=== PATIENT | female | born 1935 | race Caucasian/White ===

== ENCOUNTER 2017-07-13 13:11 | Inpatient (IN) ==
[2017-07-13] MEDS ORDERED: *HR* OxyCODONE/APAP 5/325 TABLET PO ONE ×2 (13:37→15:32)
--- NOTE | 2017-07-13 13:49 | Emergency Department Note ---
Disposition Clinical Impression: Hip pain, right, Elevated troponin Fall Qualifiers: Encounter type: initial encounter Qualified Code(s): W19.XXXA - Unspecified fall, initial encounter Hypertension Qualifiers: Hypertension type: unspecified Qualified Code(s): I10 - Essential (primary) hypertension Disposition: Admitted As Inpatient Condition: Fair Referrals: Eden Wells MD [Primary Care Provider] - Forms: ED Satisfaction Letter Time of Disposition: 15:35 Fall HPI - General Chief Complaint: ED Fall Stated Complaint: Fall Time Seen by Provider: 07/13/17 13:18 Source: patient, EMS Mode of arrival: ambulatory Limitations: no limitations Nursing Notes Reviewed: Yes Vital Signs Reviewed: Yes - History of Present Illness HPI Narrative: 81-year-old female percent for evaluation after a fall. Patient states she fell couple days ago. States that the pain has persisted. No severe pain primarily on the right lower back and hip. Patient has been ambulatory following the fall. Patient states she is on a [place]. Patient denies any specific prodrome such as chest pain or shortness of breath. Patient states she does feel unsteady on her feet. Patient does not relate with the sense of a walker. Patient does live at home by herself. - Related Data Home Medications Medication Instructions Recorded Confirmed Albuterol Sulfate [Ventolin Hfa] 18 gm IH BID 06/12/15 06/12/15 Apixaban [Eliquis] 2.5 mg PO BID 06/12/15 06/12/15 Aspirin [Adult Low Dose Aspirin EC] 81 mg PO DAILY 06/12/15 06/12/15 Atorvastatin [Lipitor] 40 mg PO HS 06/12/15 06/12/15 Beclomethasone Diprop 80mcg [QVAR 1 puff BID 06/12/15 06/12/15 80 mcg] Fluticasone Propionate Nasal 16 gm NS DAILY 06/12/15 06/12/15 [Flonase] Fluticasone/Salmeterol [Advair 1 each IH BID 06/12/15 06/12/15 500-50 Diskus] Fluticasone/Salmeterol [Advair 1 each IH DAILY 06/12/15 06/12/15 500-50 Diskus] LORazepam [Ativan] 1 mg PO DAILY 06/12/15 06/12/15 Levalbuterol Neb [Xopenex Neb] 1.25 mg IH PRN PRN 06/12/15 06/12/15 Metoprolol [Lopressor] 50 mg PO BID 06/12/15 06/12/15 Nitroglycerin [Nitrostat] 0.4 mg SL PRN PRN 06/12/15 06/12/15 OxyCODONE/APAP 5/325 [Percocet 1 each PO ONCE 06/12/15 06/12/15 5/325 MG] Quinapril HCl [Accupril] 20 mg PO DAILY 06/12/15 06/12/15 Triamterene/HCTZ 75/50mg 1 tab PO DAILY 06/12/15 06/12/15 glipiZIDE [Glipizide] 10 mg PO DAILY 06/12/15 06/12/15 Previous Rx's Medication Instructions Recorded Cephalexin [Keflex] 500 mg PO QID #36 capsule 04/11/17 Furosemide [Lasix] 20 mg PO DAILY #4 tablet 04/11/17 Allergies Allergy/AdvReac Type Severity Reaction Status Date / Time codeine AdvReac Hallucinati Verified 06/12/15 15:48 ng morphine AdvReac Hallucinati Verified 06/12/15 15:48 ng All systems ED: reviewed and negative except as stated. Constitutional: Denies: fever Cardiovascular: Denies: chest pain Respiratory: Reports: cough Gastrointestinal: Denies: abdominal pain, nausea, vomiting Fall PMH - Past Medical History Medical history: Reports: arthritis, asthma, atrial fibrillation, diabetes, hyperlipidemia, hypertension, syncope, TIA Psychiatric history: Reports: anxiety - Social History Smoking Status: Never smoker Alcohol use: Reports: none Drug use: Reports: none Physical Exam - General Limitations: no limitations General appearance: alert, in no apparent distress - Head Head exam: atraumatic, normocephalic, normal inspection - Eye Eye exam: Present: normal appearance, PERRL, EOMI - ENT ENT exam: normal exam, normal oropharynx, mucous membranes moist - Neck Neck exam: Present: normal inspection, full ROM, trachea midline - Chest Chest inspection: Present: normal inspection, symmetric chest wall rise - Respiratory Respiratory exam: Present: normal lung sounds bilaterally. Absent: respiratory distress - Cardiovascular Cardiovascular exam: Present: regular rate. Absent: systolic murmur - Abdominal Exam Abdominal exam: Present: soft, Non-Tender - Extremities Exam Extremities exam: Present: normal inspection - Expanded Lower Extremity Exam Hip/Pelvis exam: Present: normal inspection, tenderness. Absent: swelling, ecchymosis Upper leg exam: Present: normal inspection Knee exam: Present: normal inspection. Absent: tenderness Lower leg exam: Present: normal inspection. Absent: tenderness Neurovascular/Tendon exam: Present: normal capillary refill - Back Exam Back exam: Present: normal inspection, tenderness (Tenderness on the right SI joint. No overlying erythema or ecchymosis.) - Neurological Exam Neurological exam: Present: alert, oriented X3 - Psychiatric Psychiatric exam: Present: normal affect, normal mood - Skin Skin exam: Present: warm, dry, intact, normal color Course Vital Signs Temperature 98 F 07/13/17 13:16 Pulse Rate 80 07/13/17 13:16 Respiratory Rate 20 07/13/17 13:16 Blood Pressure 201/89 07/13/17 13:16 O2 Sat by Pulse Oximetry 98 07/13/17 13:16 Temperature 98 F 07/13/17 13:16 Pulse Rate 65 07/13/17 15:14 Respiratory Rate 18 07/13/17 15:14 Blood Pressure 199/83 07/13/17 15:14 O2 Sat by Pulse Oximetry 97 07/13/17 15:14 Oxygen Delivery Oxygen Delivery Room Air Fall - [facility] Narrative Medical decision making narrative: 81-year-old female transfer evaluation of fall and right hip back pain. Patient had imaging which showed no acute abnormalities. Patient has been ambulatory on her hip for the past 2 days. Patient does ambulate with the sense of a walker. Patient had basic labs as well as chest x-ray EKG also obtained. Patient's urinalysis shows no signs of infection. Patient's labs are noted acute significant abnormalities. Patient pain was addressed with a lidocaine patch as well as oral medications. Patient will have social services aide evaluation the emergency department to see if there is any assistance that can be done at home. Disposition likely discharge to home with appropriate pain medication. Patient does have an elevated troponin with an isolated ST segment depression in V4. Patient is not anticoagulated with heparin is she is a blood thinner. Given the patient's recurrent falls on blood thinners was elevated troponin the patient will be admitted to the hospital service for further evaluation and management including PT OT evaluation and discharge planning. - Lab Data Lab results reviewed: Yes I reviewed the patient's lab results. Result diagrams: 07/13/17 14:05 07/13/17 14:05 Lab Results 07/13/17 07/13/17 07/13/17 Range/Units 14:03 14:05 14:05 WBC 8.4 (4.3-11.1) K/mcL RBC 4.53 (3.82-4.97) M/mcL Hgb 13.5 (11.5-15.4) g/dL Hct 42.3 (35.3-44.9) % MCV 93.4 (83.0-100.0) fL MCH 29.8 (28.0-33.3) pg MCHC 31.9 (31.6-35.5) g/dL RDW 13.5 (11.5-14.5) % Plt Count 184 (140-400) K/mcL MPV 10.3 (9.4-12.4) fL Immature Gran % 0.4 (0-4) % Seg Neutrophils % 72.4 % Lymphocytes % 18.6 % Monocytes % 7.7 % Eosinophils % 0.7 % Basophils % 0.2 % Neutrophils # 6.1 (1.6-8.9) K/mcL Lymphocytes # 1.6 (0.6-4.6) K/mcL Monocytes # 0.6 (0.0-1.3) K/mcL Eosinophils # 0.1 (0.0-0.6) K/mcL Basophils # 0.0 (0.0-0.2) K/mcL PT (9.4-12.1) Seconds INR Sodium 134 L (136-145) mEq/L Potassium 4.2 (3.5-5.1) mEq/L Chloride 101 (98-107) mEq/L Carbon Dioxide 23 (23-29) mEq/L BUN 23 (8-23) mg/dL Creatinine 1.10 (0.60-1.20) mg/dL Est GFR ( Amer) 57 L (> 60) Est GFR (Non-Af Amer) 47 L (> 60) BUN/Creatinine Ratio 21 (6-26) Glucose 209 H (70-105) mg/dL Calculated Osmolality 288 (280-300) Calcium 9.6 (8.6-10.3) mg/dL Troponin I (< 0.04) ng/mL Urine Color Yellow (Yellow) Urine Clarity Cloudy A (Clear) Urine pH 6.5 (5.0-8.0) pH Units Ur Specific [place] 1.010 (1.010-1.025) Urine Protein Trace (Neg-Trace) mg/dL Urine Glucose (UA) 250 H (Normal) mg/dL Urine Ketones Negative (Negative) mg/dL Urine Blood Moderate H (Negative) Urine Nitrite Negative (Negative) Urine Bilirubin Negative (Negative) Urine Urobilinogen Normal (Normal) mg/dL Ur Leukocyte Esterase Trace H (Negative) Urine Microscopic RBC 15-30 H (0-3) per hpf Urine Microscopic WBC 3-5 H (0-3) per hpf Ur Squamous Epith Cells Many H (None-Few) per lpf Urine Bacteria Few (None-Few) per hpf Hyaline Casts None Seen (None-Few) per lpf 07/13/17 07/13/17 Range/Units 14:08 14:08 WBC (4.3-11.1) K/mcL RBC (3.82-4.97) M/mcL Hgb (11.5-15.4) g/dL Hct (35.3-44.9) % MCV (83.0-100.0) fL MCH (28.0-33.3) pg MCHC (31.6-35.5) g/dL RDW (11.5-14.5) % Plt Count (140-400) K/mcL MPV (9.4-12.4) fL Immature Gran % (0-4) % Seg Neutrophils % % Lymphocytes % % Monocytes % % Eosinophils % % Basophils % % Neutrophils # (1.6-8.9) K/mcL Lymphocytes # (0.6-4.6) K/mcL Monocytes # (0.0-1.3) K/mcL Eosinophils # (0.0-0.6) K/mcL Basophils # (0.0-0.2) K/mcL PT 12.4 H (9.4-12.1) Seconds INR 1.1 Sodium (136-145) mEq/L Potassium (3.5-5.1) mEq/L Chloride (98-107) mEq/L Carbon Dioxide (23-29) mEq/L BUN (8-23) mg/dL Creatinine (0.60-1.20) mg/dL Est GFR ( Amer) (> 60) Est GFR (Non-Af Amer) (> 60) BUN/Creatinine Ratio (6-26) Glucose (70-105) mg/dL Calculated Osmolality (280-300) Calcium (8.6-10.3) mg/dL Troponin I 0.04 H* (< 0.04) ng/mL Urine Color (Yellow) Urine Clarity (Clear) Urine pH (5.0-8.0) pH Units Ur Specific [place] (1.010-1.025) Urine Protein (Neg-Trace) mg/dL Urine Glucose (UA) (Normal) mg/dL Urine Ketones (Negative) mg/dL Urine Blood (Negative) Urine Nitrite (Negative) Urine Bilirubin (Negative) Urine Urobilinogen (Normal) mg/dL Ur Leukocyte Esterase (Negative) Urine Microscopic RBC (0-3) per hpf Urine Microscopic WBC (0-3) per hpf Ur Squamous Epith Cells (None-Few) per lpf Urine Bacteria (None-Few) per hpf Hyaline Casts (None-Few) per lpf - Radiology Data Radiology results reviewed: Yes I reviewed the patient's radiology results. Cervical Spine CT 07/13/17 13:37 IMPRESSION: No acute cervical spine fracture. Grade 1 anterolisthesis of C3 on C4 and C4 on C5 is presumably degenerative given advanced facet arthrosis and degenerative disc height loss at these levels and no prevertebral soft tissue swelling. Status post C5-C6 ACDF. Surgical hardware appears intact. D/ / Hardik Pearson / Hardik Pearson Interpreting Provider: Hardik Pearson Head CT 07/13/17 13:37 IMPRESSION: No acute intracranial abnormality. D/ / Elena Leslie MD / Elena Leslie MD Interpreting Provider: Elena Leslie MD Hip X-Ray 07/13/17 13:38 IMPRESSION: No acute displaced fracture. RECOMMENDATIONS: Given the degree of osteopenia, nondisplaced fractures may be radiographically occult. If pain or concern for fracture persists, consider MR imaging. D/ / Arnaldo Daly MD / Arnaldo Daly MD Interpreting Provider: Arnaldo Daly MD Lumbar Spine X-Ray 07/13/17 13:38 IMPRESSION: 1. Postsurgical changes of lumbar fusion with no evidence for hardware complication or failure. 2. The bones are osteopenic. Within limits of this exam no acute fracture identified. 3. Multilevel spondylosis of the visualized spine. 4. Atherosclerotic disease. D/ / Lukas Angel MD / Lukas Angel MD Interpreting Provider: Lukas Angel MD Chest X-Ray 07/13/17 13:48 IMPRESSION: Stable exam without evidence for acute cardiopulmonary process. Stable cardiomegaly. D/ / 07/13/2017 14:56:35 Benja Cyr MD / fartun Interpreting Provider: Benja Cyr MD - EKG Data EKG attestation: Yes I reviewed and interpreted this EKG. EKG results narrative: Electronic atrial pacemaker Rate: normal ST segment depression in: v4 T wave inversions noted in: v4, v5, v6 Ectopy: PVC When compared to previous EKG there are: changes noted Interpretation: nonspecific ST-T wave changes S.B.A.RHuber - Yomaira.B.AVinh Situation: Demographics Background: Presenting Complaint Assessment: Vital Signs, Patient/Family Expectation Recommendation: Barrier(s) to disposition, Recommendation based on pending studies, treatments, or consults S.B.A.RHuber Report Given to: Dr. Ines Campbell Repor Time: 16:11 Attestation Statement - Attestation Attestation: I examined this patient and my medical decision-making was reviewed with the Resident Physician. I agree with the documented findings, disposition and treatment plan as described except to the extent set forth below. Patient presents to the ED after a fall. Patient mechanical fall 3 days ago. States she has pain in her back and her hip. She did walking with her walker. No loss of consciousness. She is awake alert and appropriate on examination. She is able to stand and ambulate from wheelchair to the bed. Tenderness over the lower lumbar spine around the SI joint. Full range of motion of the hip. Plan. The patient feels better after lidocaine patch was placed. Imaging is unremarkable for any acute fractures. She is able ambulating on the hip so do not believe she needs any further imaging at this time. She will be admitted for her positive troponin. Also safety concerns as the patient lives home alone.
[2017-07-13 14:18] LABS: Bilirubin,Urine Negative (Negative); Blood,Urine Moderate (Negative); Clarity,Urine Cloudy (Clear); Color,Urine Yellow (Yellow); Glucose,Urine (UA) 250 mg/dL (Normal); Ketones,Urine Negative (Negative); Leukocyte Esterase,Urine Trace (Negative); Nitrite,Urine Negative (Negative); PH,Urine 6.5 pH Units (5.0-8.0); Protein,Urine Trace mg/dL (Neg-Trace); Urobilinogen,Urine Normal (Normal)
[2017-07-13 14:25] LABS: Bacteria,Urine Few per hpf (None-Few); Hyaline Casts,Urine None Seen per lpf (None-Few); RBC,Urine 15-30 per hpf (0-3); Squamous Epithelial Cell,Urine Many per lpf (None-Few)
[2017-07-13 14:52] LABS: Basophils % 0.2 %; Eosinophils # 0.1 K/mcL (0.0-0.6); Eosinophils % 0.7 %; Hematocrit 42.3 % (35.3-44.9); Hemoglobin 13.5 g/dL (11.5-15.4); Immature Granulocytes % 0.4 % (0-4); Lymphocytes # 1.6 K/mcL (0.6-4.6); Lymphocytes % 18.6 %; Mean Corpuscular HGB Conc 31.9 g/dL (31.6-35.5); Mean Corpuscular Hemoglobin 29.8 pg (28.0-33.3); Mean Corpuscular Volume 93.4 fL (83.0-100.0); Mean Platelet Volume 10.3 fL (9.4-12.4); Monocytes # 0.6 K/mcL (0.0-1.3); Monocytes % 7.7 %; Neutrophils # 6.1 K/mcL (1.6-8.9); Platelet Count 184 K/mcL (140-400); Red Blood Count 4.53 M/mcL (3.82-4.97); Red Cell Distribution Width 13.5 % (11.5-14.5); Segmented Neutrophils % 72.4 %
[2017-07-13 15:04] LABS: INR 1.1; Prothrombin Time 12.4 Seconds (9.4-12.1)
[2017-07-13 15:18] LABS: Calcium 9.6 mg/dL (8.6-10.3); Potassium 4.2 mEq/L (3.5-5.1)
[2017-07-13] MEDS ORDERED: Aspirin 81 MG TAB.CHEW PO ONE (15:42)
[2017-07-13] MEDS ORDERED: Nitroglycerin 1 INCH/GM PACKET TP ONE (15:44)
[2017-07-13] MEDS ORDERED: *HR* Metoprolol 5 MG/5 ML VIAL IVP ONE (16:30)
--- NOTE | 2017-07-13 17:25 | Internal Med History&Physical ---
Date of Encounter: 07/13/17 Time of Encounter: 17:22 Assessment and Plan (1) Diabetes 1.5, managed as type 2 Current visit: Yes Status: Chronic Chronic resume home medication and place on sliding scale (2) Obesity Current visit: Yes Status: Chronic Qualifiers: Obesity type: due to excess calories Obesity classification: unspecified obesity classification Serious obesity comorbidity presence: unspecified whether serious comorbidity present Qualified Code(s): E66.09 - Other obesity due to excess calories (3) Hyperlipidemia Current visit: Yes Status: Chronic Chronic Qualifiers: Hyperlipidemia type: pure hypercholesterolemia Qualified Code(s): E78.00 - Pure hypercholesterolemia, unspecified; E78.0 - Pure hypercholesterolemia (4) Atrial fibrillation Current visit: Yes Status: Acute Paced rhythm Qualifiers: Atrial fibrillation type: chronic Qualified Code(s): I48.2 - Chronic atrial fibrillation (5) Elevated troponin Current visit: Yes Status: Acute (6) Fall Current visit: Yes Status: Acute *[place] accidental fall no syncope no loss of consciousness artery x-ray shows no fracture Qualifiers: Encounter type: initial encounter Qualified Code(s): W19.XXXA - Unspecified fall, initial encounter (7) Hip pain, right Current visit: Yes Status: Acute He pain likely due to sprain or strain no fracture noted we will control pain (8) Hypertension Current visit: Yes Status: Chronic Chronic and well controlled Qualifiers: Hypertension type: essential hypertension Qualified Code(s): I10 - Essential (primary) hypertension Internal Medicine - H&P: HPI Chief complaint: s/p fall Admitted From: Emergency Dept Plans for Post Hospital Care: Home History of present illness: Ms. Gupta is a 81 year old female Patient with history of arthritis, asthma, atrial fibrillation, diabetes, high cholesterol, hypertension, rhinitis syncope and TIA. Patient apparently fell at home 2 days ago and sustained low back pain patient came into the emergency room due to persistent low back pain for about 2 days also some unsteady gait on ambulation no chest pain no shortness of breath emergency room images showed no fracture on evaluation troponin was 0.04 patient would then admitted. Physical therapy and troponin trend she denies any chest pain no shortness of breath no palpitation some. Past Med Surg Social Fam HX - Past Medical History Medical history: arthritis, asthma, atrial fibrillation, diabetes, hyperlipidemia, hypertension, syncope, TIA Psychiatric history: anxiety - Social History Smoking Status: Never smoker Smokeless Tobacco Status: No Alcohol use: none Drug use: none Internal Medicine - H&P: Meds Albuterol Sulfate [Ventolin Hfa] 18 gm IH BID 06/12/15 [History] Apixaban [Eliquis] 2.5 mg PO BID 06/12/15 [History] Aspirin [Adult Low Dose Aspirin EC] 81 mg PO DAILY 06/12/15 [History] Atorvastatin [Lipitor] 40 mg PO HS 06/12/15 [History] Beclomethasone Diprop 80mcg [QVAR 80 mcg] 1 puff BID 06/12/15 [History] Fluticasone/Salmeterol [Advair 500-50 Diskus] 1 each IH DAILY 06/12/15 [History] LORazepam [Ativan] 1 mg PO DAILY 06/12/15 [History] Levalbuterol Neb [Xopenex Neb] 1.25 mg IH PRN PRN 06/12/15 [History] Metoprolol [Lopressor] 50 mg PO BID 06/12/15 [History] Nitroglycerin [Nitrostat] 0.4 mg SL PRN PRN 06/12/15 [History] OxyCODONE/APAP 5/325 [Percocet 5/325 MG] 1 each PO ONCE 06/12/15 [History] Quinapril HCl [Accupril] 20 mg PO DAILY 06/12/15 [History] Triamterene/Hydrochlorothiazid [Triamterene-Hctz 75-50 mg Tab] 1 tab PO DAILY [History] glipiZIDE [Glipizide] 10 mg PO DAILY 06/12/15 [History] 3 Allergy/AdvReac Type Severity Reaction Status Date / Time codeine AdvReac Hallucinati Verified 06/12/15 15:48 ng morphine AdvReac Hallucinati Verified 06/12/15 15:48 ng All Systems PM: A 10-system review of systems was performed and is negative for pertinent findings except as documented above in the HPI. - Constitutional Constitutional: falls - EENT Eyes: no change in vision, no discharge, no pain, no photophobia Ears: no ear discharge, no ear pain, no tinnitus Nose, mouth and throat: no dysphagia, no nasal discharge, no neck pain, no sore throat - Cardiovascular Cardiovascular ROS IM: no chest pain, no diaphoresis, no dyspnea, no lightheadedness, no palpitations, no syncope - Respiratory Respiratory: no cough, no dyspnea, no wheezing, no excessive phlegm production - Gastrointestinal Gastrointestinal: no abdominal pain, no diarrhea, no hematemesis, no hematochezia, no melena, no nausea, no vomiting - Genitourinary Genitourinary: no change in urinary stream, no dysuria, no flank pain, no hematuria - Musculoskeletal Musculoskeletal ROS IM: no numbness, no tingling - Integumentary Integumentary IM: no rash, no unusual bruising - Constitutional Vitals: Temp Pulse Resp BP Pulse Ox 98 F 61 16 142/67 96 07/13/17 13:16 07/13/17 16:53 07/13/17 16:53 07/13/17 16:53 07/13/17 16:53 - Eye Eye exam: Present: PERRL, conjuntiva pink, sclera anicteric Pupils: Present: PERRL - Neck Neck exam general surgery: Present: supple, trachea midline. Absent: lymphadenopathy - Respiratory Respiratory exam: Present: CTAB. Absent: accessory muscle use, rales, rhonchi, wheezes - Cardiovascular Cardiovascular exam: Present: RRR, +S1, +S2. Absent: diastolic murmur, gallop, rubs, systolic murmur Internal Med - H&P Results - Labs CBC & Chem 7: 07/13/17 14:05 07/13/17 14:05
[2017-07-13] MEDS ORDERED: Naloxone 0.4 MG/ML INJ IVP PRN (17:31)
[2017-07-13] MEDS: Nitroglycerin 0.4 MG TAB.SUBL SL SCH (20:25)
[2017-07-13] MEDS: 0.9 % Sodium Chloride 1,000 ML IVC SCH (20:26)
[2017-07-13] MEDS: Apixaban 2.5 MG TABLET PO SCH (20:28)
[2017-07-13] MEDS: Ketorolac 30 MG/ML VIAL IVP PRN (22:16)
[2017-07-14] MEDS: Ketorolac 30 MG/ML VIAL IVP PRN (05:21)
[2017-07-14 06:45] LABS: Calcium 8.7 mg/dL (8.6-10.3); Magnesium 1.4 mg/dL (1.6-2.6); Potassium 4.3 mEq/L (3.5-5.1)
--- NOTE | 2017-07-14 06:50 | Event Note ---
Date of Encounter: 07/14/17 Time of Encounter: 06:45 I was called by patient's RN and informed that patient had a fall. This lady was hospitalized during the day shift. The reason for hospitalization was workup in terms of recurrent fall. Patient's vital parameters were stable Patient was alert and oriented 3 Patient was able to tell me the entire incidence. There was no loss of consciousness. Noted that patient has a lacerated wound over her scalp above her right ear. Compression bandage applied. There is no active blood flow noted. Patient was sent for imaging and I personally reviewed all the imaging results. There is no obvious fractures/intracranial bleed. Plan: After the initial stabilization from this episode. patient needs suturing of lacerated wound. will inform day team.
[2017-07-14] MEDS: Apixaban 2.5 MG TABLET PO SCH ×2 (08:02→22:12)
[2017-07-14] MEDS: Lisinopril 20 MG TABLET PO SCH (08:02)
[2017-07-14] MEDS: *HR* LORazepam 1 MG TABLET PO SCH (08:02)
[2017-07-14] MEDS: *HR* GlipiZIDE 5 MG TABLET PO SCH (08:02)
[2017-07-14] MEDS: Aspirin Enteric Coated 81 MG Tablet PO SCH (08:02)
[2017-07-14] MEDS: traMADol 50 MG TABLET PO PRN ×2 (08:11→22:15)
[2017-07-14] MEDS ORDERED: Budesonide/Formoterol 160/4.5 MDI IH SCH (10:00)
--- NOTE | 2017-07-14 10:37 | Internal Med Progress Note ---
Date of Encounter: 07/14/17 Time of Encounter: 10:35 - Assessment and plan (1) Diabetes 1.5, managed as type 2 Current Visit: Yes Status: Chronic Assessment and plan: Chronic continue current sliding scale (2) Obesity Current Visit: Yes Status: Chronic Assessment and plan: Chronic Qualifiers: Obesity type: due to excess calories Obesity classification: unspecified obesity classification Serious obesity comorbidity presence: unspecified whether serious comorbidity present Qualified Code(s): E66.09 - Other obesity due to excess calories (3) Hyperlipidemia Current Visit: Yes Status: Chronic Qualifiers: Hyperlipidemia type: pure hypercholesterolemia Qualified Code(s): E78.00 - Pure hypercholesterolemia, unspecified; E78.0 - Pure hypercholesterolemia (4) Atrial fibrillation Current Visit: Yes Status: Acute Assessment and plan: Chronic rate well controlled Qualifiers: Atrial fibrillation type: chronic Qualified Code(s): I48.2 - Chronic atrial fibrillation (5) Elevated troponin Current Visit: Yes Status: Acute Assessment and plan: Mild elevated troponin not consistent with hSTEMI troponin has trended down (6) Fall Current Visit: Yes Status: Acute Assessment and plan: Recurrent fall patient apparently fell again this morning in her room and sustained a laceration or consult surgery for suture Qualifiers: Encounter type: initial encounter Qualified Code(s): W19.XXXA - Unspecified fall, initial encounter (7) Hip pain, right Current Visit: Yes Status: Acute Assessment and plan: Patient had back x-ray shows no fracture (8) Hypertension Current Visit: Yes Status: Chronic Assessment and plan: Chronic and uncontrolled probably due to pain will adjust medications Qualifiers: Hypertension type: essential hypertension Qualified Code(s): I10 - Essential (primary) hypertension - Subjective Interval history: Patient admitted due to recurrent falls apparently patient fell in her room this morning and sustained laceration on scalp seen by hospitalist imaging was unremarkable no [employer] bleeding no new complaint except for pain in her back that she is concerned about - Constitutional Vitals: Temp Pulse Resp BP Pulse Ox 97.4 F L 72 16 160/76 96 07/14/17 07:34 07/14/17 07:34 07/14/17 07:34 07/14/17 07:34 07/14/17 07:34 General appearance: Present: A&O X 3 - Head Additional comments: laceration of scalp - Eye Eye exam: Present: PERRL, conjuntiva pink, sclera anicteric Pupils: Present: PERRL - Neck Neck exam general surgery: Present: supple, trachea midline. Absent: lymphadenopathy - Respiratory Respiratory exam: Present: CTAB. Absent: accessory muscle use, rales, rhonchi, wheezes - Cardiovascular Cardiovascular exam: Present: RRR, +S1, +S2. Absent: diastolic murmur, gallop, rubs, systolic murmur - GI/Abdominal GI/Abdominal exam: Present: normal bowel sounds, soft, no peritoneal signs. Absent: distended, tenderness Internal Medicine: Result - Labs CBC & Chem 7: 07/13/17 14:05 07/14/17 05:43 Labs: BMP 07/14/17 05:43 Sodium 134 L Potassium 4.3 Chloride 103 Carbon Dioxide 22 L BUN 31 H Creatinine 1.22 H Glucose 185 H Calcium 8.7 Cardiac Enzymes 07/14/17 Range/Units 05:43 Troponin I < 0.03 (< 0.04) ng/mL - ABG Interpretation ABG results: PT/INR, D-dimer PT 12.4 Seconds (9.4-12.1) H 07/13/17 14:08 - Impressions Impressions Head CT 07/14/17 04:22 IMPRESSION: No acute intracranial hemorrhage or mass effect. D/ / Jules Syed MD / Jules Syed MD Interpreting Provider: Jules Syed MD Shoulder X-Ray 07/14/17 04:23 IMPRESSION: No acute osseous fracture, dislocation or hardware complication. D/ / Jacob Robles MD / Jacob Robles MD Interpreting Provider: Jacob Robles MD Shoulder X-Ray 07/14/17 04:23 IMPRESSION: Degenerative changes of the glenohumeral and acromioclavicular joint, with a high riding humeral head suggestive of chronic rotator cuff tear. D/ / Jacob Robles MD / Jacob Robles MD Interpreting Provider: Jacob Robles MD Hip/Pelvis X-Ray 07/14/17 04:25 IMPRESSION: Osteopenia, without acute osseous fracture. The degree of osteopenia limits detection for subtle fractures, which would be best assessed with MR imaging if clinically concerned. D/ / Jacob Robles MD / Jacob Robles MD Interpreting Provider: Jacob Robles MD Consult Discharge Plan - Plan Referrals: Eden Wells MD [Primary Care Provider] -
--- NOTE | 2017-07-14 12:41 | Event Note ---
<Lissy Wilburn - Last Filed: 07/14/17 13:36> Date of Encounter: 07/14/17 Time of Encounter: 11:00 Patient was evaluated at bedside. Examination of the right side of her scalp revealed dried blood. There was no evidence of laceration or current bleeding. A small area of minimally abraded skin was noted. No indication for any surgical intervention including suturing or adhesives. <Forrest Mart - Last Filed: 07/14/17 13:57> Date of Encounter: 07/14/17 I agree with the above assessment and plan.
--- NOTE | 2017-07-14 20:26 | Electrocardiograph Report ---
[place] [id number] Test Date: 2017-07-13 Pat Name: Glory Gupta Department: 104 Room: [facility] Gender: F Grain Origination Specialist: RIGOBERTO : 1935 Requested By: Tushar Camargo Order Number: [id number] Reading MD: Tawanda Burdick DO Measurements Intervals [place] Rate: 66 P: 8 MS: 338 QRS: 51 QRSD: 102 T: -54 QT: 363 QTc: 376 Interpretive Statements DEMAND ATRIAL AND VENTRICULAR PACEMAKER ST DEVIATION AND MODERATE T-WAVE ABNORMALITY, CONSIDER LATERAL ISCHEMIA ST DEVIATION AND MODERATE T-WAVE ABNORMALITY, CONSIDER INFERIOR ISCHEMIA Electronically Signed On 07-14-2017 20:25:22 EST by Tawanda Burdick DO
[2017-07-14] MEDS: Nitroglycerin 0.4 MG TAB.SUBL SL SCH (22:10)
[2017-07-15] MEDS: Ketorolac 30 MG/ML VIAL IVP PRN (02:29)
[2017-07-15 03:16] LABS: Hematocrit 35.9 % (35.3-44.9); Mean Corpuscular HGB Conc 31.5 g/dL (31.6-35.5); Mean Corpuscular Hemoglobin 29.9 pg (28.0-33.3); Mean Platelet Volume 10.7 fL (9.4-12.4); Platelet Count 151 K/mcL (140-400); Red Blood Count 3.78 M/mcL (3.82-4.97); Red Cell Distribution Width 13.7 % (11.5-14.5)
[2017-07-15 03:24] LABS: Hemoglobin 11.3 g/dL (11.5-15.4)
[2017-07-15 03:35] LABS: Calcium 8.8 mg/dL (8.6-10.3); Potassium 4.2 mEq/L (3.5-5.1)
--- NOTE | 2017-07-15 08:54 | Internal Med Progress Note ---
Date of Encounter: 07/15/17 Time of Encounter: 08:50 - Assessment and plan (1) Fall Current Visit: Yes Status: Acute Assessment and plan: Recurrent fall at home, and fell on 07/14 in her room and sustained a laceration , surgey consulted, no need for sutures. patient denies dizziness, LOC, no chest pain and SOB Plan ECF placement pending PT and OT she lives at home alone Qualifiers: Encounter type: initial encounter Qualified Code(s): W19.XXXA - Unspecified fall, initial encounter (2) Elevated troponin Current Visit: Yes Status: Acute Assessment and plan: Mild elevated troponin not consistent with STEMI troponin has trended down she denies chest pain and SOB, TTE on 07/13 showed normal LV size and function, mild eccentric left ventricular hypertrophy and diastolic dysfunction. Mild aortic regurgitation and mild aortic stenosis and mild mitral regurgitation no pulmonary hypertension (3) DM type 2 (diabetes mellitus, type 2) Current Visit: Yes Status: Acute Assessment and plan: continue glipizide, add SSI Qualifiers: Diabetes mellitus complication status: with neurologic complications Diabetes mellitus complication detail: with polyneuropathy Diabetes mellitus intermediate designer insulin use: without intermediate designer use Qualified Code(s): E11.42 - Type 2 diabetes mellitus with diabetic polyneuropathy (4) Hip pain, right Current Visit: Yes Status: Acute Assessment and plan: Patient had back x-ray shows no fracture (5) Hypertension Current Visit: Yes Status: Chronic Assessment and plan: continue home lisinopril and diretics Qualifiers: Hypertension type: essential hypertension Qualified Code(s): I10 - Essential (primary) hypertension (6) Obesity Current Visit: Yes Status: Chronic Assessment and plan: Chronic, life stye modification discussed Qualifiers: Obesity type: due to excess calories Obesity classification: unspecified obesity classification Serious obesity comorbidity presence: unspecified whether serious comorbidity present Qualified Code(s): E66.09 - Other obesity due to excess calories (7) Hyperlipidemia Current Visit: Yes Status: Chronic Assessment and plan: contineu home meds Qualifiers: Hyperlipidemia type: pure hypercholesterolemia Qualified Code(s): E78.00 - Pure hypercholesterolemia, unspecified; E78.0 - Pure hypercholesterolemia (8) Atrial fibrillation Current Visit: Yes Status: Acute Assessment and plan: Chronic rate well controlled, on Eliquis Qualifiers: Atrial fibrillation type: chronic Qualified Code(s): I48.2 - Chronic atrial fibrillation - Time Spent With Patient 25 - 35 minutes - Subjective Interval history: Ms. Gupta is a 81 year old female Patient with history of arthritis, asthma, atrial fibrillation, diabetes, high cholesterol, hypertension, rhinitis syncope and TIA. Patient apparently fell at home 2 days ago and sustained low back pain patient came into the emergency room due to persistent low back pain for about 2 days also some unsteady gait on ambulation. she denies chest pain and LOC during fall, She has some shortness of breath with mild exertion, In emergency room images showed no fracture on evaluation troponin was 0.04, follow up trop was < 0.03. Patient fell again after admission, she said she lost of balance when walking, denies chest pain and dizziness - Constitutional Vitals: Temp Pulse Resp BP Pulse Ox 97.4 F L 69 15 114/74 97 07/15/17 07:24 07/15/17 07:24 07/15/17 07:24 07/15/17 07:24 07/15/17 07:24 General appearance: Present: A&O X 3, morbidly obese Exam: CONSTITUTIONAL: patient appears as an age appropriate female in no acute distress. EYES Clear sclerae, bilateral pupils are equal, reactive to light. EMOI. RESPIRATORY: No accessory muscle use, bilateral clear to auscultation, no wheezing, no crackles/rales. CARDIOVASCULAR: Regular heart rate, normal S1 and S2, no murmurs GASTROINTESTINAL: bowel sounds present, soft, no tenderness. MUSCULOSKELETAL: Joints in normal range of motion, no clubbing, no edema, no cyanosis. Bilateral peripheral pulses 2+. NEUROLOGIC: CN II to XII are grossly intact, no focal neurological deficit. Internal Medicine: Result - Labs CBC & Chem 7: 07/15/17 02:21 07/15/17 02:21 Labs: Short CBC 07/15/17 Range/Units 02:21 WBC 8.2 (4.3-11.1) K/mcL Hgb 11.3 L D (11.5-15.4) g/dL Hct 35.9 (35.3-44.9) % Plt Count 151 (140-400) K/mcL BMP 07/15/17 02:21 Sodium 133 L Potassium 4.2 Chloride 103 Carbon Dioxide 21 L BUN 33 H Creatinine 1.30 H Glucose 143 H Calcium 8.8 - ABG Interpretation ABG results: PT/INR, D-dimer PT 12.4 Seconds (9.4-12.1) H 07/13/17 14:08 - Impressions Impressions Echocardiogram 07/13/17 17:36 Impressions: Technically sub-optimal due to clinical status. Patient unable to complete the examination due to back pain. LVEF 60%. Normal LV chamber size and function. Mild concentric left ventricular hypertrophy. Indeterminate diastolic function. Atypical septal motion consistent with bundle branch block. Normal right ventricular structure and function. Moderately calcified aortic valve leaflets. Mild aortic regurgitation. Mild aortic stenosis. mean gradient 12 mmHg. Mild mitral regurgitation. No pulmonary hypertension. Left Ventricular Wall Motion: Rest Echo Findings All wall segments showed normal motion. Findings: Study Quality * Technically sub-optimal due to clinical status. Patient unable to complete the examination due to back pain. ECG Findings * Difficult to determine rhythm. Bundle branch block noted, possibly paced. Left Ventricle * LVEF 60%. * Normal LV chamber size and function. * Mild concentric left ventricular hypertrophy. * Indeterminate diastolic function. * Atypical septal motion consistent with bundle branch block. Right Ventricle * Normal right ventricular structure and function. Left Atrium * Moderate to severely dilated left atrium. Right Atrium * Mildly dilated right atrium. Interatrial Septum * Interatrial septum not well evaluated. Aortic Valve * Trileaflet aortic valve. * Moderately calcified aortic valve leaflets. * Mild aortic regurgitation. * Mild aortic stenosis. mean gradient 12 mmHg. Mitral Valve * No mitral stenosis. * Normal mitral valve structure. * Mild mitral regurgitation. Tricuspid Valve * Normal tricuspid valve structure. * Mild tricuspid regurgitation. * No pulmonary hypertension. Pulmonic Valve * Normal pulmonic valve structure and function. * No pulmonic regurgitation. Aorta * Normally sized aortic root. Pericardium * The pericardium appears normal. IVC * The IVC is not well evaluated. Pulmonary Artery * Normal visualized portions of the main pulmonary artery. Device lead * Possible device lead noted. Consult Discharge Plan - Plan Referrals: Eden Wells MD [Primary Care Provider] -
[2017-07-15] MEDS: 0.9 % Sodium Chloride 1,000 ML IVC SCH (09:09)
[2017-07-15] MEDS: *HR* OxyCODONE/APAP 5/325 TABLET PO SCH (09:09)
[2017-07-15] MEDS: Lisinopril 20 MG TABLET PO SCH (09:18)
[2017-07-15] MEDS: *HR* LORazepam 1 MG TABLET PO SCH (09:18)
[2017-07-15] MEDS: *HR* GlipiZIDE 5 MG TABLET PO SCH (09:18)
[2017-07-15] MEDS: Apixaban 2.5 MG TABLET PO SCH ×2 (09:18→21:30)
[2017-07-15] MEDS: Aspirin Enteric Coated 81 MG Tablet PO SCH (09:18)
[2017-07-15] MEDS: Insulin LISPRO 300 UNITS/3 ML VIAL SQ SCH ×2 (12:13→17:28)
[2017-07-15] MEDS: Acetaminophen 325 MG TABLET PO PRN ×2 (12:19→21:30)
[2017-07-15] MEDS: Nitroglycerin 0.4 MG TAB.SUBL SL SCH (17:29)
[2017-07-15] MEDS: traMADol 50 MG TABLET PO PRN (21:30)
[2017-07-16] MEDS: Acetaminophen 325 MG TABLET PO PRN (04:39)
[2017-07-16] MEDS: traMADol 50 MG TABLET PO PRN ×2 (04:39→14:47)
[2017-07-16 06:59] LABS: Calcium 8.6 mg/dL (8.6-10.3); Potassium 4.5 mEq/L (3.5-5.1)
[2017-07-16] MEDS: *HR* GlipiZIDE 5 MG TABLET PO SCH (09:01)
[2017-07-16] MEDS: *HR* LORazepam 1 MG TABLET PO SCH (09:01)
[2017-07-16] MEDS: Aspirin Enteric Coated 81 MG Tablet PO SCH (09:01)
[2017-07-16] MEDS: Apixaban 2.5 MG TABLET PO SCH ×2 (09:01→20:31)
[2017-07-16] MEDS: Insulin LISPRO 300 UNITS/3 ML VIAL SQ SCH ×3 (09:02→16:54)
--- NOTE | 2017-07-16 10:53 | Internal Med Progress Note ---
Date of Encounter: 07/16/17 Time of Encounter: 10:51 - Assessment and plan (1) Fall Current Visit: Yes Status: Acute Assessment and plan: Recurrent fall at home, and fell on 07/14 in her room and sustained a laceration , surgey consulted, no need for sutures. patient denies dizziness, LOC, no chest pain and SOB Plan ECF placement pending PT and OT she lives at home alone Qualifiers: Encounter type: initial encounter Qualified Code(s): W19.XXXA - Unspecified fall, initial encounter (2) Elevated troponin Current Visit: Yes Status: Acute Assessment and plan: Mild elevated troponin not consistent with STEMI troponin has trended down she denies chest pain and SOB, TTE on 07/13 showed normal LV size and function, mild eccentric left ventricular hypertrophy and diastolic dysfunction. Mild aortic regurgitation and mild aortic stenosis and mild mitral regurgitation no pulmonary hypertension (3) DM type 2 (diabetes mellitus, type 2) Current Visit: Yes Status: Acute Assessment and plan: continue glipizide, add SSI Qualifiers: Diabetes mellitus complication status: with neurologic complications Diabetes mellitus complication detail: with polyneuropathy Diabetes mellitus middle or intermediate school principal insulin use: without middle or intermediate school principal use Qualified Code(s): E11.42 - Type 2 diabetes mellitus with diabetic polyneuropathy (4) Hip pain, right Current Visit: Yes Status: Acute Assessment and plan: Patient had back x-ray shows no fracture (5) Hypertension Current Visit: Yes Status: Chronic Assessment and plan: hold lisinopril and maxzide due to ARF and low BP Qualifiers: Hypertension type: essential hypertension Qualified Code(s): I10 - Essential (primary) hypertension (6) Obesity Current Visit: Yes Status: Chronic Assessment and plan: Chronic, life stye modification discussed Qualifiers: Obesity type: due to excess calories Obesity classification: unspecified obesity classification Serious obesity comorbidity presence: unspecified whether serious comorbidity present Qualified Code(s): E66.09 - Other obesity due to excess calories (7) Hyperlipidemia Current Visit: Yes Status: Chronic Assessment and plan: contineu home meds Qualifiers: Hyperlipidemia type: pure hypercholesterolemia Qualified Code(s): E78.00 - Pure hypercholesterolemia, unspecified; E78.0 - Pure hypercholesterolemia (8) Atrial fibrillation Current Visit: Yes Status: Acute Assessment and plan: Chronic rate well controlled, on Eliquis Qualifiers: Atrial fibrillation type: chronic Qualified Code(s): I48.2 - Chronic atrial fibrillation - Time Spent With Patient 25 - 35 minutes - Subjective Interval history: Ms. Gupta is a 81 year old female Patient with history of arthritis, asthma, atrial fibrillation, diabetes, high cholesterol, hypertension, rhinitis syncope and TIA. Patient apparently fell at home 2 days ago and sustained low back pain patient came into the emergency room due to persistent low back pain for about 2 days also some unsteady gait on ambulation. she denies chest pain and LOC during fall, She has some shortness of breath with mild exertion, In emergency room images showed no fracture on evaluation troponin was 0.04, follow up trop was < 0.03. Patient fell again after admission, she said she lost of balance when walking, denies chest pain and dizziness Patient is doing well, on room air denies shortness of breath, Acute renal failure, we will hold her lisinopril and Daxzide Give IV fluids 500 mL today Discharged to ECF tomorrow - Constitutional Vitals: Temp Pulse Resp BP Pulse Ox 98.0 F 58 16 110/63 94 07/16/17 06:00 07/16/17 06:00 07/16/17 06:00 07/16/17 06:00 07/16/17 09:00 General appearance: Present: A&O X 3, morbidly obese Exam: CONSTITUTIONAL: patient appears as an age appropriate female in no acute distress. EYES Clear sclerae, bilateral pupils are equal, reactive to light. EMOI. RESPIRATORY: No accessory muscle use, bilateral clear to auscultation, no wheezing, no crackles/rales. CARDIOVASCULAR: Regular heart rate, normal S1 and S2, no murmurs GASTROINTESTINAL: bowel sounds present, soft, no tenderness. MUSCULOSKELETAL: Joints in normal range of motion, no clubbing, no edema, no cyanosis. Bilateral peripheral pulses 2+. NEUROLOGIC: CN II to XII are grossly intact, no focal neurological deficit. Internal Medicine: Result - Labs CBC & Chem 7: 07/15/17 02:21 07/16/17 06:19 Labs: BMP 07/16/17 06:19 Sodium 132 L Potassium 4.5 Chloride 104 Carbon Dioxide 22 L BUN 38 H Creatinine 1.42 H Glucose 164 H Calcium 8.6 - ABG Interpretation ABG results: PT/INR, D-dimer PT 12.4 Seconds (9.4-12.1) H 07/13/17 14:08 Consult Discharge Plan - Plan Referrals: Eden Wells MD [Primary Care Provider] -
[2017-07-16] MEDS: 0.9 % Sodium Chloride 500 ML IVC SCH (12:32)
[2017-07-16] MEDS: Nitroglycerin 0.4 MG TAB.SUBL SL SCH (18:01)
[2017-07-16] MEDS: *HR* OxyCODONE/APAP 5/325 TABLET PO SCH (18:01)
[2017-07-17 05:43] LABS: Calcium 8.9 mg/dL (8.6-10.3); Potassium 4.4 mEq/L (3.5-5.1)
[2017-07-17] MEDS: 0.9 % Sodium Chloride 500 ML IVC SCH ×3 (09:15→09:18)
[2017-07-17] MEDS: *HR* LORazepam 1 MG TABLET PO SCH (09:18)
[2017-07-17] MEDS: Aspirin Enteric Coated 81 MG Tablet PO SCH (09:18)
[2017-07-17] MEDS: Apixaban 2.5 MG TABLET PO SCH ×2 (09:18→20:37)
[2017-07-17] MEDS: *HR* GlipiZIDE 5 MG TABLET PO SCH (09:18)
[2017-07-17] MEDS: Insulin LISPRO 300 UNITS/3 ML VIAL SQ SCH ×3 (09:19→19:19)
[2017-07-17] MEDS: traMADol 50 MG TABLET PO PRN ×2 (12:31→20:37)
--- NOTE | 2017-07-17 15:30 | Internal Med Progress Note ---
Date of Encounter: 07/17/17 Time of Encounter: 15:28 - Assessment and plan (1) Fall Current Visit: Yes Status: Acute Assessment and plan: Recurrent fall at home, and fell on 07/14 in her room and sustained a laceration , surgey consulted, no need for sutures. patient denies dizziness, LOC, no chest pain and SOB Plan ECF placement pending PT and OT she lives at home alone Qualifiers: Encounter type: initial encounter Qualified Code(s): W19.XXXA - Unspecified fall, initial encounter (2) Elevated troponin Current Visit: Yes Status: Acute Assessment and plan: Mild elevated troponin not consistent with STEMI troponin has trended down she denies chest pain and SOB, TTE on 07/13 showed normal LV size and function, mild eccentric left ventricular hypertrophy and diastolic dysfunction. Mild aortic regurgitation and mild aortic stenosis and mild mitral regurgitation no pulmonary hypertension (3) DM type 2 (diabetes mellitus, type 2) Current Visit: Yes Status: Acute Assessment and plan: continue glipizide, add SSI Qualifiers: Diabetes mellitus complication status: with neurologic complications Diabetes mellitus complication detail: with polyneuropathy Diabetes mellitus termite control servicer insulin use: without termite control servicer use Qualified Code(s): E11.42 - Type 2 diabetes mellitus with diabetic polyneuropathy (4) Hip pain, right Current Visit: Yes Status: Acute Assessment and plan: Patient had back x-ray shows no fracture (5) Hypertension Current Visit: Yes Status: Chronic Assessment and plan: hold lisinopril and maxzide due to ARF and low BP Qualifiers: Hypertension type: essential hypertension Qualified Code(s): I10 - Essential (primary) hypertension (6) Obesity Current Visit: Yes Status: Chronic Assessment and plan: Chronic, life stye modification discussed Qualifiers: Obesity type: due to excess calories Obesity classification: unspecified obesity classification Serious obesity comorbidity presence: unspecified whether serious comorbidity present Qualified Code(s): E66.09 - Other obesity due to excess calories (7) Hyperlipidemia Current Visit: Yes Status: Chronic Assessment and plan: contineu home meds Qualifiers: Hyperlipidemia type: pure hypercholesterolemia Qualified Code(s): E78.00 - Pure hypercholesterolemia, unspecified; E78.0 - Pure hypercholesterolemia (8) Atrial fibrillation Current Visit: Yes Status: Acute Assessment and plan: Chronic rate well controlled, on Eliquis Qualifiers: Atrial fibrillation type: chronic Qualified Code(s): I48.2 - Chronic atrial fibrillation - Subjective Interval history: Ms. Gupta is a 81 year old female Patient with history of arthritis, asthma, atrial fibrillation, diabetes, high cholesterol, hypertension, rhinitis syncope and TIA. Patient apparently fell at home 2 days ago and sustained low back pain patient came into the emergency room due to persistent low back pain for about 2 days also some unsteady gait on ambulation. she denies chest pain and LOC during fall, She has some shortness of breath with mild exertion, In emergency room images showed no fracture on evaluation troponin was 0.04, follow up trop was < 0.03. Patient fell again after admission, she said she lost of balance when walking, denies chest pain and dizziness Patient is doing well, on room air denies shortness of breath, Acute renal failure, Cr improved, hold her lisinopril and Daxzide Discharged to F , pending placement - Constitutional Vitals: Temp Pulse Resp BP Pulse Ox 98.8 F 79 16 133/68 96 07/17/17 10:15 07/17/17 10:15 07/17/17 10:15 07/17/17 10:15 07/17/17 10:15 General appearance: Present: A&O X 3, morbidly obese Exam: CONSTITUTIONAL: patient appears as an age appropriate female in no acute distress. EYES Clear sclerae, bilateral pupils are equal, reactive to light. EMOI. RESPIRATORY: No accessory muscle use, bilateral clear to auscultation, no wheezing, no crackles/rales. CARDIOVASCULAR: Regular heart rate, normal S1 and S2, no murmurs GASTROINTESTINAL: bowel sounds present, soft, no tenderness. MUSCULOSKELETAL: Joints in normal range of motion, no clubbing, no edema, no cyanosis. Bilateral peripheral pulses 2+. NEUROLOGIC: CN II to XII are grossly intact, no focal neurological deficit. Internal Medicine: Result - Labs CBC & Chem 7: 07/15/17 02:21 07/17/17 04:40 Labs: BMP 07/17/17 04:40 Sodium 136 Potassium 4.4 Chloride 103 Carbon Dioxide 25 BUN 34 H Creatinine 1.23 H Glucose 146 H Calcium 8.9 - ABG Interpretation ABG results: PT/INR, D-dimer PT 12.4 Seconds (9.4-12.1) H 07/13/17 14:08 Consult Discharge Plan - Plan Referrals: Eden Wells MD [Primary Care Provider] -
[2017-07-17] MEDS: Nitroglycerin 0.4 MG TAB.SUBL SL SCH (19:19)
[2017-07-17] MEDS: *HR* OxyCODONE/APAP 5/325 TABLET PO SCH (20:38)
[2017-07-18] MEDS: *HR* OxyCODONE/APAP 5/325 TABLET PO SCH (00:43)
[2017-07-18] MEDS: Acetaminophen 325 MG TABLET PO PRN (06:44)
[2017-07-18] MEDS ORDERED: *HR* Dextrose 50 % in Water (Syg) 50 ML SYRINGE IVP PRN (08:40)
[2017-07-18] MEDS ORDERED: Dextrose Gel 15 GM/37.5 ML TUBE PO PRN ×2 (08:40)
[2017-07-18] MEDS ORDERED: D5% in Water 1,000 ML IVC PRN (08:40)
[2017-07-18] MEDS: Insulin LISPRO 300 UNITS/3 ML VIAL SQ SCH ×4 (09:01→16:36)
[2017-07-18] MEDS: Apixaban 2.5 MG TABLET PO SCH ×2 (09:06→21:03)
[2017-07-18] MEDS: Aspirin Enteric Coated 81 MG Tablet PO SCH (09:07)
[2017-07-18] MEDS: *HR* LORazepam 1 MG TABLET PO SCH (09:07)
[2017-07-18] MEDS ORDERED: Nitroglycerin 0.4 MG TAB.SUBL SL PRN (15:29)
--- NOTE | 2017-07-18 16:10 | Internal Med Progress Note ---
Date of Encounter: 07/18/17 Time of Encounter: 09:20 - Assessment and plan (1) REGINA (acute kidney injury) Current Visit: Yes Status: Resolved Assessment and plan: Patient likely has chronic kidney disease. Serum creatinine was noted to be slightly worse during this admission, 1.42, now improving. Continue to monitor. (2) Atrial fibrillation Current Visit: Yes Status: Chronic Assessment and plan: Rate controlled. Continue aspirin, anticoagulation with Eliquis and rate control with beta chaim; Qualifiers: Atrial fibrillation type: chronic Qualified Code(s): I48.2 - Chronic atrial fibrillation (3) DM type 2 (diabetes mellitus, type 2) Current Visit: Yes Status: Chronic Assessment and plan: Blood sugars noted to be well controlled. We will hold oral hypoglycemics and start sliding scale insulin as needed. Continue Accu-Chek blood glucose monitoring. Diabetic diet. Qualifiers: Diabetes mellitus complication status: with neurologic complications Diabetes mellitus complication detail: with polyneuropathy Diabetes mellitus patient care director insulin use: without shelter use Qualified Code(s): E11.42 - Type 2 diabetes mellitus with diabetic polyneuropathy (4) Elevated troponin Current Visit: Yes Status: Resolved Assessment and plan: Mild troponin leak at admission likely due to demand ischemia and falls. Second set of troponin normal. (5) Fall Current Visit: Yes Status: Acute Assessment and plan: Physical and occupational therapy evaluation noted-recommended ECF placement. billing services manager on board, working on the same. Qualifiers: Encounter type: initial encounter Qualified Code(s): W19.XXXA - Unspecified fall, initial encounter (6) Hip pain, right Current Visit: Yes Status: Acute Assessment and plan: Secondary to mechanical fall due to generalized weakness. Continue supportive care for ecchymosis and subcutaneous hematoma. (7) Hyperlipidemia Current Visit: Yes Status: Chronic Qualifiers: Hyperlipidemia type: unspecified Qualified Code(s): E78.5 - Hyperlipidemia , unspecified (8) Hypertension Current Visit: Yes Status: Chronic Assessment and plan: Blood pressure noted to be fairly controlled. MINERVA inhibitor and diuretic are on hold due to acute kidney injury. Qualifiers: Hypertension type: essential hypertension Qualified Code(s): I10 - Essential (primary) hypertension (9) Obesity Current Visit: Yes Status: Chronic Qualifiers: Obesity type: due to excess calories Obesity classification: unspecified obesity classification Serious obesity comorbidity presence: unspecified whether serious comorbidity present Qualified Code(s): E66.09 - Other obesity due to excess calories (10) CKD (chronic kidney disease) Current Visit: Yes Status: Chronic Qualifiers: Chronic kidney disease stage: stage 3 (moderate) Qualified Code(s): N18.3 - Chronic kidney disease, stage 3 (moderate) - Subjective Interval history: Reports right buttock pain from fall and bruising; no chest pain, dyspnea, nausea, vomiting; awaiting rehab placement; - Constitutional Vitals: Temp Pulse Resp BP Pulse Ox 97.9 F 66 20 121/70 99 07/18/17 15:13 07/18/17 15:13 07/18/17 15:13 07/18/17 15:13 07/18/17 15:13 General appearance: Present: A&O X 3, obese, answers questions appropriately - Respiratory Respiratory exam: Present: CTAB. Absent: accessory muscle use, rales, rhonchi, wheezes - Cardiovascular Cardiovascular exam: Present: RRR, +S1, +S2. Absent: diastolic murmur, gallop, rubs, systolic murmur - GI/Abdominal GI/Abdominal exam: Present: normal bowel sounds, soft (obese), no peritoneal signs. Absent: distended, tenderness - Extremities Exam Extremities exam: Present: full ROM, warm, radial pulses palpable and symmetrical. Absent: calf tenderness, cyanotic, pedal edema Additional comments: tenderness and ecchymosis over right gluteal area - Neurological Exam Neurological exam: Present: CN II-XII intact, oriented X3, no focal deficits. Absent: pronater drift, facial droop, speech deficit Internal Medicine: Result - Labs CBC & Chem 7: 07/15/17 02:21 07/17/17 04:40 - ABG Interpretation ABG results: PT/INR, D-dimer PT 12.4 Seconds (9.4-12.1) H 07/13/17 14:08 Consult Discharge Plan - Plan Referrals: Eden Wells MD [Primary Care Provider] -
[2017-07-18] MEDS ORDERED: Insulin LISPRO 300 UNITS/3 ML VIAL SQ SCH (21:00)
[2017-07-18] MEDS: *HR* OxyCODONE/APAP 5/325 TABLET PO PRN (21:03)
[2017-07-19] MEDS: *HR* OxyCODONE/APAP 5/325 TABLET PO PRN ×2 (06:04→15:00)
[2017-07-19] MEDS: Apixaban 2.5 MG TABLET PO SCH (08:05)
[2017-07-19] MEDS: Insulin LISPRO 300 UNITS/3 ML VIAL SQ SCH ×2 (08:06→11:39)
[2017-07-19] MEDS: Aspirin Enteric Coated 81 MG Tablet PO SCH (08:06)
[2017-07-19] MEDS: *HR* LORazepam 1 MG TABLET PO SCH (08:06)
--- NOTE | 2017-07-19 12:56 | Discharge Summary ---
Date of Encounter: 07/19/17 Time of Encounter: 12:47 - Discharge Diagnosis (1) REGINA (acute kidney injury) Priority: Primary Status: Resolved (2) Atrial fibrillation Priority: Secondary Status: Chronic Qualifiers: Atrial fibrillation type: chronic Qualified Code(s): I48.2 - Chronic atrial fibrillation (3) DM type 2 (diabetes mellitus, type 2) Priority: Secondary Status: Chronic Qualifiers: Diabetes mellitus complication status: with neurologic complications Diabetes mellitus complication detail: with polyneuropathy Diabetes mellitus longterm insulin use: without termite control technician use Qualified Code(s): E11.42 - Type 2 diabetes mellitus with diabetic polyneuropathy (4) Elevated troponin Priority: Primary Status: Resolved (5) Fall Priority: Primary Status: Acute Qualifiers: Encounter type: initial encounter Qualified Code(s): W19.XXXA - Unspecified fall, initial encounter (6) Hip pain, right Priority: Primary Status: Acute (7) Hyperlipidemia Priority: Secondary Status: Chronic Qualifiers: Hyperlipidemia type: unspecified Qualified Code(s): E78.5 - Hyperlipidemia , unspecified (8) Hypertension Priority: Secondary Status: Chronic Qualifiers: Hypertension type: essential hypertension Qualified Code(s): I10 - Essential (primary) hypertension (9) Obesity Priority: Secondary Status: Chronic Qualifiers: Obesity type: due to excess calories Obesity classification: unspecified obesity classification Serious obesity comorbidity presence: unspecified whether serious comorbidity present Qualified Code(s): E66.09 - Other obesity due to excess calories (10) CKD (chronic kidney disease) Priority: Secondary Status: Chronic Qualifiers: Chronic kidney disease stage: stage 3 (moderate) Qualified Code(s): N18.3 - Chronic kidney disease, stage 3 (moderate) Hospital course: Ms. Gupta is a 81 year old female with the above medical problems, who was admitted after sustaining multiple falls at home. Initial labs, EKG and trauma evaluation showed no evidence of fractures. Patient also sustained another fall during her hospitalization and sustained a laceration on right scalp, surgery was consulted and required no suturing or adhesives. Patient was noted to have mild troponin leak at admission, which is likely demand ischemia. She troponins trended down to normal, she remained asymptomatic. TTE on 07/13 showed normal LV size and function, mild eccentric left ventricular hypertrophy and diastolic dysfunction. Mild aortic regurgitation and mild aortic stenosis and mild mitral regurgitation no pulmonary hypertension. She complained of right hip pain, no fracture or dislocation, noted to have some ecchymosis and subcutaneous hematoma, received supportive care. Physical and occupational therapy evaluation was completed, recommended ECF placement, she is currently medically stable for discharge for this transfer. Discharge discussed with: patient - Time Spent with Patient Total time spent providing and/or coordinating discharge services: Greater than 30 minutes (45 min) - Discharge Medications Home Medications: Albuterol Sulfate [Ventolin Hfa] 18 gm IH BID 06/12/15 [History] Apixaban [Eliquis] 2.5 mg PO BID 06/12/15 [History] Aspirin [Adult Low Dose Aspirin EC] 81 mg PO DAILY 06/12/15 [History] Atorvastatin [Lipitor] 40 mg PO HS 06/12/15 [History] Beclomethasone Diprop 80mcg [QVAR 80 mcg] 1 puff BID 06/12/15 [History] Fluticasone/Salmeterol [Advair 500-50 Diskus] 1 each IH DAILY 06/12/15 [History] LORazepam [Ativan] 1 mg PO DAILY 06/12/15 [History] Levalbuterol Neb [Xopenex Neb] 1.25 mg IH PRN PRN 06/12/15 [History] Metoprolol [Lopressor] 50 mg PO BID 06/12/15 [History] Nitroglycerin [Nitrostat] 0.4 mg SL PRN PRN 06/12/15 [History] OxyCODONE/APAP 5/325 [Percocet 5/325 MG] 1 each PO ONCE 06/12/15 [History] Quinapril HCl [Accupril] 20 mg PO DAILY 06/12/15 [History] Triamterene/Hydrochlorothiazid [Triamterene-Hctz 75-50 mg Tab] 1 tab PO DAILY [History] glipiZIDE [Glipizide] 10 mg PO DAILY 06/12/15 [History] Allergies/Adverse Reactions: 3 Allergy/AdvReac Type Severity Reaction Status Date / Time codeine AdvReac Hallucinati Verified 06/12/15 15:48 ng morphine AdvReac Hallucinati Verified 06/12/15 15:48 ng Date of admission: 07/16/17 16:13 Primary care physician: Eden Wells Consults: 07/18/17 10:25 Consult to High Lift Mule Operator [CONS] Routine Reason for SW Consult: needs placement and financial concerns Discharging clinician: Whitney Shin Anticipated date of discharge: 07/19/17 - Constitutional Vitals: Temp Pulse Resp BP Pulse Ox 98.9 F 79 18 133/67 96 07/19/17 10:30 07/19/17 10:30 07/19/17 10:30 07/19/17 10:30 07/19/17 10:30 General appearance: Present: A&O X 3, obese, answers questions appropriately - Cardiovascular Cardiovascular exam: Present: irregular rhythm, RRR, +S1, +S2. Absent: diastolic murmur, gallop, rubs, systolic murmur - Patient Status Disposition: Transfer SNF Condition: Fair Functional capacity at discharge: uses cane/walker Overall status at discharge: patient is progressing back to baseline - Discharge Instructions Instructions: Fall Prevention (DC) Follow Up With: Eden Wells MD [Primary Care Provider] - Additional Instructions: F/up with PCP in 1-2 weeks - Diet and Activity Activity: as per physical therapy Diet: diabetic diet, low fat, low cholesterol, low salt diet
--- NOTE | 2017-07-19 13:11 | Physician Discharge Referral ---
ExtendedCare Referral Info Transfer To: [facility] Provider in Charge: Whitney Shin Provider in Charge after Transfer: PCP Institutional Level of Care: Skilled - Diagnosis (1) REGINA (acute kidney injury) Priority: Primary Status: Resolved (2) Atrial fibrillation Priority: Secondary Status: Chronic (3) DM type 2 (diabetes mellitus, type 2) Priority: Secondary Status: Chronic (4) Elevated troponin Priority: Primary Status: Resolved (5) Fall Priority: Primary Status: Acute (6) Hip pain, right Priority: Primary Status: Acute (7) Hyperlipidemia Priority: Secondary Status: Chronic (8) Hypertension Priority: Secondary Status: Chronic (9) Obesity Priority: Secondary Status: Chronic (10) CKD (chronic kidney disease) Priority: Secondary Status: Chronic Expected Duration of Placement: 3 weeks Prognosis: Fair Aware of Diagnosis: Patient Aware of Prognosis: Patient - Transfer Medications Prescriptions: OxyCODONE/APAP 5/325 [Percocet 5/325 MG] 1 each PO Q8HR PRN 5 Days #10 tablet PRN Reason: Severe Pain LORazepam [Ativan] 1 mg PO DAILY 5 Days #5 tablet Home Medications: Albuterol Sulfate [Ventolin Hfa] 18 gm IH BID 06/12/15 [History] Apixaban [Eliquis] 2.5 mg PO BID 06/12/15 [History] Aspirin [Adult Low Dose Aspirin EC] 81 mg PO DAILY 06/12/15 [History] Atorvastatin [Lipitor] 40 mg PO HS 06/12/15 [History] Beclomethasone Diprop 80mcg [QVAR 80 mcg] 1 puff BID 06/12/15 [History] Fluticasone/Salmeterol [Advair 500-50 Diskus] 1 each IH DAILY 06/12/15 [History] Levalbuterol Neb [Xopenex Neb] 1.25 mg IH PRN PRN 06/12/15 [History] Metoprolol [Lopressor] 50 mg PO BID 06/12/15 [History] Nitroglycerin [Nitrostat] 0.4 mg SL PRN PRN 06/12/15 [History] Quinapril HCl [Accupril] 20 mg PO DAILY 06/12/15 [History] glipiZIDE [Glipizide] 10 mg PO DAILY 06/12/15 [History] LORazepam [Ativan] 1 mg PO DAILY 5 Days #5 tablet 03/07/18 [Rx] OxyCODONE/APAP 5/325 [Percocet 5/325 MG] 1 each PO Q8HR PRN 5 Days #10 tablet [Rx] Allergies/Adverse Reactions: 3 Allergy/AdvReac Type Severity Reaction Status Date / Time codeine AdvReac Hallucinati Verified 06/12/15 15:48 ng morphine AdvReac Hallucinati Verified 06/12/15 15:48 ng - Respiratory Orders Smoking Cessation: Smoking cessation has been advised. For more information, call the [place] Tobacco Quit Line at 1-013-LMZS-NOW. - Advance Directives Code Status: Full Code - Mobility Orders Ambulate - Rehabiliation Orders Rehab Potential: Good Rehab Orders: ROM Exercises, Evaluation for Physical Therapy, Evaluation for Occupational Therapy - Diet Orders No Concentrated Sweets (diabetic), Cardiac CERTIFICATION: I certify that the transfer of the above named patient to an Extended Care Facility is necessary for the continuing treatment of the diagnosis listed. The above information is true and accurate reflection of patient's current condition. Confidential - Redisclosure prohibited without a patient's written consent.
[2017-07-19 14:56] VITALS: BP 162/76
== END 2017-07-19 16:00 | DRG 683 ==
LOC: EMEROO 13:11 → 3NENU 13:11 → SUATTDRO 16:42 → 3NENU 17:07 → SUATTDRO 07-16 16:13 → 2ANU 07-17 15:26
PROVIDERS: ADMIT Internal Medicine; ATTEND Internal Medicine

== ENCOUNTER 2017-08-02 15:25 | Observation (INO) ==
--- NOTE | 2017-08-02 15:28 | Emergency Department Note ---
Disposition Clinical Impression: Inability to ambulate due to multiple joints, Generalized weakness, Unsteady gait, Frequent falls, Exertional dyspnea, Multiple contusions, Laceration of right elbow without complication Disposition: Admitted As Inpatient Condition: Good General Adult HPI - General Chief complaint: ED Fall Stated complaint: Fall Time Seen by Provider: 08/02/17 15:27 - Related Data Home Medications Medication Instructions Recorded Confirmed Albuterol Sulfate [Ventolin Hfa] 2 puff IH Q4H PRN 06/12/15 08/02/17 Apixaban [Eliquis] 2.5 mg PO BID 06/12/15 08/02/17 Aspirin [Adult Low Dose Aspirin EC] 81 mg PO DAILY 06/12/15 08/02/17 Atorvastatin [Lipitor] 40 mg PO HS 06/12/15 08/02/17 Levalbuterol Neb [Xopenex Neb] 1.25 mg IH TID PRN 06/12/15 08/02/17 Metoprolol [Lopressor] 75 mg PO BID 06/12/15 08/02/17 Nitroglycerin [Nitrostat] 0.4 mg SL Q5M PRN 06/12/15 08/02/17 Quinapril HCl [Accupril] 20 mg PO BID 06/12/15 08/02/17 Citalopram Hydrobromide 10 mg PO DAILY 08/02/17 08/02/17 [Citalopram HBr] Fluticasone Propionate Nasal 50 mcg NS DAILY 08/02/17 08/02/17 [Flonase] LORazepam [Ativan] 1 mg PO BID PRN 08/02/17 08/02/17 Oxygen 1 each NS AD 08/02/17 08/02/17 Triamterene/HCTZ 75/50mg [Maxzide] 1 each PO DAILY 08/02/17 08/02/17 glipiZIDE [Glipizide ER] 10 mg PO DAILY 08/02/17 08/02/17 Previous Rx's Medication Instructions Recorded OxyCODONE/APAP 5/325 [Percocet 1 each PO Q8HR PRN 5 Days #10 07/19/17 5/325 MG] tablet Allergies Allergy/AdvReac Type Severity Reaction Status Date / Time codeine AdvReac Hallucinati Verified 06/12/15 15:48 ng morphine AdvReac Hallucinati Verified 06/12/15 15:48 ng Past Medical History - Past Medical History Medical history: Reports: arthritis, asthma, atrial fibrillation, diabetes, hyperlipidemia, hypertension, syncope, TIA Psychiatric history: Reports: anxiety - Social History Smoking Status: Never smoker Smokeless Tobacco Status: No Alcohol use: Reports: none Drug use: Reports: none Course Vital Signs Temperature 98.6 F 08/02/17 15:27 Pulse Rate 81 08/02/17 15:27 Respiratory Rate 14 08/02/17 15:27 Blood Pressure 115/79 08/02/17 15:27 O2 Sat by Pulse Oximetry 97 08/02/17 15:27 Temperature 98.0 F 08/02/17 21:14 Pulse Rate 71 08/02/17 21:14 Respiratory Rate 16 08/02/17 21:14 Blood Pressure 176/67 08/02/17 21:14 O2 Sat by Pulse Oximetry 99 08/02/17 21:14 Oxygen Delivery Oxygen Delivery Room Air Medical Decision Making - Lab Data Result diagrams: 08/02/17 18:13 08/02/17 18:13 Lab Results 08/02/17 08/02/17 08/02/17 Range/Units 18:13 18:13 18:13 WBC 10.6 (4.3-11.1) K/mcL RBC 4.45 (3.82-4.97) M/mcL Hgb 13.4 (11.5-15.4) g/dL Hct 42.4 (35.3-44.9) % MCV 95.3 (83.0-100.0) fL MCH 30.1 (28.0-33.3) pg MCHC 31.6 (31.6-35.5) g/dL RDW 14.5 (11.5-14.5) % Plt Count 235 (140-400) K/mcL MPV 10.1 (9.4-12.4) fL Immature Gran % 0.6 (0-4) % Seg Neutrophils % 74.8 % Lymphocytes % 15.7 % Monocytes % 7.8 % Eosinophils % 0.9 % Basophils % 0.2 % Neutrophils # 7.9 (1.6-8.9) K/mcL Lymphocytes # 1.7 (0.6-4.6) K/mcL Monocytes # 0.8 (0.0-1.3) K/mcL Eosinophils # 0.1 (0.0-0.6) K/mcL Basophils # 0.0 (0.0-0.2) K/mcL Sodium 135 L (136-145) mEq/L Potassium 4.2 (3.5-5.1) mEq/L Chloride 100 (98-107) mEq/L Carbon Dioxide 25 (23-29) mEq/L BUN 20 (8-23) mg/dL Creatinine 1.24 H (0.60-1.20) mg/dL Est GFR ( Amer) 50 L (> 60) Est GFR (Non-Af Amer) 41 L (> 60) BUN/Creatinine Ratio 16 (6-26) Glucose 150 H (70-105) mg/dL Calculated Osmolality 285 (280-300) Calcium 10.0 (8.6-10.3) mg/dL Troponin I < 0.03 (< 0.04) ng/mL Urine Color (Yellow) Urine Clarity (Clear) Urine pH (5.0-8.0) pH Units Ur Specific [place] (1.010-1.025) Urine Protein (Neg-Trace) mg/dL Urine Glucose (UA) (Normal) mg/dL Urine Ketones (Negative) mg/dL Urine Blood (Negative) Urine Nitrite (Negative) Urine Bilirubin (Negative) Urine Urobilinogen (Normal) mg/dL Ur Leukocyte Esterase (Negative) Urine Microscopic RBC (0-3) per hpf Urine Microscopic WBC (0-3) per hpf Ur Squamous Epith Cells (None-Few) per lpf Urine Bacteria (None-Few) per hpf Hyaline Casts (None-Few) per lpf Ur Culture Indicated? (NO) 08/02/17 Range/Units 18:30 WBC (4.3-11.1) K/mcL RBC (3.82-4.97) M/mcL Hgb (11.5-15.4) g/dL Hct (35.3-44.9) % MCV (83.0-100.0) fL MCH (28.0-33.3) pg MCHC (31.6-35.5) g/dL RDW (11.5-14.5) % Plt Count (140-400) K/mcL MPV (9.4-12.4) fL Immature Gran % (0-4) % Seg Neutrophils % % Lymphocytes % % Monocytes % % Eosinophils % % Basophils % % Neutrophils # (1.6-8.9) K/mcL Lymphocytes # (0.6-4.6) K/mcL Monocytes # (0.0-1.3) K/mcL Eosinophils # (0.0-0.6) K/mcL Basophils # (0.0-0.2) K/mcL Sodium (136-145) mEq/L Potassium (3.5-5.1) mEq/L Chloride (98-107) mEq/L Carbon Dioxide (23-29) mEq/L BUN (8-23) mg/dL Creatinine (0.60-1.20) mg/dL Est GFR ( Amer) (> 60) Est GFR (Non-Af Amer) (> 60) BUN/Creatinine Ratio (6-26) Glucose (70-105) mg/dL Calculated Osmolality (280-300) Calcium (8.6-10.3) mg/dL Troponin I (< 0.04) ng/mL Urine Color Yellow (Yellow) Urine Clarity Cloudy A (Clear) Urine pH 6.0 (5.0-8.0) pH Units Ur Specific [place] 1.022 (1.010-1.025) Urine Protein Trace (Neg-Trace) mg/dL Urine Glucose (UA) Normal (Normal) mg/dL Urine Ketones Negative (Negative) mg/dL Urine Blood Trace H (Negative) Urine Nitrite Negative (Negative) Urine Bilirubin Negative (Negative) Urine Urobilinogen Normal (Normal) mg/dL Ur Leukocyte Esterase Negative (Negative) Urine Microscopic RBC 0-3 (0-3) per hpf Urine Microscopic WBC 5-15 H (0-3) per hpf Ur Squamous Epith Cells Many H (None-Few) per lpf Urine Bacteria Moderate H (None-Few) per hpf Hyaline Casts None Seen (None-Few) per lpf Ur Culture Indicated? NO (NO) Attestation Statement - Attestation Attestation: I examined this patient and my medical decision-making was reviewed with the Resident Physician. I agree with the documented findings, disposition and treatment plan as described except to the extent set forth below. Tell-oi-oaas time provided Patient sustained a mechanical fall. She arrives to the emergency department by EMS from home. She complains of left hip pain. She has fallen several times in the past 12 months. She appears in no acute distress upon arrival
[2017-08-02] MEDS ORDERED: *HR* OxyCODONE/APAP 5/325 TABLET PO ONE ×2 (15:43→16:51)
--- NOTE | 2017-08-02 15:49 | Emergency Department Note ---
Disposition Clinical Impression: Inability to ambulate due to multiple joints, Generalized weakness, Unsteady gait, Frequent falls, Exertional dyspnea, Multiple contusions Laceration of right elbow without complication Qualifiers: Encounter type: initial encounter Qualified Code(s): S51.011A - Laceration without foreign body of right elbow, initial encounter Disposition: Admitted As Inpatient Condition: Good Time of Disposition: 00:00 Fall HPI - General Chief Complaint: ED Fall Stated Complaint: Fall Time Seen by Provider: 08/02/17 15:27 Source: patient, family, EMS Nursing Notes Reviewed: Yes Vital Signs Reviewed: Yes - History of Present Illness HPI Narrative: 81-year-old female complains of mechanical fall while in the bathroom times an hour ago. Patient states she fell slid forward and hit her forehead, both elbows and hip. Unsure which hip but patient has a prior injury to the right hip from a previous fall 3 weeks ago for which she was admitted for. Patient just finished rehabilitation 6 days ago. Patient is on eloquis for cardiac stent and history of A. fib Patient states she is always unsteady on her feet, which is what precipitated the fall. Patient was brought in by EMS. They reported patient was conscious alert and oriented 3, but as they were getting her off the ground she was a little bit lightheaded and dizzy. - Related Data Home Medications Medication Instructions Recorded Confirmed Albuterol Sulfate [Ventolin Hfa] 2 puff IH Q4H PRN 06/12/15 08/02/17 Apixaban [Eliquis] 2.5 mg PO BID 06/12/15 08/02/17 Aspirin [Adult Low Dose Aspirin EC] 81 mg PO DAILY 06/12/15 08/02/17 Atorvastatin [Lipitor] 40 mg PO HS 06/12/15 08/02/17 Levalbuterol Neb [Xopenex Neb] 1.25 mg IH TID PRN 06/12/15 08/02/17 Metoprolol [Lopressor] 75 mg PO BID 06/12/15 08/02/17 Nitroglycerin [Nitrostat] 0.4 mg SL Q5M PRN 06/12/15 08/02/17 Quinapril HCl [Accupril] 20 mg PO BID 06/12/15 08/02/17 Citalopram Hydrobromide 10 mg PO DAILY 08/02/17 08/02/17 [Citalopram HBr] Fluticasone Propionate Nasal 50 mcg NS DAILY 08/02/17 08/02/17 [Flonase] LORazepam [Ativan] 1 mg PO BID PRN 08/02/17 08/02/17 Oxygen 1 each NS AD 08/02/17 08/02/17 Triamterene/HCTZ 75/50mg [Maxzide] 1 each PO DAILY 08/02/17 08/02/17 glipiZIDE [Glipizide ER] 10 mg PO DAILY 08/02/17 08/02/17 Previous Rx's Medication Instructions Recorded OxyCODONE/APAP 5/325 [Percocet 1 each PO Q8HR PRN 5 Days #10 07/19/17 5/325 MG] tablet Allergies Allergy/AdvReac Type Severity Reaction Status Date / Time codeine AdvReac Hallucinati Verified 06/12/15 15:48 ng morphine AdvReac Hallucinati Verified 06/12/15 15:48 ng All systems ED: reviewed and negative except as stated. Review of Systems: As Per HPI Respiratory: Reports: dyspnea Musculoskeletal: Reports: back pain, joint swelling Fall PMH - Past Medical History Medical history: Reports: arthritis, asthma, atrial fibrillation, diabetes, hyperlipidemia, hypertension, syncope, TIA Psychiatric history: Reports: anxiety - Social History Smoking Status: Never smoker Alcohol use: Reports: none Drug use: Reports: none Physical Exam Vital Signs Temperature 98.6 F 08/02/17 15:27 Pulse Rate 81 08/02/17 15:27 Respiratory Rate 14 08/02/17 15:27 Blood Pressure 115/79 08/02/17 15:27 O2 Sat by Pulse Oximetry 97 08/02/17 15:27 Temperature 98.6 F 08/02/17 15:27 Pulse Rate 81 08/02/17 15:27 Respiratory Rate 14 08/02/17 15:27 Blood Pressure 115/79 08/02/17 15:27 O2 Sat by Pulse Oximetry 97 08/02/17 15:27 Oxygen Delivery Oxygen Delivery Room Air CONSTITUTIONAL: Well-appearing; well-nourished; A&O X 3, in no apparent distress HEAD: Normocephalic; erythematous area on forehead EYES: PERRL, no scleral icterus NOSE: The nose is normal in appearance without rhinorrhea NECK: No JVD or distended neck veins no cervical tenderness to palpation patient's full range of motion of neck RESP: Normal chest excursion with respiration; breath sounds clear and equal bilaterally; no wheezes, rhonchi, or rales CARD: Irregular rhythm, without murmurs, rub or gallop ABD: Non-distended; non-tender, soft, without rigidity, rebound or guarding,no pulsatile mass CHEST: Tender to palpation along lower rib ribs anterior and posteriorly SKIN: Normal for age and race; warm and dry without diaphoresis EXTREMITIES: Pulses are 2 plus and equal times 4 extremities, no peripheral edema or calf muscle pain right upper extremity lateral on the proximal forearm has a 4 cm superficial laceration. Right and left elbow tender to palpation but has moved glide with range of motion. Right hip and right flank has ecchymosis and is tender to palpation from previous injury, but more tender today without increase in ecchymosis. No rotation or shortening of either lower extremity. - General Limitations: no limitations General appearance: alert Course - Reevaluation(s) Reevaluation #1: Pain 10 currently. Second dose of fentanyl ordered Time: 19:20 Vital Signs Temperature 98.6 F 08/02/17 15:27 Pulse Rate 81 08/02/17 15:27 Respiratory Rate 14 08/02/17 15:27 Blood Pressure 115/79 08/02/17 15:27 O2 Sat by Pulse Oximetry 97 08/02/17 15:27 Temperature 98.0 F 08/02/17 21:14 Pulse Rate 71 08/02/17 21:14 Respiratory Rate 16 08/02/17 21:14 Blood Pressure 176/67 08/02/17 21:14 O2 Sat by Pulse Oximetry 99 08/02/17 21:14 Oxygen Delivery Oxygen Delivery Room Air Fall - [facility] Narrative Medical decision making narrative: Patient presents after mechanical fall without loss of consciousness but patient is on a liquids. Patient has been having frequent falls. The last fall required 2 week admission with 1 week in rehabilitation. Patient is status post 6 days from discharge from rehabilitation at [place]. Patient is a history of A. fib but is asymptomatic for chest pain or shortness of breath at rest. After identifying the patient has no fractures in the areas that are painful from her fall patient is ambulated, but patient got heavily short of breath with increasing breathing rate and panting from walking a few feet with her walker. Patient explained to me that she does not normally get short of breath with ambulating. She lives at home alone and giving the frequent falls she has been having and how she is feeling right now patient states she is fearful of going home by herself. Given patient's patient's evaluation of this new weakness, shortness of breath and her history of recent falls I agree that the patient most likely needs to stay. Patient's pain has been difficult to treat with oral pain medication. Patient received 2 doses of 5/325 mg of Percocet that only reduced patient's pain from 02/21-11/21. IV fentanyl at 0.5 mcg/kg ordered as starting dose to see how patient does for trying another 0.5 mcg/kg dose to make a 1 mcg/kg dose given patient's age. Patient did receive second dose of fentanyl IV and was made comfortable. Lab workup was clinically unremarkable for any new abnormalities. Urinalysis negative for UTI. Dr. Amezcua the hospitalist has accepted patient for admission - Lab Data Lab results reviewed: Yes I reviewed the patient's lab results. Lab results narrative: Short CBC 08/02/17 Range/Units 18:13 WBC 10.6 (4.3-11.1) K/mcL Hgb 13.4 (11.5-15.4) g/dL Hct 42.4 (35.3-44.9) % Plt Count 235 (140-400) K/mcL Neutrophils # 7.9 (1.6-8.9) K/mcL BMP 08/02/17 Range/Units 18:13 Sodium 135 L (136-145) mEq/L Potassium 4.2 (3.5-5.1) mEq/L Chloride 100 (98-107) mEq/L Carbon Dioxide 25 (23-29) mEq/L BUN 20 (8-23) mg/dL Creatinine 1.24 H (0.60-1.20) mg/dL Glucose 150 H (70-105) mg/dL Calcium 10.0 (8.6-10.3) mg/dL Cardiac Enzymes 08/02/17 Range/Units 18:13 Troponin I < 0.03 (< 0.04) ng/mL Urine 08/02/17 Range/Units 18:30 Urine Color Yellow (Yellow) Urine Clarity Cloudy A (Clear) Urine pH 6.0 (5.0-8.0) pH Units Ur Specific [place] 1.022 (1.010-1.025) Urine Protein Trace (Neg-Trace) mg/dL Urine Glucose (UA) Normal (Normal) mg/dL Result diagrams: 08/02/17 18:13 08/02/17 18:13 Lab Results 08/02/17 08/02/17 08/02/17 Range/Units 18:13 18:13 18:13 WBC 10.6 (4.3-11.1) K/mcL RBC 4.45 (3.82-4.97) M/mcL Hgb 13.4 (11.5-15.4) g/dL Hct 42.4 (35.3-44.9) % MCV 95.3 (83.0-100.0) fL MCH 30.1 (28.0-33.3) pg MCHC 31.6 (31.6-35.5) g/dL RDW 14.5 (11.5-14.5) % Plt Count 235 (140-400) K/mcL MPV 10.1 (9.4-12.4) fL Immature Gran % 0.6 (0-4) % Seg Neutrophils % 74.8 % Lymphocytes % 15.7 % Monocytes % 7.8 % Eosinophils % 0.9 % Basophils % 0.2 % Neutrophils # 7.9 (1.6-8.9) K/mcL Lymphocytes # 1.7 (0.6-4.6) K/mcL Monocytes # 0.8 (0.0-1.3) K/mcL Eosinophils # 0.1 (0.0-0.6) K/mcL Basophils # 0.0 (0.0-0.2) K/mcL Sodium 135 L (136-145) mEq/L Potassium 4.2 (3.5-5.1) mEq/L Chloride 100 (98-107) mEq/L Carbon Dioxide 25 (23-29) mEq/L BUN 20 (8-23) mg/dL Creatinine 1.24 H (0.60-1.20) mg/dL Est GFR ( Amer) 50 L (> 60) Est GFR (Non-Af Amer) 41 L (> 60) BUN/Creatinine Ratio 16 (6-26) Glucose 150 H (70-105) mg/dL Calculated Osmolality 285 (280-300) Calcium 10.0 (8.6-10.3) mg/dL Troponin I < 0.03 (< 0.04) ng/mL Urine Color (Yellow) Urine Clarity (Clear) Urine pH (5.0-8.0) pH Units Ur Specific [place] (1.010-1.025) Urine Protein (Neg-Trace) mg/dL Urine Glucose (UA) (Normal) mg/dL Urine Ketones (Negative) mg/dL Urine Blood (Negative) Urine Nitrite (Negative) Urine Bilirubin (Negative) Urine Urobilinogen (Normal) mg/dL Ur Leukocyte Esterase (Negative) Urine Microscopic RBC (0-3) per hpf Urine Microscopic WBC (0-3) per hpf Ur Squamous Epith Cells (None-Few) per lpf Urine Bacteria (None-Few) per hpf Hyaline Casts (None-Few) per lpf Ur Culture Indicated? (NO) 08/02/17 Range/Units 18:30 WBC (4.3-11.1) K/mcL RBC (3.82-4.97) M/mcL Hgb (11.5-15.4) g/dL Hct (35.3-44.9) % MCV (83.0-100.0) fL MCH (28.0-33.3) pg MCHC (31.6-35.5) g/dL RDW (11.5-14.5) % Plt Count (140-400) K/mcL MPV (9.4-12.4) fL Immature Gran % (0-4) % Seg Neutrophils % % Lymphocytes % % Monocytes % % Eosinophils % % Basophils % % Neutrophils # (1.6-8.9) K/mcL Lymphocytes # (0.6-4.6) K/mcL Monocytes # (0.0-1.3) K/mcL Eosinophils # (0.0-0.6) K/mcL Basophils # (0.0-0.2) K/mcL Sodium (136-145) mEq/L Potassium (3.5-5.1) mEq/L Chloride (98-107) mEq/L Carbon Dioxide (23-29) mEq/L BUN (8-23) mg/dL Creatinine (0.60-1.20) mg/dL Est GFR ( Amer) (> 60) Est GFR (Non-Af Amer) (> 60) BUN/Creatinine Ratio (6-26) Glucose (70-105) mg/dL Calculated Osmolality (280-300) Calcium (8.6-10.3) mg/dL Troponin I (< 0.04) ng/mL Urine Color Yellow (Yellow) Urine Clarity Cloudy A (Clear) Urine pH 6.0 (5.0-8.0) pH Units Ur Specific [place] 1.022 (1.010-1.025) Urine Protein Trace (Neg-Trace) mg/dL Urine Glucose (UA) Normal (Normal) mg/dL Urine Ketones Negative (Negative) mg/dL Urine Blood Trace H (Negative) Urine Nitrite Negative (Negative) Urine Bilirubin Negative (Negative) Urine Urobilinogen Normal (Normal) mg/dL Ur Leukocyte Esterase Negative (Negative) Urine Microscopic RBC 0-3 (0-3) per hpf Urine Microscopic WBC 5-15 H (0-3) per hpf Ur Squamous Epith Cells Many H (None-Few) per lpf Urine Bacteria Moderate H (None-Few) per hpf Hyaline Casts None Seen (None-Few) per lpf Ur Culture Indicated? NO (NO) - Radiology Data Radiology results reviewed: Yes I reviewed the patient's radiology results. Chest X-Ray 08/02/17 00:00 IMPRESSION: No acute posttraumatic abnormality detected. D/ / Glenn Barger MD / Glenn Barger MD Interpreting Provider: Glenn Barger MD Cervical Spine CT 08/02/17 15:39 IMPRESSION: 1. Cervical spine: No acute abnormality detected. No traumatic malalignment. Severe multilevel degenerate disc and facet disease. 2. Thoracic spine: No acute abnormality detected. No traumatic malalignment. D/ / Hector Jonas MD / Hector Jonas MD Interpreting Provider: Hector Jonas MD Head CT 08/02/17 15:39 IMPRESSION: No acute intracranial abnormality. Atrophy and small-vessel ischemic change Paranasal sinus disease D/ / Lukas Loera MD / Lukas Loera MD Interpreting Provider: Lukas Loera MD Hip/Pelvis X-Ray 08/02/17 15:39 IMPRESSION: No acute posttraumatic abnormality detected. D/ / Glenn Barger MD / Glenn Brager MD Interpreting Provider: Glenn Barger MD Thoracic Spine CT 08/02/17 15:39 IMPRESSION: 1. Cervical spine: No acute abnormality detected. No traumatic malalignment. Severe multilevel degenerate disc and facet disease. 2. Thoracic spine: No acute abnormality detected. No traumatic malalignment. D/ / Hector Jonas MD / Hector Jonas MD Interpreting Provider: Hector Jonas MD Elbow X-Ray 08/02/17 15:43 IMPRESSION: No acute posttraumatic abnormality detected. D/ / Glenn Barger MD / Glenn Barger MD Interpreting Provider: Glenn Barger MD - EKG Data EKG attestation: Yes I reviewed and interpreted this EKG. EKG results narrative: EKG taken at 08/02/2017 at 1537 hrs. shows A. fib at a rate of [address] elevations or depressions anyways, no QRS widening or QT prolongation. No change from previous EKG taken in 07/13/2017.
[2017-08-02] MEDS ORDERED: *HR* FentaNYL (PF) 100 MCG/2 ML VIAL IVP ONE ×2 (18:07→19:20)
[2017-08-02] MEDS ORDERED: 0.9 % Sodium Chloride 1,000 ML IVC ONE (18:07)
[2017-08-02 18:30] LABS: Basophils % 0.2 %; Eosinophils # 0.1 K/mcL (0.0-0.6); Eosinophils % 0.9 %; Hematocrit 42.4 % (35.3-44.9); Hemoglobin 13.4 g/dL (11.5-15.4); Immature Granulocytes % 0.6 % (0-4); Lymphocytes # 1.7 K/mcL (0.6-4.6); Lymphocytes % 15.7 %; Mean Corpuscular HGB Conc 31.6 g/dL (31.6-35.5); Mean Corpuscular Hemoglobin 30.1 pg (28.0-33.3); Mean Corpuscular Volume 95.3 fL (83.0-100.0); Mean Platelet Volume 10.1 fL (9.4-12.4); Monocytes # 0.8 K/mcL (0.0-1.3); Monocytes % 7.8 %; Neutrophils # 7.9 K/mcL (1.6-8.9); Platelet Count 235 K/mcL (140-400); Red Blood Count 4.45 M/mcL (3.82-4.97); Red Cell Distribution Width 14.5 % (11.5-14.5); Segmented Neutrophils % 74.8 %
[2017-08-02 18:39] LABS: Bilirubin,Urine Negative (Negative); Blood,Urine Trace (Negative); Clarity,Urine Cloudy (Clear); Color,Urine Yellow (Yellow); Glucose,Urine (UA) Normal (Normal); Ketones,Urine Negative (Negative); Leukocyte Esterase,Urine Negative (Negative); Nitrite,Urine Negative (Negative); Protein,Urine Trace mg/dL (Neg-Trace); Specific Gravity,Urine 1.022 (1.010-1.025); Urobilinogen,Urine Normal (Normal)
[2017-08-02 18:42] LABS: Bacteria,Urine Moderate per hpf (None-Few); Hyaline Casts,Urine None Seen per lpf (None-Few); RBC,Urine 0-3 per hpf (0-3); Squamous Epithelial Cell,Urine Many per lpf (None-Few)
[2017-08-02 18:45] LABS: Potassium 4.2 mEq/L (3.5-5.1)
[2017-08-02] MEDS ORDERED: Naloxone 0.4 MG/ML INJ IVP PRN (20:38)
[2017-08-02] MEDS ORDERED: Acetaminophen 325 MG TABLET PO PRN (20:38)
[2017-08-02] MEDS ORDERED: D5% in Water 1,000 ML IVC PRN (20:41)
[2017-08-02] MEDS ORDERED: Dextrose Gel 15 GM/37.5 ML TUBE PO PRN ×2 (20:41)
[2017-08-02] MEDS ORDERED: *HR* Dextrose 50 % in Water (Syg) 50 ML SYRINGE IVP PRN (20:41)
[2017-08-02] MEDS ORDERED: Nitroglycerin 0.4 MG TAB.SUBL SL PRN (20:44)
[2017-08-02] MEDS ORDERED: Levalbuterol Neb 1.25 MG/3 ML IH PRN (20:44)
[2017-08-02] MEDS ORDERED: *HR* LORazepam 1 MG TABLET PO PRN (20:44)
--- NOTE | 2017-08-02 20:50 | Internal Med History&Physical ---
Date of Encounter: 08/02/17 Time of Encounter: 19:30 Assessment and Plan (1) COPD (chronic obstructive pulmonary disease) Current visit: Yes Status: Acute Stable, no wheezing, continue home medications Qualifiers: COPD type: emphysema Emphysema type: unspecified Qualified Code(s): J43.9 - Emphysema, unspecified (2) Hypertension Current visit: No Status: Chronic Continue home medications. Check orthostatic vitals to rule out orthostatic hypotension. Closely monitor BP and adjust medication if necessary Qualifiers: Hypertension type: essential hypertension Qualified Code(s): I10 - Essential (primary) hypertension (3) Atrial fibrillation Current visit: No Status: Chronic Heart rate is well controlled. Continue Eliquis for anticoagulation. May consider DC anticoagulation if patient continues to have frequent falls. Qualifiers: Atrial fibrillation type: chronic Qualified Code(s): I48.2 - Chronic atrial fibrillation (4) DM type 2 (diabetes mellitus, type 2) Current visit: No Status: Chronic Patient takes glipizide at home. Place patient on sliding scale insulin. Patient's frequent fall is also possibly due to hypoglycemia. We will check hemoglobin A1c. Closely monitor glucose level Qualifiers: Diabetes mellitus usp insulin use: without ocean transportation intermediary use Diabetes mellitus complication status: with neurologic complications Diabetes mellitus complication detail: with polyneuropathy Qualified Code(s): E11.42 - Type 2 diabetes mellitus with diabetic polyneuropathy (5) CKD (chronic kidney disease) Current visit: No Status: Chronic Creatinine is stable at baseline Qualifiers: Chronic kidney disease stage: stage 3 (moderate) Qualified Code(s): N18.3 - Chronic kidney disease, stage 3 (moderate) (6) Physical deconditioning Current visit: No Status: Acute PTOT evaluation (7) Frequent falls Current visit: Yes Status: Acute PTOT evaluation. mining support worker consult for placement (8) DVT prophylaxis Current visit: Yes Status: Acute Patient is on Eliquis Internal Medicine - H&P: HPI Chief complaint: Fall Admitted From: Home Plans for Post Hospital Care: Transfer Alf Facility History of present illness: Ms. Gupta is a 81 year old female with history of diabetes, arthritis, chronic back pain S/P back surgery, S/P PPM, A. fib, COPD, presented to ER for frequent falls. Patient had 3 mechanical fall in last week. Patient denies loss of consciousness. Patient denies head and neck injury. Patient said she just lost balance. Patient denies feeling of a hungry or palpitation. Patient denies chest pain. Patient has occasional shortness of breath which may be caused by COPD. Patient lives alone and cannot take of herself. Patient came to the hospital for further management. I have discussed the CODE STATUS with patient. Patient is AAO 3 and clearly told me she does not want CPR or intubation. DNR DNI placed. Past Med Surg Social Fam HX - Past Medical History Medical history: arthritis, asthma, atrial fibrillation, diabetes, hyperlipidemia, hypertension, syncope, TIA Psychiatric history: anxiety - Social History Smoking Status: Never smoker Smokeless Tobacco Status: No Alcohol use: none Drug use: none - Family History Mother History Unknown: Yes Internal Medicine - H&P: Meds Albuterol Sulfate [Ventolin Hfa] 2 puff IH Q4H PRN 06/12/15 [History] Apixaban [Eliquis] 2.5 mg PO BID 06/12/15 [History] Aspirin [Adult Low Dose Aspirin EC] 81 mg PO DAILY 06/12/15 [History] Atorvastatin [Lipitor] 40 mg PO HS 06/12/15 [History] Levalbuterol Neb [Xopenex Neb] 1.25 mg IH TID PRN 06/12/15 [History] Metoprolol [Lopressor] 75 mg PO BID 06/12/15 [History] Nitroglycerin [Nitrostat] 0.4 mg SL Q5M PRN 06/12/15 [History] Quinapril HCl [Accupril] 20 mg PO BID 06/12/15 [History] OxyCODONE/APAP 5/325 [Percocet 5/325 MG] 1 each PO Q8HR PRN 5 Days #10 tablet [Rx] Citalopram Hydrobromide [Citalopram HBr] 10 mg PO DAILY 08/02/17 [History] Fluticasone Propionate Nasal [Flonase] 50 mcg NS DAILY 08/02/17 [History] LORazepam [Ativan] 1 mg PO BID PRN 08/02/17 [History] Oxygen 1 each NS AD 08/02/17 [History] Triamterene/HCTZ 75/50mg [Maxzide] 1 each PO DAILY 08/02/17 [History] glipiZIDE [Glipizide ER] 10 mg PO DAILY 08/02/17 [History] 3 Allergy/AdvReac Type Severity Reaction Status Date / Time codeine AdvReac Hallucinati Verified 06/12/15 15:48 ng morphine AdvReac Hallucinati Verified 06/12/15 15:48 ng All Systems PM: A 10-system review of systems was performed and is negative for pertinent findings except as documented above in the HPI. - Constitutional Vitals: Temp Pulse Resp BP Pulse Ox 98.6 F 81 14 115/79 97 08/02/17 15:27 08/02/17 15:27 08/02/17 15:27 08/02/17 15:27 08/02/17 15:27 General appearance: Present: A&O X 3, no acute distress, answers questions appropriately - Head Head exam: Present: atraumatic, normocephalic - Eye Eye exam: Present: PERRL, conjuntiva pink, sclera anicteric Pupils: Present: PERRL - Neck Neck exam general surgery: Present: supple, trachea midline. Absent: lymphadenopathy - Respiratory Respiratory exam: Present: CTAB. Absent: accessory muscle use, rales, rhonchi, wheezes - Cardiovascular Cardiovascular exam: Present: irregular rhythm, +S1, +S2. Absent: diastolic murmur, gallop, rubs, systolic murmur - GI/Abdominal GI/Abdominal exam: Present: normal bowel sounds, soft, no peritoneal signs. Absent: distended, tenderness - Extremities Exam Extremities exam: Present: warm, radial pulses palpable and symmetrical. Absent : calf tenderness, cyanotic, pedal edema - Neurological Exam Neurological exam: Present: CN II-XII intact, oriented X3, no focal deficits. Absent: pronater drift, facial droop, speech deficit - Skin Skin exam: Present: dry, intact Internal Med - H&P Results - Labs CBC & Chem 7: 08/02/17 18:13 08/02/17 18:13 - EKG Data -: EKG Interpreted by Myself (Pacing rhythm) Rate: normal
[2017-08-02] MEDS: Insulin LISPRO 300 UNITS/3 ML VIAL SQ SCH (22:30)
[2017-08-02] MEDS: Apixaban 2.5 MG TABLET PO SCH (22:34)
[2017-08-02] MEDS: *HR* OxyCODONE/APAP 5/325 TABLET PO PRN (23:02)
[2017-08-03 06:50] LABS: Basophils % 0.4 %; Eosinophils # 0.2 K/mcL (0.0-0.6); Eosinophils % 2.7 %; Hematocrit 37.4 % (35.3-44.9); Hemoglobin 11.7 g/dL (11.5-15.4); Immature Granulocytes % 0.2 % (0-4); Lymphocytes # 1.4 K/mcL (0.6-4.6); Mean Corpuscular HGB Conc 31.3 g/dL (31.6-35.5); Mean Corpuscular Hemoglobin 30.5 pg (28.0-33.3); Mean Corpuscular Volume 97.4 fL (83.0-100.0); Monocytes # 0.6 K/mcL (0.0-1.3); Monocytes % 10.5 %; Neutrophils # 3.5 K/mcL (1.6-8.9); Platelet Count 193 K/mcL (140-400); Red Blood Count 3.84 M/mcL (3.82-4.97); Red Cell Distribution Width 14.6 % (11.5-14.5); Segmented Neutrophils % 61.2 %
[2017-08-03 07:21] LABS: Calcium 8.8 mg/dL (8.6-10.3); Magnesium 1.6 mg/dL (1.6-2.6); Potassium 4.2 mEq/L (3.5-5.1)
[2017-08-03] MEDS: *HR* OxyCODONE/APAP 5/325 TABLET PO PRN ×2 (08:41→21:27)
[2017-08-03] MEDS: Aspirin Enteric Coated 81 MG Tablet PO SCH (08:42)
[2017-08-03] MEDS: Insulin LISPRO 300 UNITS/3 ML VIAL SQ SCH ×4 (08:42→21:17)
[2017-08-03] MEDS: Apixaban 2.5 MG TABLET PO SCH (08:43)
[2017-08-03] MEDS: Fluticasone Propionate Nasal 50 MCG/SPRAY BOTTLE NS SCH (08:44)
[2017-08-03] MEDS ORDERED: Lisinopril 20 MG TABLET PO SCH (09:00)
[2017-08-03 09:51] LABS: Estimated Average Glucose 174 mg/dl; Hemoglobin A1C 7.7 %
--- NOTE | 2017-08-03 11:33 | Internal Med Progress Note ---
Date of Encounter: 08/03/17 Time of Encounter: 11:31 - Assessment and plan (1) Atrial fibrillation Current Visit: No Status: Chronic Assessment and plan: Heart rate is well controlled. She is on Eliquis for anticoagulation. May need to consider discontinuation of Eliquis if patient continues to have frequent falls. Echocardiogram completed on 07/16/17 secondary to elevated troponin. LVEF 60%. Normal LV chamber size and function, mild concentric left ventricular hypertrophy, indeterminate diastolic function. Atypical septal motion consistent with bundle branch block. Normal right ventricular structure and function. Moderately calcified aortic valve leaflets. Mild aortic regurgitation and mild aortic stenosis with a mean gradient of 12 mmHg. Mild mitral regurgitation. No pulmonary hypertension. All wall segments showed normal motion on rest echo Qualifiers: Atrial fibrillation type: chronic Qualified Code(s): I48.2 - Chronic atrial fibrillation (2) CKD (chronic kidney disease) Current Visit: No Status: Chronic Assessment and plan: Patient's creatinine is at or below her baseline Avoid nephrotoxic agents Qualifiers: Chronic kidney disease stage: stage 3 (moderate) Qualified Code(s): N18.3 - Chronic kidney disease, stage 3 (moderate) (3) COPD (chronic obstructive pulmonary disease) Current Visit: Yes Status: Chronic Assessment and plan: COPD is non-exacerbated patient has no wheezes. She is on room air. Continue home medication regime Qualifiers: COPD type: emphysema Emphysema type: unspecified Qualified Code(s): J43.9 - Emphysema, unspecified (4) DM type 2 (diabetes mellitus, type 2) Current Visit: No Status: Chronic Assessment and plan: Patient will continue Accu-Cheks before meals and at bedtime with sliding scale insulin. We will hold home glipizide. 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 insulin use: without assisted use Diabetes mellitus complication status: with neurologic complications Diabetes mellitus complication detail: with polyneuropathy Qualified Code(s): E11.42 - Type 2 diabetes mellitus with diabetic polyneuropathy (5) Frequent falls Current Visit: Yes Status: Acute Assessment and plan: PT/OT/social service consult to determine placement needs Fall precautions (6) Generalized weakness Current Visit: Yes Status: Acute Assessment and plan: Secondary to aging process and comorbidities as well as deconditioning (7) Hip pain, right Current Visit: No Status: Acute Assessment and plan: Bruising noted over the right hip and thigh from her fall. X-rays of hip and pelvis with no acute fracture or dislocation noted Patient is status post lower lumbar surgery (8) Hypertension Current Visit: No Status: Chronic Assessment and plan: We will obtain orthostatic blood pressures. Patient had a blood pressure at 11: 00 of 93/54. At 3 AM she was 106/55 She was 176/67 in the ER. She is currently on Maxide and Lopressor as well as Zestril Echo 07/13/17 Will consult cardiology Qualifiers: Hypertension type: essential hypertension Qualified Code(s): I10 - Essential (primary) hypertension (9) Physical deconditioning Current Visit: No Status: Acute Assessment and plan: PT and OT evaluation (10) DVT prophylaxis Current Visit: Yes Status: Acute Assessment and plan: Patient is on Eliquis - Subjective Interval history: Patient sitting on side of bed and complaining of low back pain and generalized soreness from falling. She denies any shortness of breath, fever, chills, dizziness, chest pain, abdominal pain, or difficulty voiding. She does report a small bulging area occasionally near umbilicus. Her skin is also dry and itchy. - Constitutional Vitals: Temp Pulse Resp BP Pulse Ox 98.1 F 78 18 93/54 99 08/03/17 11:10 08/03/17 11:10 08/03/17 11:10 08/03/17 11:10 08/03/17 11:10 General appearance: Present: cooperative, A&O X 3, no acute distress, answers questions appropriately - Head Head exam: Present: atraumatic, normocephalic - Eye Eye exam: Present: PERRL, conjuntiva pink, sclera anicteric Pupils: Present: PERRL - Neck Neck exam general surgery: Present: supple, trachea midline. Absent: lymphadenopathy - Respiratory Respiratory exam: Present: CTAB. Absent: accessory muscle use, rales, rhonchi, wheezes - Cardiovascular Cardiovascular exam: Present: irregular rhythm, +S1, +S2. Absent: diastolic murmur, gallop, rubs, systolic murmur Additional comments: Patient has a pacemaker - GI/Abdominal GI/Abdominal exam: Present: hernia, normal bowel sounds, soft, no peritoneal signs. Absent: distended, guarding, tenderness Additional comments: Small umbilical hernia that is reducible, soft and nontender - Extremities Exam Extremities exam: Present: tenderness, warm, radial pulses palpable and symmetrical. Absent: calf tenderness, cyanotic, pedal edema Additional comments: Multiple bruised areas from falls. Right hip and thigh are very ecchymotic - Neurological Exam Neurological exam: Present: alert, CN II-XII intact, oriented X3, no focal deficits, strengths equal and symetr throughout. Absent: pronater drift, facial droop, speech deficit - Skin Skin exam: Present: dry, normal color, rash, urticaria, warm Additional comments: Area of flat dried red rash on right mid back Internal Medicine: Result - Labs CBC & Chem 7: 08/03/17 06:33 08/03/17 06:33 Labs: Short CBC 08/03/17 Range/Units 06:33 WBC 5.6 (4.3-11.1) K/mcL Hgb 11.7 D (11.5-15.4) g/dL Hct 37.4 (35.3-44.9) % Plt Count 193 (140-400) K/mcL Neutrophils # 3.5 (1.6-8.9) K/mcL BMP 08/03/17 06:33 Sodium 135 L Potassium 4.2 Chloride 102 Carbon Dioxide 25 BUN 20 Creatinine 1.15 Glucose 150 H Calcium 8.8 Consult Discharge Plan - Plan Referrals: Eden Wells MD [Primary Care Provider] -
[2017-08-03] MEDS ORDERED: 0.9 % Sodium Chloride 250 ML ONE (13:58)
--- NOTE | 2017-08-03 15:21 | Cardiology Consult Note ---
Date of Encounter: 08/03/17 Time of Encounter: 14:00 Assessment and Plan (1) Frequent falls Current Visit: Yes Status: Acute Per cardiology: -Patient admitted after fall at home. -Patient reports has been falling frequently. -Of note, on eliquis for anticoagulation. -Management per primary service. (2) Atrial fibrillation Current Visit: No Status: Chronic Per cardiology: -Known history of a.fib. -[id number] score 6 (age 1, gender, HTN, DM, CAD). Currently on eliquis for anticoagulation. Now with frequent falls. -TTE 07/13/17 LVEF 60%, mild concentric LVH, mild AR, mild , mild MR, no segmental wall motion abnormalities. -On metoprolol for rate control. -Of note, has pacemaker for tachybrady syndrome. Has not followed with cardiology since 2016. -Discussed at length with patient regarding cardiology recommendations to continue anticoagulation for prevention of CVA/embolic event. At this time, patient wishes to stop elqiuis due to frequent falls, understands and accepts risk of CVA/embolic event. Patient states she would be agreeable to possibly resume medication once fall issue has resolved. -Educated patient on importance of follow up with cardiology. -Will set up outpatient follow up and outpatient device check. Qualifiers: Atrial fibrillation type: chronic Qualified Code(s): I48.2 - Chronic atrial fibrillation (3) Hypotension Current Visit: Yes Status: Acute Per cardiology: -BP now hypotensive. -90s systolic. -On metoprolol 75mg BID for rate control. -ON lisinopril 20mg for HTN. -Being given fluid bolus per primary service. -Consider lowering/discontinuation of lisinopril pending BP after fluid bolus. Qualifiers: Hypotension type: unspecified hypotension type Qualified Code(s): I95.9 - Hypotension, unspecified Discussion w patient/family: The assessment and plan as outlined above was discussed with the patient who expressed understanding and agreement. All questions were answered. Thank you for involving us in the care of your patient. Please call with any questions. Discussed and reviewed with . History of Present Illness Consult date: 08/03/17 Requesting physician: Merlene Tidwell Consult reason: falls, on anticoagulation Chief complaint: fall History of present illness: Ms. Gupta is a 81 year old female with a relevant past medical history of a.fib , pacemaker, DM, HTN, CAD, anxiety. Patient presented to [facility] after a fall at home. Patient denies dizziness or lightheadedness. States she "just loses my balance." Patient reports has been falling more frequently. Patient denies chest pain. Denies shortness of breath or increased fatigue. Patient deneis bleeding or blood loss, however reports large amount of bruising due to falls. Past Med Surg Social Fam HX - Past Medical History Attestation: Yes The following information was validated with the patient. Source: patient, old records reviewed Medical history: arthritis, asthma, atrial fibrillation, diabetes, hyperlipidemia, hypertension, syncope, TIA Psychiatric history: anxiety - Social History Smoking Status: Never smoker Smokeless Tobacco Status: No Alcohol use: none Drug use: none - Family History Mother History Unknown: Yes Hx Family Musculoskeletal Disorders: Yes (arthritis) Father Hx Family Cardiac Disorders: Yes Medications and Allergies Albuterol Sulfate [Ventolin Hfa] 2 puff IH Q4H PRN 06/12/15 [History] Apixaban [Eliquis] 2.5 mg PO BID 06/12/15 [History] Aspirin [Adult Low Dose Aspirin EC] 81 mg PO DAILY 06/12/15 [History] Atorvastatin [Lipitor] 40 mg PO HS 06/12/15 [History] Levalbuterol Neb [Xopenex Neb] 1.25 mg IH TID PRN 06/12/15 [History] Metoprolol [Lopressor] 75 mg PO BID 06/12/15 [History] Nitroglycerin [Nitrostat] 0.4 mg SL Q5M PRN 06/12/15 [History] Quinapril HCl [Accupril] 20 mg PO BID 06/12/15 [History] OxyCODONE/APAP 5/325 [Percocet 5/325 MG] 1 each PO Q8HR PRN 5 Days #10 tablet [Rx] Citalopram Hydrobromide [Citalopram HBr] 10 mg PO DAILY 08/02/17 [History] Fluticasone Propionate Nasal [Flonase] 50 mcg NS DAILY 08/02/17 [History] LORazepam [Ativan] 1 mg PO BID PRN 08/02/17 [History] Oxygen 1 each NS AD 08/02/17 [History] Triamterene/HCTZ 75/50mg [Maxzide] 1 each PO DAILY 08/02/17 [History] glipiZIDE [Glipizide ER] 10 mg PO DAILY 08/02/17 [History] 3 Allergy/AdvReac Type Severity Reaction Status Date / Time codeine AdvReac Hallucinati Verified 06/12/15 15:48 ng morphine AdvReac Hallucinati Verified 06/12/15 15:48 ng All Systems Review: The remainder of the systems were reviewed and are negative - Constitutional Constitutional: frequent falls - Cardiovascular Cardiovascular: as per HPI Physical Examination Vital Signs, Last 4 Hours BP 08/03/17 12:47 95/50 Vital Signs Temperature 98.6 F 08/02/17 15:27 Pulse Rate 81 08/02/17 15:27 Respiratory Rate 14 08/02/17 15:27 Blood Pressure 115/79 08/02/17 15:27 O2 Sat by Pulse Oximetry 97 08/02/17 15:27 Temperature 98.1 F 08/03/17 11:10 Pulse Rate 78 08/03/17 11:10 Respiratory Rate 18 08/03/17 11:10 Blood Pressure 95/50 08/03/17 12:47 O2 Sat by Pulse Oximetry 99 08/03/17 11:10 Oxygen Delivery Oxygen Delivery Room Air General: Conversant, No Apparent Distress HEENT: Atraumatic, Normocephaly, Mucus Membranes Moist Neck: No JVD, Normal carotid pulses Cardiac: Normal S1 and S2, No Murmur, Other (Irregularly irregular. ) Lungs: Normal Breath Sounds, No Wheeze, Rales, Rhonchi Neuro: Alert and responsive, No focal deficits noted Abdomen: Soft, Non-Tender Skin: No rashes noted on visualized skin, Other (Right sided bruising noted. ) Musculoskeletal: No Chest Wall Tenderness Extremities: No Clubbing, No Cyanosis, No Edema, Normal Pulses Results 08/03/17 06:33 08/03/17 06:33 Lab Results Impressions Chest X-Ray 08/02/17 00:00 IMPRESSION: No acute posttraumatic abnormality detected. D/ / Glenn Barger MD / Glenn Barger MD Interpreting Provider: Glenn Barger MD Cervical Spine CT 08/02/17 15:39 IMPRESSION: 1. Cervical spine: No acute abnormality detected. No traumatic malalignment. Severe multilevel degenerate disc and facet disease. 2. Thoracic spine: No acute abnormality detected. No traumatic malalignment. D/ / Hector Jonas MD / Hector Jonas MD Interpreting Provider: Hector Jonas MD Head CT 08/02/17 15:39 IMPRESSION: No acute intracranial abnormality. Atrophy and small-vessel ischemic change Paranasal sinus disease D/ / Lukas Loera MD / Lukas Loera MD Interpreting Provider: Lukas Loera MD Hip/Pelvis X-Ray 08/02/17 15:39 IMPRESSION: No acute posttraumatic abnormality detected. D/ / Glenn Barger MD / Glenn Barger MD Interpreting Provider: Glenn Barger MD Thoracic Spine CT 08/02/17 15:39 IMPRESSION: 1. Cervical spine: No acute abnormality detected. No traumatic malalignment. Severe multilevel degenerate disc and facet disease. 2. Thoracic spine: No acute abnormality detected. No traumatic malalignment. D/ / Hector Jonas MD / Hector Jonas MD Interpreting Provider: Hector Jonas MD Elbow X-Ray 08/02/17 15:43 IMPRESSION: No acute posttraumatic abnormality detected. D/ / Gelnn Barger MD / Glenn Barger MD Interpreting Provider: Glenn Barger MD Elbow X-Ray 08/02/17 15:43 IMPRESSION: No acute posttraumatic abnormality detected. D/ / Glenn Barger MD / Glenn Barger MD Interpreting Provider: Glenn Barger MD Active Medications Acetaminophen (Tylenol) 650 mg PO Q6HR PRN PRN Reason: Mild Pain/Fever Stop: 02/01/18 20:39 Albuterol Sulfate (Albuterol Inhaler) 2 puff IH Q4H PRN PRN Reason: Shortness Of Breath Stop: 02/01/18 20:45 Apixaban (Eliquis) 2.5 mg PO BID [facility] Stop: 02/01/18 21:01 Last Admin: 08/03/17 08:43 Dose: 2.5 mg Aspirin (Aspirin Ec) 81 mg PO DAILY JANI Stop: 02/02/18 09:01 Last Admin: 08/03/17 08:42 Dose: 81 mg Atorvastatin Calcium (Lipitor) 40 mg PO HS JANI Stop: 02/01/18 21:01 Last Admin: 08/02/17 22:33 Dose: 40 mg Citalopram Hydrobromide (Celexa) 10 mg PO DAILY [facility] Stop: 02/02/18 09:01 Last Admin: 08/03/17 08:41 Dose: 10 mg Dextrose/Water (Dextrose 50% (Syg)) 25 ml IVP AD PRN PRN Reason: Hypoglycemia Stop: 02/01/18 20:42 Fluticasone Propionate (Flonase) 50 mcg NS DAILY JANI PRN Reason: Protocol Stop: 02/02/18 09:01 Last Admin: 08/03/17 08:44 Dose: 50 mcg Glucagon (Glucagen) 1 mg IM ONCE PRN PRN Reason: Hypoglycemia Stop: 02/01/18 20:42 Glucose (Gluctose) 15 gm PO ONCE PRN PRN Reason: Hypoglycemia Stop: 02/01/18 20:42 Glucose (Gluctose) 30 gm PO ONCE PRN PRN Reason: Hypoglycemia Stop: 02/01/18 20:42 Dextrose (Dextrose 5%) 1,000 mls @ 100 mls/hr IVC .Q10H PRN PRN Reason: HYPOGLYCEMIA Stop: 02/01/18 20:42 Insulin Human Lispro (Humalog) 0 units SQ HS JANI PRN Reason: Protocol Stop: 02/01/18 21:01 Last Admin: 08/02/17 22:30 Dose: Not Given Insulin Human Lispro (Humalog) 0 units SQ TIDAC JANI PRN Reason: Protocol Stop: 02/02/18 07:31 Last Admin: 08/03/17 12:23 Dose: 2 units Levalbuterol HCl (Xopenex) 1.25 mg IH TID PRN PRN Reason: Shortness Of Breath/Wheezing Stop: 02/01/18 20:45 Lidocaine HCl (Lidoderm 5% Patch) 1 each TP DAILY JANI Stop: 02/02/18 09:01 Last Admin: 08/03/17 12:23 Dose: 1 each Lisinopril (Zestril) 20 mg PO DAILY JANI Stop: 02/02/18 09:01 Last Admin: 08/03/17 08:40 Dose: 20 mg Lorazepam (Ativan) 1 mg PO BID PRN PRN Reason: Anxiety Stop: 02/01/18 20:45 Last Admin: 08/02/17 22:34 Dose: 1 mg Metoprolol Tartrate (Lopressor) 75 mg PO BID JANI Stop: 02/01/18 21:01 Last Admin: 08/03/17 08:41 Dose: 75 mg Naloxone HCl (Narcan) 0.4 mg IVP Q2MIN PRN PRN Reason: SEE COMMENTS Stop: 02/01/18 20:39 Nitroglycerin (Nitroglycerin) 0.4 mg SL Q5M PRN PRN Reason: Chest Pain Oxycodone/Acetaminophen (Percocet 5/325) 1 each PO Q6HR PRN PRN Reason: Pain Stop: 02/01/18 20:41 Last Admin: 08/03/17 08:41 Dose: 1 each Triamterene/HCTZ (Maxzide) 1 each PO DAILY JANI Stop: 02/02/18 09:01 Last Admin: 08/03/17 08:40 Dose: 1 each Laboratory Tests 08/02/17 08/02/17 08/02/17 18:13 18:13 18:13 Hgb 13.4 Creatinine 1.24 H Troponin I < 0.03 08/03/17 08/03/17 06:33 06:33 Hgb 11.7 D Creatinine 1.15 Troponin I - Imaging and Cardiology Chest Xray: report reviewed Echo: report reviewed - EKG Interpretation EKG results cardiology: personally reviewed (ECG with a.fib, HR 76.), other ( Telemetry reviewed with average HR previous 12 hours noted to be 62, a.fib. Intermittent paced rhythm noted.) Consult Discharge Plan - Plan Instructions: Cyclobenzaprine (By mouth) Referrals: Eden Wells MD [Primary Care Provider] -
[2017-08-03] MEDS ORDERED: 0.9 % Sodium Chloride 250 ML IVC ONE ×2 (16:09→19:18)
--- NOTE | 2017-08-03 22:36 | Electrocardiograph Report ---
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
[2017-08-04 06:41] LABS: Hematocrit 38.4 % (35.3-44.9); Hemoglobin 12.1 g/dL (11.5-15.4); Mean Corpuscular HGB Conc 31.5 g/dL (31.6-35.5); Mean Corpuscular Hemoglobin 30.6 pg (28.0-33.3); Mean Corpuscular Volume 97.2 fL (83.0-100.0); Mean Platelet Volume 10.1 fL (9.4-12.4); Platelet Count 183 K/mcL (140-400); Red Blood Count 3.95 M/mcL (3.82-4.97); Red Cell Distribution Width 14.6 % (11.5-14.5)
[2017-08-04 06:59] LABS: Potassium 4.6 mEq/L (3.5-5.1)
[2017-08-04] MEDS: Insulin LISPRO 300 UNITS/3 ML VIAL SQ SCH ×2 (07:10→12:57)
[2017-08-04] MEDS: Aspirin Enteric Coated 81 MG Tablet PO SCH (08:33)
[2017-08-04] MEDS: Fluticasone Propionate Nasal 50 MCG/SPRAY BOTTLE NS SCH (08:35)
--- NOTE | 2017-08-04 08:55 | Event Note ---
Date of Encounter: 08/04/17 Time of Encounter: 08:53 - Cardiology Event Note Cardiology asked to re-evaluate patient's medications due to hypotension. BP 90- 100s systolic. Lisinopril has been stopped. ON maxzide and metoprolol. Reasonable to discontinue maxzide. Also reasonable to decrease metoprolol while hypotensive. Can re-evalaue in outpatient setting if medications need to be resumed and at which doses. Cardiology follow up has been set.
--- NOTE | 2017-08-04 11:31 | Discharge Summary ---
- NOTES TO OUTPATIENT PROVIDER Notes to Outpatient Provider: will f/u with cardiology as directed, PCP in one week. BP meds adjusted by cardiology Date of Encounter: 08/04/17 Time of Encounter: 11:29 - Discharge Diagnosis (1) Atrial fibrillation Priority: Primary Status: Chronic Qualifiers: Atrial fibrillation type: chronic Qualified Code(s): I48.2 - Chronic atrial fibrillation (2) CKD (chronic kidney disease) Priority: Primary Status: Chronic Qualifiers: Chronic kidney disease stage: stage 3 (moderate) Qualified Code(s): N18.3 - Chronic kidney disease, stage 3 (moderate) (3) COPD (chronic obstructive pulmonary disease) Priority: Primary Status: Chronic Qualifiers: COPD type: emphysema Emphysema type: unspecified Qualified Code(s): J43.9 - Emphysema, unspecified (4) DM type 2 (diabetes mellitus, type 2) Priority: Primary Status: Chronic Qualifiers: Diabetes mellitus terminal operations supervisor insulin use: without correction use Diabetes mellitus complication status: with neurologic complications Diabetes mellitus complication detail: with polyneuropathy Qualified Code(s): E11.42 - Type 2 diabetes mellitus with diabetic polyneuropathy (5) Frequent falls Priority: Primary Status: Acute (6) Generalized weakness Priority: Primary Status: Acute (7) Hip pain, right Priority: Primary Status: Acute (8) Hypertension Priority: Primary Status: Chronic Qualifiers: Hypertension type: essential hypertension Qualified Code(s): I10 - Essential (primary) hypertension (9) Physical deconditioning Priority: Primary Status: Acute (10) Hypotension due to medication Priority: Primary Status: Acute Hospital course: Ms. Gupta is a 81 year old female who resides at home who presented to the emergency room with frequent falls. She has a history of diabetes, arthritis, chronic back pain status post back surgery, pacemaker, A. fib, COPD and hypertension. Patient lives alone and felt she could not take care of herself anymore so she came to the hospital for further management. The patient discussed her CODE STATUS with the physician who stated she was alert and oriented 3 and clearly told me she did not want CPR or intubation so a DNR/DNI order was placed. PT OT evaluated the patient and felt that she would benefit from rehabilitation. I personally spoke with the son today and discussed her CODE STATUS, need for a living will and power of county attorney, and [facility]. Also discussed that her falls are probably related to her drops in blood pressure. I told him that we noted several low blood pressures. Cardiology was consult and adjusted her medications. They will follow up with her in a few weeks. Patient is sore and has not multiple ecchymotic areas but no fractures on the x-rays of the hips and pelvis and elbows. The patient had required to full fluid boluses yesterday for low blood pressure but since then Maxide, Ferguson and Eliquis were discontinued. Eliquis was stopped after discussion with cardiology and the patient. COPD is not exacerbated. Atrial fibrillation heart rate is well controlled. Patient does have a pacemaker. She will resume her glipizide on discharge. Hemoglobin A1c was 7.7. Chronic kidney disease with stable creatinine. She will continue physical therapy at [facility] for strengthening. Patient and son are in agreement with the plan of care and she will be transferred later this afternoon. Discharge discussed with: patient, nurse, case management - Time Spent with Patient Total time spent providing and/or coordinating discharge services: Less than 30 minutes - Discharge Medications Prescriptions: OxyCODONE/APAP 5/325 [Percocet 5/325 MG] 1 each PO Q8HR PRN 5 Days #10 tablet PRN Reason: Severe Pain Home Medications: Albuterol Sulfate [Ventolin Hfa] 2 puff IH Q4H PRN 06/12/15 [History] Aspirin [Adult Low Dose Aspirin EC] 81 mg PO DAILY 06/12/15 [History] Atorvastatin [Lipitor] 40 mg PO HS 06/12/15 [History] Levalbuterol Neb [Xopenex Neb] 1.25 mg IH TID PRN 06/12/15 [History] Metoprolol [Lopressor] 75 mg PO BID 06/12/15 [History] Nitroglycerin [Nitrostat] 0.4 mg SL Q5M PRN 06/12/15 [History] Citalopram Hydrobromide [Citalopram HBr] 10 mg PO DAILY 08/02/17 [History] Fluticasone Propionate Nasal [Flonase] 50 mcg NS DAILY 08/02/17 [History] Oxygen 1 each NS AD 08/02/17 [History] glipiZIDE [Glipizide ER] 10 mg PO DAILY 08/02/17 [History] OxyCODONE/APAP 5/325 [Percocet 5/325 MG] 1 each PO Q8HR PRN 5 Days #10 tablet [Rx] Allergies/Adverse Reactions: 3 Allergy/AdvReac Type Severity Reaction Status Date / Time codeine AdvReac Hallucinati Verified 06/12/15 15:48 ng morphine AdvReac Hallucinati Verified 06/12/15 15:48 ng Date of admission: 08/02/17 19:44 Primary care physician: Eden Wells Consults: 08/02/17 20:42 Consult to Occupational Therapy [CONS] Routine Comment: Evaluate, develop and implement POC Reason for Consult: Fall Does patient have active BEDREST order?: No Is patient medically & hemodynamically stable?: Yes Patient assessed for mobility or mobilized this visit?: Yes Consult to Physical Therapy [CONS] Routine Comment: Evaluate, develop and implement POC Reason for Consult: Fall Does patient have active BEDREST order?: No Is patient medically & hemodynamically stable?: Yes Consult to Welding Technician [CONS] Routine Reason for SW Consult: Frequent fall, need placement 08/03/17 11:58 Consult to Cardiology [CONS] Routine Comment: Consulting Provider: Cardiology Milagros Reason for Consult: hypotension and falls on Time Notified: 12:00 Call Completed: Yes Discharging clinician: Merlene Tidwell Anticipated date of discharge: 08/04/17 - Constitutional Vitals: Temp Pulse Resp BP Pulse Ox 97.6 F 62 15 104/56 98 08/04/17 06:57 08/04/17 06:57 08/04/17 06:57 08/04/17 06:57 08/04/17 06:57 General appearance: Present: cooperative, A&O X 3, pleasant, no acute distress, answers questions appropriately - Head Head exam: Present: atraumatic, normocephalic - Eye Eye exam: Present: PERRL, conjuntiva pink, sclera anicteric Pupils: Present: PERRL - Neck Neck exam general surgery: Present: supple, trachea midline. Absent: lymphadenopathy - Respiratory Respiratory exam: Present: CTAB. Absent: accessory muscle use, rales, rhonchi, wheezes - Cardiovascular Cardiovascular exam: Present: irregular rhythm, +S1, +S2. Absent: diastolic murmur, gallop, rubs, systolic murmur - GI/Abdominal GI/Abdominal exam: Present: normal bowel sounds, soft, no peritoneal signs. Absent: distended, tenderness - Extremities Exam Extremities exam: Present: full ROM, warm, radial pulses palpable and symmetrical. Absent: calf tenderness, cyanotic, joint swelling, pedal edema Additional comments: Right hip and thigh very ecchymotic from recent falls, scattered ecchymosis over her arms. - Neurological Exam Neurological exam: Present: alert, CN II-XII intact, oriented X3, no focal deficits, strengths equal and symetr throughout. Absent: pronater drift, facial droop, speech deficit - Skin Skin exam: Present: dry, normal color, warm - Patient Status Disposition: Transfer SNF Condition: Good Functional capacity at discharge: uses cane/walker Overall status at discharge: patient is progressing back to baseline - Discharge Instructions Instructions: Cyclobenzaprine (By mouth) Follow Up With: Eden Wells MD [Primary Care Provider] - 08/16/17 10:45 am - Diet and Activity Activity: ambulate only with your walker, as per physical therapy, increase activity as tolerated Diet: advance to your usual diet, diabetic diet, low fat, low cholesterol, low salt diet
--- NOTE | 2017-08-04 11:57 | Physician Discharge Referral ---
ExtendedCare Referral Info Transfer To: [facility] Provider in Charge: jose juan humphries Institutional Level of Care: Skilled - Diagnosis (1) Atrial fibrillation Priority: Primary Status: Chronic (2) CKD (chronic kidney disease) Priority: Primary Status: Chronic (3) COPD (chronic obstructive pulmonary disease) Priority: Primary Status: Chronic (4) DM type 2 (diabetes mellitus, type 2) Priority: Primary Status: Chronic (5) Frequent falls Priority: Primary Status: Acute (6) Generalized weakness Priority: Primary Status: Acute (7) Hip pain, right Priority: Primary Status: Acute (8) Hypertension Priority: Primary Status: Chronic (9) Physical deconditioning Priority: Primary Status: Acute (10) Hypotension due to medication Priority: Primary Status: Acute Prognosis: Good Aware of Diagnosis: Patient, Family Aware of Prognosis: Patient, Family - Transfer Medications Prescriptions: OxyCODONE/APAP 5/325 [Percocet 5/325 MG] 1 each PO Q8HR PRN 5 Days #10 tablet PRN Reason: Severe Pain Home Medications: Albuterol Sulfate [Ventolin Hfa] 2 puff IH Q4H PRN 06/12/15 [History] Aspirin [Adult Low Dose Aspirin EC] 81 mg PO DAILY 06/12/15 [History] Atorvastatin [Lipitor] 40 mg PO HS 06/12/15 [History] Levalbuterol Neb [Xopenex Neb] 1.25 mg IH TID PRN 06/12/15 [History] Metoprolol [Lopressor] 75 mg PO BID 06/12/15 [History] Nitroglycerin [Nitrostat] 0.4 mg SL Q5M PRN 06/12/15 [History] Citalopram Hydrobromide [Citalopram HBr] 10 mg PO DAILY 08/02/17 [History] Fluticasone Propionate Nasal [Flonase] 50 mcg NS DAILY 08/02/17 [History] Oxygen 1 each NS AD 08/02/17 [History] glipiZIDE [Glipizide ER] 10 mg PO DAILY 08/02/17 [History] OxyCODONE/APAP 5/325 [Percocet 5/325 MG] 1 each PO Q8HR PRN 5 Days #10 tablet [Rx] Allergies/Adverse Reactions: 3 Allergy/AdvReac Type Severity Reaction Status Date / Time codeine AdvReac Hallucinati Verified 06/12/15 15:48 ng morphine AdvReac Hallucinati Verified 06/12/15 15:48 ng - Respiratory Orders None Smoking Cessation: Smoking cessation has been advised. For more information, call the [place] Tobacco Quit Line at 9-588-WDDJ-NOW. - Advance Directives Living Will: No Power of Manager Data: No Code Status: DNR-Arrest/Don't Intubate - Mobility Orders Ambulate - Rehabiliation Orders Rehab Potential: Good - Diet Orders No Added Salt (LATHA), No Concentrated Sweets, Cardiac CERTIFICATION: I certify that the transfer of the above named patient to an Extended Care Facility is necessary for the continuing treatment of the diagnosis listed. The above information is true and accurate reflection of patient's current condition. Confidential - Redisclosure prohibited without a patient's written consent.
[2017-08-04 11:59] VITALS: BP 128/57
== END 2017-08-04 15:28 ==
LOC: 3BNU 15:25 → EMEROO 15:25 → 3BNU 21:10
PROVIDERS: ADMIT Internal Medicine; ATTEND Registered Nurse

== ENCOUNTER 2017-08-21 08:53 | Inpatient (IN) ==
[2017-08-21] MEDS ORDERED: Ipratropium/Albuterol Neb 3 ML IH ONE (09:09)
[2017-08-21 09:38] LABS: Basophils % 0.2 %; Eosinophils % 0.1 %; Hemoglobin 12.6 g/dL (11.5-15.4); Immature Granulocytes % 0.4 % (0-4); Mean Corpuscular HGB Conc 31.5 g/dL (31.6-35.5); Mean Corpuscular Hemoglobin 30.2 pg (28.0-33.3); Mean Corpuscular Volume 95.9 fL (83.0-100.0); Mean Platelet Volume 10.4 fL (9.4-12.4); Monocytes % 8.2 %; Platelet Count 130 K/mcL (140-400); Red Blood Count 4.17 M/mcL (3.82-4.97); Segmented Neutrophils % 82.1 %
[2017-08-21 09:39] LABS: Lymphocytes # 0.8 K/mcL (0.6-4.6); Monocytes # 0.8 K/mcL (0.0-1.3); Neutrophils # 7.7 K/mcL (1.6-8.9)
[2017-08-21 09:56] LABS: Troponin I < 0.03 ng/mL (< 0.04)
[2017-08-21 10:06] LABS: Alanine Aminotransferase 25 Units/L (7-52); Albumin 3.9 g/dL (3.5-5.7); Albumin/Globulin Ratio 1.4 (1.1-2.2); Alkaline Phosphatase 80 Units/L (34-104); Aspartate Amino Transferase 26 Units/L (13-39); BUN/Creatinine Ratio 20 (6-26); Bilirubin,Total 2.2 mg/dL (0.3-1.0); Blood Urea Nitrogen 19 mg/dL (8-23); Calcium 8.9 mg/dL (8.6-10.3); Carbon Dioxide 27 mEq/L (23-29); Chloride 97 mEq/L (98-107); Globulin 2.7 g/dL (2.4-3.5); Glucose 167 mg/dL (70-105); Osmolality,Calculated 282 (280-300); Sodium 133 mEq/L (136-145); Total Protein 6.6 g/dL (6.4-8.9); eGFR For African Americans > 60 (> 60); eGFR For Non-African Americans 56 (> 60)
--- NOTE | 2017-08-21 10:12 | Emergency Department Note ---
Disposition Clinical Impression: Acute exacerbation of chronic obstructive airways disease, Hypoxia Disposition: Admitted As Inpatient Condition: Fair SOB HPI - General Chief Complaint: ED Shortness of Breath/Dyspnea Stated Complaint: SOB/SARINA Time Seen by Provider: 08/21/17 08:55 Source: EMS Limitations: no limitations Nursing Notes Reviewed: Yes Vital Signs Reviewed: Yes - History of Present Illness 81 year old female with history of diabetes, pacemaker, a-fib, COPD presents with cough, shortness of breath. Pt was sent from snf. Pt reported dry cough for 7 days. In the past three days, she has coughed up yellowish mucus with shortness of breath. No chest pain. Ambulance reported o2 sat was 86% in room air when they arriving. Pt was given breath treatment and oxygen. Pt Subjective Complaint: shortness of breath, cough Onset (ago): day(s) (3) Severity: moderate Known history of: COPD, diabetes Associated symptoms: Denies: chest pain Treatment prior to arrival: oxygen, bronchodilator Cough present: Yes Cough Description: Productive Cough Frequency: Intermittent Sputum Amount: Small Sputum Color: Yellow - Related Data Home Medications Medication Instructions Recorded Confirmed Albuterol Sulfate [Ventolin Hfa] 2 puff IH Q4H PRN 06/12/15 08/21/17 Aspirin [Adult Low Dose Aspirin EC] 81 mg PO DAILY 06/12/15 08/21/17 Atorvastatin [Lipitor] 40 mg PO HS 06/12/15 08/21/17 Levalbuterol Neb [Xopenex Neb] 1.25 mg IH TID PRN 06/12/15 08/21/17 Metoprolol [Lopressor] 75 mg PO BID 06/12/15 08/21/17 Nitroglycerin [Nitrostat] 0.4 mg SL Q5M PRN 06/12/15 08/21/17 Citalopram Hydrobromide 10 mg PO DAILY 08/02/17 08/21/17 [Citalopram HBr] Fluticasone Propionate Nasal 50 mcg NS DAILY 08/02/17 08/21/17 [Flonase] Oxygen 1 each NS AD 08/02/17 08/21/17 Acetaminophen [Non-Aspirin] 650 mg PO Q6H PRN 08/21/17 08/21/17 Doxycycline Hyclate [Vibramycin] 100 mg PO BID 08/21/17 08/21/17 glipiZIDE [Glipizide] 10 mg PO DAILY 08/21/17 08/21/17 Previous Rx's Medication Instructions Recorded OxyCODONE/APAP 5/325 [Percocet 1 each PO Q8HR PRN 5 Days #10 08/04/17 5/325 MG] tablet Allergies Allergy/AdvReac Type Severity Reaction Status Date / Time codeine AdvReac Hallucinati Verified 06/12/15 15:48 ng morphine AdvReac Hallucinati Verified 06/12/15 15:48 ng Constitutional: Reports: fever. Denies: chills, weakness Eyes: Denies: eye pain, eye discharge, vision change ENT ED: Denies: ear pain, throat pain, dental pain Cardiovascular: Reports: dyspnea on exertion. Denies: chest pain, palpitations Respiratory: Reports: cough, dyspnea, wheezes Gastrointestinal: Denies: abdominal pain, nausea, vomiting Genitourinary: Denies: urgency, dysuria, frequency Musculoskeletal: Denies: back pain, neck pain, joint swelling Integumentary: Denies: rash, abrasion, lesions Neurological: Denies: headache, weakness Psychiatric: Denies: anxiety, depression Endocrine: Denies: fatigue, heat or cold intolerance Hematological/Lymphatic: Denies: easy bleeding, easy bruising Allergic/Immunologic: Denies: facial swelling, urticaria Past Medical History - Past Medical History Medical history: Reports: arthritis, asthma, atrial fibrillation, COPD, diabetes , hyperlipidemia, hypertension, syncope, TIA Psychiatric history: Reports: anxiety, depression - Social History Smoking Status: Never smoker Smokeless Tobacco Status: No Alcohol use: Reports: none Drug use: Reports: none Physical Exam - General Limitations: no limitations General appearance: alert, in no apparent distress - Head Head exam: atraumatic, normal inspection - Eye Eye exam: Present: normal appearance. Absent: scleral icterus, conjunctival injection - ENT ENT exam: normal external ear exam - Neck Neck exam: Present: normal inspection, trachea midline - Chest Chest inspection: Present: normal inspection, symmetric chest wall rise. Absent : tenderness - Respiratory Respiratory exam: Present: wheezes - Cardiovascular Cardiovascular exam: Present: regular rate, normal rhythm - Abdominal Exam Abdominal exam: Present: soft, Non-Tender - Extremities Exam Extremities exam: Present: normal inspection. Absent: tenderness - Back Exam Back exam: Present: normal inspection, full ROM. Absent: tenderness - Neurological Exam Neurological exam: Present: alert, oriented X3, CN II-XII intact - Psychiatric Psychiatric exam: Present: normal affect, normal mood. Absent: depressed - Skin Skin exam: Present: warm, intact Course Vital Signs Temperature 101.4 F H 08/21/17 08:54 Pulse Rate 73 08/21/17 08:54 Respiratory Rate 22 08/21/17 08:54 Blood Pressure 151/85 08/21/17 08:54 O2 Sat by Pulse Oximetry 96 08/21/17 08:54 Temperature 101.4 F H 08/21/17 08:54 Pulse Rate 63 08/21/17 11:46 Respiratory Rate 22 08/21/17 12:57 Blood Pressure 100/49 08/21/17 12:57 O2 Sat by Pulse Oximetry 98 08/21/17 11:46 Oxygen Delivery Oxygen Delivery Room Air Shortness of Breath/Dyspnea - MDM Narrative Medical decision making narrative: 81 year old female with history of COPD, a-fib, pacemaker, diabetes, presents with cough and shortness of breath. Pt reported dry cough for 7 days, productive cough with shortness of breath for 3 days, O2 sat 86% when ambulance came. Physical exam: Temperature 101.4. bilateral wheezing. Labs: white cell 9.7, normal Lactic acid, negative troponin, slightly elevated BNP, chest x-ray: unremarkable. Dr. Lencho Huitron saw the patient, considering admit pt for COPD exacerbation and hypoxia, concerning of early stage of pneumonia, will start antibiotics in ER. 11:[address] Roblero, accept the pt - Lab Data Lab results reviewed: Yes I reviewed the patient's lab results. Result diagrams: 08/21/17 09:07 08/21/17 09:07 Lab Results 08/21/17 08/21/17 08/21/17 Range/Units 09:07 09:07 09:07 WBC 9.4 (4.3-11.1) K/mcL RBC 4.17 (3.82-4.97) M/mcL Hgb 12.6 (11.5-15.4) g/dL Hct 40.0 (35.3-44.9) % MCV 95.9 (83.0-100.0) fL MCH 30.2 (28.0-33.3) pg MCHC 31.5 L (31.6-35.5) g/dL RDW 14.0 (11.5-14.5) % Plt Count 130 L (140-400) K/mcL MPV 10.4 (9.4-12.4) fL Immature Gran % 0.4 (0-4) % Seg Neutrophils % 82.1 % Lymphocytes % 9.0 % Monocytes % 8.2 % Eosinophils % 0.1 % Basophils % 0.2 % Neutrophils # 7.7 (1.6-8.9) K/mcL Lymphocytes # 0.8 (0.6-4.6) K/mcL Monocytes # 0.8 (0.0-1.3) K/mcL Eosinophils # 0.0 (0.0-0.6) K/mcL Basophils # 0.0 (0.0-0.2) K/mcL Sodium 133 L (136-145) mEq/L Potassium 4.0 (3.5-5.1) mEq/L Chloride 97 L (98-107) mEq/L Carbon Dioxide 27 (23-29) mEq/L BUN 19 (8-23) mg/dL Creatinine 0.96 (0.60-1.20) mg/dL Est GFR ( Amer) > 60 (> 60) Est GFR (Non-Af Amer) 56 L (> 60) BUN/Creatinine Ratio 20 (6-26) Glucose 167 H (70-105) mg/dL Calculated Osmolality 282 (280-300) Lactic Acid 1.8 (0.5-2.2) mmol/L Calcium 8.9 (8.6-10.3) mg/dL Total Bilirubin 2.2 H (0.3-1.0) mg/dL AST 26 (13-39) Units/L ALT 25 (7-52) Units/L Alkaline Phosphatase 80 (34-104) Units/L Troponin I < 0.03 (< 0.04) ng/mL B-Natriuretic Peptide (Less than 100) pg/mL Serum Total Protein 6.6 (6.4-8.9) g/dL Albumin 3.9 (3.5-5.7) g/dL Globulin 2.7 (2.4-3.5) g/dL Albumin/Globulin Ratio 1.4 (1.1-2.2) 08/21/17 Range/Units 09:07 WBC (4.3-11.1) K/mcL RBC (3.82-4.97) M/mcL Hgb (11.5-15.4) g/dL Hct (35.3-44.9) % MCV (83.0-100.0) fL MCH (28.0-33.3) pg MCHC (31.6-35.5) g/dL RDW (11.5-14.5) % Plt Count (140-400) K/mcL MPV (9.4-12.4) fL Immature Gran % (0-4) % Seg Neutrophils % % Lymphocytes % % Monocytes % % Eosinophils % % Basophils % % Neutrophils # (1.6-8.9) K/mcL Lymphocytes # (0.6-4.6) K/mcL Monocytes # (0.0-1.3) K/mcL Eosinophils # (0.0-0.6) K/mcL Basophils # (0.0-0.2) K/mcL Sodium (136-145) mEq/L Potassium (3.5-5.1) mEq/L Chloride (98-107) mEq/L Carbon Dioxide (23-29) mEq/L BUN (8-23) mg/dL Creatinine (0.60-1.20) mg/dL Est GFR ( Amer) (> 60) Est GFR (Non-Af Amer) (> 60) BUN/Creatinine Ratio (6-26) Glucose (70-105) mg/dL Calculated Osmolality (280-300) Lactic Acid (0.5-2.2) mmol/L Calcium (8.6-10.3) mg/dL Total Bilirubin (0.3-1.0) mg/dL AST (13-39) Units/L ALT (7-52) Units/L Alkaline Phosphatase (34-104) Units/L Troponin I (< 0.04) ng/mL B-Natriuretic Peptide 582 H (Less than 100) pg/mL Serum Total Protein (6.4-8.9) g/dL Albumin (3.5-5.7) g/dL Globulin (2.4-3.5) g/dL Albumin/Globulin Ratio (1.1-2.2) - Radiology Data Radiology results reviewed: Yes I reviewed the patient's radiology results.
[2017-08-21] MEDS ORDERED: Albuterol Neb 0.63 MG/3 ML VIAL IH ONE (11:12)
[2017-08-21] MEDS ORDERED: methylPREDNISolone 125 MG/2 ML VIAL IVP ONE (11:12)
[2017-08-21] MEDS ORDERED: Azithromycin 500 MG in D5% in Water 250 ML IVPB ONE (11:14)
[2017-08-21] MEDS ORDERED: Albuterol 2.5 MG/3 ML NEBULIZER IH PRN (13:03)
[2017-08-21] MEDS ORDERED: *HR* OxyCODONE/APAP 5/325 TABLET PO PRN (13:04)
[2017-08-21] MEDS ORDERED: Nitroglycerin 0.4 MG TAB.SUBL SL PRN (13:04)
[2017-08-21] MEDS ORDERED: D5% in Water 1,000 ML IVC PRN (13:05)
[2017-08-21] MEDS ORDERED: Naloxone 0.4 MG/ML INJ IVP PRN (13:05)
[2017-08-21] MEDS ORDERED: *HR* Dextrose 50 % in Water (Syg) 50 ML SYRINGE IVP PRN (13:05)
[2017-08-21] MEDS ORDERED: Dextrose Gel 15 GM/37.5 ML TUBE PO PRN ×2 (13:05)
[2017-08-21] MEDS: Piperacillin/Tazobactam 3.375 GM in 0.9 % Sodium Chloride Mini Bag 100 ML IVPB ONE ×2 (13:30→15:13)
--- NOTE | 2017-08-21 14:33 | Internal Med History&Physical ---
<Juanito Estrada - Last Filed: 08/21/17 14:30> Date of Encounter: 08/21/17 Time of Encounter: 14:30 Internal Medicine - H&P: HPI Chief complaint: Shortness of breath, COPD exacerbation Admitted From: Home Plans for Post Hospital Care: Home History of present illness: Ms. Gupta is a 81 year old female with a PMH of A. fib, COPD, arthritis, asthma , diabetes, HLD, HTN and TIA. She reports to [facility] today with shortness of breath and a cough productive of mullins/brown sputum for the last 7 days. She reports that these symptoms have been progressing. She reports that her shortness of breath and cough. Worse with activity. She has not taken any over -the-counter medications. She denies any fever, chills, chest pain, abdominal pain, nausea, vomiting, diarrhea. She was noted to be hypoxic via EMS. Today' s chest x-ray shows a stable left basilar opacity likely representing atelectasis. Cardiomegaly with however pulmonary edema. No acute pulmonary process. No leukocytosis noted on today's labs. Past Med Surg Social Fam HX - Past Medical History Medical history: arthritis, asthma, atrial fibrillation, COPD, diabetes, hyperlipidemia, hypertension, syncope, TIA Psychiatric history: anxiety, depression - Social History Smoking Status: Never smoker Smokeless Tobacco Status: No Alcohol use: none Drug use: none - Family History Father Hx Family Cardiac Disorders: Yes Internal Medicine - H&P: Meds Albuterol Sulfate [Ventolin Hfa] 2 puff IH Q4H PRN 06/12/15 [History] Aspirin [Adult Low Dose Aspirin EC] 81 mg PO DAILY 06/12/15 [History] Atorvastatin [Lipitor] 40 mg PO HS 06/12/15 [History] Levalbuterol Neb [Xopenex Neb] 1.25 mg IH TID PRN 06/12/15 [History] Metoprolol [Lopressor] 75 mg PO BID 06/12/15 [History] Nitroglycerin [Nitrostat] 0.4 mg SL Q5M PRN 06/12/15 [History] Citalopram Hydrobromide [Citalopram HBr] 10 mg PO DAILY 08/02/17 [History] Fluticasone Propionate Nasal [Flonase] 50 mcg NS DAILY 08/02/17 [History] Oxygen 1 each NS AD 08/02/17 [History] OxyCODONE/APAP 5/325 [Percocet 5/325 MG] 1 each PO Q8HR PRN 5 Days #10 tablet [Rx] Acetaminophen [Non-Aspirin] 650 mg PO Q6H PRN 08/21/17 [History] Doxycycline Hyclate [Vibramycin] 100 mg PO BID 08/21/17 [History] glipiZIDE [Glipizide] 10 mg PO DAILY 08/21/17 [History] 3 Allergy/AdvReac Type Severity Reaction Status Date / Time codeine AdvReac Hallucinati Verified 06/12/15 15:48 ng morphine AdvReac Hallucinati Verified 06/12/15 15:48 ng All Systems PM: A 10-system review of systems was performed and is negative for pertinent findings except as documented above in the HPI. Review of systems: REVIEW OF SYSTEMS GENERAL: Negative for any nausea, vomiting, fevers, chills, or weight loss. NEUROLOGIC: Negative for any blurry vision, blind spots, double vision, facial asymmetry, dysphagia, dysarthria, hemiparesis, hemisensory deficits, vertigo, ataxia. HEENT: Negative for any head trauma, neck trauma, neck stiffness, photophobia, phonophobia, sinusitis, rhinitis. CARDIAC: Negative for any chest pain, paroxysmal nocturnal dyspnea, peripheral edema. PULMONARY: Positive for shortness of breath, cough, wheezing Gastrointestinal -denies any abdominal pain, nausea, vomiting, bright red blood per rectum, melena. GENITOURINARY: Negative for any dysuria, hematuria, incontinence. INTEGUMENTARY: Negative for any rashes, cuts, insect bites. RHEUMATOLOGIC: Negative for any joint pains, photosensitive rashes, history of vasculitis or kidney problems. HEMATOLOGIC: Negative for any abnormal bruising, frequent infections or bleeding. - Constitutional Vitals: Temp Pulse Resp BP Pulse Ox 101.4 F H 63 22 100/49 98 08/21/17 08:54 08/21/17 11:46 08/21/17 12:57 08/21/17 12:57 08/21/17 11:46 General appearance: Present: mild distress, A&O X 3 Exam: PHYSICAL EXAMINATION: GENERAL: The patient is a 81-year-old female in mild respiratory distress on 2 L nasal cannula.He is alert and oriented x3. HEENT: Head is normocephalic and atraumatic. Extraocular muscles are intact. Pupils are equal, round, and reactive to light and accommodation. Nares appeared normal. Mouth is well hydrated and without lesions. Mucous membranes are moist. Posterior pharynx clear of any exudate or lesions. NECK: Supple. No carotid bruits. No lymphadenopathy or thyromegaly. LUNGS: Inspiratory and expiratory wheezes throughout anterior and posterior lateral, no rhonchi or rales noted. Accessory muscle usage with activity. Pursed lip breathing at rest. Mild conversational dyspnea HEART: Patient has regular rate, has a pacemaker. Systolic murmur noted. ABDOMEN: Soft, nontender, and nondistended. Positive bowel sounds. No hepatosplenomegaly was noted. EXTREMITIES: No extremity edema, 2+ radial pulses bilaterally, 2+ DP-PT pulses bilaterally NEUROLOGIC: No facial droop or slurred speech SKIN: No ulceration , rashes or lesions Internal Med - H&P Results - Labs CBC & Chem 7: 08/21/17 09:07 08/21/17 09:07 - Impressions Impressions Chest X-Ray 08/21/17 08:55 IMPRESSION: Stable left basilar opacity likely representing atelectasis. Cardiomegaly without overt pulmonary edema. D/ / Alberto Cronin MD / Alberto Cronin MD Interpreting Provider: Alberto Cronin MD - Assessment and plan (1) Acute exacerbation of chronic obstructive airways disease Current Visit: Yes Status: Acute Assessment and plan: ASSESSMENT: - SOB and hypoxia due to due to an acute exacerbation of COPD Presents today with a chronic history of cough and shortness of breath Inspiratory and expiratory wheezes throughout AP and L CXR negative for acute pulmonary process, no leukocytosis noted - Blood Cx - Antibiotics- azithromycin - CBCD, CMP in AM - Tylenol 650 mg PO q 6 hr PRN pain or fever - Resume home medications - Heparin 5000 U SQ BID -Respiratory support per nasal cannula; titrate to maintain SPO2 greater than 92 % -Obtain his telemetry and SPO2 monitoring -Silvestres with albuterol for breakthrough shortness of breath and wheezing, IV steroids (2) Acute respiratory failure with hypoxia Current Visit: Yes Status: Acute Assessment and plan: Secondary to acute exacerbation of COPD, hypoxia noted while in route per EMS with SPO2 of 84% See plan above (3) Atrial fibrillation Current Visit: Yes Status: Chronic Assessment and plan: History of A. fib, on ASA but no anticoagulants. Paced rhythm Resume ASA Qualifiers: Atrial fibrillation type: chronic Qualified Code(s): I48.2 - Chronic atrial fibrillation (4) CKD (chronic kidney disease) Current Visit: Yes Status: Chronic Assessment and plan: History of CKD stage III. Renal function at baseline BMP in the morning Qualifiers: Chronic kidney disease stage: stage 3 (moderate) Qualified Code(s): N18.3 - Chronic kidney disease, stage 3 (moderate) (5) DM type 2 (diabetes mellitus, type 2) Current Visit: Yes Status: Chronic Assessment and plan: Low sliding scale insulin coverage Diabetic/cardiac diet Qualifiers: Diabetes mellitus usp insulin use: without usp use Diabetes mellitus complication status: with neurologic complications Diabetes mellitus complication detail: with polyneuropathy Qualified Code(s): E11.42 - Type 2 diabetes mellitus with diabetic polyneuropathy (6) Hyperlipidemia Current Visit: Yes Status: Chronic Assessment and plan: Resume Lipitor Qualifiers: Hyperlipidemia type: unspecified Qualified Code(s): E78.5 - Hyperlipidemia , unspecified (7) Hypertension Current Visit: Yes Status: Chronic Assessment and plan: History of HTN, blood pressure stable, resume home anti-HTN medication Qualifiers: Hypertension type: essential hypertension Qualified Code(s): I10 - Essential (primary) hypertension (8) DVT prophylaxis Current Visit: Yes Status: Acute Assessment and plan: Heparin 5000 units SC BID - Time Spent With Patient Total time spent is greater than 50% in coordination of care (as documented) at patient's floor/unit and/or counseling patient: 25 - 35 minutes <Shyla Roblero - Last Filed: 08/21/17 18:33> Date of Encounter: 08/21/17 Internal Medicine - H&P: HPI History of present illness: Ms. Gupta is a 81 year old female All Systems PM: A 10-system review of systems was performed and is negative for pertinent findings except as documented above in the HPI. - Constitutional Vitals: Temp Pulse Resp BP Pulse Ox 98.8 F 67 18 124/76 97 08/21/17 15:33 08/21/17 15:33 08/21/17 16:02 08/21/17 15:33 08/21/17 16:02 Internal Med - H&P Results - Labs CBC & Chem 7: 08/21/17 09:07 08/21/17 09:07 - Attending Attestation I examined this patient and my medical decision-making was reviewed with the Resident Physician. I agree with the documented findings, disposition and treatment plan as described except to the extent set forth below. - Time Spent With Patient Total time spent is greater than 50% in coordination of care (as documented) at patient's floor/unit and/or counseling patient:
[2017-08-21] MEDS: Ipratropium/Albuterol Neb 3 ML IH SCH ×3 (16:01→22:48)
[2017-08-21] MEDS: MethylPREDNISolone 40 MG/ML VIAL IVP SCH (17:01)
[2017-08-21] MEDS: *HR* Heparin 5,000 UNIT/ML VIAL SQ SCH (17:01)
[2017-08-21] MEDS: Insulin LISPRO 300 UNITS/3 ML VIAL SQ SCH ×2 (17:01→22:13)
[2017-08-22] MEDS: MethylPREDNISolone 40 MG/ML VIAL IVP SCH ×2 (00:43→08:15)
[2017-08-22 01:41] LABS: Hematocrit 36.7 % (35.3-44.9); Hemoglobin 11.7 g/dL (11.5-15.4); Mean Corpuscular HGB Conc 31.9 g/dL (31.6-35.5); Mean Corpuscular Hemoglobin 30.5 pg (28.0-33.3); Mean Corpuscular Volume 95.6 fL (83.0-100.0); Mean Platelet Volume 10.5 fL (9.4-12.4); Platelet Count 134 K/mcL (140-400); Red Blood Count 3.84 M/mcL (3.82-4.97); Red Cell Distribution Width 13.9 % (11.5-14.5)
[2017-08-22 02:04] LABS: BUN/Creatinine Ratio 24 (6-26); Blood Urea Nitrogen 24 mg/dL (8-23); Calcium 8.8 mg/dL (8.6-10.3); Carbon Dioxide 27 mEq/L (23-29); Chloride 101 mEq/L (98-107); Glucose 211 mg/dL (70-105); Osmolality,Calculated 288 (280-300); Potassium 3.8 mEq/L (3.5-5.1); Sodium 134 mEq/L (136-145); eGFR For African Americans > 60 (> 60); eGFR For Non-African Americans 54 (> 60)
[2017-08-22] MEDS: Ipratropium/Albuterol Neb 3 ML IH SCH ×6 (04:28→23:32)
[2017-08-22] MEDS: *HR* Heparin 5,000 UNIT/ML VIAL SQ SCH ×2 (05:13→16:37)
[2017-08-22] MEDS: Aspirin Enteric Coated 81 MG Tablet PO SCH (08:15)
[2017-08-22] MEDS: Azithromycin 250 MG TABLET PO SCH (08:15)
[2017-08-22] MEDS: Fluticasone Propionate Nasal 50 MCG/SPRAY BOTTLE NS SCH (08:16)
[2017-08-22] MEDS: Insulin LISPRO 300 UNITS/3 ML VIAL SQ SCH ×4 (08:16→20:46)
[2017-08-22] MEDS ORDERED: Furosemide 20 MG/2 ML VIAL IVP ONE (09:53)
[2017-08-22] MEDS: methylPREDNISolone 125 MG/2 ML VIAL IVP SCH ×2 (11:48→16:36)
[2017-08-22] MEDS: Budesonide/Formoterol 80/4.5 MDI IH SCH ×2 (11:58→20:22)
--- NOTE | 2017-08-22 14:10 | Internal Med Progress Note ---
Date of Encounter: 08/22/17 Time of Encounter: 14:08 - Assessment and plan (1) Acute respiratory failure with hypoxia Current Visit: Yes Status: Acute (2) Acute exacerbation of chronic obstructive airways disease Current Visit: Yes Status: Acute Assessment and plan: - sightly improved SOB, will optimize the treatment: increase IV steroid dose, add maintenance treatment. - give one dose of lasix given sightly volume overload. (3) Hypertension Current Visit: No Status: Chronic Assessment and plan: History of HTN, blood pressure stable, resume home anti-HTN medication Qualifiers: Hypertension type: essential hypertension Qualified Code(s): I10 - Essential (primary) hypertension (4) Hyperlipidemia Current Visit: Yes Status: Chronic Assessment and plan: Resume Lipitor Qualifiers: Hyperlipidemia type: unspecified Qualified Code(s): E78.5 - Hyperlipidemia , unspecified (5) Atrial fibrillation Current Visit: Yes Status: Chronic Assessment and plan: History of A. fib, on ASA but no anticoagulants. Paced rhythm Resume ASA Qualifiers: Atrial fibrillation type: chronic Qualified Code(s): I48.2 - Chronic atrial fibrillation (6) DM type 2 (diabetes mellitus, type 2) Current Visit: Yes Status: Chronic Assessment and plan: Low sliding scale insulin coverage Diabetic/cardiac diet Qualifiers: Diabetes mellitus ferry terminal agent insulin use: without ferry terminal agent use Diabetes mellitus complication status: with neurologic complications Diabetes mellitus complication detail: with polyneuropathy Qualified Code(s): E11.42 - Type 2 diabetes mellitus with diabetic polyneuropathy (7) CKD (chronic kidney disease) Current Visit: Yes Status: Chronic Assessment and plan: History of CKD stage III. Renal function at baseline Qualifiers: Chronic kidney disease stage: stage 3 (moderate) Qualified Code(s): N18.3 - Chronic kidney disease, stage 3 (moderate) - Time Spent With Patient Total time spent is greater than 50% in coordination of care (as documented) at patient's floor/unit and/or counseling patient: Greater than 35 minutes - Subjective Interval history: still having SOB but slightly improved. - Constitutional Vitals: Temp Pulse Resp BP Pulse Ox 97.7 F 60 24 125/62 99 08/22/17 10:46 08/22/17 10:46 08/22/17 12:02 08/22/17 10:46 08/22/17 12:02 General appearance: Present: mild distress, A&O X 3 Exam: PHYSICAL EXAMINATION: GENERAL APPEARANCE: The patient is alert, oriented and in no acute distress. HEENT: Head is normocephalic. The sinuses are nontender. Pupils are equal and reactive. The nares are patent. Oropharynx clear without lesions. NECK: Supple without lymphadenopathy. HEART: Regular rate and rhythm. LUNGS: diffuse wheezing are heard bilaterally. ABDOMEN: Soft, nontender, nondistended with good bowel sounds heard. Inguinal area is normal. EXTREMITIES: Without cyanosis, clubbing or edema. NEUROLOGICAL: Gross nonfocal. SKIN: Warm and dry without any rash. Internal Medicine: Result - Labs CBC & Chem 7: 08/22/17 01:26 08/22/17 01:26 Labs: Short CBC 08/22/17 Range/Units 01:26 WBC 4.8 (4.3-11.1) K/mcL Hgb 11.7 (11.5-15.4) g/dL Hct 36.7 (35.3-44.9) % Plt Count 134 L (140-400) K/mcL [facility] 08/22/17 01:26 Sodium 134 L Potassium 3.8 Chloride 101 Carbon Dioxide 27 BUN 24 H Creatinine 0.99 Glucose 211 H Calcium 8.8 Consult Discharge Plan - Plan Referrals: Eden Wells MD [Primary Care Provider] -
[2017-08-22] MEDS: Acetaminophen 325 MG TABLET PO PRN (20:45)
[2017-08-22] MEDS ORDERED: Furosemide 40 MG/4 ML VIAL IVP ONE (21:15)
--- NOTE | 2017-08-22 22:54 | Electrocardiograph Report ---
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
[2017-08-23] MEDS: methylPREDNISolone 125 MG/2 ML VIAL IVP SCH ×4 (00:05→17:56)
[2017-08-23] MEDS: Ipratropium/Albuterol Neb 3 ML IH SCH ×6 (03:37→23:30)
[2017-08-23] MEDS: *HR* Heparin 5,000 UNIT/ML VIAL SQ SCH ×2 (04:35→17:56)
[2017-08-23 05:26] LABS: Calcium 9.2 mg/dL (8.6-10.3); Potassium 3.3 mEq/L (3.5-5.1)
[2017-08-23 05:28] LABS: Hematocrit 38.4 % (35.3-44.9); Hemoglobin 12.3 g/dL (11.5-15.4); Mean Corpuscular Hemoglobin 30.4 pg (28.0-33.3); Mean Platelet Volume 10.3 fL (9.4-12.4); Platelet Count 166 K/mcL (140-400); Red Blood Count 4.04 M/mcL (3.82-4.97); Red Cell Distribution Width 13.8 % (11.5-14.5)
[2017-08-23] MEDS: Budesonide/Formoterol 80/4.5 MDI IH SCH ×2 (07:36→19:48)
[2017-08-23] MEDS: Insulin LISPRO 300 UNITS/3 ML VIAL SQ SCH ×6 (09:04→22:00)
[2017-08-23] MEDS: Fluticasone Propionate Nasal 50 MCG/SPRAY BOTTLE NS SCH (09:20)
[2017-08-23] MEDS: Aspirin Enteric Coated 81 MG Tablet PO SCH (09:20)
[2017-08-23] MEDS: Azithromycin 250 MG TABLET PO SCH (09:21)
--- NOTE | 2017-08-23 11:43 | Internal Med Progress Note ---
Date of Encounter: 08/23/17 Time of Encounter: 11:37 - Assessment and plan (1) Acute respiratory failure with hypoxia Current Visit: Yes Status: Acute Assessment and plan: - Caused by acute exacerbating COPD. Likely triggered by recent viral infection. - Chest x-ray no pulmonary edema or infiltrates. - Treatment was optimized by increasing dose of IV steroid, addind long-acting bronchodilators and inhaled steroids. - BiPAP ordered because patient shows signs of respiratory fatigue. - Continue closely monitoring. (2) Acute exacerbation of chronic obstructive airways disease Current Visit: Yes Status: Acute Assessment and plan: - As above. (3) Hypertension Current Visit: No Status: Chronic Assessment and plan: History of HTN, blood pressure stable, resume home anti-HTN medication Qualifiers: Hypertension type: essential hypertension Qualified Code(s): I10 - Essential (primary) hypertension (4) Hyperlipidemia Current Visit: Yes Status: Chronic Assessment and plan: Resume Lipitor Qualifiers: Hyperlipidemia type: unspecified Qualified Code(s): E78.5 - Hyperlipidemia , unspecified (5) Atrial fibrillation Current Visit: Yes Status: Chronic Assessment and plan: History of A. fib, on ASA but no anticoagulants. Paced rhythm Qualifiers: Atrial fibrillation type: chronic Qualified Code(s): I48.2 - Chronic atrial fibrillation (6) DM type 2 (diabetes mellitus, type 2) Current Visit: Yes Status: Chronic Assessment and plan: - Low sliding scale insulin coverage, BG elevated due to IV steroid, add bolus insulin TIDAC. - Diabetic/cardiac diet Qualifiers: Diabetes mellitus custodial insulin use: without salvage determiner use Diabetes mellitus complication status: with neurologic complications Diabetes mellitus complication detail: with polyneuropathy Qualified Code(s): E11.42 - Type 2 diabetes mellitus with diabetic polyneuropathy (7) CKD (chronic kidney disease) Current Visit: Yes Status: Chronic Assessment and plan: History of CKD stage III. Renal function at baseline Qualifiers: Chronic kidney disease stage: stage 3 (moderate) Qualified Code(s): N18.3 - Chronic kidney disease, stage 3 (moderate) (8) Hypokalemia Current Visit: Yes Status: Acute Assessment and plan: - replaced, repeat BMP in am. - Time Spent With Patient Total time spent is greater than 50% in coordination of care (as documented) at patient's floor/unit and/or counseling patient: - Subjective Interval history: still having SOB but slightly improved. also reported dry cough. - Constitutional Vitals: Temp Pulse Resp BP Pulse Ox 97.8 F 79 18 150/69 95 08/23/17 07:00 08/23/17 07:00 08/23/17 07:38 08/23/17 07:00 08/23/17 07:38 General appearance: Present: mild distress, A&O X 3 Exam: PHYSICAL EXAMINATION: GENERAL APPEARANCE: The patient is alert, oriented and in no acute distress. HEENT: Head is normocephalic. The sinuses are nontender. Pupils are equal and reactive. The nares are patent. Oropharynx clear without lesions. NECK: Supple without lymphadenopathy. HEART: Regular rate and rhythm. LUNGS: diffuse wheezes bilaterally. ABDOMEN: Soft, nontender, nondistended with good bowel sounds heard. Inguinal area is normal. EXTREMITIES: Without cyanosis, clubbing or edema. NEUROLOGICAL: Gross nonfocal. SKIN: Warm and dry without any rash. Internal Medicine: Result - Labs CBC & Chem 7: 08/23/17 04:31 08/23/17 04:31 Labs: Short CBC 08/23/17 Range/Units 04:31 WBC 8.4 D (4.3-11.1) K/mcL Hgb 12.3 (11.5-15.4) g/dL Hct 38.4 (35.3-44.9) % Plt Count 166 (140-400) K/mcL [facility] 08/23/17 04:31 Sodium 136 Potassium 3.3 L Chloride 97 L Carbon Dioxide 26 BUN 39 H Creatinine 1.15 Glucose 245 H Calcium 9.2 - Impressions Impressions Chest X-Ray 08/23/17 09:21 IMPRESSION: 1. No acute cardiopulmonary disease. D/ / 08/23/2017 10:10:21 Judy Cannon MD / анна Interpreting Provider: Judy Cannon MD Consult Discharge Plan - Plan Referrals: Eden Wells MD [Primary Care Provider] -
[2017-08-23] MEDS: Melatonin 3 MG TABLET PO PRN (21:56)
[2017-08-23] MEDS: Acetaminophen 325 MG TABLET PO PRN (22:14)
[2017-08-24] MEDS: methylPREDNISolone 125 MG/2 ML VIAL IVP SCH ×4 (01:11→16:41)
[2017-08-24] MEDS: Ipratropium/Albuterol Neb 3 ML IH SCH ×6 (03:36→23:51)
[2017-08-24] MEDS: Acetaminophen 325 MG TABLET PO PRN ×3 (05:25→21:31)
[2017-08-24] MEDS: *HR* Heparin 5,000 UNIT/ML VIAL SQ SCH ×2 (05:26→16:41)
[2017-08-24 06:04] LABS: Hematocrit 38.5 % (35.3-44.9); Hemoglobin 12.4 g/dL (11.5-15.4); Mean Corpuscular HGB Conc 32.2 g/dL (31.6-35.5); Mean Corpuscular Hemoglobin 30.7 pg (28.0-33.3); Mean Corpuscular Volume 95.3 fL (83.0-100.0); Mean Platelet Volume 10.4 fL (9.4-12.4); Platelet Count 169 K/mcL (140-400); Red Blood Count 4.04 M/mcL (3.82-4.97); Red Cell Distribution Width 13.9 % (11.5-14.5)
[2017-08-24 06:40] LABS: Calcium 9.2 mg/dL (8.6-10.3); Potassium 4.4 mEq/L (3.5-5.1)
[2017-08-24] MEDS: Budesonide/Formoterol 80/4.5 MDI IH SCH ×2 (07:23→20:01)
[2017-08-24] MEDS: Azithromycin 250 MG TABLET PO SCH (08:42)
[2017-08-24] MEDS: Aspirin Enteric Coated 81 MG Tablet PO SCH (08:44)
[2017-08-24] MEDS: Fluticasone Propionate Nasal 50 MCG/SPRAY BOTTLE NS SCH (08:44)
[2017-08-24] MEDS: Insulin LISPRO 300 UNITS/3 ML VIAL SQ SCH ×7 (08:45→23:20)
--- NOTE | 2017-08-24 16:00 | Internal Med Progress Note ---
Date of Encounter: 08/24/17 Time of Encounter: 15:56 - Assessment and plan (1) Acute respiratory failure with hypoxia Current Visit: Yes Status: Acute Assessment and plan: - Caused by acute exacerbating COPD. Chest x-ray no pulmonary edema or infiltrates. Likely triggered by recent viral infection. - Treatment was optimized by increasing dose of IV steroid, addind long-acting bronchodilators and inhaled steroids. - BiPAP ordered yesterday because patient shows signs of respiratory fatigue. Her respiratory status improved today. (2) Acute exacerbation of chronic obstructive airways disease Current Visit: Yes Status: Acute Assessment and plan: - As above. will start to tapering IV steroids tomorrow. (3) Hypertension Current Visit: No Status: Chronic Assessment and plan: History of HTN, blood pressure stable, resume home anti-HTN medication Qualifiers: Hypertension type: essential hypertension Qualified Code(s): I10 - Essential (primary) hypertension (4) Hyperlipidemia Current Visit: Yes Status: Chronic Assessment and plan: Resume Lipitor Qualifiers: Hyperlipidemia type: unspecified Qualified Code(s): E78.5 - Hyperlipidemia , unspecified (5) Atrial fibrillation Current Visit: Yes Status: Chronic Assessment and plan: History of A. fib, on ASA but no anticoagulants due to risk of bleeding and fall. Paced rhythm Qualifiers: Atrial fibrillation type: chronic Qualified Code(s): I48.2 - Chronic atrial fibrillation (6) DM type 2 (diabetes mellitus, type 2) Current Visit: Yes Status: Chronic Assessment and plan: - Low sliding scale insulin coverage, BG elevated due to IV steroid, bolus insulin TIDAC added. We will start tapering IV steroid dose tomorrow. - Diabetic/cardiac diet Qualifiers: Diabetes mellitus urology surgeon insulin use: without fdc use Diabetes mellitus complication status: with neurologic complications Diabetes mellitus complication detail: with polyneuropathy Qualified Code(s): E11.42 - Type 2 diabetes mellitus with diabetic polyneuropathy (7) CKD (chronic kidney disease) Current Visit: Yes Status: Chronic Assessment and plan: History of CKD stage III. Renal function at baseline Qualifiers: Chronic kidney disease stage: stage 3 (moderate) Qualified Code(s): N18.3 - Chronic kidney disease, stage 3 (moderate) (8) Hypokalemia Current Visit: Yes Status: Resolved - Time Spent With Patient Total time spent is greater than 50% in coordination of care (as documented) at patient's floor/unit and/or counseling patient: Greater than 35 minutes - Subjective Interval history: Patient sitting in the bed. She seems in good mood this morning. She reported she has been tolerating BiPAP overnight. Dry cough and SOB much improved. - Constitutional Vitals: Temp Pulse Resp BP Pulse Ox 97.4 F L 60 16 112/57 93 08/24/17 15:10 08/24/17 15:10 08/24/17 15:51 08/24/17 15:10 08/24/17 15:51 General appearance: Present: mild distress, A&O X 3 Exam: PHYSICAL EXAMINATION: GENERAL APPEARANCE: The patient is alert, oriented and in no acute distress. HEENT: Head is normocephalic. The sinuses are nontender. Pupils are equal and reactive. The nares are patent. Oropharynx clear without lesions. NECK: Supple without lymphadenopathy. HEART: Regular rate and rhythm. LUNGS: Expiratory wheezing bilaterally. ABDOMEN: Soft, nontender, nondistended with good bowel sounds heard. Inguinal area is normal. EXTREMITIES: Without cyanosis, clubbing or edema. NEUROLOGICAL: Gross nonfocal. SKIN: Warm and dry without any rash. Internal Medicine: Result - Labs CBC & Chem 7: 08/24/17 05:24 08/24/17 05:24 Labs: Short CBC 08/24/17 Range/Units 05:24 WBC 9.2 (4.3-11.1) K/mcL Hgb 12.4 (11.5-15.4) g/dL Hct 38.5 (35.3-44.9) % Plt Count 169 (140-400) K/mcL [facility] 08/24/17 05:24 Sodium 134 L Potassium 4.4 Chloride 98 Carbon Dioxide 28 BUN 43 H Creatinine 1.07 Glucose 251 H Calcium 9.2 Consult Discharge Plan - Plan Referrals: Eden Wells MD [Primary Care Provider] -
--- NOTE | 2017-08-24 22:58 | Event Note ---
Date of Encounter: 08/24/17 Time of Encounter: 21:49 Alerted by pts. nurse of discrepancy in code status for pt. Pt. wearing DNR wristband and code status in admission records was Full Code. Instructed nurse to call family. Son responded that no discussion had taken place and there was no POA. Went to see pt. to explain variations in code status and explained the differences. Pt. stated she wished to have CPR and efforts to re-start her heart if necessary but did not wish to be intubated. Explained variations again to clarify pts. wishes which she confirmed and agreed were her wishes. Pts. code status amended to state that pt. is Full Code but does not wish to be intubated.
[2017-08-24] MEDS: Melatonin 3 MG TABLET PO PRN (23:23)
[2017-08-25] MEDS: methylPREDNISolone 125 MG/2 ML VIAL IVP SCH ×3 (01:06→17:34)
[2017-08-25] MEDS: Ipratropium/Albuterol Neb 3 ML IH SCH ×6 (03:29→23:44)
[2017-08-25 05:18] LABS: Calcium 9.3 mg/dL (8.6-10.3); Potassium 4.9 mEq/L (3.5-5.1)
[2017-08-25] MEDS: *HR* Heparin 5,000 UNIT/ML VIAL SQ SCH ×2 (06:29→17:34)
[2017-08-25] MEDS: Budesonide/Formoterol 80/4.5 MDI IH SCH ×2 (07:48→19:45)
[2017-08-25] MEDS: Aspirin Enteric Coated 81 MG Tablet PO SCH (08:41)
[2017-08-25] MEDS: Azithromycin 250 MG TABLET PO SCH (08:41)
[2017-08-25] MEDS: Insulin LISPRO 300 UNITS/3 ML VIAL SQ SCH ×8 (08:41→23:52)
[2017-08-25] MEDS: Fluticasone Propionate Nasal 50 MCG/SPRAY BOTTLE NS SCH (08:41)
[2017-08-25] MEDS ORDERED: Ipratropium/Albuterol Neb 3 ML IH PRN (11:16)
[2017-08-25] MEDS ORDERED: Acetylcysteine 10% 2 ML INHSOL IH ONE (12:00)
--- NOTE | 2017-08-25 12:29 | Internal Med Progress Note ---
Date of Encounter: 08/25/17 Time of Encounter: 12:25 - Assessment and plan (1) Acute respiratory failure with hypoxia Current Visit: Yes Status: Acute Assessment and plan: - Caused by acute exacerbating COPD. Chest x-ray no pulmonary edema or infiltrates. Likely triggered by recent viral infection. - Treatment was optimized by increasing dose of IV steroid, addind long-acting bronchodilators and inhaled steroids. BiPAP as needed. - Much improved, lingering cough, will add Rasselon perels and give one dose of Mucomist INH today. - IV steroid dose tapered. (2) Acute exacerbation of chronic obstructive airways disease Current Visit: Yes Status: Acute Assessment and plan: - As above. IV steroids dose reduced. - Lingering cough, add tasselon, give one dose of Mucomist INH today. (3) Hypertension Current Visit: No Status: Chronic Assessment and plan: History of HTN, blood pressure stable, continue home anti-HTN medication Qualifiers: Hypertension type: essential hypertension Qualified Code(s): I10 - Essential (primary) hypertension (4) Hyperlipidemia Current Visit: Yes Status: Chronic Assessment and plan: Resume Lipitor Qualifiers: Hyperlipidemia type: unspecified Qualified Code(s): E78.5 - Hyperlipidemia , unspecified (5) Atrial fibrillation Current Visit: Yes Status: Chronic Assessment and plan: History of A. fib, on ASA but no anticoagulants due to risk of bleeding and fall. currently paced rhythm. Qualifiers: Atrial fibrillation type: chronic Qualified Code(s): I48.2 - Chronic atrial fibrillation (6) DM type 2 (diabetes mellitus, type 2) Current Visit: Yes Status: Chronic Assessment and plan: - Low sliding scale insulin coverage, BG elevated due to IV steroid, bolus insulin TIDAC added. started tapering steroid. - Diabetic/cardiac diet Qualifiers: Diabetes mellitus mcc insulin use: without observation nurse use Diabetes mellitus complication status: with neurologic complications Diabetes mellitus complication detail: with polyneuropathy Qualified Code(s): E11.42 - Type 2 diabetes mellitus with diabetic polyneuropathy (7) CKD (chronic kidney disease) Current Visit: Yes Status: Chronic Assessment and plan: History of CKD stage III. Renal function at baseline Qualifiers: Chronic kidney disease stage: stage 3 (moderate) Qualified Code(s): N18.3 - Chronic kidney disease, stage 3 (moderate) (8) Hypokalemia Current Visit: Yes Status: Resolved - Time Spent With Patient Total time spent is greater than 50% in coordination of care (as documented) at patient's floor/unit and/or counseling patient: Greater than 35 minutes - Subjective Interval history: Patient sitting in chair, she reported her breathing is getting much better, however, the cough really bothers her and the medicine seems does not help. She denies fever, chills, or night sweats. She has no chest pain. - Constitutional Vitals: Temp Pulse Resp BP Pulse Ox 97.7 F 67 18 129/65 97 08/25/17 10:56 08/25/17 10:56 08/25/17 11:25 08/25/17 10:56 08/25/17 11:25 General appearance: Present: mild distress, A&O X 3 Exam: PHYSICAL EXAMINATION: GENERAL APPEARANCE: The patient is alert, oriented and in no acute distress. HEENT: Head is normocephalic. The sinuses are nontender. Pupils are equal and reactive. The nares are patent. Oropharynx clear without lesions. NECK: Supple without lymphadenopathy. HEART: Regular rate and rhythm. LUNGS: scattered wheezing bilaterally. ABDOMEN: Soft, nontender, nondistended with good bowel sounds heard. Inguinal area is normal. EXTREMITIES: Without cyanosis, clubbing or edema. NEUROLOGICAL: Gross nonfocal. SKIN: Warm and dry without any rash. Internal Medicine: Result - Labs CBC & Chem 7: 08/24/17 05:24 08/25/17 04:31 Labs: BMP 08/25/17 04:31 Sodium 133 L Potassium 4.9 Chloride 98 Carbon Dioxide 27 BUN 45 H Creatinine 1.12 Glucose 292 H Calcium 9.3 Consult Discharge Plan - Plan Referrals: Eden Wells MD [Primary Care Provider] -
[2017-08-25] MEDS: Acetaminophen 325 MG TABLET PO PRN (20:47)
[2017-08-26] MEDS: Ipratropium/Albuterol Neb 3 ML IH SCH ×6 (04:04→23:59)
[2017-08-26 05:00] LABS: Basophils % 0.1 %; Hematocrit 38.8 % (35.3-44.9); Hemoglobin 12.5 g/dL (11.5-15.4); Lymphocytes # 0.7 K/mcL (0.6-4.6); Lymphocytes % 9.4 %; Mean Corpuscular HGB Conc 32.2 g/dL (31.6-35.5); Mean Corpuscular Hemoglobin 30.6 pg (28.0-33.3); Mean Corpuscular Volume 94.9 fL (83.0-100.0); Mean Platelet Volume 10.4 fL (9.4-12.4); Monocytes # 0.4 K/mcL (0.0-1.3); Monocytes % 5.6 %; Neutrophils # 5.9 K/mcL (1.6-8.9); Platelet Count 157 K/mcL (140-400); Red Blood Count 4.09 M/mcL (3.82-4.97); Red Cell Distribution Width 13.6 % (11.5-14.5); Segmented Neutrophils % 83.9 %
[2017-08-26 05:17] LABS: BUN/Creatinine Ratio 42 (6-26); Blood Urea Nitrogen 40 mg/dL (8-23); Calcium 9.1 mg/dL (8.6-10.3); Carbon Dioxide 29 mEq/L (23-29); Chloride 99 mEq/L (98-107); Glucose 161 mg/dL (70-105); Osmolality,Calculated 291 (280-300); Potassium 4.9 mEq/L (3.5-5.1); Sodium 134 mEq/L (136-145); eGFR For African Americans > 60 (> 60); eGFR For Non-African Americans 56 (> 60)
[2017-08-26] MEDS: methylPREDNISolone 125 MG/2 ML VIAL IVP SCH ×2 (06:02→17:07)
[2017-08-26] MEDS: *HR* Heparin 5,000 UNIT/ML VIAL SQ SCH ×2 (06:02→17:06)
[2017-08-26] MEDS: Budesonide/Formoterol 80/4.5 MDI IH SCH ×2 (07:30→19:45)
[2017-08-26] MEDS: Aspirin Enteric Coated 81 MG Tablet PO SCH (08:32)
[2017-08-26] MEDS: Azithromycin 250 MG TABLET PO SCH (08:33)
[2017-08-26] MEDS: Fluticasone Propionate Nasal 50 MCG/SPRAY BOTTLE NS SCH (08:33)
[2017-08-26] MEDS: Insulin LISPRO 300 UNITS/3 ML VIAL SQ SCH ×8 (08:33→20:21)
--- NOTE | 2017-08-26 13:23 | Internal Med Progress Note ---
Date of Encounter: 08/26/17 Time of Encounter: 13:23 - Assessment and plan (1) Acute respiratory failure with hypoxia Current Visit: Yes Status: Acute Assessment and plan: - Seems to be slowly improving. Continue aerosols and oxygen. Will continue to taper steroids. Supportive care. (2) Acute exacerbation of chronic obstructive airways disease Current Visit: Yes Status: Acute Assessment and plan: - Continue current management. Taper steroids as able. Slowly improving. (3) Hypertension Current Visit: No Status: Chronic Assessment and plan: History of HTN, blood pressure stable, continue home anti-HTN medication Qualifiers: Hypertension type: essential hypertension Qualified Code(s): I10 - Essential (primary) hypertension (4) Hyperlipidemia Current Visit: Yes Status: Chronic Assessment and plan: Lipitor Qualifiers: Hyperlipidemia type: mixed hyperlipidemia Qualified Code(s): E78.2 - Mixed hyperlipidemia (5) Atrial fibrillation Current Visit: Yes Status: Chronic Assessment and plan: History of A. fib, on ASA but no anticoagulants due to risk of bleeding and fall. currently paced rhythm. No new issues at this time. Qualifiers: Atrial fibrillation type: chronic Qualified Code(s): I48.2 - Chronic atrial fibrillation (6) DM type 2 (diabetes mellitus, type 2) Current Visit: Yes Status: Chronic Assessment and plan: - Low sliding scale insulin coverage, BG elevated due to IV steroid, bolus insulin TIDAC added. - Diabetic/cardiac diet Qualifiers: Diabetes mellitus lobsterman insulin use: without lobsterman use Diabetes mellitus complication status: with neurologic complications Diabetes mellitus complication detail: with polyneuropathy Qualified Code(s): E11.42 - Type 2 diabetes mellitus with diabetic polyneuropathy (7) CKD (chronic kidney disease) Current Visit: Yes Status: Chronic Assessment and plan: History of CKD stage III. Renal function at baseline Qualifiers: Chronic kidney disease stage: stage 3 (moderate) Qualified Code(s): N18.3 - Chronic kidney disease, stage 3 (moderate) - Time Spent With Patient Total time spent is greater than 50% in coordination of care (as documented) at patient's floor/unit and/or counseling patient: - Subjective Interval history: Ms Gupta is currently admitted for acute resp failure and COPD. She remains moderate to high risk due to potential for worsening clinical status. Ms Gupta is resting comfortably. No fever. No GI issues. Still with some dyspnea at this time. - Constitutional Vitals: Temp Pulse Resp BP Pulse Ox 98.1 F 59 16 169/82 97 08/26/17 07:48 08/26/17 07:48 08/26/17 11:00 08/26/17 07:48 08/26/17 11:00 General appearance: Present: cooperative, A&O X 3 - Head Head exam: Present: normocephalic - Eye Eye exam: Present: conjuntiva pink - ENT ENT exam: Present: mucous membranes moist - Respiratory Respiratory exam: Present: rhonchi, wheezes - Cardiovascular Cardiovascular exam: Present: irregular rhythm. Absent: tachycardia - GI/Abdominal GI/Abdominal exam: Present: soft. Absent: tenderness - Extremities Exam Extremities exam: Present: warm. Absent: tenderness - Neurological Exam Neurological exam: Present: alert, oriented X3 - Skin Skin exam: Present: dry, warm Internal Medicine: Result - Labs CBC & Chem 7: 08/26/17 04:09 08/26/17 04:09 Labs: Short CBC 08/26/17 Range/Units 04:09 WBC 7.1 (4.3-11.1) K/mcL Hgb 12.5 (11.5-15.4) g/dL Hct 38.8 (35.3-44.9) % Plt Count 157 (140-400) K/mcL Neutrophils # 5.9 (1.6-8.9) K/mcL BMP 08/26/17 04:09 Sodium 134 L Potassium 4.9 Chloride 99 Carbon Dioxide 29 BUN 40 H Creatinine 0.95 Glucose 161 H Calcium 9.1 Consult Discharge Plan - Plan Referrals: Eden Wells MD [Primary Care Provider] -
[2017-08-26] MEDS: MethylPREDNISolone 40 MG/ML VIAL IVP SCH (19:40)
[2017-08-26] MEDS: Acetaminophen 325 MG TABLET PO PRN (20:34)
[2017-08-26] MEDS: Benzonatate 100 MG CAPSULE PO PRN (21:57)
[2017-08-27] MEDS: Ipratropium/Albuterol Neb 3 ML IH SCH ×6 (04:14→23:34)
[2017-08-27 04:46] LABS: BUN/Creatinine Ratio 42 (6-26); Blood Urea Nitrogen 41 mg/dL (8-23); Calcium 8.8 mg/dL (8.6-10.3); Carbon Dioxide 29 mEq/L (23-29); Chloride 98 mEq/L (98-107); Glucose 210 mg/dL (70-105); Magnesium 1.8 mg/dL (1.6-2.6); Osmolality,Calculated 298 (280-300); Potassium 4.4 mEq/L (3.5-5.1); Sodium 136 mEq/L (136-145); eGFR For African Americans > 60 (> 60); eGFR For Non-African Americans 55 (> 60)
[2017-08-27] MEDS: *HR* Heparin 5,000 UNIT/ML VIAL SQ SCH ×2 (05:39→16:46)
[2017-08-27] MEDS: MethylPREDNISolone 40 MG/ML VIAL IVP SCH ×2 (05:40→16:46)
[2017-08-27] MEDS: Budesonide/Formoterol 80/4.5 MDI IH SCH ×2 (07:52→19:37)
[2017-08-27] MEDS: Aspirin Enteric Coated 81 MG Tablet PO SCH (08:12)
[2017-08-27] MEDS: Insulin LISPRO 300 UNITS/3 ML VIAL SQ SCH ×8 (08:13→23:25)
[2017-08-27] MEDS: Fluticasone Propionate Nasal 50 MCG/SPRAY BOTTLE NS SCH (08:14)
--- NOTE | 2017-08-27 10:36 | Internal Med Progress Note ---
Date of Encounter: 08/27/17 Time of Encounter: 10:34 - Assessment and plan (1) Acute respiratory failure with hypoxia Current Visit: Yes Status: Acute Assessment and plan: - Appears to be more congested today but on baseline levels of oxygen. Continue supportive care. (2) Acute exacerbation of chronic obstructive airways disease Current Visit: Yes Status: Acute Assessment and plan: - Continues to have significant congestion and wheezing. Change to PO steroids tomorrow. Add Mucinex scheduled, mucomyst and percussion Recheck CXR today. (3) Hypertension Current Visit: No Status: Chronic Assessment and plan: History of HTN, blood pressure stable, continue home anti-HTN medication Qualifiers: Hypertension type: essential hypertension Qualified Code(s): I10 - Essential (primary) hypertension (4) Hyperlipidemia Current Visit: Yes Status: Chronic Assessment and plan: Lipitor Qualifiers: Hyperlipidemia type: mixed hyperlipidemia Qualified Code(s): E78.2 - Mixed hyperlipidemia (5) Atrial fibrillation Current Visit: Yes Status: Chronic Assessment and plan: History of A. fib, on ASA but no anticoagulants due to risk of bleeding and fall. currently paced rhythm. No new issues at this time. Qualifiers: Atrial fibrillation type: chronic Qualified Code(s): I48.2 - Chronic atrial fibrillation (6) DM type 2 (diabetes mellitus, type 2) Current Visit: Yes Status: Chronic Assessment and plan: - Low sliding scale insulin coverage, BG elevated due to IV steroid, bolus insulin TIDAC added. - Diabetic/cardiac diet Qualifiers: Diabetes mellitus fpc insulin use: without fpc use Diabetes mellitus complication status: with neurologic complications Diabetes mellitus complication detail: with polyneuropathy Qualified Code(s): E11.42 - Type 2 diabetes mellitus with diabetic polyneuropathy (7) CKD (chronic kidney disease) Current Visit: Yes Status: Chronic Assessment and plan: History of CKD stage III. Renal function at baseline Qualifiers: Chronic kidney disease stage: stage 3 (moderate) Qualified Code(s): N18.3 - Chronic kidney disease, stage 3 (moderate) - Time Spent With Patient Total time spent is greater than 50% in coordination of care (as documented) at patient's floor/unit and/or counseling patient: - Subjective Interval history: Ms Gupta is currently admitted for acute resp failure and COPD. She remains moderate to high risk due to potential for worsening clinical status. Ms Gupta is still having a lot of chest congestion. No fever. Unable to mobilize sputum. No CP. No GI issues. - Constitutional Vitals: Temp Pulse Resp BP Pulse Ox 97.4 F L 60 16 157/76 100 08/27/17 07:00 08/27/17 07:00 08/27/17 07:52 08/27/17 07:24 08/27/17 07:52 General appearance: Present: cooperative, A&O X 3, pleasant - Head Head exam: Present: normocephalic - Eye Eye exam: Present: conjuntiva pink - ENT ENT exam: Present: mucous membranes moist - Respiratory Respiratory exam: Present: rhonchi, wheezes Additional comments: Diffuse wheeze and rhonchi - Cardiovascular Cardiovascular exam: Present: RRR. Absent: tachycardia - GI/Abdominal GI/Abdominal exam: Present: soft. Absent: tenderness - Extremities Exam Extremities exam: Present: warm. Absent: tenderness - Neurological Exam Neurological exam: Present: alert, oriented X3 - Skin Skin exam: Present: dry, warm Internal Medicine: Result - Labs CBC & Chem 7: 08/26/17 04:09 08/27/17 04:09 Labs: BMP 08/27/17 04:09 Sodium 136 Potassium 4.4 Chloride 98 Carbon Dioxide 29 BUN 41 H Creatinine 0.97 Glucose 210 H Calcium 8.8 Consult Discharge Plan - Plan Referrals: Eden Wells MD [Primary Care Provider] -
[2017-08-27] MEDS ORDERED: Acetylcysteine 10% 2 ML INHSOL IH SCH (10:45)
[2017-08-27] MEDS: Acetylcysteine 10% 2 ML INHSOL IH SCH ×4 (15:56→23:34)
[2017-08-27] MEDS: Acetaminophen 325 MG TABLET PO PRN (17:57)
[2017-08-27] MEDS: Benzonatate 100 MG CAPSULE PO PRN (21:46)
[2017-08-28] MEDS: Ipratropium/Albuterol Neb 3 ML IH SCH ×6 (03:37→23:46)
[2017-08-28] MEDS: Acetylcysteine 10% 2 ML INHSOL IH SCH ×6 (03:39→23:46)
[2017-08-28] MEDS: *HR* Heparin 5,000 UNIT/ML VIAL SQ SCH ×2 (06:06→16:45)
[2017-08-28] MEDS: MethylPREDNISolone 40 MG/ML VIAL IVP SCH (06:07)
[2017-08-28] MEDS: Insulin LISPRO 300 UNITS/3 ML VIAL SQ SCH ×8 (09:16→22:10)
[2017-08-28] MEDS: Aspirin Enteric Coated 81 MG Tablet PO SCH (09:16)
[2017-08-28] MEDS: Fluticasone Propionate Nasal 50 MCG/SPRAY BOTTLE NS SCH (09:16)
--- NOTE | 2017-08-28 10:38 | Internal Med Progress Note ---
<Jules Lopez - Last Filed: 08/28/17 13:50> Date of Encounter: 08/28/17 Time of Encounter: 10:36 - Assessment and plan (1) Acute exacerbation of chronic obstructive airways disease Current Visit: Yes Status: Acute Assessment and plan: Patient has known hx of COPD w/ no O2 support at home. Today she continues to have significant congestion, wheezing, and remains on O2 2.5L NC. Patient has been treated with 5 days of Azithromycin since hospitalization, and provided steroid support for COPD exacerbation. Concerns for lack of improvement in clinical symptoms, initiated a CXR order yesterday which identified no acute pulmonary processes. - encourage patient to use pickle, and percussion treatment - continue mucinex, and mucomyst - goal O2 is 88-92%; weaned patient off of O2 successfully, but continue to closely monitor. was improved this afternoon, but worse this AM - will deescalate steroids to PO today. If not able to handle, will switch back to IV - patient remains at high risk. - consulted PT/OT (2) Hypertension Current Visit: Yes Status: Chronic Assessment and plan: History of HTN, blood pressure stable, continue home anti-HTN medication Qualifiers: Hypertension type: essential hypertension Qualified Code(s): I10 - Essential (primary) hypertension (3) Hyperlipidemia Current Visit: Yes Status: Chronic Assessment and plan: Lipitor Qualifiers: Hyperlipidemia type: mixed hyperlipidemia Qualified Code(s): E78.2 - Mixed hyperlipidemia (4) Atrial fibrillation Current Visit: Yes Status: Chronic Assessment and plan: History of A. fib, on ASA but no anticoagulants due to risk of bleeding and fall. currently paced rhythm. No new issues at this time. Qualifiers: Atrial fibrillation type: chronic Qualified Code(s): I48.2 - Chronic atrial fibrillation (5) DM type 2 (diabetes mellitus, type 2) Current Visit: Yes Status: Chronic Assessment and plan: - Low sliding scale insulin coverage, BG elevated due to IV steroid, bolus insulin TIDAC added. - Diabetic/cardiac diet Qualifiers: Diabetes mellitus termite treater helper insulin use: without termite treater helper use Diabetes mellitus complication status: with neurologic complications Diabetes mellitus complication detail: with polyneuropathy Qualified Code(s): E11.42 - Type 2 diabetes mellitus with diabetic polyneuropathy (6) CKD (chronic kidney disease) Current Visit: Yes Status: Chronic Assessment and plan: History of CKD stage III. Renal function at baseline Qualifiers: Chronic kidney disease stage: stage 3 (moderate) Qualified Code(s): N18.3 - Chronic kidney disease, stage 3 (moderate) (7) Acute respiratory failure with hypoxia Current Visit: Yes Status: Acute Assessment and plan: see above - Time Spent With Patient Total time spent is greater than 50% in coordination of care (as documented) at patient's floor/unit and/or counseling patient: - Subjective Interval history: Ms Gupta is 81 yo F is seen and examined. Patient continues to feel "crummy" she still reports SOB, and that she needs O2 support. She does not use O2 at home. She denies increased swelling, CP, nausea, or vomiting. - Constitutional Vitals: Temp Pulse Resp BP Pulse Ox 98.6 F 65 16 141/71 92 08/28/17 07:24 08/28/17 07:24 08/28/17 07:50 08/28/17 09:29 08/28/17 07:50 General appearance: Present: cooperative, A&O X 3, pleasant, obese - Head Head exam: Present: atraumatic, normocephalic - Respiratory Respiratory exam: Present: prolonged expiratory phase, wheezes (diffuse expiratory wheezes) - Cardiovascular Cardiovascular exam: Present: RRR - GI/Abdominal GI/Abdominal exam: Present: normal bowel sounds. Absent: distended, guarding, rebound, rigid - Extremities Exam Extremities exam: Absent: pedal edema Internal Medicine: Result - Labs CBC & Chem 7: 08/26/17 04:09 08/27/17 04:09 - Impressions Impressions Chest X-Ray 08/27/17 10:33 IMPRESSION: No acute process. D/ / 08/27/2017 11:19:36 Andrea Constantino MD / doris Interpreting Provider: Andrea Constantino MD - VTE Documentation of Mechanical Device: Graduated compression elastic hosiery Consult Discharge Plan - Plan Referrals: Eden Wells MD [Primary Care Provider] - <Jas Aleman - Last Filed: 08/28/17 18:54> Date of Encounter: 08/28/17 - Assessment and plan (1) Acute respiratory failure with hypoxia Current Visit: Yes Status: Acute (2) Acute exacerbation of chronic obstructive airways disease Current Visit: Yes Status: Acute (3) Hypertension Current Visit: Yes Status: Chronic Qualifiers: Hypertension type: essential hypertension Qualified Code(s): I10 - Essential (primary) hypertension (4) Hyperlipidemia Current Visit: Yes Status: Chronic Qualifiers: Hyperlipidemia type: mixed hyperlipidemia Qualified Code(s): E78.2 - Mixed hyperlipidemia (5) Atrial fibrillation Current Visit: Yes Status: Chronic Qualifiers: Atrial fibrillation type: chronic Qualified Code(s): I48.2 - Chronic atrial fibrillation (6) DM type 2 (diabetes mellitus, type 2) Current Visit: Yes Status: Chronic Qualifiers: Diabetes mellitus termite treater helper insulin use: without senior living use Diabetes mellitus complication status: with neurologic complications Diabetes mellitus complication detail: with polyneuropathy Qualified Code(s): E11.42 - Type 2 diabetes mellitus with diabetic polyneuropathy (7) CKD (chronic kidney disease) Current Visit: Yes Status: Chronic Qualifiers: Chronic kidney disease stage: stage 3 (moderate) Qualified Code(s): N18.3 - Chronic kidney disease, stage 3 (moderate) - Time Spent With Patient Total time spent is greater than 50% in coordination of care (as documented) at patient's floor/unit and/or counseling patient: - Constitutional Vitals: Temp Pulse Resp BP Pulse Ox 98.1 F 61 17 134/75 94 08/28/17 16:02 08/28/17 16:02 08/28/17 16:02 08/28/17 16:02 08/28/17 16:02 Internal Medicine: Result - Labs CBC & Chem 7: 08/26/17 04:09 08/27/17 04:09 - Attending Attestation I examined this patient and my medical decision-making was reviewed with the Resident Physician on 08/28/17. I agree with the documented findings, disposition and treatment plan as described except to the extent set forth below. Ms Gupta is currently admitted for acute exac COPD. She continues to have significant issues with secretions. She remains moderate to high risk due to potential for worsening clinical and respiratory status. Ms Gupta is still having chest congestion. She may be a little better today. No fever. Still with moist cough. Up in room some. Exam alert Comfortable Mucus membranes dry Heart distant Lungs somewhat clearer today. Abd soft I/P 1. COPD exac 2 Cough Further diagnoses and plan as above.
[2017-08-28] MEDS: Budesonide/Formoterol 80/4.5 MDI IH SCH ×2 (11:06→19:42)
[2017-08-28] MEDS: Benzonatate 100 MG CAPSULE PO PRN ×2 (11:28→22:15)
[2017-08-28] MEDS: Acetaminophen 325 MG TABLET PO PRN (11:28)
[2017-08-28] MEDS: predniSONE 20 MG TABLET PO SCH (16:45)
[2017-08-28] MEDS: Sennosides/Docusate Sodium TABLET PO SCH ×2 (17:43→22:15)
[2017-08-29] MEDS: Ipratropium/Albuterol Neb 3 ML IH SCH ×3 (03:45→11:14)
[2017-08-29] MEDS: Acetylcysteine 10% 2 ML INHSOL IH SCH ×3 (03:45→11:14)
[2017-08-29] MEDS: *HR* Heparin 5,000 UNIT/ML VIAL SQ SCH (06:13)
[2017-08-29 06:57] VITALS: BP 153/54
[2017-08-29] MEDS: Aspirin Enteric Coated 81 MG Tablet PO SCH (07:30)
[2017-08-29] MEDS: predniSONE 20 MG TABLET PO SCH (07:30)
[2017-08-29] MEDS: Fluticasone Propionate Nasal 50 MCG/SPRAY BOTTLE NS SCH (07:30)
[2017-08-29] MEDS: Benzonatate 100 MG CAPSULE PO PRN (07:33)
[2017-08-29] MEDS: Budesonide/Formoterol 80/4.5 MDI IH SCH (07:34)
[2017-08-29] MEDS: Sennosides/Docusate Sodium TABLET PO SCH (07:35)
[2017-08-29] MEDS: Insulin LISPRO 300 UNITS/3 ML VIAL SQ SCH ×4 (07:35→11:40)
[2017-08-29] MEDS ORDERED: predniSONE 20 MG TABLET PO SCH (09:00)
--- NOTE | 2017-08-29 11:19 | Discharge Summary ---
<Jules Lopez - Last Filed: 08/29/17 12:49> Date of Encounter: 08/29/17 Time of Encounter: 09:00 - Discharge Diagnosis (1) Hypertension Priority: Secondary Status: Chronic Qualifiers: Hypertension type: essential hypertension Qualified Code(s): I10 - Essential (primary) hypertension (2) Hyperlipidemia Priority: Secondary Status: Chronic Qualifiers: Hyperlipidemia type: mixed hyperlipidemia Qualified Code(s): E78.2 - Mixed hyperlipidemia (3) Atrial fibrillation Priority: Secondary Status: Chronic Qualifiers: Atrial fibrillation type: chronic Qualified Code(s): I48.2 - Chronic atrial fibrillation (4) DM type 2 (diabetes mellitus, type 2) Priority: Secondary Status: Chronic Qualifiers: Diabetes mellitus alf insulin use: without terminal make up operator use Diabetes mellitus complication status: with neurologic complications Diabetes mellitus complication detail: with polyneuropathy Qualified Code(s): E11.42 - Type 2 diabetes mellitus with diabetic polyneuropathy (5) CKD (chronic kidney disease) Priority: Secondary Status: Chronic Qualifiers: Chronic kidney disease stage: stage 3 (moderate) Qualified Code(s): N18.3 - Chronic kidney disease, stage 3 (moderate) (6) Acute exacerbation of chronic obstructive airways disease Priority: Primary Status: Acute (7) Acute respiratory failure with hypoxia Priority: Secondary Status: Acute Hospital course: Ms. Gupta is a 81 year old female w/ pmh of DM, pacemaker, afib, COPD presented with Cough, and SOB [facility]. Patient reports dry cough for 7 days. Flu was negative and blood cultures were negative. She was treated at [place] for COPD exacerbation. She was started on IV steroids and titrated down, with prescription for titration on discharge. Patient had an CXR with no pulmonary edema or infiltrates. Patient was placed on BiPAP during hospitalization. Patient was treated for 5 days of azithromycin. By her last day of hospitalization she was completely weened of O2. Patient will be [facility]. Discharge discussed with: patient Time spent discussing smoking cessation with patient: more than 10 minutes - Time Spent with Patient Total time spent providing and/or coordinating discharge services: Greater than 30 minutes - Discharge Medications Prescriptions: OxyCODONE/APAP 5/325 [Percocet 5/325 MG] 1 each PO Q8HR PRN 2 Days #6 tablet PRN Reason: Moderate Pain predniSONE [PredniSONE] 10 mg PO DAILY 12 Days #30 tablet Home Medications: Albuterol Sulfate [Ventolin Hfa] 2 puff IH Q4H PRN 06/12/15 [History] Aspirin [Adult Low Dose Aspirin EC] 81 mg PO DAILY 06/12/15 [History] Atorvastatin [Lipitor] 40 mg PO HS 06/12/15 [History] Levalbuterol Neb [Xopenex Neb] 1.25 mg IH TID PRN 06/12/15 [History] Metoprolol [Lopressor] 75 mg PO BID 06/12/15 [History] Nitroglycerin [Nitrostat] 0.4 mg SL Q5M PRN 06/12/15 [History] Citalopram Hydrobromide [Citalopram HBr] 10 mg PO DAILY 08/02/17 [History] Fluticasone Propionate Nasal [Flonase] 50 mcg NS DAILY 08/02/17 [History] Oxygen 1 each NS AD 08/02/17 [History] OxyCODONE/APAP 5/325 [Percocet 5/325 MG] 1 each PO Q8HR PRN 5 Days #10 tablet [Rx] Acetaminophen [Non-Aspirin] 650 mg PO Q6H PRN 08/21/17 [History] glipiZIDE [Glipizide] 10 mg PO DAILY 08/21/17 [History] OxyCODONE/APAP 5/325 [Percocet 5/325 MG] 1 each PO Q8HR PRN 2 Days #6 tablet [Rx] predniSONE [PredniSONE] 10 mg PO DAILY 12 Days #30 tablet 08/29/17 [Rx] Allergies/Adverse Reactions: 3 Allergy/AdvReac Type Severity Reaction Status Date / Time codeine AdvReac Hallucinati Verified 06/12/15 15:48 ng morphine AdvReac Hallucinati Verified 06/12/15 15:48 ng Date of admission: 08/21/17 23:18 Primary care physician: Eden Wells Consults: 08/22/17 15:35 Consult to Physical Integration Practitioner [CONS] Routine Reason for SW Consult: Patient from [facility] ([facility]) 08/24/17 21:37 Consult to Respiratory Therapy [CONS] Routine Reason for Consult: Chest congestion that is worsening. Pls add flutter valve to tx. Call Completed: Yes 08/28/17 13:47 Consult to Occupational Therapy [CONS] Routine Comment: Evaluate, develop and implement POC Reason for Consult: increase mobility Does patient have active BEDREST order?: No Is patient medically & hemodynamically stable?: Yes Patient assessed for mobility or mobilized this visit?: Yes Consult to Physical Therapy [CONS] Routine Comment: Evaluate, develop and implement POC Reason for Consult: increase mobility Does patient have active BEDREST order?: No Is patient medically & hemodynamically stable?: Yes Discharging clinician: Jules Lopez Anticipated date of discharge: 08/29/17 - Constitutional Vitals: Temp Pulse Resp BP Pulse Ox 97.6 F 60 20 153/54 99 08/29/17 06:51 08/29/17 06:51 08/29/17 07:30 08/29/17 06:51 08/29/17 07:30 General appearance: Present: cooperative, A&O X 3, pleasant, obese - Respiratory Respiratory exam: Present: prolonged expiratory phase, wheezes - Cardiovascular Cardiovascular exam: Present: RRR - GI/Abdominal GI/Abdominal exam: Present: normal bowel sounds - Extremities Exam Extremities exam: Absent: pedal edema - Patient Status Disposition: Transfer SNF Condition: Fair Functional capacity at discharge: independent ambulation Overall status at discharge: patient is progressing back to baseline - Discharge Instructions Follow Up With: Eden Wells MD [Primary Care Provider] - - Diet and Activity Activity: increase activity as tolerated Diet: regular diet - VTE Documentation of Mechanical Device: Graduated compression elastic hosiery <Randall Carr - Last Filed: 08/29/17 17:45> Date of Encounter: 08/29/17 Hospital course: Ms. Gupta is a 81 year old female - Time Spent with Patient Total time spent providing and/or coordinating discharge services: Date of admission: 08/21/17 23:18 Primary care physician: Eden Wells Consults: 08/22/17 15:35 Consult to Physical Integration Practitioner [CONS] Routine Reason for SW Consult: [facility] from [facility]) 08/24/17 21:37 Consult to Respiratory Therapy [CONS] Routine Reason for Consult: Chest congestion that is worsening. Pls add flutter valve to tx. Call Completed: Yes 08/28/17 13:47 Consult to Occupational Therapy [CONS] Routine Comment: Evaluate, develop and implement POC Reason for Consult: increase mobility Does patient have active BEDREST order?: No Is patient medically & hemodynamically stable?: Yes Patient assessed for mobility or mobilized this visit?: Yes Consult to Physical Therapy [CONS] Routine Comment: Evaluate, develop and implement POC Reason for Consult: increase mobility Does patient have active BEDREST order?: No Is patient medically & hemodynamically stable?: Yes - Constitutional Vitals: Temp Pulse Resp BP Pulse Ox 97.6 F 60 18 153/54 94 08/29/17 06:51 08/29/17 06:51 08/29/17 11:17 08/29/17 06:51 08/29/17 11:17 - Attending Attestation I saw and examined this patient independently, and my medical decision making was reviewed with the resident physician on 08/29/2017. I agree with the documented findings, assessment and treatment plan as described in the discharge summary
--- NOTE | 2017-08-29 11:41 | Physician Discharge Referral ---
ExtendedCare Referral Info Transfer To: [facility] Provider in Charge after Transfer: PCP Institutional Level of Care: Skilled - Diagnosis (1) Hypertension Priority: Secondary Status: Chronic (2) Hyperlipidemia Priority: Secondary Status: Chronic (3) Atrial fibrillation Priority: Secondary Status: Chronic (4) DM type 2 (diabetes mellitus, type 2) Priority: Secondary Status: Chronic (5) CKD (chronic kidney disease) Priority: Secondary Status: Chronic (6) Acute exacerbation of chronic obstructive airways disease Priority: Primary Status: Acute (7) Acute respiratory failure with hypoxia Priority: Secondary Status: Acute - Transfer Medications Prescriptions: predniSONE [PredniSONE] 10 mg PO DAILY 12 Days #30 tablet Home Medications: Albuterol Sulfate [Ventolin Hfa] 2 puff IH Q4H PRN 06/12/15 [History] Aspirin [Adult Low Dose Aspirin EC] 81 mg PO DAILY 06/12/15 [History] Atorvastatin [Lipitor] 40 mg PO HS 06/12/15 [History] Levalbuterol Neb [Xopenex Neb] 1.25 mg IH TID PRN 06/12/15 [History] Metoprolol [Lopressor] 75 mg PO BID 06/12/15 [History] Nitroglycerin [Nitrostat] 0.4 mg SL Q5M PRN 06/12/15 [History] Citalopram Hydrobromide [Citalopram HBr] 10 mg PO DAILY 08/02/17 [History] Fluticasone Propionate Nasal [Flonase] 50 mcg NS DAILY 08/02/17 [History] Oxygen 1 each NS AD 08/02/17 [History] OxyCODONE/APAP 5/325 [Percocet 5/325 MG] 1 each PO Q8HR PRN 5 Days #10 tablet [Rx] Acetaminophen [Non-Aspirin] 650 mg PO Q6H PRN 08/21/17 [History] glipiZIDE [Glipizide] 10 mg PO DAILY 08/21/17 [History] predniSONE [PredniSONE] 10 mg PO DAILY 12 Days #30 tablet 08/29/17 [Rx] Allergies/Adverse Reactions: 3 Allergy/AdvReac Type Severity Reaction Status Date / Time codeine AdvReac Hallucinati Verified 06/12/15 15:48 ng morphine AdvReac Hallucinati Verified 06/12/15 15:48 ng - Respiratory Orders Smoking Cessation: Smoking cessation has been advised. For more information, call the [place] Tobacco Quit Line at 3-254-VURN-NOW. - Rehabiliation Orders Rehab Potential: Fair Rehab Orders: Evaluation for Physical Therapy, Evaluation for Occupational Therapy - Diet Orders Regular CERTIFICATION: I certify that the transfer of the above named patient to an Extended Care Facility is necessary for the continuing treatment of the diagnosis listed. The above information is true and accurate reflection of patient's current condition. Confidential - Redisclosure prohibited without a patient's written consent.
== END 2017-08-29 14:31 | DRG 190 ==
LOC: 2NENU 08:53 → EMEROO 08:53 → 2NENU 13:00 → SUATTDRO 23:18
PROVIDERS: ADMIT Internal Medicine Cardiovascular Disease; ATTEND Hospitalist

== ENCOUNTER 2017-09-25 14:28 | Inpatient (IN) ==
[2017-09-25 15:50] LABS: Basophils % 0.2 %; Eosinophils % 0.6 %; Hematocrit 37.1 % (35.3-44.9); Hemoglobin 11.8 g/dL (11.5-15.4); Immature Granulocytes % 0.5 % (0-4); Lymphocytes # 2.1 K/mcL (0.6-4.6); Lymphocytes % 32.3 %; Mean Corpuscular HGB Conc 31.8 g/dL (31.6-35.5); Mean Corpuscular Volume 94.4 fL (83.0-100.0); Mean Platelet Volume 10.2 fL (9.4-12.4); Monocytes # 0.6 K/mcL (0.0-1.3); Monocytes % 8.9 %; Neutrophils # 3.8 K/mcL (1.6-8.9); Platelet Count 139 K/mcL (140-400); Red Blood Count 3.93 M/mcL (3.82-4.97); Red Cell Distribution Width 13.6 % (11.5-14.5); Segmented Neutrophils % 57.5 %
--- NOTE | 2017-09-25 16:00 | Emergency Department Note ---
Disposition Clinical Impression: Dyspnea on exertion COPD (chronic obstructive pulmonary disease) Qualifiers: COPD type: unspecified COPD Qualified Code(s): J44.9 - Chronic obstructive pulmonary disease, unspecified Disposition: Admitted As Inpatient Condition: Fair SOB HPI - General Chief Complaint: ED Shortness of Breath/Dyspnea Stated Complaint: SOB Time Seen by Provider: 09/25/17 14:38 Source: EMS Limitations: no limitations - History of Present Illness Ms. Gupta is an 81-year-old female with h/o COPD on 2L nasal cannula PRN, CVA, pacemaker, Afib, LHC 1 stent who presents from [facility] ([facility]) to the ED for difficulty breathing which began 2 days ago. She was admitted less than one month ago with acute exacerbation of COPD treated with antibiotics and steroids. She reports some shortness of breath at baseline, however her ability to exert herself has decreased significantly in the last 2 days. Normally the patient is able to ambulate the couple of feet from her bed to her bathroom, but over the last 2 days she has been unable to do so without becoming severely short of breath. She was scheduled to participate in physical therapy this morning but did not complete the session due to the severity of her shortness of breath. She denies chest pain or palpitations with her shortness of breath, dates that her chest feels "tight." She denies wheezing or coughing with shortness of breath. She has bilateral pedal edema despite daily dose of 40 mg Lasix. She denies fever, chills, nausea, vomiting, abdominal pain. - Related Data Home Medications Medication Instructions Recorded Confirmed Albuterol Sulfate [Ventolin Hfa] 2 puff IH Q4H PRN 06/12/15 09/25/17 Aspirin [Adult Low Dose Aspirin EC] 81 mg PO DAILY 06/12/15 09/25/17 Atorvastatin [Lipitor] 40 mg PO HS 06/12/15 09/25/17 Metoprolol [Lopressor] 75 mg PO BID 06/12/15 09/25/17 Nitroglycerin [Nitrostat] 0.4 mg SL Q5M PRN 06/12/15 09/25/17 Citalopram Hydrobromide 10 mg PO DAILY 08/02/17 09/25/17 [Citalopram HBr] Fluticasone Propionate Nasal 50 mcg NS DAILY 08/02/17 09/25/17 [Flonase] Oxygen 1 each NS AD 08/02/17 09/25/17 Acetaminophen [Non-Aspirin] 650 mg PO Q6H PRN 08/21/17 09/25/17 glipiZIDE [Glipizide] 10 mg PO DAILY 08/21/17 09/25/17 Albuterol Neb [Proventil Neb] 2.5 mg IH TID 09/25/17 09/25/17 Benzonatate [Tessalon] 100 mg PO TID PRN 09/25/17 09/25/17 Furosemide [Lasix] 40 mg PO DAILY 09/25/17 09/25/17 Loperamide [Imodium] 2 mg PO QID PRN 09/25/17 09/25/17 Meloxicam [Mobic] 7.5 mg PO DAILY 09/25/17 09/25/17 Previous Rx's Medication Instructions Recorded OxyCODONE/APAP 5/325 [Percocet 1 each PO Q8HR PRN 2 Days #6 tablet 08/29/17 5/325 MG] predniSONE [PredniSONE] 10 mg PO DAILY 12 Days #30 tablet 08/29/17 Allergies Allergy/AdvReac Type Severity Reaction Status Date / Time codeine AdvReac Hallucinati Verified 09/25/17 14:38 ng morphine AdvReac Hallucinati Verified 09/25/17 14:38 ng All systems ED: reviewed and negative except as stated. Review of Systems: As Per HPI Constitutional: Reports: as per HPI Cardiovascular: Reports: as per HPI, dyspnea on exertion. Denies: palpitations Respiratory: Reports: as per HPI. Denies: cough, wheezes, sputum production Gastrointestinal: Reports: as per HPI Neurological: Denies: confusion Past Medical History - Past Medical History Medical history: Reports: arthritis, asthma, atrial fibrillation, COPD, diabetes , hyperlipidemia, hypertension, syncope, TIA Psychiatric history: Reports: anxiety, depression - Social History Smoking Status: Never smoker Smokeless Tobacco Status: No Alcohol use: Reports: none Drug use: Reports: none Physical Exam - General Limitations: no limitations General appearance: alert, in no apparent distress - Head Head exam: normocephalic, normal inspection - Eye Eye exam: Present: normal appearance, PERRL - Neck Neck exam: Present: normal inspection (supple) - Chest Chest inspection: Present: normal inspection (old scar from pacemaker placement) , symmetric chest wall rise. Absent: rash - Respiratory Respiratory exam: Present: normal lung sounds bilaterally (no rales, decreased airflow bilaterally). Absent: respiratory distress, wheezes, accessory muscle use - Cardiovascular Cardiovascular exam: Present: regular rate, normal rhythm, other (distant) - Abdominal Exam Abdominal exam: Present: soft. Absent: Non-Tender, distention, guarding, rebound, rigidity - Extremities Exam Extremities exam: Present: pedal edema (bilaterally). Absent: tenderness, calf tenderness - Expanded Lower Extremity Exam Lower leg exam: Present: swelling. Absent: tenderness, palpable cord (to level of mid-arm[place] bilaterally) Ankle exam: Present: swelling (bilateral). Absent: tenderness - Back Exam Back exam: Present: normal inspection. Absent: rashes - Neurological Exam Neurological exam: Present: alert, oriented X3, normal gait. Absent: motor sensory deficit - Psychiatric Psychiatric exam: Present: normal affect, normal mood - Skin Skin exam: Present: warm, dry, intact Course Vital Signs Temperature 97.7 F 09/25/17 14:31 Pulse Rate 91 09/25/17 14:31 Respiratory Rate 16 09/25/17 14:31 Blood Pressure 135/88 09/25/17 14:31 O2 Sat by Pulse Oximetry 99 09/25/17 14:31 Temperature 97.7 F 09/25/17 19:03 Pulse Rate 60 09/25/17 19:03 Respiratory Rate 20 09/25/17 19:03 Blood Pressure 128/64 09/25/17 19:03 O2 Sat by Pulse Oximetry 98 09/25/17 19:03 Oxygen Delivery Oxygen Delivery Nasal Cannula Shortness of Breath/Dyspnea - [facility] Narrative Medical decision making narrative: Ms. Glory Gupta is an 81-year-old female presenting to the emergency department from [facility] for acute worsening shortness of breath that began 2 days ago. On arrival to the emergency department she was afebrile, hemodynamically stable, and saturating 99% on room air. EKG was obtained and showed a paced, regular rate and rhythm with no acute ST elevations or depressions. Chest x-ray was obtained and showed stable cardiomegaly and lungs were without acute focal process and there was no evidence of effusion. Lactic acid was 1.9, troponin was < 0.03, her BNP was elevated at 478. Her mild hypokalemia and mild hypocalcemia were replaced with oral supplements in the emergency department. Her exercise tolerance was tested by having her ambulate with assistance in the department. Her O2 saturation didn't drop below 97% while ambulating, but it was quite taxing on the pt and increased respiratory effort was visible after walking approximately 20-30ft. Her acute decrease in ability to ambulate a short distance which had given her no trouble 3 days earlier in combination with increased respiratory effort on ambulation in the ED, the hospitalist service was contacted for admission. Hospitalist service accepted pt for admission. Pt and her son were in agreement with admission. - Medical Records Medical records reviewed: Yes I reviewed the patient's medical records. - Lab Data Lab results reviewed: Yes I reviewed the patient's lab results. Result diagrams: 09/25/17 15:30 09/25/17 15:30 Lab Results 09/25/17 09/25/17 09/25/17 Range/Units 15:30 15:30 15:30 WBC 6.5 (4.3-11.1) K/mcL RBC 3.93 (3.82-4.97) M/mcL Hgb 11.8 (11.5-15.4) g/dL Hct 37.1 (35.3-44.9) % MCV 94.4 (83.0-100.0) fL MCH 30.0 (28.0-33.3) pg MCHC 31.8 (31.6-35.5) g/dL RDW 13.6 (11.5-14.5) % Plt Count 139 L (140-400) K/mcL MPV 10.2 (9.4-12.4) fL Immature Gran % 0.5 (0-4) % Seg Neutrophils % 57.5 % Lymphocytes % 32.3 % Monocytes % 8.9 % Eosinophils % 0.6 % Basophils % 0.2 % Neutrophils # 3.8 (1.6-8.9) K/mcL Lymphocytes # 2.1 (0.6-4.6) K/mcL Monocytes # 0.6 (0.0-1.3) K/mcL Eosinophils # 0.0 (0.0-0.6) K/mcL Basophils # 0.0 (0.0-0.2) K/mcL Sodium 142 (136-145) mEq/L Potassium 2.9 L (3.5-5.1) mEq/L Chloride 101 (98-107) mEq/L Carbon Dioxide 32 H (23-29) mEq/L BUN 19 (8-23) mg/dL Creatinine 1.20 (0.60-1.20) mg/dL Est GFR ( Amer) 52 L (> 60) Est GFR (Non-Af Amer) 43 L (> 60) BUN/Creatinine Ratio 16 (6-26) Glucose 133 H (70-105) mg/dL Calculated Osmolality 298 (280-300) Lactic Acid 1.9 (0.5-2.2) mmol/L Calcium 8.4 L (8.6-10.3) mg/dL Troponin I < 0.03 (< 0.04) ng/mL B-Natriuretic Peptide (Less than 100) pg/mL 09/25/17 Range/Units 15:30 WBC (4.3-11.1) K/mcL RBC (3.82-4.97) M/mcL Hgb (11.5-15.4) g/dL Hct (35.3-44.9) % MCV (83.0-100.0) fL MCH (28.0-33.3) pg MCHC (31.6-35.5) g/dL RDW (11.5-14.5) % Plt Count (140-400) K/mcL MPV (9.4-12.4) fL Immature Gran % (0-4) % Seg Neutrophils % % Lymphocytes % % Monocytes % % Eosinophils % % Basophils % % Neutrophils # (1.6-8.9) K/mcL Lymphocytes # (0.6-4.6) K/mcL Monocytes # (0.0-1.3) K/mcL Eosinophils # (0.0-0.6) K/mcL Basophils # (0.0-0.2) K/mcL Sodium (136-145) mEq/L Potassium (3.5-5.1) mEq/L Chloride (98-107) mEq/L Carbon Dioxide (23-29) mEq/L BUN (8-23) mg/dL Creatinine (0.60-1.20) mg/dL Est GFR ( Amer) (> 60) Est GFR (Non-Af Amer) (> 60) BUN/Creatinine Ratio (6-26) Glucose (70-105) mg/dL Calculated Osmolality (280-300) Lactic Acid (0.5-2.2) mmol/L Calcium (8.6-10.3) mg/dL Troponin I (< 0.04) ng/mL B-Natriuretic Peptide 478 H (Less than 100) pg/mL - Radiology Data Radiology results reviewed: Yes I reviewed the patient's radiology results. - EKG Data EKG attestation: Yes I reviewed and interpreted this EKG. Rate: Reports: normal Rhythm: Reports: other (ventricular paced) Parker/QRS: Reports: normal Interpretation: Reports: other (no acute ischemic changes, paced rhythm)
[2017-09-25 16:11] LABS: BUN/Creatinine Ratio 16 (6-26); Blood Urea Nitrogen 19 mg/dL (8-23); Calcium 8.4 mg/dL (8.6-10.3); Carbon Dioxide 32 mEq/L (23-29); Chloride 101 mEq/L (98-107); Glucose 133 mg/dL (70-105); Osmolality,Calculated 298 (280-300); Potassium 2.9 mEq/L (3.5-5.1); Sodium 142 mEq/L (136-145); Troponin I < 0.03 ng/mL (< 0.04); eGFR For African Americans 52 (> 60); eGFR For Non-African Americans 43 (> 60)
[2017-09-25] MEDS ORDERED: Potassium Chloride Elixir 20 MEQ/15 ML UDC PO ONE (16:32)
[2017-09-25] MEDS ORDERED: methylPREDNISolone 125 MG/2 ML VIAL IVP ONE (16:58)
[2017-09-25] MEDS ORDERED: Furosemide 40 MG/4 ML VIAL IVP ONE (16:58)
--- NOTE | 2017-09-25 19:11 | Emergency Department Note ---
Disposition Clinical Impression: Dyspnea on exertion COPD (chronic obstructive pulmonary disease) Qualifiers: COPD type: unspecified COPD Qualified Code(s): J44.9 - Chronic obstructive pulmonary disease, unspecified Disposition: Admitted As Inpatient Condition: Fair Referrals: Eden Wells MD [Partnered Physician] - SOB HPI - General Chief Complaint: ED Shortness of Breath/Dyspnea Stated Complaint: SOB Time Seen by Provider: 09/25/17 14:38 Source: EMS Limitations: no limitations Nursing Notes Reviewed: Yes Vital Signs Reviewed: Yes - Related Data Home Medications Medication Instructions Recorded Confirmed Albuterol Sulfate [Ventolin Hfa] 2 puff IH Q4H PRN 06/12/15 09/25/17 Aspirin [Adult Low Dose Aspirin EC] 81 mg PO DAILY 06/12/15 09/25/17 Atorvastatin [Lipitor] 40 mg PO HS 06/12/15 09/25/17 Metoprolol [Lopressor] 75 mg PO BID 06/12/15 09/25/17 Nitroglycerin [Nitrostat] 0.4 mg SL Q5M PRN 06/12/15 09/25/17 Citalopram Hydrobromide 10 mg PO DAILY 08/02/17 09/25/17 [Citalopram HBr] Fluticasone Propionate Nasal 50 mcg NS DAILY 08/02/17 09/25/17 [Flonase] Oxygen 1 each NS AD 08/02/17 09/25/17 Acetaminophen [Non-Aspirin] 650 mg PO Q6H PRN 08/21/17 09/25/17 glipiZIDE [Glipizide] 10 mg PO DAILY 08/21/17 09/25/17 Albuterol Neb [Proventil Neb] 2.5 mg IH TID 09/25/17 09/25/17 Benzonatate [Tessalon] 100 mg PO TID PRN 09/25/17 09/25/17 Furosemide [Lasix] 40 mg PO DAILY 09/25/17 09/25/17 Loperamide [Imodium] 2 mg PO QID PRN 09/25/17 09/25/17 Meloxicam [Mobic] 7.5 mg PO DAILY 09/25/17 09/25/17 Previous Rx's Medication Instructions Recorded OxyCODONE/APAP 5/325 [Percocet 1 each PO Q8HR PRN 2 Days #6 tablet 08/29/17 5/325 MG] predniSONE [PredniSONE] 10 mg PO DAILY 12 Days #30 tablet 08/29/17 Allergies Allergy/AdvReac Type Severity Reaction Status Date / Time codeine AdvReac Hallucinati Verified 09/25/17 14:38 ng morphine AdvReac Hallucinati Verified 09/25/17 14:38 ng Constitutional: Reports: as per HPI Cardiovascular: Reports: as per HPI, dyspnea on exertion. Denies: palpitations Respiratory: Reports: as per HPI. Denies: cough, wheezes, sputum production Gastrointestinal: Reports: as per HPI Neurological: Denies: confusion Past Medical History - Past Medical History Medical history: Reports: arthritis, asthma, atrial fibrillation, COPD, diabetes , hyperlipidemia, hypertension, syncope, TIA Psychiatric history: Reports: anxiety, depression - Social History Smoking Status: Never smoker Smokeless Tobacco Status: No Alcohol use: Reports: none Drug use: Reports: none Physical Exam - General Limitations: no limitations General appearance: alert, in no apparent distress Course Vital Signs Temperature 97.7 F 09/25/17 14:31 Pulse Rate 91 09/25/17 14:31 Respiratory Rate 16 09/25/17 14:31 Blood Pressure 135/88 09/25/17 14:31 O2 Sat by Pulse Oximetry 99 09/25/17 14:31 Temperature 97.7 F 09/25/17 14:31 Pulse Rate 59 09/25/17 18:11 Respiratory Rate 20 09/25/17 18:11 Blood Pressure 116/54 09/25/17 18:11 O2 Sat by Pulse Oximetry 97 09/25/17 18:11 Oxygen Delivery Oxygen Delivery Nasal Cannula Shortness of Breath/Dyspnea - Lab Data Result diagrams: 09/25/17 15:30 09/25/17 15:30 Lab Results 09/25/17 09/25/17 09/25/17 Range/Units 15:30 15:30 15:30 WBC 6.5 (4.3-11.1) K/mcL RBC 3.93 (3.82-4.97) M/mcL Hgb 11.8 (11.5-15.4) g/dL Hct 37.1 (35.3-44.9) % MCV 94.4 (83.0-100.0) fL MCH 30.0 (28.0-33.3) pg MCHC 31.8 (31.6-35.5) g/dL RDW 13.6 (11.5-14.5) % Plt Count 139 L (140-400) K/mcL MPV 10.2 (9.4-12.4) fL Immature Gran % 0.5 (0-4) % Seg Neutrophils % 57.5 % Lymphocytes % 32.3 % Monocytes % 8.9 % Eosinophils % 0.6 % Basophils % 0.2 % Neutrophils # 3.8 (1.6-8.9) K/mcL Lymphocytes # 2.1 (0.6-4.6) K/mcL Monocytes # 0.6 (0.0-1.3) K/mcL Eosinophils # 0.0 (0.0-0.6) K/mcL Basophils # 0.0 (0.0-0.2) K/mcL Sodium 142 (136-145) mEq/L Potassium 2.9 L (3.5-5.1) mEq/L Chloride 101 (98-107) mEq/L Carbon Dioxide 32 H (23-29) mEq/L BUN 19 (8-23) mg/dL Creatinine 1.20 (0.60-1.20) mg/dL Est GFR ( Amer) 52 L (> 60) Est GFR (Non-Af Amer) 43 L (> 60) BUN/Creatinine Ratio 16 (6-26) Glucose 133 H (70-105) mg/dL Calculated Osmolality 298 (280-300) Lactic Acid 1.9 (0.5-2.2) mmol/L Calcium 8.4 L (8.6-10.3) mg/dL Troponin I < 0.03 (< 0.04) ng/mL B-Natriuretic Peptide (Less than 100) pg/mL 09/25/17 Range/Units 15:30 WBC (4.3-11.1) K/mcL RBC (3.82-4.97) M/mcL Hgb (11.5-15.4) g/dL Hct (35.3-44.9) % MCV (83.0-100.0) fL MCH (28.0-33.3) pg MCHC (31.6-35.5) g/dL RDW (11.5-14.5) % Plt Count (140-400) K/mcL MPV (9.4-12.4) fL Immature Gran % (0-4) % Seg Neutrophils % % Lymphocytes % % Monocytes % % Eosinophils % % Basophils % % Neutrophils # (1.6-8.9) K/mcL Lymphocytes # (0.6-4.6) K/mcL Monocytes # (0.0-1.3) K/mcL Eosinophils # (0.0-0.6) K/mcL Basophils # (0.0-0.2) K/mcL Sodium (136-145) mEq/L Potassium (3.5-5.1) mEq/L Chloride (98-107) mEq/L Carbon Dioxide (23-29) mEq/L BUN (8-23) mg/dL Creatinine (0.60-1.20) mg/dL Est GFR ( Amer) (> 60) Est GFR (Non-Af Amer) (> 60) BUN/Creatinine Ratio (6-26) Glucose (70-105) mg/dL Calculated Osmolality (280-300) Lactic Acid (0.5-2.2) mmol/L Calcium (8.6-10.3) mg/dL Troponin I (< 0.04) ng/mL B-Natriuretic Peptide 478 H (Less than 100) pg/mL Attestation Statement - Attestation Attestation: I, Dakota Musa, examined this patient and my medical decision-making was reviewed with the PSYCHOMETRIC EXAMINER/PA/Advanced Practice Nurse/Resident Physician. I agree with the documented findings, disposition and treatment plan as described except to the extent set forth below. 81-year-old female presents emergency with concerns of shortness of breath with exertion. Patient states this has been worsening over the past 2-3 days. Patient has a history of COPD and CHF. She describes having increased weight gain over the past 2-3 days, she does not lay flat a baseline when sleeping. Patient does describe increased edema to the bilateral lower extremities. She denies chest pain. No wheezing present on bilateral posterior lung vaca. Patient ambulated emergency Department she did not desaturate however she had had visible work increased work of breathing during the ambulation trial. Patient will be admitted to the hospitalist for further care and evaluation. She will be given Lasix in the emergency department. No critical care on this patient.
--- NOTE | 2017-09-25 20:38 | Internal Med History&Physical ---
<Jules Lopez - Last Filed: 09/25/17 21:35> Date of Encounter: 09/25/17 Time of Encounter: 20:31 Internal Medicine - H&P: HPI Chief complaint: SOB Admitted From: Long-term Nursing Facility Plans for Post Hospital Care: [facility] History of present illness: Ms. Gupta is a 81 year old female w/ pmh of recent hospitalization for COPD exacerbation w/ home 2L NC, CHF w/ pacemaker placed >5 years ago, CAD w/ stent in LAD, afib, CVA presents with SOB at rest. Patient was d/c'ed from [facility] last month for COPD exacerbation and was transferred to [facility], [place]. In the last week, patient has had worsened SOB. Baseline patient is able to do some activity without SOB, but is now SOB at rest and constant. She also states that in the last week she's been unable to lay flat, waking up in the middle of the night catching her breath, and bilateral lower leg edema. Patient states that she doesn't have CHF but has had a pacemaker for the last 5-10 years. She admits that she's been bad at following up with [employer]. She denies CP, nausea, vomiting, fever, chills, constipated. but she does admit to feeling "full" or "swollen" underneath her left rib cage. Past Med Surg Social Fam HX - Past Medical History Medical history: arthritis, asthma, atrial fibrillation, COPD, diabetes, hyperlipidemia, hypertension, syncope, TIA Psychiatric history: anxiety, depression - Social History Smoking Status: Never smoker Smokeless Tobacco Status: No Alcohol use: none Drug use: none - Family History Father Hx Family Cardiac Disorders: Yes Internal Medicine - H&P: Meds Albuterol Sulfate [Ventolin Hfa] 2 puff IH Q4H PRN 06/12/15 [History] Aspirin [Adult Low Dose Aspirin EC] 81 mg PO DAILY 06/12/15 [History] Atorvastatin [Lipitor] 40 mg PO HS 06/12/15 [History] Metoprolol [Lopressor] 75 mg PO BID 06/12/15 [History] Nitroglycerin [Nitrostat] 0.4 mg SL Q5M PRN 06/12/15 [History] Citalopram Hydrobromide [Citalopram HBr] 10 mg PO DAILY 08/02/17 [History] Fluticasone Propionate Nasal [Flonase] 50 mcg NS DAILY 08/02/17 [History] Oxygen 1 each NS AD 08/02/17 [History] Acetaminophen [Non-Aspirin] 650 mg PO Q6H PRN 08/21/17 [History] glipiZIDE [Glipizide] 10 mg PO DAILY 08/21/17 [History] OxyCODONE/APAP 5/325 [Percocet 5/325 MG] 1 each PO Q8HR PRN 2 Days #6 tablet [Rx] predniSONE [PredniSONE] 10 mg PO DAILY 12 Days #30 tablet 08/29/17 [Rx] Albuterol Neb [Proventil Neb] 2.5 mg IH TID 09/25/17 [History] Benzonatate [Tessalon] 100 mg PO TID PRN 09/25/17 [History] Furosemide [Lasix] 40 mg PO DAILY 09/25/17 [History] Loperamide [Imodium] 2 mg PO QID PRN 09/25/17 [History] Meloxicam [Mobic] 7.5 mg PO DAILY 09/25/17 [History] 3 Allergy/AdvReac Type Severity Reaction Status Date / Time codeine AdvReac Hallucinati Verified 09/25/17 14:38 ng morphine AdvReac Hallucinati Verified 09/25/17 14:38 ng All Systems PM: A 10-system review of systems was performed and is negative for pertinent findings except as documented above in the HPI. - Constitutional Constitutional: no chills, no excessive sweating, no fatigue, no fever(s), no night sweats - EENT Eyes: no change in vision, no discharge, no pain, no photophobia Ears: no ear discharge, no ear pain, no tinnitus Nose, mouth and throat: no dysphagia, no nasal discharge, no neck pain, no sore throat - Cardiovascular Cardiovascular ROS IM: dyspnea, dyspnea on exertion, edema, orthopnea, paroxysmal nocturnal dyspnea, no chest pain, no diaphoresis, no lightheadedness , no palpitations, no syncope - Respiratory Respiratory: dyspnea on exertion, no cough, no dyspnea, no hemoptysis, no wheezing, no excessive phlegm production - Gastrointestinal Gastrointestinal: no abdominal pain, no belching, no bloating, no change in bowel habits, no change in stool character, no coffee ground emesis, no constipation, no diarrhea, no hematemesis, no hematochezia, no melena, no nausea , no vomiting - Genitourinary Genitourinary: no change in urinary stream, no dysuria, no flank pain, no hematuria - Musculoskeletal Musculoskeletal ROS IM: no numbness, no tingling - Integumentary Integumentary IM: no rash, no unusual bruising - Neurological Neurological ROS: no confusion, no convulsions, no focal weakness, no numbness, no tingling, no tremor(s) - Hematologic/Lymphatic Hematologic/Lymphatic: no easy bruising - Constitutional Vitals: Temp Pulse Resp BP Pulse Ox 97.7 F 60 20 128/64 98 09/25/17 19:03 09/25/17 19:03 09/25/17 19:03 09/25/17 19:03 09/25/17 19:03 General appearance: Present: cooperative, A&O X 3, pleasant, obese, answers questions appropriately - Head Head exam: Present: atraumatic, normocephalic - Eye Eye exam: Present: PERRL, conjuntiva pink, sclera anicteric Pupils: Present: PERRL - Neck Neck exam general surgery: Present: supple, trachea midline. Absent: lymphadenopathy - Respiratory Respiratory exam: Present: rales (bilateral base of lungs). Absent: accessory muscle use, rhonchi, wheezes - Cardiovascular Cardiovascular exam: Present: RRR. Absent: diastolic murmur, gallop, rubs, systolic murmur - GI/Abdominal GI/Abdominal exam: Present: normal bowel sounds, soft, no peritoneal signs. Absent: distended, firm, guarding, hernia, hepatomegaly, hyperactive bowel sounds, hypoactive bowel sounds, rebound, rigid, splenomegaly, tenderness - Extremities Exam Extremities exam: Present: pedal edema (1+ BLE), warm, radial pulses palpable and symmetrical. Absent: calf tenderness, cyanotic - Neurological Exam Neurological exam: Present: CN II-XII intact, oriented X3, no focal deficits. Absent: pronater drift, facial droop, speech deficit - Skin Skin exam: Present: dry, intact Internal Med - H&P Results - Labs CBC & Chem 7: 09/25/17 15:30 09/25/17 15:30 - Assessment and plan (1) COPD (chronic obstructive pulmonary disease) Current Visit: Yes Status: Chronic Assessment and plan: dyspnea is less likely due to COPD exacerbation, but can be a contributor. Will treat for COPD exacerbation due to frequent hospitalizations for COPD exacerbation. - continue methylprenisolone - O2 support, goal SpO2 88-92% - mc Qualifiers: COPD type: unspecified COPD Qualified Code(s): J44.9 - Chronic obstructive pulmonary disease, unspecified (2) DM type 2 (diabetes mellitus, type 2) Current Visit: Yes Status: Chronic Assessment and plan: low dose SSI Qualifiers: Diabetes mellitus nursing home insulin use: without intermediate card tender use Diabetes mellitus complication status: with neurologic complications Diabetes mellitus complication detail: with polyneuropathy Qualified Code(s): E11.42 - Type 2 diabetes mellitus with diabetic polyneuropathy (3) Obesity Current Visit: Yes Status: Chronic Assessment and plan: discussed benefit of weight loss with patient. to be followed up outpatient Qualifiers: Obesity type: due to excess calories Obesity classification: unspecified obesity classification Serious obesity comorbidity presence: unspecified whether serious comorbidity present Qualified Code(s): E66.09 - Other obesity due to excess calories (4) Hyperlipidemia Current Visit: Yes Status: Chronic Assessment and plan: chronic Qualifiers: Hyperlipidemia type: mixed hyperlipidemia Qualified Code(s): E78.2 - Mixed hyperlipidemia (5) Hypertension Current Visit: Yes Status: Chronic Assessment and plan: continue home Rx Qualifiers: Hypertension type: essential hypertension Qualified Code(s): I10 - Essential (primary) hypertension (6) Hypokalemia Current Visit: Yes Status: Resolved Assessment and plan: on admission 2.9. Replaced with PO K+. recheck in the AM (7) DVT prophylaxis Current Visit: Yes Status: Acute Assessment and plan: heparin SQ (8) Acute exacerbation of CHF (congestive heart failure) Current Visit: Yes Status: Acute Assessment and plan: Dyspnea is most likely due to CHF exacerbation. Patient has 1 week hx of progressively worsening SOB at rest, PND, orthopnea, bilateral lower leg edema, and crackles at the base of the lungs. Last echo 07/13/17 LVEF 60% suboptimal study. BNP 478. CXR in ED showed stable cardiomegaly. Patient was given 40 mg IV lasix in ED, home lasix dose is 40 PO. trop negative x1. ekg shows eletronic ventricular pacer. Will need cardiology appointment on discharge. will treat for both COPD and CHF exacerbation. - continue IV lasix - morning EKG - strict I/O, daily weight - cardiac diet Qualifiers: Qualified Code(s): I50.9 - Heart failure, unspecified - Time Spent With Patient Total time spent is greater than 50% in coordination of care (as documented) at patient's floor/unit and/or counseling patient: <Ashwin Dutta P - Last Filed: 09/25/17 21:54> Date of Encounter: 09/25/17 Internal Medicine - H&P: HPI History of present illness: Ms. Gupta is a 81 year old female All Systems PM: A 10-system review of systems was performed and is negative for pertinent findings except as documented above in the HPI. - Constitutional Vitals: Temp Pulse Resp BP Pulse Ox 97.7 F 60 20 128/64 98 09/25/17 19:03 09/25/17 19:03 09/25/17 19:03 09/25/17 19:03 09/25/17 19:03 Internal Med - H&P Results - Labs CBC & Chem 7: 09/25/17 15:30 09/25/17 15:30 - Attending Attestation I examined this patient and my medical decision-making was reviewed with the Resident Physician. I agree with the documented findings, disposition and treatment plan as described except to the extent set forth below. Seen and examined. Chart reviewed. Patient is comfortably sitting in a bed. Bilateral basal crepitations. Normal white blood cell count. Unlikely COPD exacerbation but possibility cannot be ruled out. We will treat now as the CHF exacerbation. Close monitoring of electrolytes: Potassium. - Assessment and plan (1) Hypertension Current Visit: Yes Status: Chronic Qualifiers: Hypertension type: essential hypertension Qualified Code(s): I10 - Essential (primary) hypertension (2) Obesity Current Visit: Yes Status: Chronic Qualifiers: Obesity type: due to excess calories Obesity classification: unspecified obesity classification Serious obesity comorbidity presence: unspecified whether serious comorbidity present Qualified Code(s): E66.09 - Other obesity due to excess calories (3) Hyperlipidemia Current Visit: Yes Status: Chronic Qualifiers: Hyperlipidemia type: mixed hyperlipidemia Qualified Code(s): E78.2 - Mixed hyperlipidemia (4) DM type 2 (diabetes mellitus, type 2) Current Visit: Yes Status: Chronic Qualifiers: Diabetes mellitus intermediate card tender insulin use: without nursing home use Diabetes mellitus complication status: with neurologic complications Diabetes mellitus complication detail: with polyneuropathy Qualified Code(s): E11.42 - Type 2 diabetes mellitus with diabetic polyneuropathy (5) COPD (chronic obstructive pulmonary disease) Current Visit: Yes Status: Chronic Qualifiers: COPD type: unspecified COPD Qualified Code(s): J44.9 - Chronic obstructive pulmonary disease, unspecified (6) DVT prophylaxis Current Visit: Yes Status: Acute (7) Hypokalemia Current Visit: Yes Status: Resolved (8) Acute exacerbation of CHF (congestive heart failure) Current Visit: Yes Status: Acute Qualifiers: Qualified Code(s): I50.9 - Heart failure, unspecified - Time Spent With Patient Total time spent is greater than 50% in coordination of care (as documented) at patient's floor/unit and/or counseling patient:
[2017-09-25] MEDS ORDERED: Naloxone 0.4 MG/ML INJ IVP PRN (20:53)
[2017-09-25] MEDS ORDERED: *HR* Dextrose 50 % in Water (Syg) 50 ML SYRINGE IVP PRN (20:56)
[2017-09-25] MEDS ORDERED: D5% in Water 1,000 ML IVC PRN (20:56)
[2017-09-25] MEDS ORDERED: Dextrose Gel 15 GM/37.5 ML TUBE PO PRN ×2 (20:56)
[2017-09-25] MEDS ORDERED: Insulin LISPRO 300 UNITS/3 ML VIAL SQ SCH (21:00)
[2017-09-25] MEDS ORDERED: *HR* OxyCODONE/APAP 5/325 TABLET PO PRN (21:01)
[2017-09-25] MEDS ORDERED: Benzonatate 100 MG CAPSULE PO PRN (21:01)
[2017-09-25] MEDS ORDERED: Acetaminophen 325 MG TABLET PO PRN (21:01)
[2017-09-25] MEDS ORDERED: Nitroglycerin 0.4 MG TAB.SUBL SL PRN (21:01)
[2017-09-26 05:01] LABS: Hematocrit 37.7 % (35.3-44.9); Hemoglobin 12.2 g/dL (11.5-15.4); Mean Corpuscular HGB Conc 32.4 g/dL (31.6-35.5); Mean Corpuscular Hemoglobin 30.5 pg (28.0-33.3); Mean Corpuscular Volume 94.3 fL (83.0-100.0); Mean Platelet Volume 10.7 fL (9.4-12.4); Platelet Count 142 K/mcL (140-400); Red Cell Distribution Width 13.8 % (11.5-14.5)
[2017-09-26 05:22] LABS: Troponin I < 0.03 ng/mL (< 0.04)
[2017-09-26 05:28] LABS: Chol/HDL Ratio 2.7 (0-4.9); Cholesterol 115 mg/dL (< 200); HDL Cholesterol 42 mg/dL (40-59); LDL Cholesterol,Calculated 61 mg/dL (0-99); Magnesium 1.2 mg/dL (1.6-2.6); Phosphorous 2.7 mg/dL (2.7-4.5); Triglycerides 61 mg/dL (< 150)
[2017-09-26 05:37] LABS: Calcium 8.3 mg/dL (8.6-10.3); Potassium 3.7 mEq/L (3.5-5.1)
[2017-09-26] MEDS: *HR* Heparin 5,000 UNIT/ML VIAL SQ SCH ×2 (06:39→19:10)
--- NOTE | 2017-09-26 07:58 | Internal Med Progress Note ---
<Yasmani Roy - Last Filed: 09/26/17 17:04> Date of Encounter: 09/26/17 Time of Encounter: 08:30 - Assessment and plan (1) COPD (chronic obstructive pulmonary disease) Current Visit: Yes Status: Chronic Assessment and plan: dyspnea is less likely due to COPD exacerbation, but can be a contributor. Will treat for COPD exacerbation due to frequent hospitalizations for COPD exacerbation. - continue methylprenisolone - O2 support, goal SpO2 88-92% - mc There is no indication for antibiotics at this time Qualifiers: COPD type: unspecified COPD Qualified Code(s): J44.9 - Chronic obstructive pulmonary disease, unspecified (2) DM type 2 (diabetes mellitus, type 2) Current Visit: Yes Status: Chronic Assessment and plan: Blood glucoses remained elevated throughout admission We will transition the patient to medium or high-dose sliding scale Will likely require addition of long-acting basal insulin We will check an A1c Qualifiers: Diabetes mellitus commonwealth attorney insulin use: without commonwealth attorney use Diabetes mellitus complication status: with neurologic complications Diabetes mellitus complication detail: with polyneuropathy Qualified Code(s): E11.42 - Type 2 diabetes mellitus with diabetic polyneuropathy (3) Hypertension Current Visit: Yes Status: Chronic Assessment and plan: continue home Rx Qualifiers: Hypertension type: essential hypertension Qualified Code(s): I10 - Essential (primary) hypertension (4) Obesity Current Visit: Yes Status: Chronic Assessment and plan: discussed benefit of weight loss with patient. to be followed up outpatient Qualifiers: Obesity type: due to excess calories Obesity classification: unspecified obesity classification Serious obesity comorbidity presence: unspecified whether serious comorbidity present Qualified Code(s): E66.09 - Other obesity due to excess calories; Z68.37 - Body mass index (BMI) 37.0-37.9, adult (5) Hyperlipidemia Current Visit: Yes Status: Chronic Assessment and plan: chronic, continue home meds Qualifiers: Hyperlipidemia type: mixed hyperlipidemia Qualified Code(s): E78.2 - Mixed hyperlipidemia (6) Hypokalemia Current Visit: Yes Status: Resolved Assessment and plan: Resolved Repeat BMP in morning (7) DVT prophylaxis Current Visit: Yes Status: Acute Assessment and plan: heparin SQ (8) Acute exacerbation of CHF (congestive heart failure) Current Visit: Yes Status: Acute Assessment and plan: Dyspnea is most likely due to CHF exacerbation. Patient has 1 week hx of progressively worsening SOB at rest, PND, orthopnea, bilateral lower leg edema, and crackles at the base of the lungs. Last echo 07/13/17 LVEF 60% suboptimal study. BNP 478. CXR in ED showed stable cardiomegaly. Patient was given 40 mg IV lasix in ED, home lasix dose is 40 PO. trop negative x1. ekg shows eletronic ventricular pacer. Will need cardiology appointment on discharge. will treat for both COPD and CHF exacerbation. - continue IV lasix - morning EKG - strict I/O, daily weight - cardiac diet Update 09/26 Some improvement with diuresis We will correct other underlying causes including lung function and electrolytes Continue to monitor Qualifiers: Heart failure type: diastolic Qualified Code(s): I50.33 - Acute on chronic diastolic (congestive) heart failure - Time Spent With Patient Total time spent is greater than 50% in coordination of care (as documented) at patient's floor/unit and/or counseling patient: - Subjective Interval history: The patient is seen and examined at bedside. She is conversationally dyspneic, and says that she is only feeling marginally improved from prior. She had no acute events overnight. - Constitutional Vitals: Temp Pulse Resp BP Pulse Ox 97.9 F 61 16 153/76 96 09/26/17 07:07 09/26/17 07:07 09/26/17 07:07 09/26/17 07:07 09/26/17 07:07 General appearance: Present: cooperative, mild distress, A&O X 3, pleasant, obese, answers questions appropriately Exam: Gen: Vitals noted. Conversationally dyspneic with moderate distress HEENT: Normocephalic, atraumatic Neck: Supple. No adenopathy. Cardiac: RRR, 2/6 systolic murmur, +S1/S2 Pulmonary: CTA bilaterally, no wheezes, rales or rhonchi, equal chest expansion Abdomen: soft, nontender, BS noted, no guarding MSK: ROM intact, no joint swelling noted Extremities: 1+ bilateral lower extremity edema, nontender calf, no cyanosis or clubbing Neuro: A&Ox3, moves all extremities, no focal deficits Psych: Appropriate mood and behavior Internal Medicine: Result - Labs CBC & Chem 7: 09/26/17 04:24 09/26/17 04:24 Labs: Short CBC 09/26/17 Range/Units 04:24 WBC 8.8 (4.3-11.1) K/mcL Hgb 12.2 (11.5-15.4) g/dL Hct 37.7 (35.3-44.9) % Plt Count 142 (140-400) K/mcL BMP 09/26/17 04:24 Sodium 137 Potassium 3.7 D Chloride 99 Carbon Dioxide 25 BUN 23 Creatinine 1.18 Glucose 409 H Calcium 8.3 L Cardiac Enzymes 09/25/17 09/26/17 Range/Units 22:26 04:24 Troponin I < 0.03 < 0.03 (< 0.04) ng/mL Consult Discharge Plan - Plan Referrals: Eden Wells MD [Primary Care Provider] - <Jas Aleman - Last Filed: 09/26/17 18:12> Date of Encounter: 09/26/17 - Assessment and plan (1) Acute exacerbation of CHF (congestive heart failure) Current Visit: Yes Status: Acute Qualifiers: Heart failure type: diastolic Qualified Code(s): I50.33 - Acute on chronic diastolic (congestive) heart failure (2) COPD (chronic obstructive pulmonary disease) Current Visit: Yes Status: Chronic Qualifiers: COPD type: unspecified COPD Qualified Code(s): J44.9 - Chronic obstructive pulmonary disease, unspecified (3) Hypertension Current Visit: Yes Status: Chronic Qualifiers: Hypertension type: essential hypertension Qualified Code(s): I10 - Essential (primary) hypertension (4) Obesity Current Visit: Yes Status: Chronic Qualifiers: Obesity type: due to excess calories Obesity classification: adult class 2 (BMI 35 - 39.9) Serious obesity comorbidity presence: without serious comorbidity Body mass index: BMI 37.0-37.9 Qualified Code(s): E66.09 - Other obesity due to excess calories; Z68.37 - Body mass index (BMI) 37.0-37.9, adult (5) Hyperlipidemia Current Visit: Yes Status: Chronic Qualifiers: Hyperlipidemia type: mixed hyperlipidemia Qualified Code(s): E78.2 - Mixed hyperlipidemia (6) DM type 2 (diabetes mellitus, type 2) Current Visit: Yes Status: Chronic Qualifiers: Diabetes mellitus commonwealth attorney insulin use: without alf use Diabetes mellitus complication status: with neurologic complications Diabetes mellitus complication detail: with polyneuropathy Qualified Code(s): E11.42 - Type 2 diabetes mellitus with diabetic polyneuropathy (7) DVT prophylaxis Current Visit: Yes Status: Acute (8) Hypokalemia Current Visit: Yes Status: Resolved - Time Spent With Patient Total time spent is greater than 50% in coordination of care (as documented) at patient's floor/unit and/or counseling patient: - Constitutional Vitals: Temp Pulse Resp BP Pulse Ox 98.2 F 60 15 153/70 95 09/26/17 16:24 09/26/17 16:24 09/26/17 16:24 09/26/17 16:24 09/26/17 16:24 Internal Medicine: Result - Labs CBC & Chem 7: 09/26/17 04:24 09/26/17 04:24 Labs: Short CBC 09/26/17 Range/Units 04:24 WBC 8.8 (4.3-11.1) K/mcL Hgb 12.2 (11.5-15.4) g/dL Hct 37.7 (35.3-44.9) % Plt Count 142 (140-400) K/mcL BMP 09/26/17 04:24 Sodium 137 Potassium 3.7 D Chloride 99 Carbon Dioxide 25 BUN 23 Creatinine 1.18 Glucose 409 H Calcium 8.3 L Cardiac Enzymes 09/25/17 09/26/17 09/26/17 Range/Units 22:26 04:24 10:03 Troponin I < 0.03 < 0.03 < 0.03 (< 0.04) ng/mL - Attending Attestation I examined this patient and my medical decision-making was reviewed with the Resident Physician on 09/26/17. I agree with the documented findings, disposition and treatment plan as described except to the extent set forth below. Ms Gupta is currently admitted for acute exac diastolic CHF. She remains moderate to high risk due to potential for worsening clinical status. Ms Gupta is resting comfortably. Oxygen levels better. Still with dyspnea and edema. No GI issues. No CP. Exam Alert Comfortable at this time Mucus membranes dry Heart regular Diffused wheeze and rales heard. Edema present. I/P 1. CHF 2. COPD Further diagnoses and plan as above.
[2017-09-26] MEDS: Furosemide 40 MG/4 ML VIAL IVP SCH (08:40)
[2017-09-26] MEDS: Aspirin Enteric Coated 81 MG Tablet PO SCH (08:40)
[2017-09-26] MEDS: Fluticasone Propionate Nasal 50 MCG/SPRAY BOTTLE NS SCH (08:40)
[2017-09-26] MEDS: Insulin LISPRO 300 UNITS/3 ML VIAL SQ SCH ×4 (08:40→21:38)
[2017-09-26] MEDS ORDERED: MethylPREDNISolone 40 MG/ML VIAL IVP SCH (09:00)
--- NOTE | 2017-09-26 16:34 | Electrocardiograph Report ---
[address] [address] Test Date: 2017-09-25 Pat Name: Glory Gupta Department: 102 Room: 2NE21 Gender: F [employer] Supervisor: Msc : [id number] Requested By: Dakota Musa Order Number: [id number] Reading MD: Claudia Singh Measurements Intervals Raymond Rate: 62 P: VT: 0 QRS: -56 QRSD: 153 T: 99 QT: 424 QTc: 429 Interpretive Statements ELECTRONIC VENTRICULAR PACEMAKER ABNORMAL RHYTHM ECG Electronically Signed On 09-26-2017 16:33:03 EDT by Claudia Singh
[2017-09-27 05:11] LABS: Basophils % 0.2 %; Eosinophils % 0.1 %; Hematocrit 36.8 % (35.3-44.9); Hemoglobin 11.7 g/dL (11.5-15.4); Immature Granulocytes % 0.5 % (0-4); Lymphocytes # 2.1 K/mcL (0.6-4.6); Lymphocytes % 24.8 %; Mean Corpuscular HGB Conc 31.8 g/dL (31.6-35.5); Mean Corpuscular Hemoglobin 29.9 pg (28.0-33.3); Mean Corpuscular Volume 94.1 fL (83.0-100.0); Mean Platelet Volume 10.5 fL (9.4-12.4); Monocytes # 0.7 K/mcL (0.0-1.3); Monocytes % 8.5 %; Neutrophils # 5.6 K/mcL (1.6-8.9); Platelet Count 144 K/mcL (140-400); Red Blood Count 3.91 M/mcL (3.82-4.97); Red Cell Distribution Width 14.1 % (11.5-14.5); Segmented Neutrophils % 65.9 %
[2017-09-27 05:28] LABS: Calcium 8.9 mg/dL (8.6-10.3); Potassium 3.5 mEq/L (3.5-5.1)
[2017-09-27] MEDS: *HR* Heparin 5,000 UNIT/ML VIAL SQ SCH ×2 (05:53→16:43)
--- NOTE | 2017-09-27 08:37 | Internal Med Progress Note ---
<Yasmani Roy - Last Filed: 09/27/17 16:56> Date of Encounter: 09/27/17 Time of Encounter: 08:30 - Assessment and plan (1) DM type 2 (diabetes mellitus, type 2) Current Visit: Yes Status: Chronic Assessment and plan: Blood glucoses remained elevated throughout admission, A1C 8.7 We will transition the patient to medium or high-dose sliding scale Will likely require addition of long-acting basal insulin Qualifiers: Diabetes mellitus intermediate card tender insulin use: without intermediate card tender use Diabetes mellitus complication status: with neurologic complications Diabetes mellitus complication detail: with polyneuropathy Qualified Code(s): E11.42 - Type 2 diabetes mellitus with diabetic polyneuropathy (2) Obesity Current Visit: Yes Status: Chronic Assessment and plan: discussed benefit of weight loss with patient. to be followed up outpatient Qualifiers: Obesity type: due to excess calories Obesity classification: adult class 2 (BMI 35 - 39.9) Serious obesity comorbidity presence: without serious comorbidity Body mass index: BMI 37.0-37.9 Qualified Code(s): E66.09 - Other obesity due to excess calories; Z68.37 - Body mass index (BMI) 37.0-37.9, adult (3) Hypertension Current Visit: Yes Status: Chronic Assessment and plan: continue home Rx Qualifiers: Hypertension type: essential hypertension Qualified Code(s): I10 - Essential (primary) hypertension (4) COPD (chronic obstructive pulmonary disease) Current Visit: Yes Status: Chronic Assessment and plan: dyspnea is less likely due to COPD exacerbation, but can be a contributor. Will treat for COPD exacerbation due to frequent hospitalizations for COPD exacerbation. - We stopped steroids - O2 support, goal SpO2 88-92% - duonebs There is no indication for antibiotics at this time Qualifiers: COPD type: unspecified COPD Qualified Code(s): J44.9 - Chronic obstructive pulmonary disease, unspecified (5) Hyperlipidemia Current Visit: Yes Status: Chronic Assessment and plan: chronic, continue home meds Qualifiers: Hyperlipidemia type: mixed hyperlipidemia Qualified Code(s): E78.2 - Mixed hyperlipidemia (6) Hypokalemia Current Visit: Yes Status: Resolved Assessment and plan: Resolved Repeat BMP in morning (7) DVT prophylaxis Current Visit: Yes Status: Acute Assessment and plan: heparin SQ (8) Acute exacerbation of CHF (congestive heart failure) Current Visit: Yes Status: Acute Assessment and plan: Dyspnea is most likely due to CHF exacerbation. Patient has 1 week hx of progressively worsening SOB at rest, PND, orthopnea, bilateral lower leg edema, and crackles at the base of the lungs. Last echo 07/13/17 LVEF 60% suboptimal study. BNP 478. CXR in ED showed stable cardiomegaly. Patient was given 40 mg IV lasix in ED, home lasix dose is 40 PO. trop negative x1. ekg shows eletronic ventricular pacer. Will need cardiology appointment on discharge. will treat for both COPD and CHF exacerbation. - continue IV lasix - morning EKG - strict I/O, daily weight - cardiac diet Update 09/27 Some improvement with diuresis, continue for another day We will correct other underlying causes including lung function and electrolytes Continue to monitor Patient is likely to discharge back to SNF tomrorow Qualifiers: Heart failure type: diastolic Qualified Code(s): I50.33 - Acute on chronic diastolic (congestive) heart failure - Time Spent With Patient Total time spent is greater than 50% in coordination of care (as documented) at patient's floor/unit and/or counseling patient: - Subjective Interval history: The patient is seen and examined at bedside. She is feeling substantially better than she was previously. She says that she feels as though her breathing has significantly improved. She feels as though she may be approaching readiness for discharge, but is still feeling very weak and does not feel ready. - Constitutional Vitals: Temp Pulse Resp BP Pulse Ox 97.1 F L 60 18 133/71 96 09/27/17 07:40 09/27/17 07:40 09/27/17 07:40 09/27/17 07:40 09/27/17 07:40 General appearance: Present: cooperative, mild distress, A&O X 3, pleasant, obese, answers questions appropriately Exam: Gen: Vitals noted. Appears to be in no acute distress HEENT: Normocephalic, atraumatic Neck: Supple. No adenopathy. Cardiac: RRR, 2/6 systolic murmur, +S1/S2 Pulmonary: CTA bilaterally, no wheezes, rales or rhonchi, equal chest expansion Abdomen: soft, nontender, BS noted, no guarding MSK: ROM intact, no joint swelling noted Extremities: trace bilateral lower extremity edema, nontender calf, no cyanosis or clubbing Neuro: A&Ox3, moves all extremities, no focal deficits Psych: Appropriate mood and behavior Internal Medicine: Result - Labs CBC & Chem 7: 09/27/17 04:04 09/27/17 04:04 Labs: Short CBC 09/27/17 Range/Units 04:04 WBC 8.5 (4.3-11.1) K/mcL Hgb 11.7 (11.5-15.4) g/dL Hct 36.8 (35.3-44.9) % Plt Count 144 (140-400) K/mcL Neutrophils # 5.6 (1.6-8.9) K/mcL BMP 09/27/17 04:04 Sodium 146 H D Potassium 3.5 Chloride 103 Carbon Dioxide 32 H BUN 35 H Creatinine 1.11 Glucose 158 H Calcium 8.9 Cardiac Enzymes 09/26/17 Range/Units 10:03 Troponin I < 0.03 (< 0.04) ng/mL Consult Discharge Plan - Plan Referrals: Eden Wells MD [Primary Care Provider] - <Jas Aleman - Last Filed: 09/27/17 17:37> Date of Encounter: 09/27/17 - Assessment and plan (1) Acute exacerbation of CHF (congestive heart failure) Current Visit: Yes Status: Acute Qualifiers: Heart failure type: diastolic Qualified Code(s): I50.33 - Acute on chronic diastolic (congestive) heart failure (2) Hypertension Current Visit: Yes Status: Chronic Qualifiers: Hypertension type: essential hypertension Qualified Code(s): I10 - Essential (primary) hypertension (3) Obesity Current Visit: Yes Status: Chronic Qualifiers: Obesity type: due to excess calories Obesity classification: adult class 2 (BMI 35 - 39.9) Serious obesity comorbidity presence: without serious comorbidity Body mass index: BMI 37.0-37.9 Qualified Code(s): E66.09 - Other obesity due to excess calories; Z68.37 - Body mass index (BMI) 37.0-37.9, adult (4) Hyperlipidemia Current Visit: Yes Status: Chronic Qualifiers: Hyperlipidemia type: mixed hyperlipidemia Qualified Code(s): E78.2 - Mixed hyperlipidemia (5) DM type 2 (diabetes mellitus, type 2) Current Visit: Yes Status: Chronic Qualifiers: Diabetes mellitus jail insulin use: without jail use Diabetes mellitus complication status: with neurologic complications Diabetes mellitus complication detail: with polyneuropathy Qualified Code(s): E11.42 - Type 2 diabetes mellitus with diabetic polyneuropathy (6) COPD (chronic obstructive pulmonary disease) Current Visit: Yes Status: Chronic Qualifiers: COPD type: unspecified COPD Qualified Code(s): J44.9 - Chronic obstructive pulmonary disease, unspecified (7) DVT prophylaxis Current Visit: Yes Status: Acute (8) Hypokalemia Current Visit: Yes Status: Resolved - Time Spent With Patient Total time spent is greater than 50% in coordination of care (as documented) at patient's floor/unit and/or counseling patient: - Constitutional Vitals: Temp Pulse Resp BP Pulse Ox 97.5 F L 60 16 117/68 95 09/27/17 15:33 09/27/17 15:33 09/27/17 15:33 09/27/17 15:33 09/27/17 15:33 Internal Medicine: Result - Labs CBC & Chem 7: 09/27/17 04:04 09/27/17 04:04 Labs: Short CBC 09/27/17 Range/Units 04:04 WBC 8.5 (4.3-11.1) K/mcL Hgb 11.7 (11.5-15.4) g/dL Hct 36.8 (35.3-44.9) % Plt Count 144 (140-400) K/mcL Neutrophils # 5.6 (1.6-8.9) K/mcL BMP 09/27/17 04:04 Sodium 146 H D Potassium 3.5 Chloride 103 Carbon Dioxide 32 H BUN 35 H Creatinine 1.11 Glucose 158 H Calcium 8.9 - Attending Attestation I examined this patient and my medical decision-making was reviewed with the Resident Physician on 09/27/17. I agree with the documented findings, disposition and treatment plan as described except to the extent set forth below. Ms Gupta is currently admitted for acute exac CHF. She remains moderate to high risk due to potential for worsening cardiac and respiratory status. Ms Gupta is still dyspneic with movement. No fever or chills. No CP. Has been diuresing a lot. No GI issues. Exam alert Comfortable Mucus membranes dry Heart distant Scant end exp wheeze noted. Abd soft I/P 1. Exac CHF 2. COPD Further diagnoses and plan as above.
[2017-09-27 09:13] LABS: Estimated Average Glucose 203 mg/dl; Hemoglobin A1C 8.7 %
[2017-09-27] MEDS: Furosemide 40 MG/4 ML VIAL IVP SCH (10:32)
[2017-09-27] MEDS: Aspirin Enteric Coated 81 MG Tablet PO SCH (10:32)
[2017-09-27] MEDS: Insulin LISPRO 300 UNITS/3 ML VIAL SQ SCH ×4 (10:33→21:11)
[2017-09-27] MEDS: Fluticasone Propionate Nasal 50 MCG/SPRAY BOTTLE NS SCH (10:36)
[2017-09-27] MEDS ORDERED: Ipratropium/Albuterol Neb 3 ML IH PRN (13:57)
[2017-09-27 19:37] LABS: Calcium 9.1 mg/dL (8.6-10.3); Potassium 3.7 mEq/L (3.5-5.1)
[2017-09-28 04:50] LABS: Basophils % 0.2 %; Eosinophils % 0.5 %; Hematocrit 37.8 % (35.3-44.9); Hemoglobin 11.8 g/dL (11.5-15.4); Immature Granulocytes % 0.5 % (0-4); Lymphocytes # 2.1 K/mcL (0.6-4.6); Lymphocytes % 23.9 %; Mean Corpuscular HGB Conc 31.2 g/dL (31.6-35.5); Mean Corpuscular Hemoglobin 29.9 pg (28.0-33.3); Mean Corpuscular Volume 95.9 fL (83.0-100.0); Mean Platelet Volume 10.2 fL (9.4-12.4); Monocytes # 0.8 K/mcL (0.0-1.3); Monocytes % 8.7 %; Neutrophils # 5.8 K/mcL (1.6-8.9); Platelet Count 144 K/mcL (140-400); Red Blood Count 3.94 M/mcL (3.82-4.97); Segmented Neutrophils % 66.2 %
[2017-09-28 05:17] LABS: Alanine Aminotransferase 13 Units/L (7-52); Albumin 3.4 g/dL (3.5-5.7); Albumin/Globulin Ratio 1.7 (1.1-2.2); Alkaline Phosphatase 79 Units/L (34-104); Aspartate Amino Transferase 13 Units/L (13-39); BUN/Creatinine Ratio 34 (6-26); Bilirubin,Total 1.2 mg/dL (0.3-1.0); Blood Urea Nitrogen 33 mg/dL (8-23); Calcium 8.8 mg/dL (8.6-10.3); Carbon Dioxide 35 mEq/L (23-29); Chloride 102 mEq/L (98-107); Glucose 172 mg/dL (70-105); Osmolality,Calculated 305 (280-300); Potassium 3.8 mEq/L (3.5-5.1); Sodium 142 mEq/L (136-145); Total Protein 5.4 g/dL (6.4-8.9); eGFR For African Americans > 60 (> 60); eGFR For Non-African Americans 54 (> 60)
[2017-09-28] MEDS: *HR* Heparin 5,000 UNIT/ML VIAL SQ SCH (06:40)
[2017-09-28] MEDS: Insulin LISPRO 300 UNITS/3 ML VIAL SQ SCH ×2 (08:03→12:47)
[2017-09-28] MEDS: Aspirin Enteric Coated 81 MG Tablet PO SCH (08:05)
[2017-09-28] MEDS: Fluticasone Propionate Nasal 50 MCG/SPRAY BOTTLE NS SCH (08:07)
--- NOTE | 2017-09-28 09:48 | Discharge Summary ---
<Yasmani Roy - Last Filed: 09/28/17 15:00> - NOTES TO OUTPATIENT PROVIDER Notes to Outpatient Provider: The patient was seen and [facility] was treated primarily for a CHF exacerbation. The patient has diastolic dysfunction which led to fluid overload and dyspnea. She was previously being treated for COPD exacerbation which appears to have resolved. She stated [facility] for some diuresis and he regained her strength. Upon discharge she may need daily diuresis depending on fluid status. She will require close follow-up. Date of Encounter: 09/28/17 Time of Encounter: 09:15 - Discharge Diagnosis (1) Hypertension Priority: Secondary Status: Chronic Assessment and Plan: continue home Rx Qualifiers: Hypertension type: essential hypertension Qualified Code(s): I10 - Essential (primary) hypertension (2) Obesity Priority: Secondary Status: Chronic Assessment and Plan: discussed benefit of weight loss with patient. to be followed up outpatient Qualifiers: Obesity type: due to excess calories Obesity classification: adult class 2 (BMI 35 - 39.9) Serious obesity comorbidity presence: without serious comorbidity Body mass index: BMI 37.0-37.9 Qualified Code(s): E66.09 - Other obesity due to excess calories; Z68.37 - Body mass index (BMI) 37.0-37.9, adult (3) Hyperlipidemia Priority: Secondary Status: Chronic Assessment and Plan: chronic, continue home meds Qualifiers: Hyperlipidemia type: mixed hyperlipidemia Qualified Code(s): E78.2 - Mixed hyperlipidemia (4) DM type 2 (diabetes mellitus, type 2) Priority: Secondary Status: Chronic Assessment and Plan: Blood glucoses remained elevated throughout admission, A1C 8.7 We will transition the patient to medium or high-dose sliding scale Will likely require addition of long-acting basal insulin landscaper helper, however for now we will continue home meds on discharge Qualifiers: Diabetes mellitus landscaper helper insulin use: without senior living use Diabetes mellitus complication status: with neurologic complications Diabetes mellitus complication detail: with polyneuropathy Qualified Code(s): E11.42 - Type 2 diabetes mellitus with diabetic polyneuropathy (5) COPD (chronic obstructive pulmonary disease) Priority: Secondary Status: Chronic Assessment and Plan: dyspnea is less likely due to COPD exacerbation, but can be a contributor. We did initially give steroids, however we stopped this as she began to improve. Qualifiers: COPD type: unspecified COPD Qualified Code(s): J44.9 - Chronic obstructive pulmonary disease, unspecified (6) Hypokalemia Priority: Secondary Status: Resolved (7) Acute exacerbation of CHF (congestive heart failure) Priority: Primary Status: Acute Assessment and Plan: Dyspnea is most likely due to CHF exacerbation. Patient has 1 week hx of progressively worsening SOB at rest, PND, orthopnea, bilateral lower leg edema, and crackles at the base of the lungs. Last echo 07/13/17 LVEF 60% suboptimal study. BNP 478. CXR in ED showed stable cardiomegaly. Patient was given 40 mg IV lasix in ED, home lasix dose is 40 PO. trop negative x1. ekg shows eletronic ventricular pacer. Will need cardiology appointment on discharge. will treat for both COPD and CHF exacerbation. Some improvement with diuresis, continue as needed as outpatient Patient is likely to discharge back to SNF Will continue to require daily weights, fluid restrict to 1500mL and low salt diet Follow-up with cardiology outpatient Qualifiers: Heart failure type: diastolic Qualified Code(s): I50.33 - Acute on chronic diastolic (congestive) heart failure Hospital course: Ms. Gupta is a 81 year old female with history of COPD, Pacer/AICD >5yrs ago, CAD with stents and CVA who presented to [facility] for worsening shortness of breath. She has been in the hospital recently and then SNF after being treated for COPD exacerbation. On this admission, she still had SOB, however it appeared to be moreso due to increased fluid accumulation in the setting of CHF exacerbation. She was treated with diuresis and symptoms resolved significantly. For more specific information regarding hospital course and including treatment plan at discharge please see individual assessments. Discharge discussed with: patient, nurse, case management, building energy consultant - Time Spent with Patient Total time spent providing and/or coordinating discharge services: Greater than 30 minutes - Discharge Medications Home Medications: Albuterol Sulfate [Ventolin Hfa] 2 puff IH Q4H PRN 06/12/15 [History] Aspirin [Adult Low Dose Aspirin EC] 81 mg PO DAILY 06/12/15 [History] Atorvastatin [Lipitor] 40 mg PO HS 06/12/15 [History] Metoprolol [Lopressor] 75 mg PO BID 06/12/15 [History] Nitroglycerin [Nitrostat] 0.4 mg SL Q5M PRN 06/12/15 [History] Citalopram Hydrobromide [Citalopram HBr] 10 mg PO DAILY 08/02/17 [History] Fluticasone Propionate Nasal [Flonase] 50 mcg NS DAILY 08/02/17 [History] Oxygen 1 each NS AD 08/02/17 [History] Acetaminophen [Non-Aspirin] 650 mg PO Q6H PRN 08/21/17 [History] glipiZIDE [Glipizide] 10 mg PO DAILY 08/21/17 [History] OxyCODONE/APAP 5/325 [Percocet 5/325 MG] 1 each PO Q8HR PRN 2 Days #6 tablet [Rx] Albuterol Neb [Proventil Neb] 2.5 mg IH TID 09/25/17 [History] Benzonatate [Tessalon] 100 mg PO TID PRN 09/25/17 [History] Furosemide [Lasix] 40 mg PO DAILY 09/25/17 [History] Loperamide [Imodium] 2 mg PO QID PRN 09/25/17 [History] Meloxicam [Mobic] 7.5 mg PO DAILY 09/25/17 [History] Ipratropium/Albuterol Neb [Duoneb] 3 ml IH [id number] PRN inhsol 09/28/17 [Rx] Allergies/Adverse Reactions: 3 Allergy/AdvReac Type Severity Reaction Status Date / Time codeine AdvReac Hallucinati Verified 09/25/17 14:38 ng morphine AdvReac Hallucinati Verified 09/25/17 14:38 ng Date of admission: 09/25/17 20:53 Primary care physician: Eden Wells Consults: 09/26/17 06:59 Consult to Cement And Concrete Plant Worker [CONS] Routine Reason for SW Consult: Return to [facility] for rehab on d/c. 09/26/17 09:41 Consult to Nurse Navigator [CONS] Routine Comment: ChF exac 09/27/17 10:42 Consult to Physical Therapy [CONS] Routine Comment: Evaluate, develop and implement POC Reason for Consult: weakness/deconditioning Does patient have active BEDREST order?: No Is patient medically & hemodynamically stable?: Yes OT [Consult to Occupational Therapy] [CONS] Routine Comment: Evaluate, develop and implement POC Reason for Consult: weakness/deconditioning Does patient have active BEDREST order?: No Is patient medically & hemodynamically stable?: Yes Discharging clinician: Yasmani Roy Anticipated date of discharge: 09/28/17 - Constitutional Vitals: Temp Pulse Resp BP Pulse Ox 97.7 F 60 18 125/67 98 09/28/17 07:19 09/28/17 07:19 09/28/17 07:19 09/28/17 07:19 09/28/17 07:19 General appearance: Present: cooperative, mild distress, A&O X 3, pleasant, obese, answers questions appropriately Exam: Gen: Vitals noted. Appears to be in no acute distress HEENT: Normocephalic, atraumatic Neck: Supple. No adenopathy. Cardiac: RRR, 2/6 systolic murmur, +S1/S2 Pulmonary: CTA bilaterally, no wheezes, rales or rhonchi, equal chest expansion Abdomen: soft, nontender, BS noted, no guarding MSK: ROM intact, no joint swelling noted Extremities: trace bilateral lower extremity edema, nontender calf, no cyanosis or clubbing Neuro: A&Ox3, moves all extremities, no focal deficits Psych: Appropriate mood and behavior - Patient Status Disposition: Transfer SNF Condition: Fair Functional capacity at discharge: uses cane/walker Overall status at discharge: patient is not back to baseline - Discharge Instructions Follow Up With: Eden Wells MD [Primary Care Provider] - Additional Instructions: Follow-up with primary care as soon as possible Continue with physical therapy as directed by PT, consider conditioning therapy as well for cardiac status Continue diuresis for increased leg swelling or shortness of breath Take all other medications as directed Return to the ED for worsening symptoms including shortness of breath, chest pain, significant cough with production of sputum, difficulty lying flat, or changes in level of consciousness. - Diet and Activity Activity: ambulate only with your walker, as per physical therapy, increase activity as tolerated, wear oxygen at all times Diet: diabetic diet, low salt diet <Jas Aleman - Last Filed: 09/28/17 16:55> Date of Encounter: 09/28/17 - Discharge Diagnosis (1) Acute exacerbation of CHF (congestive heart failure) Status: Acute Qualifiers: Heart failure type: diastolic Qualified Code(s): I50.33 - Acute on chronic diastolic (congestive) heart failure (2) Hypertension Status: Chronic Qualifiers: Hypertension type: essential hypertension Qualified Code(s): I10 - Essential (primary) hypertension (3) Obesity Status: Chronic Qualifiers: Obesity type: due to excess calories Obesity classification: adult class 2 (BMI 35 - 39.9) Serious obesity comorbidity presence: without serious comorbidity Body mass index: BMI 37.0-37.9 Qualified Code(s): E66.09 - Other obesity due to excess calories; Z68.37 - Body mass index (BMI) 37.0-37.9, adult (4) Hyperlipidemia Status: Chronic Qualifiers: Hyperlipidemia type: mixed hyperlipidemia Qualified Code(s): E78.2 - Mixed hyperlipidemia (5) DM type 2 (diabetes mellitus, type 2) Status: Chronic Qualifiers: Diabetes mellitus senior living insulin use: without senior living use Diabetes mellitus complication status: with neurologic complications Diabetes mellitus complication detail: with polyneuropathy Qualified Code(s): E11.42 - Type 2 diabetes mellitus with diabetic polyneuropathy (6) COPD (chronic obstructive pulmonary disease) Status: Chronic Qualifiers: COPD type: unspecified COPD Qualified Code(s): J44.9 - Chronic obstructive pulmonary disease, unspecified (7) Hypokalemia Status: Resolved Hospital course: Ms. Gupta is a 81 year old female - Time Spent with Patient Total time spent providing and/or coordinating discharge services: 38min Date of admission: 09/25/17 20:53 Primary care physician: Eden Wells Consults: 09/26/17 06:59 Consult to Cement And Concrete Plant Worker [CONS] Routine Reason for SW Consult: Return to [facility] for rehab on d/c. 09/26/17 09:41 Consult to Nurse Navigator [CONS] Routine Comment: ChF exac 09/27/17 10:42 Consult to Physical Therapy [CONS] Routine Comment: Evaluate, develop and implement POC Reason for Consult: weakness/deconditioning Does patient have active BEDREST order?: No Is patient medically & hemodynamically stable?: Yes OT [Consult to Occupational Therapy] [CONS] Routine Comment: Evaluate, develop and implement POC Reason for Consult: weakness/deconditioning Does patient have active BEDREST order?: No Is patient medically & hemodynamically stable?: Yes - Constitutional Vitals: Temp Pulse Resp BP Pulse Ox 97.9 F 66 18 124/95 96 09/28/17 10:54 09/28/17 10:54 09/28/17 10:54 09/28/17 10:54 09/28/17 10:54 - Attending Attestation I examined this patient and my medical decision-making was reviewed with the Resident Physician on 09/28/17. I agree with the documented findings, disposition and treatment plan as described except to the extent set forth below. Ms Gupta has been admitted for acute exac CHF. She is breathing much better and feels nearly baseline. She is now afebrile and ready for discharge back to SNF. Exam alert. Comfortable Mucus membranes moist Heart not tachy No wheeze today Plan D/C to SNF
--- NOTE | 2017-09-28 09:55 | Physician Discharge Referral ---
ExtendedCare Referral Info Transfer To: [facility] Provider in Charge: Jas Aleman DO Provider in Charge after Transfer: PCP Institutional Level of Care: Skilled - Diagnosis (1) Acute exacerbation of CHF (congestive heart failure) Priority: Primary Status: Acute (2) COPD (chronic obstructive pulmonary disease) Priority: Secondary Status: Chronic (3) DM type 2 (diabetes mellitus, type 2) Priority: Secondary Status: Chronic (4) Hypertension Priority: Secondary Status: Chronic (5) Hypokalemia Priority: Secondary Status: Resolved (6) Obesity Priority: Secondary Status: Chronic (7) Hyperlipidemia Priority: Secondary Status: Chronic Prognosis: Poor Aware of Diagnosis: Patient Aware of Prognosis: Patient - Transfer Medications Home Medications: Albuterol Sulfate [Ventolin Hfa] 2 puff IH Q4H PRN 06/12/15 [History] Aspirin [Adult Low Dose Aspirin EC] 81 mg PO DAILY 06/12/15 [History] Atorvastatin [Lipitor] 40 mg PO HS 06/12/15 [History] Metoprolol [Lopressor] 75 mg PO BID 06/12/15 [History] Nitroglycerin [Nitrostat] 0.4 mg SL Q5M PRN 06/12/15 [History] Citalopram Hydrobromide [Citalopram HBr] 10 mg PO DAILY 08/02/17 [History] Fluticasone Propionate Nasal [Flonase] 50 mcg NS DAILY 08/02/17 [History] Oxygen 1 each NS AD 08/02/17 [History] Acetaminophen [Non-Aspirin] 650 mg PO Q6H PRN 08/21/17 [History] glipiZIDE [Glipizide] 10 mg PO DAILY 08/21/17 [History] OxyCODONE/APAP 5/325 [Percocet 5/325 MG] 1 each PO Q8HR PRN 2 Days #6 tablet [Rx] Albuterol Neb [Proventil Neb] 2.5 mg IH TID 09/25/17 [History] Benzonatate [Tessalon] 100 mg PO TID PRN 09/25/17 [History] Furosemide [Lasix] 40 mg PO DAILY 09/25/17 [History] Loperamide [Imodium] 2 mg PO QID PRN 09/25/17 [History] Meloxicam [Mobic] 7.5 mg PO DAILY 09/25/17 [History] Ipratropium/Albuterol Neb [Duoneb] 3 ml IH [id number] PRN inhsol 09/28/17 [Rx] Allergies/Adverse Reactions: 3 Allergy/AdvReac Type Severity Reaction Status Date / Time codeine AdvReac Hallucinati Verified 09/25/17 14:38 ng morphine AdvReac Hallucinati Verified 09/25/17 14:38 ng - Respiratory Orders Oxygen / L per min (2) Smoking Cessation: Smoking cessation has been advised. For more information, call the [place] Tobacco Quit Line at 8-456-KNTQ-NOW. - Ancillary Orders May use pressure relief devices daily prn - Advance Directives Living Will: No Power of Musical Instrument Maker: No Code Status: Full Code - Mobility Orders Chair - Rehabiliation Orders Rehab Potential: Good Rehab Orders: ROM Exercises, Evaluation for Physical Therapy (Generalized weakness and deconditioning, cardiac/endurance), Evaluation for Occupational Therapy - Diet Orders Regular, No Added Salt (LATHA) (ADA/Cardiac) CERTIFICATION: I certify that the transfer of the above named patient to an Extended Care Facility is necessary for the continuing treatment of the diagnosis listed. The above information is true and accurate reflection of patient's current condition. Confidential - Redisclosure prohibited without a patient's written consent.
[2017-09-28 11:00] VITALS: BP 124/95
== END 2017-09-28 17:00 | DRG 292 ==
LOC: EMEROO 14:28 → 2NENU 14:28 → SUATTDRO 20:53
PROVIDERS: ADMIT Nurse Practitioner Family; ATTEND Internal Medicine

== ENCOUNTER 2018-01-18 12:07 | Inpatient (IN) ==
--- NOTE | 2018-01-18 12:35 | Emergency Department Note ---
Disposition Clinical Impression: Chest heaviness Disposition: Admitted As Inpatient Condition: Good Referrals: Eden Wells MD [Primary Care Provider] - Forms: ED Satisfaction Letter General Adult HPI - General Chief complaint: ED Shortness of Breath/Dyspnea Stated complaint: SARINA Time Seen by Provider: 01/18/18 12:15 Source: patient Limitations: no limitations Nursing Notes Reviewed: Yes Vital Signs Reviewed: Yes - History of Present Illness Pain Scale: 0 - Related Data Home Medications Medication Instructions Recorded Confirmed Albuterol Sulfate [Ventolin Hfa] 2 puff IH Q4H PRN 06/12/15 01/18/18 Aspirin [Adult Low Dose Aspirin EC] 81 mg PO DAILY 06/12/15 01/18/18 Atorvastatin [Lipitor] 40 mg PO HS 06/12/15 01/18/18 Metoprolol [Lopressor] 75 mg PO BID 06/12/15 01/18/18 Nitroglycerin [Nitrostat] 0.4 mg SL Q5M PRN 06/12/15 01/18/18 Citalopram Hydrobromide 10 mg PO DAILY 08/02/17 01/18/18 [Citalopram HBr] Fluticasone Propionate Nasal 50 mcg NS DAILY 08/02/17 01/18/18 [Flonase] Oxygen 1 each NS AD 08/02/17 01/18/18 Acetaminophen [Non-Aspirin] 650 mg PO Q6H PRN 08/21/17 01/18/18 glipiZIDE [Glipizide] 10 mg PO DAILY 08/21/17 01/18/18 Loperamide [Imodium] 2 mg PO QID PRN 09/25/17 01/18/18 Meloxicam [Mobic] 7.5 mg PO DAILY 09/25/17 01/18/18 Furosemide [Lasix] 40 mg PO DAILY 01/18/18 01/18/18 OxyCODONE/APAP 5/325 [Percocet 1 each PO QID PRN 01/18/18 01/18/18 5/325 MG] Spironolactone [Aldactone] 50 mg PO DAILY 01/18/18 01/18/18 clonazePAM [Klonopin] 0.5 mg PO HS 01/18/18 01/18/18 Previous Rx's Medication Instructions Recorded Ipratropium/Albuterol Neb [Duoneb] 3 ml IH [id number] PRN inhsol 09/28/17 Allergies Allergy/AdvReac Type Severity Reaction Status Date / Time codeine AdvReac Hallucinati Verified 09/25/17 14:38 ng morphine AdvReac Hallucinati Verified 09/25/17 14:38 ng Past Medical History - Past Medical History Medical history: Reports: arthritis, asthma, atrial fibrillation, COPD, diabetes , hyperlipidemia, hypertension, syncope, TIA Surgical history: Reports: pacemaker/AICD Psychiatric history: Reports: anxiety, depression - Social History Smoking Status: Never smoker Smokeless Tobacco Status: No Alcohol use: Reports: none Drug use: Reports: none Physical Exam - General Limitations: no limitations General appearance: alert, in no apparent distress Course Vital Signs Temperature 97.8 F 01/18/18 12:11 Pulse Rate 74 01/18/18 12:11 Respiratory Rate 18 01/18/18 12:11 Blood Pressure 131/66 01/18/18 12:11 O2 Sat by Pulse Oximetry 100 01/18/18 12:11 Temperature 97.8 F 01/18/18 12:11 Pulse Rate 74 01/18/18 14:27 Respiratory Rate 18 01/18/18 14:27 Blood Pressure 124/85 01/18/18 14:27 O2 Sat by Pulse Oximetry 98 01/18/18 14:27 Oxygen Delivery Oxygen Delivery Room Air Medical Decision Making - [facility] Narrative Medical decision making narrative: Chest X-Ray 01/18/18 12:16 IMPRESSION: 1. No active pulmonary disease. 2. Stable cardiomegaly without overt failure. D/ / Sudhakar Sheppard MD / Sudhakar Sheppard MD Interpreting Provider: Sudhakar Sheppard MD 1458 hrs.: Aly go ahead and bring her into the hospital due to the fact she has been having this chest pressure and also from family tells us that she has been getting more nitroglycerin daily over the [facility] because these episodes. Patient's in agreement with plan hospice as accepted. - Lab Data Result diagrams: 01/18/18 12:48 01/18/18 12:16 Lab Results 09/10/3001/18/18 01/18/18 Range/Units 12:16 12:16 12:48 WBC 8.8 (4.3-11.1) K/mcL RBC 4.02 (3.82-4.97) M/mcL Hgb 12.3 (11.5-15.4) g/dL Hct 38.1 (35.3-44.9) % MCV 94.8 (83.0-100.0) fL MCH 30.6 (28.0-33.3) pg MCHC 32.3 (31.6-35.5) g/dL RDW 13.5 (11.5-14.5) % Plt Count 156 (140-400) K/mcL MPV 10.2 (9.4-12.4) fL Immature Gran % 0.5 (0-4) % Seg Neutrophils % 60.1 % Lymphocytes % 27.3 % Monocytes % 9.4 % Eosinophils % 2.5 % Basophils % 0.2 % Neutrophils # 5.3 (1.6-8.9) K/mcL Lymphocytes # 2.4 (0.6-4.6) K/mcL Monocytes # 0.8 (0.0-1.3) K/mcL Eosinophils # 0.2 (0.0-0.6) K/mcL Basophils # 0.0 (0.0-0.2) K/mcL Sodium 138 (136-145) mEq/L Potassium 4.4 (3.5-5.1) mEq/L Chloride 101 (98-107) mEq/L Carbon Dioxide 31 H (23-29) mEq/L BUN 27 H (8-23) mg/dL Creatinine 1.24 H (0.60-1.20) mg/dL Est GFR ( Amer) 50 L (> 60) Est GFR (Non-Af Amer) 41 L (> 60) BUN/Creatinine Ratio 22 (6-26) Glucose 67 L (70-105) mg/dL Calculated Osmolality 289 (280-300) Calcium 9.5 (8.6-10.3) mg/dL Total Bilirubin 1.3 H (0.3-1.0) mg/dL AST 15 (13-39) Units/L ALT 15 (7-52) Units/L Alkaline Phosphatase 94 (34-104) Units/L Troponin I < 0.03 (< 0.04) ng/mL B-Natriuretic Peptide 444 H (Less than 100) pg/mL Serum Total Protein 6.7 (6.4-8.9) g/dL Albumin 4.0 (3.5-5.7) g/dL Globulin 2.7 (2.4-3.5) g/dL Albumin/Globulin Ratio 1.5 (1.1-2.2) Attestation Statement - Attestation Attestation: This documentation is done with the assistance of Dragon dictation. Despite efforts made to ensure accuracy, there may be inaccuracies in donor relations manager or spelling and typographical errors. I examined this patient and my medical decision-making was reviewed with the Resident Physician. I agree with the documented findings, disposition and treatment plan as described except to the extent set forth below. Patient seen and evaluated on arrival with EMS and Dr. Perez, I agree with his evaluation and management plan, supervise care the patient's stay. Patient's from a local ECF. She had some chest pressure but no pain and dyspnea. History of CHF. Now she says she feels fine. She does have a little edema in her ankles. She is very pleasant nontoxic in appearance distress. Cardiac workup ordered and then reassessment. She is in agreement with this plan.
--- NOTE | 2018-01-18 12:45 | Emergency Department Note ---
Disposition Clinical Impression: Chest heaviness Disposition: Admitted As Inpatient Condition: Good Forms: ED Satisfaction Letter Time of Disposition: 14:37 General Adult HPI - General Chief complaint: ED Shortness of Breath/Dyspnea Stated complaint: SARINA Time Seen by Provider: 01/18/18 12:15 Source: patient Mode of arrival: EMS Limitations: no limitations Nursing Notes Reviewed: Yes Vital Signs Reviewed: Yes - History of Present Illness HPI Narrative: Patient is an 82-year-old female that presents the emergency department for chest heaviness and increased shortness of breath. Patient states that this morning when she went to therapy she began having a heaviness to her chest. Patient states that her symptoms are worse with exertion. Patient states that she has had this in the past when she had a previous blockage in her heart which required a stent. Patient states that this is ongoing for her. Patient states that she is unable to walk any significant distance. States that she becomes short of breath when she walks to her bathroom which is just across the room. Patient denies any radiation of her heaviness. Patient denies any nausea or diaphoresis. Patient states that she has a history of congestive heart failure and has some mild peripheral edema. Pain Scale: 0 - Related Data Home Medications Medication Instructions Recorded Confirmed Albuterol Sulfate [Ventolin Hfa] 2 puff IH Q4H PRN 06/12/15 09/25/17 Aspirin [Adult Low Dose Aspirin EC] 81 mg PO DAILY 06/12/15 09/25/17 Atorvastatin [Lipitor] 40 mg PO HS 06/12/15 09/25/17 Metoprolol [Lopressor] 75 mg PO BID 06/12/15 09/25/17 Nitroglycerin [Nitrostat] 0.4 mg SL Q5M PRN 06/12/15 09/25/17 Citalopram Hydrobromide 10 mg PO DAILY 08/02/17 09/25/17 [Citalopram HBr] Fluticasone Propionate Nasal 50 mcg NS DAILY 08/02/17 09/25/17 [Flonase] Oxygen 1 each NS AD 08/02/17 09/25/17 Acetaminophen [Non-Aspirin] 650 mg PO Q6H PRN 08/21/17 09/25/17 glipiZIDE [Glipizide] 10 mg PO DAILY 08/21/17 09/25/17 Loperamide [Imodium] 2 mg PO QID PRN 09/25/17 09/25/17 Meloxicam [Mobic] 7.5 mg PO DAILY 09/25/17 09/25/17 Furosemide [Lasix] 40 mg PO DAILY 01/18/18 01/18/18 OxyCODONE/APAP 5/325 [Percocet 1 each PO QID PRN 01/18/18 01/18/18 5/325 MG] Spironolactone [Aldactone] 50 mg PO DAILY 01/18/18 01/18/18 clonazePAM [Klonopin] 0.5 mg PO HS 01/18/18 01/18/18 Previous Rx's Medication Instructions Recorded Ipratropium/Albuterol Neb [Duoneb] 3 ml IH [id number] PRN inhsol 09/28/17 Allergies Allergy/AdvReac Type Severity Reaction Status Date / Time codeine AdvReac Hallucinati Verified 09/25/17 14:38 ng morphine AdvReac Hallucinati Verified 09/25/17 14:38 ng All systems ED: reviewed and negative except as stated. Cardiovascular: Reports: chest pain (Chest heaviness) Respiratory: Reports: dyspnea Past Medical History - Past Medical History Medical history: Reports: arthritis, asthma, atrial fibrillation, COPD, diabetes , hyperlipidemia, hypertension, syncope, TIA Surgical history: Reports: pacemaker/AICD Psychiatric history: Reports: anxiety, depression - Social History Smoking Status: Never smoker Smokeless Tobacco Status: No Alcohol use: Reports: none Drug use: Reports: none Physical Exam - General Limitations: no limitations General appearance: alert, in no apparent distress - Head Head exam: atraumatic, normocephalic - Eye Eye exam: Present: normal appearance, EOMI - Neck Neck exam: Present: normal inspection, full ROM, trachea midline - Respiratory Respiratory exam: Present: normal lung sounds bilaterally. Absent: respiratory distress, wheezes - Cardiovascular Cardiovascular exam: Present: regular rate, normal rhythm, normal heart sounds, +S1, +S2 - Abdominal Exam Abdominal exam: Present: soft, Non-Tender, normal bowel sounds - Neurological Exam Neurological exam: Present: alert, oriented X3 - Psychiatric Psychiatric exam: Present: normal affect, normal mood - Skin Skin exam: Present: warm, dry, intact Course Vital Signs Temperature 97.8 F 01/18/18 12:11 Pulse Rate 74 01/18/18 12:11 Respiratory Rate 18 01/18/18 12:11 Blood Pressure 131/66 01/18/18 12:11 O2 Sat by Pulse Oximetry 100 01/18/18 12:11 Temperature 97.8 F 01/18/18 12:11 Pulse Rate 74 01/18/18 14:27 Respiratory Rate 18 01/18/18 14:27 Blood Pressure 124/85 01/18/18 14:27 O2 Sat by Pulse Oximetry 98 01/18/18 14:27 Oxygen Delivery Oxygen Delivery Room Air Medical Decision Making - MDM Narrative Medical decision making narrative: Due the patient presenting to the emergency Department with chest heaviness we will obtain basic laboratory testing including CBC, BMP, troponin chest x-ray and EKG. Patient's laboratory testing appears to be at the patient's baseline. Her troponin is negative. Her creatinine is mildly elevated at 1.24 however appears that she does have intermittent elevated creatinines in the past. Her BNP is elevated at 444 but it appears that the patient does have elevation of her BNP chronically. Due to the patient having chest pain described as heaviness that has been relieved by nitroglycerin over the past week who is important the patient be admitted to the hospital for further evaluation and management. Called and spoke the admitting hospitalist Dr. mauricio and she is except the patient to their service. Patient be admitted to the hospital this time for further evaluation and management of her chest heaviness. - Medical Records Medical records reviewed: Yes I reviewed the patient's medical records. - Lab Data Lab results reviewed: Yes I reviewed the patient's lab results. Result diagrams: 01/18/18 12:48 01/18/18 12:16 Lab Results 01/18/18 01/18/18 01/18/18 Range/Units 12:16 12:16 12:48 WBC 8.8 (4.3-11.1) K/mcL RBC 4.02 (3.82-4.97) M/mcL Hgb 12.3 (11.5-15.4) g/dL Hct 38.1 (35.3-44.9) % MCV 94.8 (83.0-100.0) fL MCH 30.6 (28.0-33.3) pg MCHC 32.3 (31.6-35.5) g/dL RDW 13.5 (11.5-14.5) % Plt Count 156 (140-400) K/mcL MPV 10.2 (9.4-12.4) fL Immature Gran % 0.5 (0-4) % Seg Neutrophils % 60.1 % Lymphocytes % 27.3 % Monocytes % 9.4 % Eosinophils % 2.5 % Basophils % 0.2 % Neutrophils # 5.3 (1.6-8.9) K/mcL Lymphocytes # 2.4 (0.6-4.6) K/mcL Monocytes # 0.8 (0.0-1.3) K/mcL Eosinophils # 0.2 (0.0-0.6) K/mcL Basophils # 0.0 (0.0-0.2) K/mcL Sodium 138 (136-145) mEq/L Potassium 4.4 (3.5-5.1) mEq/L Chloride 101 (98-107) mEq/L Carbon Dioxide 31 H (23-29) mEq/L BUN 27 H (8-23) mg/dL Creatinine 1.24 H (0.60-1.20) mg/dL Est GFR ( Amer) 50 L (> 60) Est GFR (Non-Af Amer) 41 L (> 60) BUN/Creatinine Ratio 22 (6-26) Glucose 67 L (70-105) mg/dL Calculated Osmolality 289 (280-300) Calcium 9.5 (8.6-10.3) mg/dL Total Bilirubin 1.3 H (0.3-1.0) mg/dL AST 15 (13-39) Units/L ALT 15 (7-52) Units/L Alkaline Phosphatase 94 (34-104) Units/L Troponin I < 0.03 (< 0.04) ng/mL B-Natriuretic Peptide 444 H (Less than 100) pg/mL Serum Total Protein 6.7 (6.4-8.9) g/dL Albumin 4.0 (3.5-5.7) g/dL Globulin 2.7 (2.4-3.5) g/dL Albumin/Globulin Ratio 1.5 (1.1-2.2) - Radiology Data Radiology results reviewed: Yes I reviewed the patient's radiology results. Chest X-Ray 01/18/18 12:16 IMPRESSION: 1. No active pulmonary disease. 2. Stable cardiomegaly without overt failure. D/ / Sudhakar Sheppard MD / Sudhakar Sheppard MD Interpreting Provider: Sudhakar Sheppard MD - EKG Data EKG #1 EKG attestation: Yes I reviewed and interpreted this EKG. EKG results narrative: EKG shows a ventricularly paced rhythm at 63 bpm, ND interval of 29, QRS duration of 154, QTc of 425. No evidence of STEMI on EKG. This is compared to previous EKG on 10/16/17 which showed a retracted paced rhythm at a rate of 62 bpm.
[2018-01-18 12:59] LABS: Troponin I < 0.03 ng/mL (< 0.04)
[2018-01-18 13:05] LABS: Basophils % 0.2 %; Eosinophils # 0.2 K/mcL (0.0-0.6); Eosinophils % 2.5 %; Hematocrit 38.1 % (35.3-44.9); Hemoglobin 12.3 g/dL (11.5-15.4); Immature Granulocytes % 0.5 % (0-4); Lymphocytes # 2.4 K/mcL (0.6-4.6); Lymphocytes % 27.3 %; Mean Corpuscular HGB Conc 32.3 g/dL (31.6-35.5); Mean Corpuscular Hemoglobin 30.6 pg (28.0-33.3); Mean Corpuscular Volume 94.8 fL (83.0-100.0); Mean Platelet Volume 10.2 fL (9.4-12.4); Monocytes # 0.8 K/mcL (0.0-1.3); Monocytes % 9.4 %; Neutrophils # 5.3 K/mcL (1.6-8.9); Platelet Count 156 K/mcL (140-400); Red Blood Count 4.02 M/mcL (3.82-4.97); Red Cell Distribution Width 13.5 % (11.5-14.5); Segmented Neutrophils % 60.1 %
[2018-01-18 13:06] LABS: Alanine Aminotransferase 15 Units/L (7-52); Albumin/Globulin Ratio 1.5 (1.1-2.2); Alkaline Phosphatase 94 Units/L (34-104); Aspartate Amino Transferase 15 Units/L (13-39); BUN/Creatinine Ratio 22 (6-26); Bilirubin,Total 1.3 mg/dL (0.3-1.0); Blood Urea Nitrogen 27 mg/dL (8-23); Calcium 9.5 mg/dL (8.6-10.3); Carbon Dioxide 31 mEq/L (23-29); Chloride 101 mEq/L (98-107); Globulin 2.7 g/dL (2.4-3.5); Glucose 67 mg/dL (70-105); Osmolality,Calculated 289 (280-300); Potassium 4.4 mEq/L (3.5-5.1); Sodium 138 mEq/L (136-145); Total Protein 6.7 g/dL (6.4-8.9); eGFR For Non-African Americans 41 (> 60)
[2018-01-18] MEDS ORDERED: Naloxone 0.4 MG/ML INJ IVP PRN (15:53)
--- NOTE | 2018-01-18 16:20 | Internal Med History&Physical ---
Date of Encounter: 01/18/18 Time of Encounter: 15:20 Internal Medicine - H&P: HPI Chief complaint: Chest Heaviness, Shortness of breath Admitted From: Long-term Nursing Facility (4) Plans for Post Hospital Care: Transfer [facility] History of present illness: Ms. Gupta is a 82 year old female with past medical history significant for CAD with stent x1, CHF, Afib, syncope requiring pacemaker/defibrillator, hypertension, hyperlipidemia, COPD, and asthma who presents from [facility] for one week history of intermittent chest heaviness across her chest with shortness of breath. No nausea, vomiting, or diaphoresis associated with symptoms. Symptoms began again while at therapy today and prompted her to come to ER by squad. Symptoms are exacerbated by exertion, and improved with rest. Has taken nitroglycerin two times over past week which has improved symptoms. Also intermittently wears oxygen by nasal canula, but has worn constantly since symptoms have began. Denies that symptoms are getting progressively worse, states they are staying about the same. Has been fluid overloaded in the past but states this feels different and her lower extremity edema is reportedly currently improved from her typical baseline. Follows with [facility] and reportedly has appointment with Dr Singh coming up in two weeks. Reports similar symptoms around 10-15 years ago with negative cardiology workup until heart catheterization revealed blockage requiring stent placement. Denies any current chest pain or shortness of breath. States she should have DNRCC Arrest on file, confirmed on file in [facility]. Discussed patient with Dr Chacon. Past Med Surg Social Fam HX - Past Medical History Medical history: arthritis, asthma, atrial fibrillation, COPD, diabetes, hyperlipidemia, hypertension, syncope, TIA Psychiatric history: anxiety, depression - Past Surgical History Surgical History: pacemaker/AICD Additional surgical history: cervical and lumbar infusions, laser on R eye, right shoulder replaced, left knee replacement - Social History Smoking Status: Never smoker Smokeless Tobacco Status: No Alcohol use: none Drug use: none - Family History Father Family Member Ethnicity: Non- Living Status: Hx Family Cardiac Disorders: Yes (CHF, [place], pacemaker,) Mother Living Status: Hx Family Autoimmune Disorders: Yes (RA) Internal Medicine - H&P: Meds Albuterol Sulfate [Ventolin Hfa] 2 puff IH Q4H PRN 06/12/15 [History] Aspirin [Adult Low Dose Aspirin EC] 81 mg PO DAILY 06/12/15 [History] Atorvastatin [Lipitor] 40 mg PO HS 06/12/15 [History] Metoprolol [Lopressor] 75 mg PO BID 06/12/15 [History] Nitroglycerin [Nitrostat] 0.4 mg SL Q5M PRN 06/12/15 [History] Citalopram Hydrobromide [Citalopram HBr] 10 mg PO DAILY 08/02/17 [History] Fluticasone Propionate Nasal [Flonase] 50 mcg NS DAILY 08/02/17 [History] Oxygen 1 each NS AD 08/02/17 [History] Acetaminophen [Non-Aspirin] 650 mg PO Q6H PRN 08/21/17 [History] glipiZIDE [Glipizide] 10 mg PO DAILY 08/21/17 [History] Loperamide [Imodium] 2 mg PO QID PRN 09/25/17 [History] Meloxicam [Mobic] 7.5 mg PO DAILY 09/25/17 [History] Ipratropium/Albuterol Neb [Duoneb] 3 ml IH [id number] PRN inhsol 09/28/17 [Rx] Furosemide [Lasix] 40 mg PO DAILY 01/18/18 [History] OxyCODONE/APAP 5/325 [Percocet 5/325 MG] 1 each PO QID PRN 01/18/18 [History] Spironolactone [Aldactone] 50 mg PO DAILY 01/18/18 [History] clonazePAM [Klonopin] 0.5 mg PO HS 01/18/18 [History] 3 Allergy/AdvReac Type Severity Reaction Status Date / Time codeine AdvReac Hallucinati Verified 09/25/17 14:38 ng morphine AdvReac Hallucinati Verified 09/25/17 14:38 ng All Systems PM: A 10-system review of systems was performed and is negative for pertinent findings except as documented above in the HPI. - Constitutional Vitals: Temp Pulse Resp BP Pulse Ox 97.8 F 74 18 124/85 98 01/18/18 12:11 01/18/18 14:27 01/18/18 14:27 01/18/18 14:27 01/18/18 14:27 Exam: General: Alert and oriented. Skin:Normal color, no rash, no lesions. HEENT:EOM, pupils equal, round and reactive. Cardiovascular:Heart sounds distant. Murmur noted, chronic per patient. No JVD. Pulse regular. Lungs:Breath sounds distant. Normal breath sounds, no wheezes or crackles. Abdomen:Soft, non-tender, no rigidity. Extremities:No deformity, tenderness, or clubbing. Non pitting edema noted to bilateral lower extremities. Neurological:Normal cognition and motor skills. Pulses:Carotid and radial pulses normal +2. Rest of the physical exam is non contributory. Internal Med - H&P Results - Labs CBC & Chem 7: 01/18/18 12:48 01/18/18 12:16 Labs: Short CBC 01/18/18 Range/Units 12:48 WBC 8.8 (4.3-11.1) K/mcL Hgb 12.3 (11.5-15.4) g/dL Hct 38.1 (35.3-44.9) % Plt Count 156 (140-400) K/mcL Neutrophils # 5.3 (1.6-8.9) K/mcL BMP 01/18/18 12:16 Sodium 138 Potassium 4.4 Chloride 101 Carbon Dioxide 31 H BUN 27 H Creatinine 1.24 H Glucose 67 L Calcium 9.5 Cardiac Enzymes 01/18/18 Range/Units 12:16 Troponin I < 0.03 (< 0.04) ng/mL Liver Function 01/18/18 Range/Units 12:16 Total Bilirubin 1.3 H (0.3-1.0) mg/dL AST 15 (13-39) Units/L ALT 15 (7-52) Units/L Alkaline Phosphatase 94 (34-104) Units/L Albumin 4.0 (3.5-5.7) g/dL - Impressions ITS Impressions Chest X-Ray 01/18/18 12:16 IMPRESSION: 1. No active pulmonary disease. 2. Stable cardiomegaly without overt failure. 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 Initial troponin in ER negative, serial troponins ordered. Echocardiogram ordered. Stress test ordered. Cardiac diet. NPO at midnight. Repeat labs in a.m. (2) Congestive heart failure Current Visit: Yes Status: Chronic Assessment and plan: Continue all medications. Echocardiogram ordered. Repeat BNP in a.m. Qualifiers: Heart failure type: unspecified Heart failure chronicity: unspecified Qualified Code(s): I50.9 - Heart failure, unspecified (3) Exertional dyspnea Current Visit: Yes Status: Acute Assessment and plan: 2 LPM oxygen by nasal cannula to maintain oxygen saturation above 92%. - Time Spent With Patient Total time spent is greater than 50% in coordination of care (as documented) at patient's floor/unit and/or counseling patient:
[2018-01-18] MEDS: Furosemide 40 MG TABLET PO SCH (19:53)
[2018-01-18] MEDS: clonazePAM 0.5 MG TABLET PO SCH (19:54)
[2018-01-18] MEDS: *HR* Heparin 5,000 UNIT/ML VIAL SQ SCH (19:55)
[2018-01-18] MEDS: Acetaminophen 325 MG TABLET PO PRN (20:38)
[2018-01-18] MEDS: *HR* OxyCODONE/APAP 5/325 TABLET PO PRN (22:38)
[2018-01-18] MEDS: Ipratropium/Albuterol Neb 3 ML IH PRN (23:08)
[2018-01-19 01:50] LABS: Basophils % 0.2 %; Eosinophils # 0.2 K/mcL (0.0-0.6); Eosinophils % 1.9 %; Hematocrit 36.7 % (35.3-44.9); Hemoglobin 11.8 g/dL (11.5-15.4); Immature Granulocytes % 0.5 % (0-4); Lymphocytes # 1.8 K/mcL (0.6-4.6); Mean Corpuscular HGB Conc 32.2 g/dL (31.6-35.5); Mean Corpuscular Hemoglobin 30.8 pg (28.0-33.3); Mean Corpuscular Volume 95.8 fL (83.0-100.0); Mean Platelet Volume 10.6 fL (9.4-12.4); Monocytes # 0.8 K/mcL (0.0-1.3); Monocytes % 8.6 %; Neutrophils # 6.7 K/mcL (1.6-8.9); Platelet Count 144 K/mcL (140-400); Red Blood Count 3.83 M/mcL (3.82-4.97); Red Cell Distribution Width 13.4 % (11.5-14.5); Segmented Neutrophils % 69.8 %
[2018-01-19 02:04] LABS: Calcium 8.9 mg/dL (8.6-10.3); Potassium 4.1 mEq/L (3.5-5.1)
[2018-01-19] MEDS: *HR* Heparin 5,000 UNIT/ML VIAL SQ SCH ×2 (05:49→19:59)
[2018-01-19] MEDS ORDERED: Regadenoson 0.4 MG/5 ML SYRINGE IVP ONE (06:03)
[2018-01-19] MEDS ORDERED: *HR* GlipiZIDE 5 MG TABLET PO SCH (09:00)
[2018-01-19] MEDS: Furosemide 40 MG TABLET PO SCH (10:16)
[2018-01-19] MEDS: Aspirin Enteric Coated 81 MG Tablet PO SCH (10:17)
[2018-01-19] MEDS: *HR* OxyCODONE/APAP 5/325 TABLET PO PRN (10:24)
[2018-01-19] MEDS ORDERED: *HR* Dextrose 50 % in Water (Syg) 50 ML SYRINGE IVP PRN (14:23)
[2018-01-19] MEDS ORDERED: D5% in Water 1,000 ML IVC PRN (14:23)
[2018-01-19] MEDS ORDERED: Dextrose Gel 15 GM/37.5 ML TUBE PO PRN ×2 (14:23)
--- NOTE | 2018-01-19 15:26 | Internal Med Progress Note ---
Hospitalist Progress Note - Encounter Date of Encounter: 01/19/18 Time of Encounter: 11:46 - Subjective Interval History: Patient seen and examined this morning. No acute overnight events. Currently without any chest discomfort or shortness of breath. Had echo and 1st part of stress test done. - Exam Vitals: Temp Pulse Resp BP Pulse Ox 98.4 F 61 16 93/56 99 01/19/18 11:38 01/19/18 11:38 01/19/18 11:38 01/19/18 11:38 01/19/18 11:38 Exam: General: Alert and oriented. Skin:Normal color, no rash, no lesions. HEENT:EOM, pupils equal, round and reactive. Cardiovascular: Ejection systolic murmur noted. No JVD. Pulse regular. Lungs: Breath sounds CTA. No adventitious lung sounds. Abdomen: Soft, non-tender, no rigidity. Extremities:No deformity, tenderness, or clubbing. Trace edema. Neurological: AOx3, No focal deficits. Skin: No rash or ulcers noted. - Assessment and Plan (1) Chest heaviness Current Visit: Yes Status: Acute (2) Congestive heart failure Current Visit: Yes Status: Chronic (3) Exertional dyspnea Current Visit: Yes Status: Acute - Summary of Assessment and Plan Summary of Assessment and Plan: Chest heaviness and shortness of breath with exertion - trop -ve x3. - ECHO: LVEF 55%. Normal LV chamber size, wall thickness. No wall motion abnormality. Mild-moderate aortic stenosis. Progressed from pervious ECHO. Mild pulmonary hypertension- RA pressure is 10 mmHg. - Nuclear stress test underway. - Will consult cardiology depending on stress test results. Diastolic chronic CHF - Continue home Lasix. Currently euvolemic h/o CAD s/p 1 stent - c/w aspirin, Statin, Metrolol h/o Atrial fibrillation - Known history of a.fib. - Albea7ymiv score 6 (age 1, gender, HTN, DM, CAD). - Not on AC due to h/o falls. - On metoprolol for rate control. - s/p pacemaker for tachybrady syndrome. DVT ppx - Heparin SC. - Time Spent with Patient Total time spent is greater than 50% in coordination of care (as documented) at patient's floor/unit and/or counseling patient: Internal Medicine: Result - Labs CBC & Chem 7: 01/19/18 00:52 01/19/18 00:52 Labs: Short CBC 01/19/18 Range/Units 00:52 WBC 9.6 (4.3-11.1) K/mcL Hgb 11.8 (11.5-15.4) g/dL Hct 36.7 (35.3-44.9) % Plt Count 144 (140-400) K/mcL Neutrophils # 6.7 (1.6-8.9) K/mcL BMP 01/19/18 00:52 Sodium 137 Potassium 4.1 Chloride 101 Carbon Dioxide 30 H BUN 30 H Creatinine 1.38 H Glucose 172 H Calcium 8.9 Cardiac Enzymes 01/18/18 01/19/18 Range/Units 19:28 00:52 Troponin I < 0.03 < 0.03 (< 0.04) ng/mL - Impressions Impressions Echocardiogram 01/19/18 16:05 Impressions: LVEF 55%. Normal LV chamber size, wall thickness and systolic function. Mild left ventricular diastolic dysfunction. Normal right ventricular function. Mildly dilated right ventricle. Moderately dilated left atrium. Mild-moderate aortic stenosis, see below for detail. Mild mitral regurgitation. Mild tricuspid regurgitation. Mild pulmonary hypertension. Estimated RA pressure is 10 mmHg. Left Ventricular Wall Motion: Rest Echo Findings All wall segments showed normal motion. Findings: Study Quality * Technical review due to recommend Pedoff for eval, LV contrast * Technically sub-optimal due to poor echocardiographic windows, lack of LV contrast * Technically adequate exam. Left Ventricle * LVEF 55%. * Normal LV chamber size, wall thickness and systolic function. * Mild left ventricular diastolic dysfunction. * Definity echo contrast was not used. Right Ventricle * Normal right ventricular function. * Mildly dilated right ventricle. ECG Findings * Paced rhythm. Left Atrium * Moderately dilated left atrium. Right Atrium * Normal right atrial size. Interatrial Septum * Interatrial septum not well evaluated. Aortic Valve * Severely calcified aortic valve leaflets. * Mild aortic regurgitation. * Peak and mean gradients are 27 15 mmHg, respectively. * Mild-moderate aortic stenosis. * V1/V2 118/260, LVOT 2, PG/MG 27/15, MAYNOR 1.43 Mitral Valve * Mild mitral annular calcification * Mild mitral regurgitation. Tricuspid Valve * Mild tricuspid regurgitation. * Estimated RVSP is 46 mmHg. * Estimated RA pressure is 10 mmHg. * Mild pulmonary hypertension. Pulmonic Valve * Pulmonic valve not well visualized. Aorta * Normally sized aortic root. Pericardium * The pericardium appears normal. IVC * Normal IVC dimensions and inspiratory collapse. A device lead was visualized in the right atrium and right ventricle. Consult Discharge Plan - Plan Referrals: Eden Wells MD [Primary Care Provider] - (2) Congestive heart failure Qualifiers: Heart failure type: unspecified Heart failure chronicity: unspecified Qualified Code(s): I50.9 - Heart failure, unspecified
[2018-01-19] MEDS: Insulin LISPRO 300 UNITS/3 ML VIAL SQ SCH ×2 (16:54→20:03)
[2018-01-19] MEDS: Fluticasone Propionate Nasal 50 MCG/SPRAY BOTTLE NS SCH (19:49)
[2018-01-19] MEDS: clonazePAM 0.5 MG TABLET PO SCH (19:59)
[2018-01-19] MEDS: Ipratropium/Albuterol Neb 3 ML IH PRN (22:12)
[2018-01-20] MEDS: *HR* Heparin 5,000 UNIT/ML VIAL SQ SCH ×2 (05:33→17:11)
[2018-01-20] MEDS: *HR* OxyCODONE/APAP 5/325 TABLET PO PRN (07:22)
[2018-01-20] MEDS: Insulin LISPRO 300 UNITS/3 ML VIAL SQ SCH ×4 (07:55→21:27)
[2018-01-20] MEDS: Aspirin Enteric Coated 81 MG Tablet PO SCH (12:14)
[2018-01-20] MEDS: Furosemide 40 MG TABLET PO SCH (12:14)
[2018-01-20] MEDS: Fluticasone Propionate Nasal 50 MCG/SPRAY BOTTLE NS SCH (12:15)
--- NOTE | 2018-01-20 12:16 | Electrocardiograph Report ---
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
--- NOTE | 2018-01-20 13:23 | Internal Med Progress Note ---
Hospitalist Progress Note - Encounter Date of Encounter: 01/20/18 Time of Encounter: 11:56 - Subjective Interval History: Patient seen and examined this morning. No acute overnight events. Currently without any chest discomfort or shortness of breath. Had stress test today. - Exam Vitals: Temp Pulse Resp BP Pulse Ox 97.6 F 66 18 125/73 100 01/20/18 10:55 01/20/18 10:55 01/20/18 10:55 01/20/18 10:55 01/20/18 10:55 Exam: General: Alert and oriented. Skin:Normal color, no rash, no lesions. HEENT:EOM, pupils equal, round and reactive. Cardiovascular: Ejection systolic murmur noted. No JVD. Pulse regular. Lungs: Breath sounds CTA. No adventitious lung sounds. Abdomen: Soft, non-tender, no rigidity. Extremities:No deformity, tenderness, or clubbing. Trace edema. Neurological: AOx3, No focal deficits. Skin: No rash or ulcers noted. - Assessment and Plan (1) Chest heaviness Current Visit: Yes Status: Acute (2) Congestive heart failure Current Visit: Yes Status: Chronic (3) Exertional dyspnea Current Visit: Yes Status: Acute - Summary of Assessment and Plan Summary of Assessment and Plan: Chest heaviness and shortness of breath with exertion - trop -ve x3. - ECHO: LVEF 55%. Normal LV chamber size, wall thickness. No wall motion abnormality. Mild-moderate aortic stenosis. Progressed from pervious ECHO. Mild pulmonary hypertension- RA pressure is 10 mmHg. - Nuclear stress test abnormal with partially fixed perfusion defect involving the inferior wall not seen at rest. artifact vs perfusion defect . - Cardiology consulted for abnormal stress test and progression of aortic stenosis. Diastolic chronic CHF - Continue home Lasix. Currently euvolemic h/o CAD s/p 1 stent 10 yrs ago - c/w aspirin, Statin, Metoprolol h/o Atrial fibrillation - Known history of a.fib. - Jistn7wwad score 6 (age 1, gender, HTN, DM, CAD). - Not on AC due to h/o falls. - On metoprolol for rate control. - s/p pacemaker for tachybrady syndrome. DVT ppx - Heparin SC. - Time Spent with Patient Total time spent is greater than 50% in coordination of care (as documented) at patient's floor/unit and/or counseling patient: Internal Medicine: Result - Labs CBC & Chem 7: 01/19/18 00:52 01/19/18 00:52 - Impressions Impressions Echocardiogram 01/19/18 16:05 Impressions: LVEF 55%. Normal LV chamber size, wall thickness and systolic function. Mild left ventricular diastolic dysfunction. Normal right ventricular function. Mildly dilated right ventricle. Moderately dilated left atrium. Mild-moderate aortic stenosis, see below for detail. Mild mitral regurgitation. Mild tricuspid regurgitation. Mild pulmonary hypertension. Estimated RA pressure is 10 mmHg. Left Ventricular Wall Motion: Rest Echo Findings All wall segments showed normal motion. Findings: Study Quality * Technical review due to recommend Pedoff for eval, LV contrast * Technically sub-optimal due to poor echocardiographic windows, lack of LV contrast * Technically adequate exam. Left Ventricle * LVEF 55%. * Normal LV chamber size, wall thickness and systolic function. * Mild left ventricular diastolic dysfunction. * Definity echo contrast was not used. Right Ventricle * Normal right ventricular function. * Mildly dilated right ventricle. ECG Findings * Paced rhythm. Left Atrium * Moderately dilated left atrium. Right Atrium * Normal right atrial size. Interatrial Septum * Interatrial septum not well evaluated. Aortic Valve * Severely calcified aortic valve leaflets. * Mild aortic regurgitation. * Peak and mean gradients are 27 15 mmHg, respectively. * Mild-moderate aortic stenosis. * V1/V2 118/260, LVOT 2, PG/MG 27/15, MAYNOR 1.43 Mitral Valve * Mild mitral annular calcification * Mild mitral regurgitation. Tricuspid Valve * Mild tricuspid regurgitation. * Estimated RVSP is 46 mmHg. * Estimated RA pressure is 10 mmHg. * Mild pulmonary hypertension. Pulmonic Valve * Pulmonic valve not well visualized. Aorta * Normally sized aortic root. Pericardium * The pericardium appears normal. IVC * Normal IVC dimensions and inspiratory collapse. A device lead was visualized in the right atrium and right ventricle. Consult Discharge Plan - Plan Referrals: Eden Wells MD [Primary Care Provider] - (2) Congestive heart failure Qualifiers: Heart failure type: unspecified Heart failure chronicity: unspecified Qualified Code(s): I50.9 - Heart failure, unspecified
[2018-01-20] MEDS: clonazePAM 0.5 MG TABLET PO SCH (21:35)
[2018-01-21] MEDS: *HR* Heparin 5,000 UNIT/ML VIAL SQ SCH ×2 (05:34→18:58)
[2018-01-21] MEDS: Insulin LISPRO 300 UNITS/3 ML VIAL SQ SCH ×4 (08:31→21:39)
[2018-01-21] MEDS: Furosemide 40 MG TABLET PO SCH (08:52)
[2018-01-21] MEDS: Aspirin Enteric Coated 81 MG Tablet PO SCH (08:53)
[2018-01-21] MEDS: Fluticasone Propionate Nasal 50 MCG/SPRAY BOTTLE NS SCH (08:54)
--- NOTE | 2018-01-21 09:45 | Cardiology Consult Note ---
<Dannie Cason - Last Filed: 01/21/18 09:49> Date of Encounter: 01/21/18 Time of Encounter: 09:39 Assessment and Plan (1) Unstable angina Current Visit: Yes Status: Acute Presents with typical chest pain symptoms increasing over past month. H/o PCI to the LAD 10 years ago. Symptoms the same as she experienced prior to her stent. Stress test reviewed. Equivocal results. Partially fixed perfusion defect involving the inferior wall. There is a mild intensity perfusion defect involving the distal inferior wall during stress that is not seen at rest. While findings may represent artifact, a small area of ischemia cannot be excluded. Recommend clinical correlation. TTE shows preserved EF. Symptoms concerning for unstable angina. LHC vs medical management reviewed. LHC R/B/A reviewed. She wants to proceed with [facility]. (2) Atrial fibrillation Current Visit: No Status: Chronic H/o paroxysmal atrial fibrillation. Continue lopressor. EKG shows ventricular pacing. AVg HR 71 bpm. Reported to not be on AC due to history of falls. Patient confirms she stopped eliquis after falls. CHADS VASc 8. On asa. Qualifiers: Atrial fibrillation type: paroxysmal Qualified Code(s): I48.0 - Paroxysmal atrial fibrillation (3) CAD (coronary artery disease) Current Visit: Yes Status: Acute Known CAD s/p PCI 2010. Continue asa, statin, and bb. Qualifiers: Coronary Disease-Associated Artery/Lesion type: chilkoot artery [place] vs. transplanted heart: chilkoot heart Associated angina: with unstable angina Qualified Code(s): I25.110 - Atherosclerotic heart disease of chilkoot coronary artery with unstable angina pectoris Discussion w patient/family: The assessment and plan as outlined above was discussed with the patient and/or family members who expressed understanding and agreement. All questions were answered. Thank you for involving us in the care of your patient. Please call with any questions. History of Present Illness Consult date: 01/21/18 Requesting physician: Gordon Weeks Consult reason: Abnormal stress Chief complaint: Chest pain and SOB with exertion. History of present illness: Ms. Gupta is a 82 year old female with past medical history of CAD s/p PCI 10 years ago, atrial fibrillation, PPM, and COPD who presents with intermittent chest tightness and SOB ongoing for one month. Reports symptoms are increasing and occur with minimal activity. Just walking into her bathroom last night she developed chest pressure. As long as she is laying in bed she is symptom free. States that she has been caring for her who has dementia and has let her self go. Cardiology consulted for abnormal stress test. Past Med Surg Social Fam HX - Past Medical History Medical history: arthritis, asthma, atrial fibrillation, COPD, coronary artery disease, diabetes, hyperlipidemia, hypertension, syncope, TIA Additional medical history: Patient had a heart cath done and found a 95% block , stent placed 2007 Psychiatric history: anxiety, depression - Past Surgical History Surgical History: pacemaker/AICD Additional surgical history: cervical and lumbar infusions, laser on R eye, right shoulder replaced, left knee replacement - Social History Smoking Status: Never smoker Smokeless Tobacco Status: No Alcohol use: none Drug use: none - Family History Father Family Member Ethnicity: Non- Living Status: Age at : 72 Cause of : Heart Disease Hx Family Cardiac Disorders: Yes (CHF, [place], pacemaker,) Mother Living Status: Hx Family Autoimmune Disorders: Yes (RA) Medications and Allergies Albuterol Sulfate [Ventolin Hfa] 2 puff IH Q4H PRN 06/12/15 [History] Aspirin [Adult Low Dose Aspirin EC] 81 mg PO DAILY 06/12/15 [History] Atorvastatin [Lipitor] 40 mg PO HS 06/12/15 [History] Metoprolol [Lopressor] 75 mg PO BID 06/12/15 [History] Nitroglycerin [Nitrostat] 0.4 mg SL Q5M PRN 06/12/15 [History] Citalopram Hydrobromide [Citalopram HBr] 10 mg PO DAILY 08/02/17 [History] Fluticasone Propionate Nasal [Flonase] 50 mcg NS DAILY 08/02/17 [History] Oxygen 1 each NS AD 08/02/17 [History] Acetaminophen [Non-Aspirin] 650 mg PO Q6H PRN 08/21/17 [History] glipiZIDE [Glipizide] 10 mg PO DAILY 08/21/17 [History] Loperamide [Imodium] 2 mg PO QID PRN 09/25/17 [History] Meloxicam [Mobic] 7.5 mg PO DAILY 09/25/17 [History] Ipratropium/Albuterol Neb [Duoneb] 3 ml IH [id number] PRN inhsol 09/28/17 [Rx] Furosemide [Lasix] 40 mg PO DAILY 01/18/18 [History] OxyCODONE/APAP 5/325 [Percocet 5/325 MG] 1 each PO QID PRN 01/18/18 [History] Spironolactone [Aldactone] 50 mg PO DAILY 01/18/18 [History] clonazePAM [Klonopin] 0.5 mg PO HS 01/18/18 [History] 3 Allergy/AdvReac Type Severity Reaction Status Date / Time codeine AdvReac Hallucinati Verified 09/25/17 14:38 ng morphine AdvReac Hallucinati Verified 09/25/17 14:38 ng All Systems Review: The remainder of the systems were reviewed and are negative Physical Examination Vital Signs, Last 4 Hours Temp Pulse Resp BP Pulse Ox 01/21/18 09:05 98 01/21/18 08:03 97.8 F 61 18 123/67 96 General: Conversant, No Apparent Distress HEENT: Atraumatic, Normocephaly, Mucus Membranes Moist Neck: No JVD, Normal carotid pulses Cardiac: Reg Rate and Rhythm, Normal S1 and S2, No Murmur Lungs: Normal Breath Sounds, No Wheeze, Rales, Rhonchi Neuro: Alert and responsive, No focal deficits noted Abdomen: Soft, Non-Tender Skin: No rashes noted on visualized skin Musculoskeletal: No Chest Wall Tenderness Extremities: No Clubbing, No Cyanosis, No Edema, Normal Pulses Results 01/19/18 00:52 01/19/18 00:52 - Imaging and Cardiology Stress Test: report reviewed Echo: report reviewed - EKG Interpretation EKG results cardiology: personally reviewed Consult Discharge Plan - Plan Referrals: Eden Wells MD [Primary Care Provider] - <Dakota Sinhg - Last Filed: 01/21/18 11:11> Date of Encounter: 01/21/18 - Attending Attestation I have personally performed a face to face evaluation on this patient. I have reviewed and agree with the care plan. History and Exam by me shows: Chest pain with some typical features. Known CAD. Stress test equivocal. Would recommend left heart cath. She agrees. Assessment and Plan Discussion w patient/family: The assessment and plan as outlined above was discussed with the patient and/or family members who expressed understanding and agreement. All questions were answered. Thank you for involving us in the care of your patient. Please call with any questions. History of Present Illness History of present illness: Ms. Gupta is a 82 year old female All Systems Review: The remainder of the systems were reviewed and are negative Physical Examination Vital Signs, Last 4 Hours Temp Pulse Resp BP Pulse Ox 01/21/18 09:05 98 01/21/18 08:03 97.8 F 61 18 123/67 96 Results 01/19/18 00:52 01/19/18 00:52
--- NOTE | 2018-01-21 10:35 | Internal Med Progress Note ---
Hospitalist Progress Note - Encounter Date of Encounter: 01/21/18 Time of Encounter: 10:31 - Subjective Interval History: Patient seen and examined this morning. No acute overnight events. No new complains. - Exam Vitals: Temp Pulse Resp BP Pulse Ox 97.8 F 61 18 123/67 98 01/21/18 08:03 01/21/18 08:03 01/21/18 08:03 01/21/18 08:03 01/21/18 09:05 Exam: General: Alert and oriented. Skin:Normal color, no rash, no lesions. HEENT:EOM, pupils equal, round and reactive. Cardiovascular: Ejection systolic murmur noted. No JVD. Pulse regular. Lungs: Breath sounds CTA. No adventitious lung sounds. Abdomen: Soft, non-tender, no rigidity. Extremities:No deformity, tenderness, or clubbing. Trace edema. Neurological: AOx3, No focal deficits. Skin: No rash or ulcers noted. - Assessment and Plan (1) Chest heaviness Current Visit: Yes Status: Acute (2) Congestive heart failure Current Visit: Yes Status: Chronic (3) Exertional dyspnea Current Visit: Yes Status: Acute - Summary of Assessment and Plan Summary of Assessment and Plan: Unstable angina - trop -ve x3. - ECHO: LVEF 55%. Normal LV chamber size, wall thickness. No wall motion abnormality. Mild-moderate aortic stenosis. Progressed from pervious ECHO. Mild pulmonary hypertension- RA pressure is 10 mmHg. - Nuclear stress test abnormal with partially fixed perfusion defect involving the inferior wall not seen at rest. artifact vs perfusion defect . - Cardiology consulted. Appreciate recommendations. Plan for [facility]. Diastolic chronic CHF - Continue home Lasix. Currently euvolemic h/o CAD s/p 1 stent 10 yrs ago - c/w aspirin, Statin, Metoprolol h/o paroxysmal Atrial fibrillation - Known history of a.fib. - Ipahh9ffrc score 6 (age 1, gender, HTN, DM, CAD). - Not on AC due to h/o falls. - On metoprolol for rate control. EKG with Ventricular pacing. - s/p pacemaker for tachybrady syndrome. DVT ppx - Heparin SC. - Time Spent with Patient Total time spent is greater than 50% in coordination of care (as documented) at patient's floor/unit and/or counseling patient: Internal Medicine: Result - Labs CBC & Chem 7: 01/19/18 00:52 01/19/18 00:52 Consult Discharge Plan - Plan Referrals: Eden Wells MD [Primary Care Provider] - (2) Congestive heart failure Qualifiers: Heart failure type: unspecified Heart failure chronicity: unspecified Qualified Code(s): I50.9 - Heart failure, unspecified
--- NOTE | 2018-01-21 13:29 | Event Note ---
Date of Encounter: 01/21/18 Time of Encounter: 13:21 - Cardiology Event Note Noted that patient is a DNRCCA. I discussed code status with patient and she agrees to be full code 24 hours after her procedure.
--- NOTE | 2018-01-21 13:43 | Pre-Sedation Evaluation ---
Pre-sedation evaluation - Pre-sedation checklist Date of procedure: 01/21/18 Procedure: LHC Recent Vitals: Last Vital Signs Temp 97.6 F 01/21/18 11:21 Pulse 64 01/21/18 11:21 Resp 19 01/21/18 11:21 BP 147/83 01/21/18 11:21 Pulse Ox 96 01/21/18 11:21 ASA Classification *see protocol: CLASS II-Mild systemic disease Cardiac Registry (Cardio Only) - Functional Capacity Functional Capacity: < 4 METS - Clincal Frailty Scale Clinical Frailty Scale: Mildly Frail
[2018-01-21] MEDS ORDERED: Heparin 1,000 UNITS/500 mL 500 ML ONE (13:47)
[2018-01-21] MEDS ORDERED: *HR* Heparin 10,000 UNIT/10 ML VIAL ONE (13:47)
[2018-01-21] MEDS ORDERED: Nitroglycerin 1,000 MCG/10 ML VIAL IV ONE (13:47)
[2018-01-21] MEDS ORDERED: ISOVUE-370 200 ML INFUS..BTL IV ONE (13:47)
[2018-01-21] MEDS ORDERED: 0.9 % Sodium Chloride 1,000 ML ONE ×2 (13:47→14:10)
[2018-01-21] MEDS ORDERED: *HR* Midazolam HCl 2 MG/2 ML VIAL ONE (14:25)
[2018-01-21] MEDS ORDERED: *HR* FentaNYL (PF) 100 MCG/2 ML VIAL ONE (14:26)
--- NOTE | 2018-01-21 15:29 | Invasive Diagnostic Lab Proc ---
Name: Glory Gupta Date of Study: 01/21/2018 Date: 1935 Ht: 64.2in Medical Record#: [id number] Age: 82 Wt: 224.87lb Gender: Female BSA: 2.06 Order #: [id number] BMI: 38.39 Physicians Procedure Physician: Gerardo Rahman MD Referring MD: Eden Wells MD Referring MD: Staff Name Position Time In Konstantin Lipscomb RN Monitor 02:19 PM Kalli Larson RT (R) Scrub 02:19 PM Ashley Edmonds RN Magazine Feeder 02:19 PM Indications Indication Abnormal Test - Stress Procedures Performed Procedure CORONARY ARTERY ANGIO S&I Pre-Procedure Checklist Informed consent is complete signed and on chart. H&P is on chart. ID band is on and ID verified with patient. Patient NPO for procedure The procedure was described for the patient and questions were answered. Blood Pressure: 147/83 ECG is on chart. Rhythm: Paced Plan of Care Patient will tolerate the procedure without complications. Adequate level of comfort will be maintained. Hemodynamics will remain stable Patient will recover from procedure without complications. Respiratory function will be maintained. Cardiac rhythm will remain stable. Patient temperature will be maintained. Patient and/or family have verbalized understanding of the procedure. Patient Education Chief Complaint/Reason for Test: Cardiac Cath Developmental Category: Geriatric (65+ years) Developmentally Appropriate for Age: Yes Learning Barriers: None Education Needs: Plan of Care Education Method: Verbal Information Taught: Cardiac Cath Educational Evaluation: Able to repeat information Intravenous Access Time IV Size Location DC'd Fluid/Drip Rate Units RN 01:57 PM 20g 1 05/18" Patent On Arrival Lt Antecubital 0.9NaCl 25 ml/hr Ashley Edmonds RN Allergies zithromycin beta blockers calcium channel blockers CODEINE AND MORPHINE codeine morphine Vital Signs Time BP (mmHg) HR (bpm) O2 Sat. RR (bpm) LOC 01:57 PM 147 / 83 64 96 % 19 5 = Fully awake and oriented or at pre-proc level 02:20 PM / % 5 = Fully awake and oriented or at pre-proc level 02:20 PM / % 5 = Fully awake and oriented or at pre-proc level 02:36 PM / % 5 = Fully awake and oriented or at pre-proc level 02:25 PM 164 / 78 61 100 % 22 02:29 PM 146 / 69 60 100 % 11 02:34 PM 127 / 66 60 96 % 17 02:39 PM 109 / 62 60 98 % 10 02:44 PM 116 / 62 61 98 % 12 02:50 PM 138 / 69 64 100 % 8 02:54 PM 147 / 69 62 100 % 10 02:59 PM 143 / 73 61 99 % 12 02:51 PM / % 5 = Fully awake and oriented or at pre-proc level 03:06 PM / % 5 = Fully awake and oriented or at pre-proc level Procedural Medications Time Medication Dose Units Method Given By 02:19 PM Oxygen 2 L/min nasal cannula Ashley Edmonds RN 02:27 PM Versed 1 mg Intravenous Ashley Edmonds RN 02:27 PM Fentanyl 50 mcg Intravenous Ashley Edmonds RN 02:38 PM Lidocaine 2% 16 ml Subcutaneous Gerardo Rahman MD 02:52 PM Heparin 1000 units Intravenous Ashley Edmonds RN ASA Classification: CLASS II- Mild systemic disease (i.e. well-controlled diabetes, hypertension, asthma, cigarette smoking) Mimi Score Preprocedure Postprocedure Activity 2- Moves 4 extremities sustained head lift Activity 2- Moves 4 extremities sustained head lift Circulation 2- SBP +/= 20 points of pre-anesthetic level Circulation 2- SBP +/= 20 points of pre-anesthetic level Consciousness 2- Awake and alert oriented x 3 Consciousness 2- Awake and alert oriented x 3 O2 Saturation 1- Needs O2 inhalation to maintain O2 saturation of 90% O2 Saturation 1- Needs O2 inhalation to maintain O2 saturation of 90% Respiratory 2- Able to deep breathe and cough well Respiratory 2- Able to deep breathe and cough well Total Score 9 Total Score 9 Contrast Agent: Isovue Diagnostic Contrast: 82 ml Total Contrast: 82 ml Fluoro Dose: 7995 mGy Procedure Log Time Note Enter By 02:19 PM Pt arrived to labor relations director 2 at 14:19 csmith 02:19 PM Konstantin Lipscomb RN Position: Monitor Time in: 14:19 csmith 02:19 PM Kalli Larson RT (R) Position: Scrub Time in: 14:19 csmith 02:19 PM Ashley Edmonds RN Position: Magazine Feeder Time in: 14:19 csmith 02:19 PM Patient charges- Angio tray pack, Navilyst 3mm J, Pulse Oximetry and ACIST tubing and transducer csmith 02: PM Hair removed from procedure site in procedure lab using clippers. Bilateral groin prepped with Chloraprep by Ashley Edmonds RN, then patient was draped. Skin intact. csmith 02:19 PM Physician arrived 14:19 csmith 02: PM Meet and greet completed csmith 02: PM Sign in performed according to hospital policy. csmith 02:19 PM Procedure start 14: csmith : PM Time: 14:19 Oxygen on at 2 L/min per nasal cannula by Ashley Edmonds RN csmith 02: PM CathStat 02: PM Case Start 02: PM Time: 14:19 Patient comfortable and pain free: Yes csmith :20 PM Time: 14:20LOC: 5 = Fully awake and oriented or at pre-proc level csmith 02:23 PM Vitals capture started with the following parameters, Patient=Adult, Interval=5 min, Initial Buuvxoha=502 mmHg, Deflation Rate=5 mmHg, Cuff placed on Right Arm 02: PM Recorded ECG: HR=62 Condition=Condition 1 02:25 PM HR=61 bpm, KOMA=831/78 mmhg, UfR4=496.0 %, Resp=22 B/min, Comment=paced 02: PM Time: 14: Versed 1 mg Intravenous Given by Ashley Edmonds RN csmith 02: PM Time: 14: Fentanyl 50 mcg Intravenous Given by Ashley Edmonds RN csmith 02:29 PM HR=60 bpm, YLRD=423/69 mmhg, PsN5=833.0 %, Resp=11 B/min, Comment=paced 02:34 PM HR=60 bpm, WQLC=906/66 mmhg, SpO2=96.0 %, Resp=17 B/min, Comment=paced 02:36 PM Time: 14:20LOC: 5 = Fully awake and oriented or at pre-proc level csmith 02:36 PM Time: 14:19 Patient comfortable and pain free: Yes csmith 02:36 PM Pressure channel 1 zeroed. 02:38 PM Time out performed according to hospital policy csmith 02:39 PM HR=60 bpm, YQHN=138/62 mmhg, SpO2=98.0 %, Resp=10 B/min, Comment=paced :39 PM Time: 14:38 16 ml Lidocaine 2% to right groin Subcutaneous Given by Gerardo Rahman MD csmith 02:40 PM Micro-Introducer Kit utilized for sheath placement csmith 02:40 PM Access obtained by percutaneous puncture. 6Fr 10cm Terumo Alton sheath placed in right Femoral artery. [id number] csmith 02:40 PM 5Fr FR 4 catheter inserted over the wire DN csmith 02:40 PM 0.035 145cm Navilyst 3mmJ wire [id number] csmith 02:42 PM Recorded Pressure: Ao, HR=60, Condition=Condition 1 (Aorta) Ao 129/61/88 02:42 PM Recorded Pressure: Ao, HR=60, Condition=Condition 1 (Aorta) Ao 118/60/85 02:43 PM RCA angiography performed in multiple views. csmith 02:43 PM 0.035 260cm Navilyst 3mmJ wire [id number] csmith 02:44 PM Catheter removed csmith 02:44 PM 5Fr FL 4 catheter inserted over the wire DN csmith 02:44 PM HR=61 bpm, NQBD=854/62 mmhg, SpO2=98.0 %, Resp=12 B/min, Comment=paced 02:47 PM LCA angiography performed in multiple views. csmith 02:49 PM Catheter removed csmith 02:50 PM HR=64 bpm, BSMJ=223/69 mmhg, XnQ2=372.0 %, Resp=8 B/min, Comment=paced 02:50 PM Sheath exchanged for a 6 Fr 45 cm Flexor Check-Nini Introducer (tresa modification) sheath [id number] csmith 02:51 PM Time: 14:36 Patient comfortable and pain free: Yes csmith 02:51 PM Time: 14:36LOC: 5 = Fully awake and oriented or at pre-proc level csmith 02:52 PM Time: 14:52 Heparin 1000 units Intravenous Given by Ashley Edmonds RN ivp csmith 02:52 PM 5Fr FL 4 catheter inserted over the wire DN csmith 02:54 PM HR=62 bpm, WQEE=094/69 mmhg, JkV0=467.0 %, Resp=10 B/min, Comment=paced 02:56 PM Catheter removed csmith 02:57 PM Sheath exchanged for a 6 Fr 11 cm Terumo Alton sheath [id number] csmith 02:58 PM Procedure completed at 14:58 01/21/2018 csmith 02:58 PM What is the NYHA Class? csmith 02:58 PM Did you address JAIMEE flow and Dominance? Yes csmith 02:59 PM Sign out completed: Radiation Dose 837 mGy, 7995 cGy/cm2 Fluoro Time: 5.2 Isovue 370 - 200ml contrast 82 ml given by Gerardo Rahman MD. Complications: NoneCardiac Rehab Consult needed: NoConfirmed administered medications: Yes csmith 02:59 PM Isovue 370 - 200ml,1 Bottle(s) used. csmith 02:59 PM HR=61 bpm, KXVW=617/73 mmhg, SpO2=99.0 %, Resp=12 B/min, Comment=paced 02:59 PM Arterial sheath pulled, Mynx closure device used and was Successful [id number] S/N. csmith 02:59 PM Estimated Blood Loss: minimal csmith 02:59 PM Post ECG Paced csmith 02:59 PM Post Blood Pressure 143/73 csmith 02:59 PM 14:59 Post Pulses Bilateral DP 2+ csmith 03:00 PM Information taught Mynx csmith 03:00 PM Education needs Responsibilities of Patient in Care csmith 03:00 PM Learning barriers :None csmith 03:00 PM Education Methods Verbal csmith 03:00 PM Education evaluation Able to repeat information csmith 03:00 PM Site status Small hematoma - Rt Groin as reported by Kalli Larson RT (R) at 15:00 Holding pressure at this time csmith 03:00 PM Opsite applied csmith 03:00 PM Plavix, Effient or Brilinta given No csmith 03:00 PM Family placed in consult room. csmith 03:02 PM Coronary Dominance: Left csmith 03:06 PM Time: 14:51LOC: 5 = Fully awake and oriented or at pre-proc level csmith 03:06 PM Time: 14:51 Patient comfortable and pain free: Yes csmith 03:09 PM Report given to Candice TAYLOR Pt will be taken to 2A Room #22. csmith 03:10 PM Lesion found in Mid RCA. Pre Stenosis: 25 Pre JAIMEE Flow: 3: Complete and Brisk Flow/Perfusion csmith 03:10 PM Lesion found in Proximal LAD. Pre Stenosis: 25 Pre JAIMEE Flow: 3: Complete and Brisk Flow/Perfusion csmith 03:10 PM Lesion found in Mid LAD. Pre Stenosis: 65 Pre JAIMEE Flow: 3: Complete and Brisk Flow/Perfusion csmith 03:22 PM Time: 15:06 Patient comfortable and pain free: Yes csmith 03:22 PM Time: 15:06LOC: 5 = Fully awake and oriented or at pre-proc level csmith 03:22 PM Pressure held for 20 minutes total. No hematoma at this time. VSS. csmith 03:23 PM Patient out of room: 15:23 csmith Complications Complication None Hemodynamics Pressures Site Systolic/A Wave Diastolic/V Wave Mean AO 129 61 88 AO 118 60 85 Post Procedure Information Blood Pressure: 143/73 mmHg Rhythm: Paced Post procedural instructions were given Closure Device Time Device Success/Fail MynxGrip Successful Site Checks Time Location Status Staff Sheath In? Note 03:00 PM Rt Groin Small hematoma Kalli Larson RT (R) less than 5cm Pulses Time Site Pre-Procedure Post-Procedure Note 01/21/2018 1:57:00 PM Bilateral DP & PT 1+ 2:59:00 PM Bilateral DP 2+ Updated by Ashley Edmonds RN on 01/21/2018 3:23:18 PM electronically signed on 01/21/2018 3:23:46 PM with status of Final
[2018-01-21] MEDS: clonazePAM 0.5 MG TABLET PO SCH (21:38)
[2018-01-21] MEDS: *HR* OxyCODONE/APAP 5/325 TABLET PO PRN (21:38)
[2018-01-22] MEDS: *HR* Heparin 5,000 UNIT/ML VIAL SQ SCH ×2 (05:11→17:38)
[2018-01-22] MEDS: Furosemide 40 MG TABLET PO SCH (08:20)
[2018-01-22] MEDS: Fluticasone Propionate Nasal 50 MCG/SPRAY BOTTLE NS SCH (08:21)
[2018-01-22] MEDS: Aspirin Enteric Coated 81 MG Tablet PO SCH (08:21)
[2018-01-22] MEDS: *HR* OxyCODONE/APAP 5/325 TABLET PO PRN (08:28)
[2018-01-22] MEDS: Insulin LISPRO 300 UNITS/3 ML VIAL SQ SCH ×4 (08:38→20:33)
[2018-01-22] MEDS ORDERED: Aspirin 81 MG TAB.CHEW PO SCH (09:00)
[2018-01-22 09:02] LABS: Basophils % 0.3 %; Eosinophils # 0.1 K/mcL (0.0-0.6); Eosinophils % 1.9 %; Hematocrit 39.8 % (35.3-44.9); Hemoglobin 12.6 g/dL (11.5-15.4); Immature Granulocytes % 0.2 % (0-4); Lymphocytes # 1.8 K/mcL (0.6-4.6); Lymphocytes % 28.3 %; Mean Corpuscular HGB Conc 31.7 g/dL (31.6-35.5); Mean Corpuscular Hemoglobin 30.7 pg (28.0-33.3); Mean Corpuscular Volume 96.8 fL (83.0-100.0); Mean Platelet Volume 10.4 fL (9.4-12.4); Monocytes # 0.6 K/mcL (0.0-1.3); Monocytes % 9.8 %; Neutrophils # 3.8 K/mcL (1.6-8.9); Platelet Count 150 K/mcL (140-400); Red Blood Count 4.11 M/mcL (3.82-4.97); Red Cell Distribution Width 13.4 % (11.5-14.5); Segmented Neutrophils % 59.5 %
[2018-01-22 09:19] LABS: Calcium 9.6 mg/dL (8.6-10.3); Potassium 4.3 mEq/L (3.5-5.1)
--- NOTE | 2018-01-22 10:21 | Internal Med Progress Note ---
Hospitalist Progress Note - Encounter Date of Encounter: 01/22/18 Time of Encounter: 10:19 - Subjective Interval History: No acute overnight events. Had LHC. Complains of 'feeling not right' this morning. - Exam Vitals: Temp Pulse Resp BP Pulse Ox 97.8 F 60 15 119/60 98 01/22/18 04:41 01/22/18 07:38 01/22/18 07:38 01/22/18 07:38 01/22/18 07:38 Exam: General: Alert and oriented. Skin:Normal color, no rash, no lesions. HEENT:EOM, pupils equal, round and reactive. Cardiovascular: Ejection systolic murmur noted. No JVD. Pulse regular. Lungs: Breath sounds CTA. No adventitious lung sounds. Abdomen: Soft, non-tender, no rigidity. Extremities:No deformity, tenderness, or clubbing. Trace edema. Neurological: AOx3, No focal deficits. Skin: No rash or ulcers noted. - Assessment and Plan (1) Chest heaviness Current Visit: Yes Status: Acute (2) Congestive heart failure Current Visit: Yes Status: Chronic (3) Exertional dyspnea Current Visit: Yes Status: Acute - Summary of Assessment and Plan Summary of Assessment and Plan: Unstable angina - trop -ve x3. - ECHO: LVEF 55%. Normal LV chamber size, wall thickness. No wall motion abnormality. Mild-moderate aortic stenosis. Progressed from pervious ECHO. Mild pulmonary hypertension- RA pressure is 10 mmHg. - Nuclear stress test abnormal with partially fixed perfusion defect involving the inferior wall not seen at rest. artifact vs perfusion defect . - Had LHC which showed patent stent and mod-sev mLAD. Started on antianginal medication. - Cardiology following Diastolic chronic CHF - Continue home Lasix. Currently euvolemic h/o CAD s/p 1 stent in 2010 - c/w aspirin, Statin, Metoprolol h/o paroxysmal Atrial fibrillation - Known history of a.fib. - Xmcaf5qmub score 6 (age 1, gender, HTN, DM, CAD). - Not on AC due to h/o falls. - On metoprolol for rate control. EKG with Ventricular pacing. - s/p pacemaker for tachybrady syndrome. DVT ppx - Heparin SC. Plan for discharge tomorrow. - Time Spent with Patient Total time spent is greater than 50% in coordination of care (as documented) at patient's floor/unit and/or counseling patient: Internal Medicine: Result - Labs CBC & Chem 7: 01/22/18 08:38 01/22/18 08:38 Labs: Short CBC 01/22/18 Range/Units 08:38 WBC 6.3 (4.3-11.1) K/mcL Hgb 12.6 (11.5-15.4) g/dL Hct 39.8 (35.3-44.9) % Plt Count 150 (140-400) K/mcL Neutrophils # 3.8 (1.6-8.9) K/mcL BMP 01/22/18 08:38 Sodium 138 Potassium 4.3 Chloride 100 Carbon Dioxide 33 H BUN 34 H Creatinine 1.33 H Glucose 211 H Calcium 9.6 Consult Discharge Plan - Plan Referrals: Eden Wells MD [Primary Care Provider] - (Patient is going to [facility]) (2) Congestive heart failure Qualifiers: Heart failure type: unspecified Heart failure chronicity: unspecified Qualified Code(s): I50.9 - Heart failure, unspecified
[2018-01-22] MEDS: Isosorbide MONOnitrate (24 HR) 30 MG TAB.ER.24H PO SCH (10:44)
--- NOTE | 2018-01-22 13:30 | Cardiology Progress Note ---
Date of Encounter: 01/22/18 Time of Encounter: 13:30 Assessment and Plan (1) Unstable angina Current Visit: Yes Status: Acute Presents with typical chest pain symptoms increasing over past month. H/o PCI to the LAD 10 years ago. Symptoms the same as she experienced prior to her stent. Stress test reviewed. Equivocal results. Partially fixed perfusion defect involving the inferior wall. There is a mild intensity perfusion defect involving the distal inferior wall during stress that is not seen at rest. While findings may represent artifact, a small area of ischemia cannot be excluded. Recommend clinical correlation. TTE shows preserved EF. LHC showed patent stent in pLAD with some LAD myocardial bridging. Moderate- severe 65% stenosis mLAD. Recommend antianginal therapy and ambulation. If symptoms do not resolve can re-evaluate borderline stenosis with FFR. (2) Atrial fibrillation Current Visit: No Status: Chronic H/o paroxysmal atrial fibrillation. Continue lopressor. EKG shows ventricular pacing. AVg HR 71 bpm. Reported to not be on AC due to history of falls. Patient confirms she stopped eliquis after falls. CHADS VASc 8. On asa. Qualifiers: Atrial fibrillation type: paroxysmal Qualified Code(s): I48.0 - Paroxysmal atrial fibrillation (3) CAD (coronary artery disease) Current Visit: Yes Status: Acute Known CAD s/p PCI 2010.Patent stent and moderate to severe disease in mLAD seen on [facility] Continue asa, statin, and bb. Imdur added. Qualifiers: Coronary Disease-Associated Artery/Lesion type: [place] artery [place] vs. transplanted heart: [place] heart Associated angina: with unstable angina Qualified Code(s): I25.110 - Atherosclerotic heart disease of [place] coronary artery with unstable angina pectoris Discussion w patient/family: The assessment and plan as outlined above was discussed with the patient and/or family members who expressed understanding and agreement. All questions were answered. Thank you for involving us in the care of your patient. Please call with any questions. Subjective Principal diagnosis: angina Interval history: Ms. Gupta reported recurrent CP with ambulation last night. Objective Vital Signs, Last 4 Hours Temp Pulse Resp BP Pulse Ox 01/22/18 11:27 97.6 F 61 17 110/64 96 General: Conversant, No Apparent Distress HEENT: Atraumatic, Normocephaly, Mucus Membranes Moist Neck: No JVD, Normal carotid pulses Cardiac: Reg Rate and Rhythm, Normal S1 and S2, No Murmur Lungs: Normal Breath Sounds, No Wheeze, Rales, Rhonchi Neuro: Alert and responsive, No focal deficits noted Abdomen: Soft, Non-Tender Skin: No rashes noted on visualized skin Musculoskeletal: No Chest Wall Tenderness Extremities: No Clubbing, No Cyanosis, No Edema, Normal Pulses, Other (Right femoral access with ecchymosis, no hematoma. no tenderness. Dressing removed. ) Results 01/22/18 08:38 01/22/18 08:38 Lab Results 01/22/18 01/22/18 08:38 08:38 WBC 6.3 Hgb 12.6 Hct 39.8 Plt Count 150 Sodium 138 Potassium 4.3 Chloride 100 Carbon Dioxide 33 H BUN 34 H Creatinine 1.33 H Glucose 211 H Calcium 9.6 - Imaging and Cardiology Cardiac cath: report reviewed - EKG Interpretation EKG results cardiology: personally reviewed Consult Discharge Plan - Plan Referrals: Eden Wells MD [Primary Care Provider] - (Patient is going to [facility])
[2018-01-22] MEDS: clonazePAM 0.5 MG TABLET PO SCH (20:41)
[2018-01-22] MEDS: Acetaminophen 325 MG TABLET PO PRN (23:39)
[2018-01-23] MEDS: *HR* Heparin 5,000 UNIT/ML VIAL SQ SCH (05:59)
[2018-01-23] MEDS: Insulin LISPRO 300 UNITS/3 ML VIAL SQ SCH ×2 (07:55→12:04)
[2018-01-23] MEDS: Furosemide 40 MG TABLET PO SCH (07:56)
[2018-01-23] MEDS: Fluticasone Propionate Nasal 50 MCG/SPRAY BOTTLE NS SCH (07:56)
[2018-01-23] MEDS: Aspirin Enteric Coated 81 MG Tablet PO SCH (07:57)
[2018-01-23] MEDS: Isosorbide MONOnitrate (24 HR) 30 MG TAB.ER.24H PO SCH (07:57)
[2018-01-23] MEDS ORDERED: Acetaminophen 325 MG TABLET PO PRN (08:41)
[2018-01-23] MEDS ORDERED: *HR* OxyCODONE/APAP 5/325 TABLET PO PRN (08:42)
--- NOTE | 2018-01-23 10:03 | Cardiology Progress Note ---
Date of Encounter: 01/23/18 Time of Encounter: 09:56 Assessment and Plan (1) Unstable angina Current Visit: Yes Status: Acute Presents with typical chest pain symptoms increasing over past month. H/o PCI to the LAD 10 years ago. Symptoms the same as she experienced prior to her stent. Stress test reviewed. Equivocal results. TTE shows preserved EF. LHC completed for concern of unstable angina showed patent stent in pLAD with some LAD myocardial bridging. Moderate-severe 65% stenosis mLAD. No intervention. No complication from procedure. Moderate ecchymosis in groin area noted without palpable hematoma. Denies pain. Recommend antianginal therapy. Imdur 30 mg started yesterday, No recurrent chest pain with ambulation. Out-pt f/u scheduled with [facility]. Continue asa, statin, and bb. NTG SL PRN. Cardiology will sign off. (2) Atrial fibrillation Current Visit: No Status: Chronic H/o paroxysmal atrial fibrillation. Continue lopressor. EKG shows ventricular pacing. AVg HR 71 bpm. Reported to not be on AC due to history of falls. Patient confirms she stopped eliquis after falls. CHADS VASc 8. On asa. Qualifiers: Atrial fibrillation type: paroxysmal Qualified Code(s): I48.0 - Paroxysmal atrial fibrillation (3) CAD (coronary artery disease) Current Visit: Yes Status: Acute Known CAD s/p PCI 2010.Patent stent and moderate to severe disease in mLAD seen on [facility] Continue asa, statin, and bb. Imdur added. Qualifiers: Coronary Disease-Associated Artery/Lesion type: [place] artery [place] vs. transplanted heart: [place] heart Associated angina: with unstable angina Qualified Code(s): I25.110 - Atherosclerotic heart disease of [place] coronary artery with unstable angina pectoris Discussion w patient/family: The assessment and plan as outlined above was discussed with the patient and/or family members who expressed understanding and agreement. All questions were answered. Thank you for involving us in the care of your patient. Please call with any questions. Subjective Principal diagnosis: angina Interval history: Ms. Gupta denies recurrent chest pain. Mildly confused this morning. Objective Vital Signs, Last 4 Hours Temp Pulse Resp BP Pulse Ox 01/23/18 07:28 98.0 F 60 16 120/57 97 General: Conversant, No Apparent Distress HEENT: Atraumatic, Normocephaly, Mucus Membranes Moist Neck: No JVD, Normal carotid pulses Cardiac: Reg Rate and Rhythm, Normal S1 and S2, No Murmur Lungs: Normal Breath Sounds, No Wheeze, Rales, Rhonchi Neuro: Alert and responsive, No focal deficits noted Abdomen: Soft, Non-Tender Skin: No rashes noted on visualized skin Musculoskeletal: No Chest Wall Tenderness Extremities: No Clubbing, No Cyanosis, No Edema, Normal Pulses, Other ( Ecchymosis noted in right groin. No hematoma. LATONIA, no redness or drainage. ) Results 01/22/18 08:38 01/22/18 08:38 - Imaging and Cardiology Cardiac cath: report reviewed - EKG Interpretation EKG results cardiology: personally reviewed Consult Discharge Plan - Plan Referrals: Eden Wells MD [Primary Care Provider] - (Patient is going to [facility])
--- NOTE | 2018-01-23 11:09 | Physician Discharge Referral ---
ExtendedCare Referral Info Transfer To: [facility] Provider in Charge after Transfer: PCP Institutional Level of Care: Skilled (nursing and physical therapy) - Transfer Medications Home Medications: Albuterol Sulfate [Ventolin Hfa] 2 puff IH Q4H PRN 06/12/15 [History] Aspirin [Adult Low Dose Aspirin EC] 81 mg PO DAILY 06/12/15 [History] Atorvastatin [Lipitor] 40 mg PO HS 06/12/15 [History] Metoprolol [Lopressor] 75 mg PO BID 06/12/15 [History] Nitroglycerin [Nitrostat] 0.4 mg SL Q5M PRN 06/12/15 [History] Citalopram Hydrobromide [Citalopram HBr] 10 mg PO DAILY 08/02/17 [History] Fluticasone Propionate Nasal [Flonase] 50 mcg NS DAILY 08/02/17 [History] Oxygen 1 each NS AD 08/02/17 [History] Acetaminophen [Non-Aspirin] 650 mg PO Q6H PRN 08/21/17 [History] glipiZIDE [Glipizide] 10 mg PO DAILY 08/21/17 [History] Loperamide [Imodium] 2 mg PO QID PRN 09/25/17 [History] Meloxicam [Mobic] 7.5 mg PO DAILY 09/25/17 [History] Ipratropium/Albuterol Neb [Duoneb] 3 ml IH [id number] PRN inhsol 09/28/17 [Rx] Furosemide [Lasix] 40 mg PO DAILY 01/18/18 [History] OxyCODONE/APAP 5/325 [Percocet 5/325 MG] 1 each PO QID PRN 01/18/18 [History] Spironolactone [Aldactone] 50 mg PO DAILY 01/18/18 [History] clonazePAM [Klonopin] 0.5 mg PO HS 01/18/18 [History] Allergies/Adverse Reactions: 3 Allergy/AdvReac Type Severity Reaction Status Date / Time codeine AdvReac Hallucinati Verified 09/25/17 14:38 ng morphine AdvReac Hallucinati Verified 09/25/17 14:38 ng - Respiratory Orders Smoking Cessation: Smoking cessation has been advised. For more information, call the [place] Tobacco Quit Line at 2-952-AGPB-NOW. CERTIFICATION: I certify that the transfer of the above named patient to an Extended Care Facility is necessary for the continuing treatment of the diagnosis listed. The above information is true and accurate reflection of patient's current condition. Confidential - Redisclosure prohibited without a patient's written consent.
--- NOTE | 2018-01-23 11:11 | Discharge Summary ---
- NOTES TO OUTPATIENT PROVIDER Notes to Outpatient Provider: Patient presented with unstable angina and had heart catheterization with no intervention. Patient has chronic kidney disease stage III and due to IV contrast being given for heart catheterization would recommend checking renal function in 3-5 days. Serum creatinine has been stable and discharged serum creatinine is 1.33. Date of Encounter: 01/23/18 Time of Encounter: 11:09 - Discharge Diagnosis (1) Unstable angina Priority: Primary Status: Acute (2) CAD (coronary artery disease) Priority: Secondary Status: Acute Qualifiers: Coronary Disease-Associated Artery/Lesion type: [place] artery [place] vs. transplanted heart: [place] heart Associated angina: with unstable angina Qualified Code(s): I25.110 - Atherosclerotic heart disease of [place] coronary artery with unstable angina pectoris (3) Chest heaviness Priority: Secondary Status: Acute (4) Congestive heart failure Priority: Secondary Status: Chronic Qualifiers: Heart failure type: unspecified Heart failure chronicity: unspecified Qualified Code(s): I50.9 - Heart failure, unspecified (5) Exertional dyspnea Priority: Secondary Status: Acute (6) Hypertension Priority: Secondary Status: Chronic Qualifiers: Hypertension type: essential hypertension Qualified Code(s): I10 - Essential (primary) hypertension Hospital course: Ms. Gupta is a 82 year old female who presented with chest heaviness and unstable angina. The patient was seen by cardiology and patient was taken for left heart catheterization. No intervention was performed. Patient appears to have chronic kidney disease stage III and serum creatinine has been stable. However due to IV contrast being given for left heart catheterization, would recommend checking renal function in 3-5 days. Patient is to follow-up with outpatient cardiology and primary care physician. Imdur and Plavix were started and will be continued at discharge. Patient is chest pain-free at discharge and stable for discharge on 01/23/2018 back to nursing facility. Discharge discussed with: patient, nurse - Time Spent with Patient Total time spent providing and/or coordinating discharge services: Greater than 30 minutes - Discharge Medications Prescriptions: Clopidogrel [Plavix] 75 mg PO DAILY 30 Days #30 tablet Isosorbide MONOnitrate (24 HR) [Imdur] 30 mg PO DAILY 30 Days #30 tab.er.24h Home Medications: Albuterol Sulfate [Ventolin Hfa] 2 puff IH Q4H PRN 06/12/15 [History] Aspirin [Adult Low Dose Aspirin EC] 81 mg PO DAILY 06/12/15 [History] Atorvastatin [Lipitor] 40 mg PO HS 06/12/15 [History] Metoprolol [Lopressor] 75 mg PO BID 06/12/15 [History] Nitroglycerin [Nitrostat] 0.4 mg SL Q5M PRN 06/12/15 [History] Citalopram Hydrobromide [Citalopram HBr] 10 mg PO DAILY 08/02/17 [History] Fluticasone Propionate Nasal [Flonase] 50 mcg NS DAILY 08/02/17 [History] Oxygen 1 each NS AD 08/02/17 [History] Acetaminophen [Non-Aspirin] 650 mg PO Q6H PRN 08/21/17 [History] glipiZIDE [Glipizide] 10 mg PO DAILY 08/21/17 [History] Loperamide [Imodium] 2 mg PO QID PRN 09/25/17 [History] Meloxicam [Mobic] 7.5 mg PO DAILY 09/25/17 [History] Ipratropium/Albuterol Neb [Duoneb] 3 ml IH [id number] PRN inhsol 09/28/17 [Rx] Furosemide [Lasix] 40 mg PO DAILY 01/18/18 [History] OxyCODONE/APAP 5/325 [Percocet 5/325 MG] 1 each PO QID PRN 01/18/18 [History] Spironolactone [Aldactone] 50 mg PO DAILY 01/18/18 [History] clonazePAM [Klonopin] 0.5 mg PO HS 01/18/18 [History] Clopidogrel [Plavix] 75 mg PO DAILY 30 Days #30 tablet 01/23/18 [Rx] Isosorbide MONOnitrate (24 HR) [Imdur] 30 mg PO DAILY 30 Days #30 tab.er.24h 04/01 [Rx] Allergies/Adverse Reactions: 3 Allergy/AdvReac Type Severity Reaction Status Date / Time codeine AdvReac Hallucinati Verified 09/25/17 14:38 ng morphine AdvReac Hallucinati Verified 09/25/17 14:38 ng Date of admission: 01/21/18 13:40 Primary care physician: Eden Wells Consults: 01/22/18 16:06 PT [Consult to Physical Therapy] [CONS] Routine Comment: Evaluate, develop and implement POC Reason for Consult: increased weakness Does patient have active BEDREST order?: No Is patient medically & hemodynamically stable?: Yes 01/22/18 16:07 OT [Consult to Occupational Therapy] [CONS] Routine Comment: Evaluate, develop and implement POC Reason for Consult: increased weakness Does patient have active BEDREST order?: No Is patient medically & hemodynamically stable?: Yes - Constitutional Vitals: Temp Pulse Resp BP Pulse Ox 98.0 F 60 16 120/57 97 01/23/18 07:28 01/23/18 07:28 01/23/18 07:28 01/23/18 07:28 01/23/18 07:28 Exam: Constitutional: No acute distress, Alert Psych: AAO x 3 HEENT: NCAT, EOMI Neck: supple, no JVD Cardio: regular rate and rhythm, +s1s2,2/6 systolic murmur Resp: clear to ascultation bilaterally, no wheezes/rales/ronchi Abd: soft, non tender/non distended, positive bowel sounds, no gaurding/reboud/ ridgitity Extremities: trace edema lower extremities, eccymoses of right groin but no hematoma Neuro: no focal deficits appreciated - Patient Status Disposition: Transfer SNF Condition: Good Functional capacity at discharge: uses cane/walker Overall status at discharge: patient is back to baseline - Discharge Instructions Follow Up With: Eden Wells MD [Primary Care Provider] - (Patient is going to [facility]) - Diet and Activity Activity: as per physical therapy Diet: advance to your usual diet, low fat, low cholesterol, low salt diet
[2018-01-23 11:48] VITALS: BP 126/76
== END 2018-01-23 14:11 | DRG 287 ==
LOC: 2ANU 12:07 → EMEROOARM 12:07 → SUATTDRO 16:30 → 2ANU 18:30
PROVIDERS: ADMIT Internal Medicine; ATTEND Internal Medicine

== ENCOUNTER 2018-03-11 04:37 | Inpatient (IN) ==
[2018-03-11] MEDS ORDERED: methylPREDNISolone 125 MG/2 ML VIAL IVP ONE (04:43)
[2018-03-11] MEDS ORDERED: Ipratropium/Albuterol Neb 3 ML IH ONE (04:43)
--- NOTE | 2018-03-11 04:48 | Emergency Department Note ---
Disposition Clinical Impression: HCAP (healthcare-associated pneumonia) Disposition: Admitted As Inpatient Condition: Fair Referrals: Eden Wells MD [Primary Care Provider] - Forms: ED Satisfaction Letter Time of Disposition: 07:05 SOB HPI - General Chief Complaint: ED Shortness of Breath/Dyspnea Stated Complaint: SARINA Time Seen by Provider: 03/11/18 04:41 Source: patient, EMS Mode of arrival: EMS Limitations: no limitations Nursing Notes Reviewed: Yes Vital Signs Reviewed: Yes - History of Present Illness Patient presents to the ED with the chief complaint of shortness of breath. patient is a DNR-CCA from [facility]. Called EMS tonight for increasing SOB. Slightly improved after duoneb in route. patient states she's had a productive bright yellow cough. Having some chest tightness as well. No known fever. No chills. No abd pain, n/v/d. No rash. No pain/swelling in her legs. + history of COPD/CHF and states it feels similar. - Related Data Home Medications Medication Instructions Recorded Confirmed Albuterol Sulfate [Ventolin Hfa] 2 puff IH Q4H PRN 06/12/15 01/18/18 Aspirin [Adult Low Dose Aspirin EC] 81 mg PO DAILY 06/12/15 01/18/18 Atorvastatin [Lipitor] 40 mg PO HS 06/12/15 01/18/18 Metoprolol [Lopressor] 75 mg PO BID 06/12/15 01/18/18 Nitroglycerin [Nitrostat] 0.4 mg SL Q5M PRN 06/12/15 01/18/18 Citalopram Hydrobromide 10 mg PO DAILY 08/02/17 01/18/18 [Citalopram HBr] Fluticasone Propionate Nasal 50 mcg NS DAILY 08/02/17 01/18/18 [Flonase] Oxygen 1 each NS AD 08/02/17 01/18/18 Acetaminophen [Non-Aspirin] 650 mg PO Q6H PRN 08/21/17 01/18/18 glipiZIDE [Glipizide] 10 mg PO DAILY 08/21/17 01/18/18 Loperamide [Imodium] 2 mg PO QID PRN 09/25/17 01/18/18 Meloxicam [Mobic] 7.5 mg PO DAILY 09/25/17 01/18/18 Furosemide [Lasix] 40 mg PO DAILY 01/18/18 01/18/18 OxyCODONE/APAP 5/325 [Percocet 1 each PO QID PRN 01/18/18 01/18/18 5/325 MG] Spironolactone [Aldactone] 50 mg PO DAILY 01/18/18 01/18/18 clonazePAM [Klonopin] 0.5 mg PO HS 01/18/18 01/18/18 Previous Rx's Medication Instructions Recorded Ipratropium/Albuterol Neb [Duoneb] 3 ml IH [id number] PRN inhsol 09/28/17 Clopidogrel [Plavix] 75 mg PO DAILY 30 Days #30 tablet 01/23/18 Isosorbide MONOnitrate (24 HR) 30 mg PO DAILY 30 Days #30 01/23/18 [Imdur] tab.er.24h Allergies Allergy/AdvReac Type Severity Reaction Status Date / Time codeine AdvReac Hallucinati Verified 09/25/17 14:38 ng morphine AdvReac Hallucinati Verified 09/25/17 14:38 ng Review of Systems: As reviewed in the HPI. All other systems reviewed are negative or normal. Past Medical History - Past Medical History Attestation: Yes The following information was validated with the patient. Source: patient, old records reviewed Medical history: Reports: arthritis, asthma, atrial fibrillation, COPD, coronary artery disease, diabetes, hyperlipidemia, hypertension, syncope, TIA Surgical history: Reports: pacemaker/AICD Psychiatric history: Reports: anxiety, depression - Social History Smoking Status: Never smoker Smokeless Tobacco Status: No Alcohol use: Reports: none Drug use: Reports: none Physical Exam CONSTITUTIONAL: [ill appearing, alert and in mild acute respiratory distress] EYES: [EOMI, clear conjunctiva, PERRLA] HENT: [Normocephalic, atraumatic, moist mucus membranes, normal oropharynx] NECK: [normal inspection, full ROM, trachea midline, no obvious swelling] PULMONARY: [mild distress, conversational dyspnea, wheezing throughout, rhonchi in L lung CARDIOVASCULAR: [regular rate, regular rhythm, normal heart sounds, no murmurs, distal extremities are warm and well perfused] GASTROINSTESTINAL: [soft, non-tender, non-rigid, non-distended, no guarding, no rebound, normal bowel sounds] GENITOURINARY/RECTAL: [deferred] NEUROLOGIC: [Alert, oriented x3, normal speech, moves all extremities] EXTREMITIES: [Normal inspection, full ROM, no tenderness, no pedal edema, normal capillary refill] MUSCULOSKELETAL: [no gross deformities, atraumatic] SKIN: [No cyanosis, no diaphoresis, normal color, warm, no rash] PSYCHIATRIC: [normal mood and affect] Course Course Narrative: patient likely has pneumonia. will get sepsis workup. - Reevaluation(s) Reevaluation #1: lactic and WBC are normal. SHe does have a LLL pna c/w exam and symptoms. will admit and place on levaquin, vanc, zosyn. Vital Signs Temperature 100.4 F H 03/11/18 04:43 Pulse Rate 58 03/11/18 04:43 Respiratory Rate 16 03/11/18 04:43 Blood Pressure 140/66 03/11/18 04:43 O2 Sat by Pulse Oximetry 95 03/11/18 04:43 Temperature 98.7 F 03/11/18 06:33 Pulse Rate 62 03/11/18 06:33 Respiratory Rate 18 03/11/18 06:33 Blood Pressure 124/68 03/11/18 06:33 O2 Sat by Pulse Oximetry 97 03/11/18 06:33 Oxygen Delivery Oxygen Delivery Nasal Cannula Shortness of Breath/Dyspnea - Lab Data Result diagrams: 03/11/18 04:50 03/11/18 04:50 Lab Results 03/11/18 03/11/18 03/11/18 Range/Units 04:50 04:50 04:50 WBC 8.9 (4.3-11.1) K/mcL RBC 3.95 (3.82-4.97) M/mcL Hgb 11.8 (11.5-15.4) g/dL Hct 37.2 (35.3-44.9) % MCV 94.2 (83.0-100.0) fL MCH 29.9 (28.0-33.3) pg MCHC 31.7 (31.6-35.5) g/dL RDW 13.7 (11.5-14.5) % Plt Count 174 (140-400) K/mcL MPV 10.2 (9.4-12.4) fL Immature Gran % 0.3 (0-4) % Seg Neutrophils % 67.2 % Lymphocytes % 18.1 % Monocytes % 11.4 % Eosinophils % 2.8 % Basophils % 0.2 % Neutrophils # 6.0 (1.6-8.9) K/mcL Lymphocytes # 1.6 (0.6-4.6) K/mcL Monocytes # 1.0 (0.0-1.3) K/mcL Eosinophils # 0.3 (0.0-0.6) K/mcL Basophils # 0.0 (0.0-0.2) K/mcL PT (9.4-12.1) Seconds INR Sodium 137 (136-145) mEq/L Potassium 3.9 (3.5-5.1) mEq/L Chloride 100 (98-107) mEq/L Carbon Dioxide 26 (23-29) mEq/L BUN 38 H (8-23) mg/dL Creatinine 1.48 H (0.60-1.20) mg/dL Est GFR ( Amer) 41 L (> 60) Est GFR (Non-Af Amer) 34 L (> 60) BUN/Creatinine Ratio 26 (6-26) Glucose 108 H (70-105) mg/dL Calculated Osmolality 294 (280-300) Lactic Acid 1.4 (0.5-2.2) mmol/L Calcium 9.1 (8.6-10.3) mg/dL Troponin I 0.03 (< 0.04) ng/mL B-Natriuretic Peptide (Less than 100) pg/mL Urine Color (Yellow) Urine Clarity (Clear) Urine pH (5.0-8.0) pH Units Ur Specific Horatio (1.010-1.025) Urine Protein (Neg-Trace) mg/dL Urine Glucose (UA) (Normal) mg/dL Urine Ketones (Negative) mg/dL Urine Blood (Negative) Urine Nitrite (Negative) Urine Bilirubin (Negative) Urine Urobilinogen (Normal) mg/dL Ur Leukocyte Esterase (Negative) Ur Culture Indicated? (NO) 03/11/18 03/11/18 03/11/18 Range/Units 04:50 04:50 05:26 WBC (4.3-11.1) K/mcL RBC (3.82-4.97) M/mcL Hgb (11.5-15.4) g/dL Hct (35.3-44.9) % MCV (83.0-100.0) fL MCH (28.0-33.3) pg MCHC (31.6-35.5) g/dL RDW (11.5-14.5) % Plt Count (140-400) K/mcL MPV (9.4-12.4) fL Immature Gran % (0-4) % Seg Neutrophils % % Lymphocytes % % Monocytes % % Eosinophils % % Basophils % % Neutrophils # (1.6-8.9) K/mcL Lymphocytes # (0.6-4.6) K/mcL Monocytes # (0.0-1.3) K/mcL Eosinophils # (0.0-0.6) K/mcL Basophils # (0.0-0.2) K/mcL PT 12.9 H (9.4-12.1) Seconds INR 1.1 Sodium (136-145) mEq/L Potassium (3.5-5.1) mEq/L Chloride (98-107) mEq/L Carbon Dioxide (23-29) mEq/L BUN (8-23) mg/dL Creatinine (0.60-1.20) mg/dL Est GFR ( Amer) (> 60) Est GFR (Non-Af Amer) (> 60) BUN/Creatinine Ratio (6-26) Glucose (70-105) mg/dL Calculated Osmolality (280-300) Lactic Acid (0.5-2.2) mmol/L Calcium (8.6-10.3) mg/dL Troponin I (< 0.04) ng/mL B-Natriuretic Peptide 430 H (Less than 100) pg/mL Urine Color Yellow (Yellow) Urine Clarity Clear (Clear) Urine pH 6.5 (5.0-8.0) pH Units Ur Specific [place]atio 1.010 (1.010-1.025) Urine Protein Negative (Neg-Trace) mg/dL Urine Glucose (UA) Normal (Normal) mg/dL Urine Ketones Negative (Negative) mg/dL Urine Blood Negative (Negative) Urine Nitrite Negative (Negative) Urine Bilirubin Negative (Negative) Urine Urobilinogen Normal (Normal) mg/dL Ur Leukocyte Esterase Negative (Negative) Ur Culture Indicated? NO (NO)
[2018-03-11 05:02] LABS: Basophils % 0.2 %; Eosinophils # 0.3 K/mcL (0.0-0.6); Eosinophils % 2.8 %; Hematocrit 37.2 % (35.3-44.9); Hemoglobin 11.8 g/dL (11.5-15.4); Immature Granulocytes % 0.3 % (0-4); Lymphocytes # 1.6 K/mcL (0.6-4.6); Lymphocytes % 18.1 %; Mean Corpuscular HGB Conc 31.7 g/dL (31.6-35.5); Mean Corpuscular Hemoglobin 29.9 pg (28.0-33.3); Mean Corpuscular Volume 94.2 fL (83.0-100.0); Mean Platelet Volume 10.2 fL (9.4-12.4); Monocytes % 11.4 %; Platelet Count 174 K/mcL (140-400); Red Blood Count 3.95 M/mcL (3.82-4.97); Red Cell Distribution Width 13.7 % (11.5-14.5); Segmented Neutrophils % 67.2 %
[2018-03-11 05:12] LABS: INR 1.1; Prothrombin Time 12.9 Seconds (9.4-12.1)
[2018-03-11 05:24] LABS: Calcium 9.1 mg/dL (8.6-10.3); Potassium 3.9 mEq/L (3.5-5.1); Troponin I 0.03 ng/mL (< 0.04)
[2018-03-11 05:33] LABS: Bilirubin,Urine Negative (Negative); Blood,Urine Negative (Negative); Clarity,Urine Clear (Clear); Color,Urine Yellow (Yellow); Glucose,Urine (UA) Normal (Normal); Ketones,Urine Negative (Negative); Leukocyte Esterase,Urine Negative (Negative); Nitrite,Urine Negative (Negative); PH,Urine 6.5 pH Units (5.0-8.0); Protein,Urine Negative (Neg-Trace); Urobilinogen,Urine Normal (Normal)
--- NOTE | 2018-03-11 05:33 | Emergency Department Note ---
Disposition Clinical Impression: HCAP (healthcare-associated pneumonia) Disposition: Admitted As Inpatient Condition: Fair Referrals: Eden Wells MD [Primary Care Provider] - Forms: ED Satisfaction Letter General Adult HPI - General Chief complaint: ED Shortness of Breath/Dyspnea Stated complaint: SARINA Time Seen by Provider: 03/11/18 04:41 Source: patient, EMS Mode of arrival: EMS Limitations: no limitations Nursing Notes Reviewed: Yes Vital Signs Reviewed: Yes - History of Present Illness Pain Scale: 0 - Related Data Home Medications Medication Instructions Recorded Confirmed Albuterol Sulfate [Ventolin Hfa] 2 puff IH Q4H PRN 06/12/15 01/18/18 Aspirin [Adult Low Dose Aspirin EC] 81 mg PO DAILY 06/12/15 01/18/18 Atorvastatin [Lipitor] 40 mg PO HS 06/12/15 01/18/18 Metoprolol [Lopressor] 75 mg PO BID 06/12/15 01/18/18 Nitroglycerin [Nitrostat] 0.4 mg SL Q5M PRN 06/12/15 01/18/18 Citalopram Hydrobromide 10 mg PO DAILY 08/02/17 01/18/18 [Citalopram HBr] Fluticasone Propionate Nasal 50 mcg NS DAILY 08/02/17 01/18/18 [Flonase] Oxygen 1 each NS AD 08/02/17 01/18/18 Acetaminophen [Non-Aspirin] 650 mg PO Q6H PRN 08/21/17 01/18/18 glipiZIDE [Glipizide] 10 mg PO DAILY 08/21/17 01/18/18 Loperamide [Imodium] 2 mg PO QID PRN 09/25/17 01/18/18 Meloxicam [Mobic] 7.5 mg PO DAILY 09/25/17 01/18/18 Furosemide [Lasix] 40 mg PO DAILY 01/18/18 01/18/18 OxyCODONE/APAP 5/325 [Percocet 1 each PO QID PRN 01/18/18 01/18/18 5/325 MG] Spironolactone [Aldactone] 50 mg PO DAILY 01/18/18 01/18/18 clonazePAM [Klonopin] 0.5 mg PO HS 01/18/18 01/18/18 Previous Rx's Medication Instructions Recorded Ipratropium/Albuterol Neb [Duoneb] 3 ml IH [id number] PRN inhsol 09/28/17 Clopidogrel [Plavix] 75 mg PO DAILY 30 Days #30 tablet 01/23/18 Isosorbide MONOnitrate (24 HR) 30 mg PO DAILY 30 Days #30 01/23/18 [Imdur] tab.er.24h Allergies Allergy/AdvReac Type Severity Reaction Status Date / Time codeine AdvReac Hallucinati Verified 09/25/17 14:38 ng morphine AdvReac Hallucinati Verified 09/25/17 14:38 ng Past Medical History - Past Medical History Medical history: Reports: arthritis, asthma, atrial fibrillation, COPD, coronary artery disease, diabetes, hyperlipidemia, hypertension, syncope, TIA Surgical history: Reports: pacemaker/AICD Psychiatric history: Reports: anxiety, depression - Social History Smoking Status: Never smoker Smokeless Tobacco Status: No Alcohol use: Reports: none Drug use: Reports: none Physical Exam - General Limitations: no limitations General appearance: alert, in no apparent distress Course Vital Signs Temperature 100.4 F H 03/11/18 04:43 Pulse Rate 58 03/11/18 04:43 Respiratory Rate 16 03/11/18 04:43 Blood Pressure 140/66 03/11/18 04:43 O2 Sat by Pulse Oximetry 95 03/11/18 04:43 Temperature 98.7 F 03/11/18 06:33 Pulse Rate 62 03/11/18 06:33 Respiratory Rate 18 03/11/18 06:33 Blood Pressure 124/68 03/11/18 06:33 O2 Sat by Pulse Oximetry 97 03/11/18 06:33 Oxygen Delivery Oxygen Delivery Nasal Cannula Medical Decision Making - Lab Data Result diagrams: 03/11/18 04:50 03/11/18 04:50 Lab Results 03/11/18 03/11/18 03/11/18 Range/Units 04:50 04:50 04:50 WBC 8.9 (4.3-11.1) K/mcL RBC 3.95 (3.82-4.97) M/mcL Hgb 11.8 (11.5-15.4) g/dL Hct 37.2 (35.3-44.9) % MCV 94.2 (83.0-100.0) fL MCH 29.9 (28.0-33.3) pg MCHC 31.7 (31.6-35.5) g/dL RDW 13.7 (11.5-14.5) % Plt Count 174 (140-400) K/mcL MPV 10.2 (9.4-12.4) fL Immature Gran % 0.3 (0-4) % Seg Neutrophils % 67.2 % Lymphocytes % 18.1 % Monocytes % 11.4 % Eosinophils % 2.8 % Basophils % 0.2 % Neutrophils # 6.0 (1.6-8.9) K/mcL Lymphocytes # 1.6 (0.6-4.6) K/mcL Monocytes # 1.0 (0.0-1.3) K/mcL Eosinophils # 0.3 (0.0-0.6) K/mcL Basophils # 0.0 (0.0-0.2) K/mcL PT (9.4-12.1) Seconds INR Sodium 137 (136-145) mEq/L Potassium 3.9 (3.5-5.1) mEq/L Chloride 100 (98-107) mEq/L Carbon Dioxide 26 (23-29) mEq/L BUN 38 H (8-23) mg/dL Creatinine 1.48 H (0.60-1.20) mg/dL Est GFR ( Amer) 41 L (> 60) Est GFR (Non-Af Amer) 34 L (> 60) BUN/Creatinine Ratio 26 (6-26) Glucose 108 H (70-105) mg/dL Calculated Osmolality 294 (280-300) Lactic Acid 1.4 (0.5-2.2) mmol/L Calcium 9.1 (8.6-10.3) mg/dL Troponin I 0.03 (< 0.04) ng/mL B-Natriuretic Peptide (Less than 100) pg/mL Urine Color (Yellow) Urine Clarity (Clear) Urine pH (5.0-8.0) pH Units Ur Specific [place] (1.010-1.025) Urine Protein (Neg-Trace) mg/dL Urine Glucose (UA) (Normal) mg/dL Urine Ketones (Negative) mg/dL Urine Blood (Negative) Urine Nitrite (Negative) Urine Bilirubin (Negative) Urine Urobilinogen (Normal) mg/dL Ur Leukocyte Esterase (Negative) Ur Culture Indicated? (NO) 03/11/18 03/11/18 03/11/18 Range/Units 04:50 04:50 05:26 WBC (4.3-11.1) K/mcL RBC (3.82-4.97) M/mcL Hgb (11.5-15.4) g/dL Hct (35.3-44.9) % MCV (83.0-100.0) fL MCH (28.0-33.3) pg MCHC (31.6-35.5) g/dL RDW (11.5-14.5) % Plt Count (140-400) K/mcL MPV (9.4-12.4) fL Immature Gran % (0-4) % Seg Neutrophils % % Lymphocytes % % Monocytes % % Eosinophils % % Basophils % % Neutrophils # (1.6-8.9) K/mcL Lymphocytes # (0.6-4.6) K/mcL Monocytes # (0.0-1.3) K/mcL Eosinophils # (0.0-0.6) K/mcL Basophils # (0.0-0.2) K/mcL PT 12.9 H (9.4-12.1) Seconds INR 1.1 Sodium (136-145) mEq/L Potassium (3.5-5.1) mEq/L Chloride (98-107) mEq/L Carbon Dioxide (23-29) mEq/L BUN (8-23) mg/dL Creatinine (0.60-1.20) mg/dL Est GFR ( Amer) (> 60) Est GFR (Non-Af Amer) (> 60) BUN/Creatinine Ratio (6-26) Glucose (70-105) mg/dL Calculated Osmolality (280-300) Lactic Acid (0.5-2.2) mmol/L Calcium (8.6-10.3) mg/dL Troponin I (< 0.04) ng/mL B-Natriuretic Peptide 430 H (Less than 100) pg/mL Urine Color Yellow (Yellow) Urine Clarity Clear (Clear) Urine pH 6.5 (5.0-8.0) pH Units Ur Specific [place] 1.010 (1.010-1.025) Urine Protein Negative (Neg-Trace) mg/dL Urine Glucose (UA) Normal (Normal) mg/dL Urine Ketones Negative (Negative) mg/dL Urine Blood Negative (Negative) Urine Nitrite Negative (Negative) Urine Bilirubin Negative (Negative) Urine Urobilinogen Normal (Normal) mg/dL Ur Leukocyte Esterase Negative (Negative) Ur Culture Indicated? NO (NO) - EKG Data EKG #1 EKG attestation: Yes I reviewed and interpreted this EKG. EKG results narrative: Electronic ventricular pacemaker with totally paced rhythm. Ventricular rate 62. Critical Care Time Critical Care Time: Yes Total Critical Care Time: 35 Attestation: Critical care performed: Time is exclusive of separately billable procedures. Time includes: direct patient care, patient reassessment, coordination of patient care, interpretation of data (laboratory data, radiology data, and respiratory data), review of patient's medical records, medical consultation and documentation of patient care. Procedures included in critical care time: Procedures excluded from critical care time: Attestation Statement - Attestation Attestation: I, Martin Grullon MD, personally evaluated this patient and discussed their management with the resident physician. I reviewed the resident's note and agree with the documented findings, medical decision making, and plan of care. 82-year-old female presents to the emergency department from a local residential with a complaint of increased cough and congestion and shortness of breath for about 2 weeks prior to arrival. Symptoms became worse tonight with more shortness of breath. There has been a productive cough with bright yellow sputum. Subjective fever. On examination patient is a well-developed obese elderly female in no acute distress. She is alert and oriented 3. There is no cyanosis or diaphoresis. Breath sounds are equal bilaterally with scattered bilateral inspiratory neck toward wheezes. Heart regular rate and rhythm. Abdomen soft and nontender with normal bowel sounds. EKG shows an electronic ventricular pacemaker with a totally paced rhythm at a rate of 62. Chest x-ray shows left lower lobe atelectasis versus pneumonia. Labs reviewed. Chronic renal insufficiency with some mild acute kidney injury and bump in her creatinine above baseline. Also elevated BNP but appears baseline for patient. The hospitalist, Dr. Calixto, was consulted and accepted admission of the patient.
[2018-03-11] MEDS ORDERED: Levofloxacin 750 MG/150 ML 750 MG/150 ML BAG IVPB ONE (05:58)
[2018-03-11] MEDS ORDERED: Piperacillin/Tazobactam 3.375 GM in 0.9 % Sodium Chloride Mini Bag 100 ML IVPB ONE ×2 (06:57→09:09)
--- NOTE | 2018-03-11 08:50 | Internal Med History&Physical ---
Date of Encounter: 03/11/18 Time of Encounter: 08:45 Internal Medicine - H&P: HPI Chief complaint: Shortness of Breath Admitted From: Long-term Nursing Facility Plans for Post Hospital Care: Transfer Half-Way Care History of present illness: Ms. Gupta is a 82 year old female with past medical history of COPD and conge stive heart failure presents to the [facility] emergency room for treatment of shortness of breath. Patient states that there has been an outbreak of respiratory symptoms going around her prison and she develop shortness of breath with wheezing and productive cough approximately 3 days ago. He states is vigorously gotten worse and was concerned and came to the emergency department today. The patient was noted to be mildly febrile upon admission and imaging revealed left lower lobe infiltrate. Patient was given IV steroids, IV antibiotics, breathing treatments and is feeling improved. Patient denies any chest pain, palpitations, nausea, vomiting, diarrhea. Patient admits to shortness of breath, productive cough with yellow sputum, subjective fevers. Patient denies any headache, blurry vision, double vision. Patient denies any change in her lower extremity swelling. She has sick contacts as described above. Patient denies any recent travel. Patient previously DNR [facility] however reviewed with patient and patient is full code and if requires intubation would only want to days on ventilator; states that she made this decision previously, I will make her full code. Past Med Surg Social Fam HX - Past Medical History Medical history: arthritis, asthma, atrial fibrillation, COPD, coronary artery disease, diabetes, hyperlipidemia, hypertension, syncope, TIA Additional medical history: Patient had a heart cath done and found a 95% block, stent placed 2007 Psychiatric history: anxiety, depression - Past Surgical History Surgical History: pacemaker/AICD Additional surgical history: cervical and lumbar infusions, laser on R eye, right shoulder replaced, left knee replacement - Social History Smoking Status: Never smoker Smokeless Tobacco Status: No Alcohol use: none Drug use: none - Family History Father Family Member Ethnicity: Non- Living Status: Hx Family Cardiac Disorders: Yes (CHF, [place], pacemaker,) Mother Living Status: Hx Family Autoimmune Disorders: Yes (RA) - Additional Family History Additional family history: Family history reviewed and is noncontributory other than described as above. Internal Medicine - H&P: Meds Albuterol Sulfate [Ventolin Hfa] 2 puff IH Q4H PRN 06/12/15 [History] Aspirin [Adult Low Dose Aspirin EC] 81 mg PO DAILY 06/12/15 [History] Atorvastatin [Lipitor] 40 mg PO HS 06/12/15 [History] Metoprolol [Lopressor] 75 mg PO BID 06/12/15 [History] Nitroglycerin [Nitrostat] 0.4 mg SL Q5M PRN 06/12/15 [History] Citalopram Hydrobromide [Citalopram HBr] 10 mg PO DAILY 08/02/17 [History] Fluticasone Propionate Nasal [Flonase] 50 mcg NS DAILY 08/02/17 [History] Oxygen 1 each NS AD 08/02/17 [History] Acetaminophen [Non-Aspirin] 650 mg PO Q6H PRN 08/21/17 [History] glipiZIDE [Glipizide] 10 mg PO DAILY 08/21/17 [History] Loperamide [Imodium] 2 mg PO QID PRN 09/25/17 [History] Meloxicam [Mobic] 7.5 mg PO DAILY 09/25/17 [History] Ipratropium/Albuterol Neb [Duoneb] 3 ml IH [id number] PRN inhsol 09/28/17 [Rx] Furosemide [Lasix] 40 mg PO DAILY 01/18/18 [History] OxyCODONE/APAP 5/325 [Percocet 5/325 MG] 1 each PO QID PRN 01/18/18 [History] Spironolactone [Aldactone] 50 mg PO DAILY 01/18/18 [History] clonazePAM [Klonopin] 0.5 mg PO HS 01/18/18 [History] Clopidogrel [Plavix] 75 mg PO DAILY 30 Days #30 tablet 01/23/18 [Rx] Isosorbide MONOnitrate (24 HR) [Imdur] 30 mg PO DAILY 30 Days #30 tab.er.24h 01/23/18 [Rx] Allergy/AdvReac Type Severity Reaction Status Date / Time codeine AdvReac Hallucinati Verified 03/11/18 09:21 ng morphine AdvReac Hallucinati Verified 03/11/18 09:21 ng All Systems PM: A 10-system review of systems was performed and is negative for pertinent findi ngs except as documented above in the HPI. Review of systems: 10 point review of systems obtained and is otherwise negative other than described in history of present illness. - Constitutional Vitals: Temp Pulse Resp BP Pulse Ox 98.7 F 67 20 130/60 99 03/11/18 06:33 03/11/18 08:12 03/11/18 08:12 03/11/18 08:12 03/11/18 08:12 Exam: Constitutional: No acute distress, Alert Psych: AAO x 3 HEENT: NCAT, EOMI Neck: supple, no JVD Cardio: Irregularly irregular with controlled rate, no murmurs appreciated Resp: expiratory wheezes, LLL ronchi, no acc muscle use Abd: soft, non tender/non distended, positive bowel sounds, no gaurding/reboud/ridgitity Extremities: trace lower extremity edema Neuro: no focal deficits appreciated, moves extremities symetrically Lymph: no cervical/supraclavicular adenopahty apprecitated Internal Med - H&P Results - Labs CBC & Chem 7: 03/11/18 04:50 03/11/18 04:50 Labs: Short CBC 03/11/18 Range/Units 04:50 WBC 8.9 (4.3-11.1) K/mcL Hgb 11.8 (11.5-15.4) g/dL Hct 37.2 (35.3-44.9) % Plt Count 174 (140-400) K/mcL Neutrophils # 6.0 (1.6-8.9) K/mcL BMP 03/11/18 04:50 Sodium 137 Potassium 3.9 Chloride 100 Carbon Dioxide 26 BUN 38 H Creatinine 1.48 H Glucose 108 H Calcium 9.1 Cardiac Enzymes 03/11/18 Range/Units 04:50 Troponin I 0.03 (< 0.04) ng/mL Urine 03/11/18 Range/Units 05:26 Urine Color Yellow (Yellow) Urine Clarity Clear (Clear) Urine pH 6.5 (5.0-8.0) pH Units Ur Specific [place] 1.010 (1.010-1.025) Urine Protein Negative (Neg-Trace) mg/dL Urine Glucose (UA) Normal (Normal) mg/dL - Impressions ITS Impressions Chest X-Ray 03/11/18 04:43 IMPRESSION: Left lower lobe atelectasis or pneumonia. D/ / Oscar Bianchi MD / Oscar Bianchi MD Interpreting Provider: Oscar Bianchi MD - Assessment and plan (1) HCAP (healthcare-associated pneumonia) Current Visit: Yes Status: Acute Assessment and plan: -Patient with recent hospitalization in 3-4 day history of worsening shortness of breath with productive cough and imaging findings concerning of left lower lobe pneumonia -Has been given IV vancomycin, Levaquin, Zosyn; will continue and anticipate rapid de-escalation -Pain sputum sample if able -Check respiratory infection panel and influenza secondary to symptoms rapidly requesting a nursing facility per patient -Blood cultures obtained -Check urine Legionella and strep pneumococcus antigen (2) COPD (chronic obstructive pulmonary disease) Current Visit: Yes Status: Acute Assessment and plan: -Acute exacerbation of COPD likely instigated by left lower lobe pneumonia with possible viral infection -Continue IV steroids and wean as tolerated -Continue bronchodilators -Treatment of pneumonia as above Qualifiers: COPD type: COPD with acute exacerbation Qualified Code(s): J44.1 - Chronic obstructive pulmonary disease with (acute) exacerbation (3) HTN (hypertension) Current Visit: Yes Status: Acute Assessment and plan: -Blood pressure controlled -Patient reports issues with mild hypotension recently -We will resume metoprolol but at decreased dose of 50 mg twice a day -We will monitor Qualifiers: Hypertension type: essential hypertension Qualified Code(s): I10 - Essential (primary) hypertension (4) HLD (hyperlipidemia) Current Visit: Yes Status: Acute Assessment and plan: -Continue home medication Qualifiers: Hyperlipidemia type: mixed hyperlipidemia Qualified Code(s): E78.2 - Mixed hyperlipidemia (5) Chronic a-fib Current Visit: Yes Status: Acute Assessment and plan: -Chronic atrial fibrillation -Rate controlled -CHADSVASC of 8 however not on anticoagulation due to fall risk (6) CHF (congestive heart failure) Current Visit: Yes Status: Acute Assessment and plan: -Chronic compensated HFpEF with diastolic dysfunction -Not in acute exacerbation -Continue aspirin, beta chaim -Resume diuretic tomorrow in light of slightly elevated renal function today Qualifiers: Heart failure type: diastolic Heart failure chronicity: chronic Qualified Code(s): I50.32 - Chronic diastolic (congestive) heart failure (7) CKD (chronic kidney disease) Current Visit: No Status: Chronic Assessment and plan: -CKD stage III likely secondary to diabetes and hypertension -Serum creatinine slightly elevated from baseline at 1.48 today; recent baseline appears to be between 1.2 and 1.35 -We will hold diuretics today and resume tomorrow -AM BMP Qualifiers: Chronic kidney disease stage: stage 3 (moderate) Qualified Code(s): N18.3 - Chronic kidney disease, stage 3 (moderate) (8) CAD (coronary artery disease) Current Visit: Yes Status: Acute Assessment and plan: -recent LHC with non occlusive disease -no chest pain -continue asa, plavix, bb Qualifiers: Coronary Disease-Associated Artery/Lesion type: [place] artery [place] vs. transplanted heart: [place] heart Associated angina: without angina Qualified Code(s): I25.10 - Atherosclerotic heart disease of [place] coronary artery without angina pectoris (9) DVT prophylaxis Current Visit: Yes Status: Acute Assessment and plan: -sq heparin -scds - Time Spent With Patient Total time spent is greater than 50% in coordination of care (as documented) at patient's floor/unit and/or counseling patient: Greater than 35 minutes (45 minutes)
[2018-03-11] MEDS ORDERED: Acetaminophen 325 MG TABLET PO PRN (09:02)
[2018-03-11] MEDS ORDERED: NON-FORMULARY MEDICATION 1 EACH EACH (Oxygen [Oxygen] 1 EACH) NS SCH (09:15)
[2018-03-11] MEDS: Fluticasone Propionate Nasal 50 MCG/SPRAY BOTTLE NS SCH (11:02)
[2018-03-11] MEDS: methylPREDNISolone 125 MG/2 ML VIAL IVP SCH ×2 (12:18→16:37)
[2018-03-11] MEDS: Insulin LISPRO 300 UNITS/3 ML VIAL SQ SCH ×5 (12:19→21:47)
[2018-03-11] MEDS: *HR* Heparin 5,000 UNIT/ML VIAL SQ SCH (16:36)
[2018-03-11] MEDS: Ipratropium/Albuterol Neb 3 ML IH PRN (17:11)
[2018-03-11] MEDS: clonazePAM 0.5 MG TABLET PO SCH (21:46)
[2018-03-11] MEDS: *HR* OxyCODONE Immed Rel 5 MG TABLET PO SCH (22:35)
[2018-03-12] MEDS: methylPREDNISolone 125 MG/2 ML VIAL IVP SCH ×2 (00:10→05:25)
[2018-03-12] MEDS: *HR* Heparin 5,000 UNIT/ML VIAL SQ SCH ×3 (00:10→16:07)
[2018-03-12] MEDS: Ipratropium/Albuterol Neb 3 ML IH PRN (04:58)
[2018-03-12 05:18] LABS: Basophils % 0.1 %; Hematocrit 35.2 % (35.3-44.9); Hemoglobin 11.4 g/dL (11.5-15.4); Immature Granulocytes % 0.6 % (0-4); Lymphocytes # 0.9 K/mcL (0.6-4.6); Lymphocytes % 10.6 %; Mean Corpuscular HGB Conc 32.4 g/dL (31.6-35.5); Mean Corpuscular Hemoglobin 29.8 pg (28.0-33.3); Mean Corpuscular Volume 92.1 fL (83.0-100.0); Mean Platelet Volume 10.5 fL (9.4-12.4); Monocytes # 0.4 K/mcL (0.0-1.3); Monocytes % 4.9 %; Neutrophils # 7.1 K/mcL (1.6-8.9); Platelet Count 185 K/mcL (140-400); Red Blood Count 3.82 M/mcL (3.82-4.97); Red Cell Distribution Width 13.7 % (11.5-14.5); Segmented Neutrophils % 83.8 %
[2018-03-12 05:35] LABS: Calcium 9.6 mg/dL (8.6-10.3); Magnesium 1.6 mg/dL (1.6-2.6); Phosphorous 2.8 mg/dL (2.7-4.5); Potassium 4.3 mEq/L (3.5-5.1)
[2018-03-12 06:21] LABS: Adenovirus Not Detected (Not Detect); Bordetella Pertussis Not Detected (Not Detect); Chlamydophila pneumoniae Not Detected (Not Detect); Coronavirus 229E Not Detected (Not Detect); Coronavirus HKU1 Not Detected (Not Detect); Coronavirus NL63 Not Detected (Not Detect); Coronavirus OC43 Not Detected (Not Detect); Human Metapneumovirus Not Detected (Not Detect); Human Rhinovirus/Enterovirus DETECTED (Not Detect); Influenza A Subtype 2009 H1 Not Detected (Not Detect); Influenza A Untypeable Not Detected (Not Detect); Influenza B Not Detected (Not Detect); Mycoplasma pneumoniae Not Detected (Not Detect); Parainfluenza Virus 1 Not Detected (Not Detect); Parainfluenza Virus 2 Not Detected (Not Detect); Parainfluenza Virus 3 Not Detected (Not Detect); Parainfluenza Virus 4 Not Detected (Not Detect); Respiratory Syncytial Virus Not Detected (Not Detect)
[2018-03-12] MEDS: Insulin LISPRO 300 UNITS/3 ML VIAL SQ SCH ×5 (07:31→21:54)
[2018-03-12] MEDS ORDERED: Aminoglycoside Consult 1 EACH MC ONE (07:45)
[2018-03-12] MEDS: Furosemide 40 MG TABLET PO SCH (08:10)
[2018-03-12] MEDS: Fluticasone Propionate Nasal 50 MCG/SPRAY BOTTLE NS SCH (08:12)
[2018-03-12] MEDS: Ipratropium/Albuterol Neb 3 ML IH SCH ×4 (12:10→23:56)
--- NOTE | 2018-03-12 13:48 | Internal Med Progress Note ---
Hospitalist Progress Note - Encounter Date of Encounter: 03/12/18 Time of Encounter: 11:20 - Subjective Interval History: Ms. Gupta is a 82 y/o F with known past medical history of COPD, chronic hypoxic respiratory failure on 2 L home oxygen dependent, CAD, diabetes type II, hyperlipidemia, hypertension and TIA patient whose long-term resident at a local assisted was brought into the ER complaining about patient has been having worsening shortness of breath, cough with expectoration and flu like symptoms. She denied any CP. Her house respiratory viral panel came back positive for Entero / rhinovirus. Patient states she is feeling little better today. Denied any cough - Exam Vitals: Temp Pulse Resp BP Pulse Ox 97.6 F 60 18 134/61 98 03/12/18 11:55 03/12/18 11:55 03/12/18 12:10 03/12/18 11:55 03/12/18 12:10 Exam: Gen: Alert, awake, Oriented to time,place and person Chest: Diminished breath sounds B/L, moderate wheezing, No crackles, No rales, ronchi + Heart: S1S2+ RRR No murmurs Abd: Soft, NT, BS +, No organomegaly Ext: No edema, pulses are palpable, No calf tenderness Neuro : Benign findings Skin: No rash. - Assessment and Plan (1) HCAP (healthcare-associated pneumonia) Current Visit: Yes Status: Acute Assessment and Plan: Chest x-ray showed left lower lobe pneumonia mostly bacterial pneumonia continue empirical antibiotic levofloxacin d/c Vancomycin and Zosyn (2) COPD (chronic obstructive pulmonary disease) Current Visit: Yes Status: Acute Assessment and Plan: Acute exacerbation of COPD likely triggered by left lower lobe pneumonia and viral infection improving continue bronchodilators start tapering steroids currently on 2 lit oxygen which is her baseline (3) CKD (chronic kidney disease) Current Visit: No Status: Chronic Assessment and Plan: CKD - stage 3 stable creatinine at baseline (4) HTN (hypertension) Current Visit: Yes Status: Acute Assessment and Plan: -Blood pressure controlled -Patient reports issues with mild hypotension recently -We will resume metoprolol but at decreased dose of 50 mg twice a day -We will monitor (5) HLD (hyperlipidemia) Current Visit: Yes Status: Acute Assessment and Plan: -Continue home medication (6) Chronic a-fib Current Visit: Yes Status: Acute Assessment and Plan: Rate controlled with home medications CHADSVASC of 8 however not on anticoagulation due to fall risk (7) CHF (congestive heart failure) Current Visit: Yes Status: Acute Assessment and Plan: Chronic compensated HFpEF with diastolic dysfunction Not in acute exacerbation Continue aspirin, beta chaim (8) DVT prophylaxis Current Visit: Yes Status: Acute Assessment and Plan: -sq heparin -scds (9) CAD (coronary artery disease) Current Visit: Yes Status: Acute Assessment and Plan: recent C with non occlusive disease continue asa, plavix, bb - Time Spent with Patient Total time spent is greater than 50% in coordination of care (as documented) at patient's floor/unit and/or counseling patient: Internal Medicine: Result - Labs CBC & Chem 7: 03/12/18 04:45 03/12/18 04:45 Labs: Short CBC 03/12/18 Range/Units 04:45 WBC 8.5 (4.3-11.1) K/mcL Hgb 11.4 L (11.5-15.4) g/dL Hct 35.2 L (35.3-44.9) % Plt Count 185 (140-400) K/mcL Neutrophils # 7.1 (1.6-8.9) K/mcL BMP 03/12/18 04:45 Sodium 135 L Potassium 4.3 Chloride 103 Carbon Dioxide 20 L BUN 41 H Creatinine 1.37 H Glucose 238 H Calcium 9.6 - ABG Interpretation ABG results: PT/INR, D-dimer PT 12.9 Seconds (9.4-12.1) H 03/11/18 04:50 Consult Discharge Plan - Plan Referrals: Eden Wells MD [Primary Care Provider] - (2) COPD (chronic obstructive pulmonary disease) Qualifiers: COPD type: COPD with acute exacerbation Qualified Code(s): J44.1 - Chronic obstructive pulmonary disease with (acute) exacerbation (3) CKD (chronic kidney disease) Qualifiers: Chronic kidney disease stage: stage 3 (moderate) Qualified Code(s): N18.3 - Chronic kidney disease, stage 3 (moderate) (4) HTN (hypertension) Qualifiers: Hypertension type: essential hypertension Qualified Code(s): I10 - Essential (primary) hypertension (5) HLD (hyperlipidemia) Qualifiers: Hyperlipidemia type: mixed hyperlipidemia Qualified Code(s): E78.2 - Mixed hyperlipidemia (7) CHF (congestive heart failure) Qualifiers: Heart failure type: diastolic Heart failure chronicity: chronic Qualified Code(s): I50.32 - Chronic diastolic (congestive) heart failure (9) CAD (coronary artery disease) Qualifiers: Coronary Disease-Associated Artery/Lesion type: [place] artery [place] vs. transplanted heart: [place] heart Associated angina: without angina Qualified Code(s): I25.10 - Atherosclerotic heart disease of [place] coronary artery without angina pectoris
[2018-03-12] MEDS: MethylPREDNISolone 40 MG/ML VIAL IVP SCH (16:06)
[2018-03-12] MEDS: clonazePAM 0.5 MG TABLET PO SCH (21:50)
[2018-03-12] MEDS: *HR* OxyCODONE Immed Rel 5 MG TABLET PO SCH (21:51)
[2018-03-13] MEDS: MethylPREDNISolone 40 MG/ML VIAL IVP SCH ×2 (00:10→08:49)
[2018-03-13] MEDS: *HR* Heparin 5,000 UNIT/ML VIAL SQ SCH ×3 (00:11→16:54)
[2018-03-13] MEDS: Ipratropium/Albuterol Neb 3 ML IH SCH ×6 (04:50→23:31)
[2018-03-13 05:58] LABS: Basophils % 0.2 %; Hematocrit 35.7 % (35.3-44.9); Hemoglobin 11.4 g/dL (11.5-15.4); Immature Granulocytes % 1.1 % (0-4); Lymphocytes # 1.2 K/mcL (0.6-4.6); Lymphocytes % 10.9 %; Mean Corpuscular HGB Conc 31.9 g/dL (31.6-35.5); Mean Corpuscular Hemoglobin 29.9 pg (28.0-33.3); Mean Corpuscular Volume 93.7 fL (83.0-100.0); Mean Platelet Volume 10.3 fL (9.4-12.4); Monocytes # 0.4 K/mcL (0.0-1.3); Monocytes % 3.7 %; Neutrophils # 9.1 K/mcL (1.6-8.9); Platelet Count 191 K/mcL (140-400); Red Blood Count 3.81 M/mcL (3.82-4.97); Red Cell Distribution Width 13.9 % (11.5-14.5); Segmented Neutrophils % 84.1 %
[2018-03-13 06:16] LABS: Calcium 10.1 mg/dL (8.6-10.3); Potassium 5.1 mEq/L (3.5-5.1)
[2018-03-13] MEDS ORDERED: *HR* OxyCODONE Immed Rel 5 MG TABLET PO PRN (07:35)
[2018-03-13] MEDS: Insulin LISPRO 300 UNITS/3 ML VIAL SQ SCH ×4 (08:49→20:34)
[2018-03-13] MEDS: Fluticasone Propionate Nasal 50 MCG/SPRAY BOTTLE NS SCH (08:50)
[2018-03-13] MEDS: Furosemide 40 MG TABLET PO SCH (08:50)
[2018-03-13] MEDS ORDERED: Levofloxacin 750 MG/150 ML 750 MG/150 ML BAG IVPB SCH (09:00)
[2018-03-13] MEDS ORDERED: Furosemide 40 MG/4 ML VIAL IVP SCH ×2 (10:45→11:00)
--- NOTE | 2018-03-13 10:59 | Internal Med Progress Note ---
Hospitalist Progress Note - Encounter Date of Encounter: 03/13/18 Time of Encounter: 10:49 - Subjective Interval History: Ms. Gupta is a 82 year old female with past medical history of COPD and congestive heart failure presents to the [facility] emergency room for treatment of shortness of breath. Patient states that there has been a n outbreak of respiratory symptoms going around her half-way and she develop shortness of breath with wheezing and productive cough approximately 3 days ago.she was admitted for HCAP, asthma and COPD exacerbation, she is positive for Rhino virus, placed isolation. Patient is doing okay, she had hallucination last night, saw people sitting her room. We will reduce steroids dose. Patient is afebrile, on 3 L nasal cannula sating 100% he had she has good air movement, scant rhonchi. We will de- escalate antibiotics to Levaquin only, oral steroids tomorrow - Exam Vitals: Temp Pulse Resp BP Pulse Ox 97.4 F L 69 16 145/72 98 03/13/18 07:18 03/13/18 07:18 03/13/18 07:37 03/13/18 07:18 03/13/18 07:37 Exam: Gen: Alert, awake, Oriented to time,place and person Chest: Diminished breath sounds B/L, scant rhonchi, No crackles, No rales, ronchi + Heart: S1S2+ RRR No murmurs Abd: Soft, NT, BS +, No organomegaly Ext: No edema, pulses are palpable, No calf tenderness Neuro : Benign findings Skin: No rash. - Assessment and Plan (1) HCAP (healthcare-associated pneumonia) Current Visit: Yes Status: Acute Assessment and Plan: Chest x-ray showed left lower lobe pneumonia mostly bacterial pneumonia, continue levofloxacin positive Rhino virus (2) Hypertension Current Visit: Yes Status: Chronic Assessment and Plan: continue home meds (3) Obesity Current Visit: Yes Status: Chronic (4) CKD (chronic kidney disease) Current Visit: Yes Status: Chronic Assessment and Plan: avoid nephrotocxicity (5) Congestive heart failure Current Visit: Yes Status: Chronic Assessment and Plan: conitnue home lasix (6) COPD (chronic obstructive pulmonary disease) Current Visit: Yes Status: Acute Assessment and Plan: patient has acute on chronic COPD /asthma exacerbation, taper steroids, wheezing improved (7) HTN (hypertension) Current Visit: Yes Status: Chronic (8) HLD (hyperlipidemia) Current Visit: Yes Status: Chronic (9) Chronic a-fib Current Visit: Yes Status: Chronic Assessment and Plan: continue home meds (10) CAD (coronary artery disease) Current Visit: Yes Status: Chronic - Time Spent with Patient Total time spent is greater than 50% in coordination of care (as documented) at patient's floor/unit and/or counseling patient: 25 - 35 minutes Plan of Care Discussed with: patient Internal Medicine: Result - Labs CBC & Chem 7: 03/13/18 05:33 03/13/18 05:33 Labs: Short CBC 03/13/18 Range/Units 05:33 WBC 10.8 (4.3-11.1) K/mcL Hgb 11.4 L (11.5-15.4) g/dL Hct 35.7 (35.3-44.9) % Plt Count 191 (140-400) K/mcL Neutrophils # 9.1 H (1.6-8.9) K/mcL BMP 03/13/18 05:33 Sodium 138 Potassium 5.1 Chloride 104 Carbon Dioxide 26 BUN 41 H Creatinine 1.25 H Glucose 210 H Calcium 10.1 - ABG Interpretation ABG results: PT/INR, D-dimer PT 12.9 Seconds (9.4-12.1) H 03/11/18 04:50 Consult Discharge Plan - Plan Referrals: Eden Wells MD [Primary Care Provider] - (2) Hypertension Qualifiers: Hypertension type: essential hypertension Qualified Code(s): I10 - Essential (primary) hypertension (3) Obesity Qualifiers: Obesity type: due to excess calories Obesity classification: adult class 2 (BMI 35 - 39.9) Serious obesity comorbidity presence: without serious comorbidity Body mass index: BMI 37.0-37.9 Qualified Code(s): E66.09 - Other obesity due to excess calories; Z68.37 - Body mass index (BMI) 37.0-37.9, adult (4) CKD (chronic kidney disease) Qualifiers: Chronic kidney disease stage: stage 3 (moderate) Qualified Code(s): N18.3 - Chronic kidney disease, stage 3 (moderate) (5) Congestive heart failure Qualifiers: Heart failure type: diastolic Heart failure chronicity: unspecified Qualified Code(s): I50.30 - Unspecified diastolic (congestive) heart failure (6) COPD (chronic obstructive pulmonary disease) Qualifiers: COPD type: COPD with acute exacerbation Qualified Code(s): J44.1 - Chronic obstructive pulmonary disease with (acute) exacerbation (7) HTN (hypertension) Qualifiers: Hypertension type: essential hypertension Qualified Code(s): I10 - Essential (primary) hypertension (8) HLD (hyperlipidemia) Qualifiers: Hyperlipidemia type: mixed hyperlipidemia Qualified Code(s): E78.2 - Mixed hyperlipidemia (10) CAD (coronary artery disease) Qualifiers: Coronary Disease-Associated Artery/Lesion type: [place] artery [place] vs. transplanted heart: [place] heart Associated angina: without angina Qualified Code(s): I25.10 - Atherosclerotic heart disease of [place] coronary artery without angina pectoris
[2018-03-13] MEDS: predniSONE 20 MG TABLET PO SCH (16:54)
[2018-03-13] MEDS ORDERED: MethylPREDNISolone 40 MG/ML VIAL IVP SCH (18:00)
[2018-03-13] MEDS: clonazePAM 0.5 MG TABLET PO SCH (20:32)
[2018-03-13] MEDS: Acetaminophen 325 MG TABLET PO PRN (20:34)
[2018-03-14] MEDS: *HR* Heparin 5,000 UNIT/ML VIAL SQ SCH ×3 (01:06→16:34)
[2018-03-14] MEDS: Ipratropium/Albuterol Neb 3 ML IH SCH ×5 (03:37→20:10)
[2018-03-14] MEDS: predniSONE 20 MG TABLET PO SCH (08:21)
[2018-03-14] MEDS: Fluticasone Propionate Nasal 50 MCG/SPRAY BOTTLE NS SCH (08:21)
[2018-03-14] MEDS: Furosemide 40 MG TABLET PO SCH (08:21)
[2018-03-14] MEDS: Insulin LISPRO 300 UNITS/3 ML VIAL SQ SCH ×4 (08:22→22:33)
--- NOTE | 2018-03-14 09:50 | Internal Med Progress Note ---
<Mary Alice Butler - Last Filed: 03/14/18 10:58> Hospitalist Progress Note - Encounter Time of Encounter: 08:30 - Subjective Interval History: pt is a 82 Yo female with a h/o CHF and COPD. She presented to [facility] ED c/o increasing SOB accopanied by wheezing. She stated she was having a productive cough with bright yellow sputum as well as chest tightness. Pt states these symptoms began 3 days prior and were increasing in severity. 03/11/18 Chest X ray was ordered and showed LLL PNA 03/11/18 Resp panel positive for entero/rhinovirus 03/12/18 Today pt was seen and examined at bedside. She states that she was having hallucinations last night of "someone across the [place] stealing a bed rail." Pt is mildy distressed by this and claims that "she wants her mind to go back to normal." Today pt denies chest pain, palpitations, NVD, syncope, SOB, fever, H/A, changes in vision, edema, chills. She denies having productive sputum production, but admits to blowing bright yellow mucus out of her nose. She states today she feels much better than yesterday. - Exam Vitals: Temp Pulse Resp BP Pulse Ox 97.6 F 61 17 151/68 99 03/14/18 07:20 03/14/18 07:20 03/14/18 07:20 03/14/18 07:20 03/14/18 07:20 Exam: general: AAOX3, mildy distressed d/t hallucinations from previous night HEENT: EOMI, normocephalic Cardio: RRR, distant heart sounds Lungs: mild expiratory wheezing bilaterally Abdomen: normal BSX4, soft, nondistended, nontender to palpation Extremities: mild leg edema bilaterally Lymph: no cervical or supraclavicular lymphadenopathy - Assessment and Plan (1) HCAP (healthcare-associated pneumonia) Current Visit: Yes Status: Acute Assessment and Plan: LLL PNA per chest Xray respiratory panel + for entero/rhinovirus Plan: -continue levofloxacin, on day 3/7 -on 3L O2 nasal cannula (2) COPD (chronic obstructive pulmonary disease) Current Visit: No Status: Chronic Assessment and Plan: pt has a chronic h/o COPD acute on chronic exacerbation most likely d/t LLL PNA and viral infection Plan: -on 3L O2 nasal cannula -on PO prednisone -taking albuterol, duoneb, and fluticasone (3) DM type 2 (diabetes mellitus, type 2) Current Visit: No Status: Chronic Assessment and Plan: Pt has a chronic h/o of T2DM glucose on 03/12/18 was 238, on 03/13/18 was 210 plan: -start on glipizide -on corrective low dose insulin (4) CAD (coronary artery disease) Current Visit: No Status: Chronic Assessment and Plan: chronic h/o CAD plan: -continue aspirin (5) Congestive heart failure Current Visit: Yes Status: Chronic Assessment and Plan: pt has a chronic h/o CHF today pt has mild b/l leg edema Plan: -on lasix (6) HTN (hypertension) Current Visit: Yes Status: Chronic Assessment and Plan: pt has a chronic h/o HTN BP on 03/13/18 was 122/62, today BP is 151/68 Plan: -on lopressor (7) CKD (chronic kidney disease) Current Visit: Yes Status: Chronic Assessment and Plan: pt has a h/o CKD BUN is 41 on 03/13/18 Cr is 1.25 on 03/13/18 GFR is 41 on 03/13/18 plan: -avoid nephrotoxicity (8) HLD (hyperlipidemia) Current Visit: Yes Status: Chronic Assessment and Plan: pt has chronic h/o HLD plan: -on lipitor (9) Chronic a-fib Current Visit: Yes Status: Chronic Assessment and Plan: pt has a h/o chronic a-fib plan: -on plavix and lopressor (10) DVT prophylaxis Current Visit: No Status: Acute Assessment and Plan: plan: -Heparin SQ - Time Spent with Patient Total time spent is greater than 50% in coordination of care (as documented) at patient's floor/unit and/or counseling patient: Internal Medicine: Result - Labs CBC & Chem 7: 03/13/18 05:33 03/13/18 05:33 - ABG Interpretation ABG results: PT/INR, D-dimer PT 12.9 Seconds (9.4-12.1) H 03/11/18 04:50 Consult Discharge Plan - Plan Referrals: Eden Wells MD [Primary Care Provider] - <Negar Villalobos - Last Filed: 03/15/18 08:04> Hospitalist Progress Note - Encounter Date of Encounter: 03/14/18 - Exam Vitals: Temp Pulse Resp BP Pulse Ox 97.6 F 65 18 126/69 98 03/14/18 11:11 03/14/18 11:11 03/14/18 11:11 03/14/18 11:11 03/14/18 11:11 - Assessment and Plan (1) CKD (chronic kidney disease) Current Visit: Yes Status: Chronic (2) HCAP (healthcare-associated pneumonia) Current Visit: Yes Status: Acute (3) COPD (chronic obstructive pulmonary disease) Current Visit: Yes Status: Acute (4) HTN (hypertension) Current Visit: Yes Status: Chronic (5) HLD (hyperlipidemia) Current Visit: Yes Status: Chronic (6) Chronic a-fib Current Visit: Yes Status: Chronic (7) CHF (congestive heart failure) Current Visit: Yes Status: Acute (8) DVT prophylaxis Current Visit: Yes Status: Acute (9) CAD (coronary artery disease) Current Visit: No Status: Chronic - Time Spent with Patient Total time spent is greater than 50% in coordination of care (as documented) at patient's floor/unit and/or counseling patient: Internal Medicine: Result - Labs CBC & Chem 7: 03/15/18 04:47 03/15/18 04:47 - ABG Interpretation ABG results: PT/INR, D-dimer PT 12.9 Seconds (9.4-12.1) H 03/11/18 04:50 - Attending Attestation The history, physical exam, and medical decision making was performed by the medical student Carrie either while I was physically present and actively involved or I personally re-performed the exam and medical decision making. I have verified the accuracy of the medical student's documentation with regards to the history, physical exam findings, and medical decision making. Ms Gupta was admitted on 03/11 with sob, fever and LLL pna and is being treated for pna. She has addl med hx of copd, diastolic chf, afib, cad, dm, htn and tia. She is + rhinovirus. awake, pleasant, sob greatly improved, denies fevers or chills. + cough, dry, no sputum and has been unable to provide sample. She has had some nighttime hallucinations on steroids and was changed to oral by previous provider. She feels "more clear" but is nervous it will happen again tonight. Encouraged to increase activity and monitor symptoms. gen- alert, awake,appears stated age eyes- pupils equal round , eom intact cv- reg rate and rhythm, normal s1,s2, no murmurs appreciated, no le edema or jvd lungs- ctabl, no wheezing, rhonchi or crackles, normal resp effort on o2 nc abd- soft, non tender, non distended, + bs neuro- AAOx3 HCAP, organism unknown, + Rhonivirus -cont levaquin, now PO steroid, bronchodilators, supplemental o2 nc no sputum cx as can't proivde saple, legionella/strep neg COPD exacerbation 2/2 to above- treatment as above CAD, Diastolic CHF stable- cont home asa, statin, plavix, lasix, BB, not on acei or arb (suspect secondary to kidney function), home aldactone was held on admission as was imdur, uncertain as to why, bps are normotensive on current regimen and she is euvolemic, cont to assess for need to add back Hyperglycemia in setting of DM- has been on sSI, resume home glipizide, cont to monitor CKD, stage unknown, based off GFR here Stage III, appears at baseline currently, avoid nephro toxic agents Chronic afib, not on aC- on asa and plavix, BB, NSR here Further assessment and plan as documented by student <Mary Alice Butler - Last Filed: 03/14/18 10:58> (2) COPD (chronic obstructive pulmonary disease) Qualifiers: COPD type: unspecified COPD Qualified Code(s): J44.9 - Chronic obstructive pulmonary disease, unspecified (3) DM type 2 (diabetes mellitus, type 2) Qualifiers: Diabetes mellitus intermediate insulin use: without intermediate use Diabetes mellitus complication status: with neurologic complications Diabetes mellitus complication detail: with polyneuropathy Qualified Code(s): E11.42 - Type 2 diabetes mellitus with diabetic polyneuropathy (4) CAD (coronary artery disease) Qualifiers: Coronary Disease-Associated Artery/Lesion type: [place] artery [place] vs. transplanted heart: [place] heart Associated angina: without angina Qualified Code(s): I25.10 - Atherosclerotic heart disease of [place] coronary artery without angina pectoris (5) Congestive heart failure Qualifiers: Heart failure type: diastolic Heart failure chronicity: unspecified Qualified Code(s): I50.30 - Unspecified diastolic (congestive) heart failure (6) HTN (hypertension) Qualifiers: Hypertension type: essential hypertension Qualified Code(s): I10 - Essential (primary) hypertension (7) CKD (chronic kidney disease) Qualifiers: Chronic kidney disease stage: stage 3 (moderate) Qualified Code(s): N18.3 - Chronic kidney disease, stage 3 (moderate) (8) HLD (hyperlipidemia) Qualifiers: Hyperlipidemia type: mixed hyperlipidemia Qualified Code(s): E78.2 - Mixed hyperlipidemia <Negar Villalobos - Last Filed: 03/15/18 08:04> (1) CKD (chronic kidney disease) Qualifiers: Chronic kidney disease stage: stage 3 (moderate) Qualified Code(s): N18.3 - Chronic kidney disease, stage 3 (moderate) (3) COPD (chronic obstructive pulmonary disease) Qualifiers: COPD type: COPD with acute exacerbation Qualified Code(s): J44.1 - Chronic obstructive pulmonary disease with (acute) exacerbation (4) HTN (hypertension) Qualifiers: Hypertension type: essential hypertension Qualified Code(s): I10 - Essential (primary) hypertension (5) HLD (hyperlipidemia) Qualifiers: Hyperlipidemia type: mixed hyperlipidemia Qualified Code(s): E78.2 - Mixed hyperlipidemia (7) CHF (congestive heart failure) Qualifiers: Heart failure type: diastolic Heart failure chronicity: chronic Qualified Code(s): I50.32 - Chronic diastolic (congestive) heart failure (9) CAD (coronary artery disease) Qualifiers: Coronary Disease-Associated Artery/Lesion type: [place] artery [place] vs. transplanted heart: [place] heart Associated angina: without angina Qualified Code(s): I25.10 - Atherosclerotic heart disease of [place] coronary artery without angina pectoris
[2018-03-14] MEDS: Aspirin Enteric Coated 81 MG Tablet PO SCH (12:02)
[2018-03-14] MEDS ORDERED: Melatonin 3 MG TABLET PO SCH (21:00)
[2018-03-14] MEDS: Acetaminophen 325 MG TABLET PO PRN (22:28)
[2018-03-14] MEDS: clonazePAM 0.5 MG TABLET PO SCH (22:29)
[2018-03-15] MEDS: Ipratropium/Albuterol Neb 3 ML IH SCH ×5 (00:23→16:07)
[2018-03-15] MEDS: *HR* Heparin 5,000 UNIT/ML VIAL SQ SCH ×2 (00:39→09:37)
[2018-03-15 05:14] LABS: Hemoglobin 11.3 g/dL (11.5-15.4); Mean Corpuscular HGB Conc 32.3 g/dL (31.6-35.5); Mean Corpuscular Hemoglobin 30.1 pg (28.0-33.3); Mean Corpuscular Volume 93.1 fL (83.0-100.0); Platelet Count 177 K/mcL (140-400); Red Blood Count 3.76 M/mcL (3.82-4.97); Red Cell Distribution Width 13.7 % (11.5-14.5)
[2018-03-15] MEDS ORDERED: *HR* GlipiZIDE XL (24 HR) 10 MG TABLET PO SCH (08:00)
[2018-03-15] MEDS ORDERED: Isosorbide MONOnitrate (24 HR) 60 MG TAB.ER.24H PO SCH (09:00)
[2018-03-15] MEDS ORDERED: levoFLOXacin 750 MG TABLET PO SCH (09:00)
--- NOTE | 2018-03-15 09:28 | Internal Med Progress Note ---
<Jordy Sotomayor W - Last Filed: 03/15/18 14:47> Hospitalist Progress Note - Encounter Date of Encounter: 03/15/18 Time of Encounter: 08:00 - Subjective Interval History: Pt seen sitting up in bed in follow up for pneumonia and dyspnea. Pt states that overall she feels better today compared to yesterday. Pt states that she feels less SOB and coughing less. She feels comfortable on her home 3L NC O2 dose. Admits to some CP, but states it's just a heaviness feeling when she coughs. Denies n/v/f/c/ray. - Exam Vitals: Temp Pulse Resp BP Pulse Ox 97.8 F 67 18 149/65 99 03/15/18 07:41 03/15/18 07:41 03/15/18 07:41 03/15/18 07:41 03/15/18 07:41 Exam: general: NAD, elderly female HEENT: EOMI, normocephalic, still sore throat, mucus membranes dry Cardio: RRR, distant heart sounds Lungs: mild expiratory wheezing bilaterally, no rhonchi or rales Abdomen: normal BSX4, soft, nondistended, nontender to palpation Extremities: mild leg edema bilaterally, some mild erythema Lymph: no cervical or supraclavicular lymphadenopathy Neuro: A&O x3, no focal deficits Psych: normal mood, appropriate affect - Assessment and Plan (1) HCAP (healthcare-associated pneumonia) Current Visit: Yes Status: Acute Assessment and Plan: -CXR: LLL PNA -respiratory panel: positive for enterovirus and rhinovirus -continue levoquin; day 4 of 7 for treatment -continue on baseline of 3L NC O2 -continue breathing treatments -continue PO prednisone; monitor for any more hallucinations (2) Congestive heart failure Current Visit: Yes Status: Chronic Assessment and Plan: -continue 40mg PO lasix -monitor I/Os (3) COPD (chronic obstructive pulmonary disease) Current Visit: No Status: Chronic Assessment and Plan: -see treatment for HCAP (4) Atrial fibrillation Current Visit: No Status: Chronic Assessment and Plan: -CHADS-VASc of 6 -not on anticoagulation other than ASA (5) Hypertension Current Visit: Yes Status: Chronic Assessment and Plan: -continue home BP meds (6) CKD (chronic kidney disease) Current Visit: Yes Status: Chronic Assessment and Plan: -renally dosed medications -monitor fluid status and BMPs DVT Prophylaxis: heparin - Time Spent with Patient Total time spent is greater than 50% in coordination of care (as documented) at patient's floor/unit and/or counseling patient: 25 - 35 minutes Plan of Care Discussed with: patient Internal Medicine: Result - Labs CBC & Chem 7: 03/15/18 04:47 03/15/18 04:47 Labs: Short CBC 03/15/18 Range/Units 04:47 WBC 11.0 (4.3-11.1) K/mcL Hgb 11.3 L (11.5-15.4) g/dL Hct 35.0 L (35.3-44.9) % Plt Count 177 (140-400) K/mcL BMP 03/15/18 04:47 Sodium 138 Potassium 4.0 Chloride 102 Carbon Dioxide 26 BUN 43 H Creatinine 1.36 H Glucose 188 H Calcium 9.0 - ABG Interpretation ABG results: PT/INR, D-dimer PT 12.9 Seconds (9.4-12.1) H 03/11/18 04:50 Consult Discharge Plan - Plan Referrals: Eden Wells MD [Primary Care Provider] - (Patient will follow up with F PCP) Prescriptions: clonazePAM [Klonopin] 0.5 mg PO HS 1 Days #1 tablet MethylPREDNISolone [MethylPREDNISolone Dose Pack] 4 mg PO TAPER #21 tab Oxycodone HCl [Roxybond] 5 mg PO QID PRN 1 Days #4 tablet.orl PRN Reason: Pain <Negar Villalobos - Last Filed: 03/15/18 16:20> Hospitalist Progress Note - Encounter Date of Encounter: 03/15/18 - Exam Vitals: Temp Pulse Resp BP Pulse Ox 97.7 F 60 14 104/61 97 03/15/18 11:44 03/15/18 11:44 03/15/18 11:44 03/15/18 11:44 03/15/18 11:44 - Assessment and Plan (1) CKD (chronic kidney disease) Current Visit: Yes Status: Chronic (2) HCAP (healthcare-associated pneumonia) Current Visit: Yes Status: Acute (3) COPD (chronic obstructive pulmonary disease) Current Visit: Yes Status: Acute (4) HTN (hypertension) Current Visit: Yes Status: Chronic (5) HLD (hyperlipidemia) Current Visit: Yes Status: Chronic (6) Chronic a-fib Current Visit: Yes Status: Chronic (7) CHF (congestive heart failure) Current Visit: Yes Status: Acute (8) DVT prophylaxis Current Visit: Yes Status: Acute (9) CAD (coronary artery disease) Current Visit: No Status: Chronic - Time Spent with Patient Total time spent is greater than 50% in coordination of care (as documented) at patient's floor/unit and/or counseling patient: Internal Medicine: Result - Labs CBC & Chem 7: 03/15/18 04:47 03/15/18 04:47 Labs: Short CBC 03/15/18 Range/Units 04:47 WBC 11.0 (4.3-11.1) K/mcL Hgb 11.3 L (11.5-15.4) g/dL Hct 35.0 L (35.3-44.9) % Plt Count 177 (140-400) K/mcL BMP 03/15/18 04:47 Sodium 138 Potassium 4.0 Chloride 102 Carbon Dioxide 26 BUN 43 H Creatinine 1.36 H Glucose 188 H Calcium 9.0 - ABG Interpretation ABG results: PT/INR, D-dimer PT 12.9 Seconds (9.4-12.1) H 03/11/18 04:50 - Attending Attestation The history, physical exam, and medical decision making was performed by the medical student Светлана either while I was physically present and actively involved or I personally re-performed the exam and medical decision making. I have verified the accuracy of the medical student's documentation with regards to the history, physical exam findings, and medical decision making. Ms Gupta was admitted on 03/11 with sob, fever and LLL pna and is being treated for pna. She has addl med hx of copd, diastolic chf, afib, cad, dm, htn and tia. She is + rhinovirus. With IV steroids she had nighttime hallucinations which have since resolved. She is clinically iproved and stable and will dc to her SNF to cont outpt abx course and steroid taper to completion. awake, pleasant, feeling overall much better. sob improved, cough improved, deneis wheezing, fevers or chills. slept well with melatonin last night, no hallucinations. gen- alert, awake,appears stated age cv- reg rate and rhythm, normal s1,s2, no murmurs appreciated, no le edema or jvd lungs- ctabl, no wheezing, rhonchi or crackles, normal resp effort on o2 nc, good air movement throughout abd- soft, non tender, non distended, + bs neuro- AAOx3 HCAP, organism unknown, + Rhonivirus -cont levaquin for two addl doses to complete course, dosed by pharmacy given renal funciton, PO steroid taper, bronchodilators, supplemental o2 nc, cont home copd medication regimen no sputum cx as couldnt provide sample, legionella/strep neg, bl cxs ngtd at time of dc, afebrile and no leukocytosis COPD exacerbation 2/2 to above- treatment as above CAD, Diastolic CHF stable- cont home asa, statin, plavix, lasix, BB, not on acei or arb (suspect secondary to kidney function), home aldactone was held on admission as was imdur, uncertain as to why, bps are normotensive on current regimen and she is euvolemic, she may resume her victor hugo emedication regimen upon dc with outpt fu Hyperglycemia in setting of DM- has been on SSI, resumed home glipizide with good effect, steroid tapering, cont to monitor at SNF, cont home gipizide on dc CKD, stage unknown, based off GFR here Stage III, appears at baseline currently Chronic afib, not on aC- on asa and plavix, BB, NSR here dc back to snf in stable condition <Jordy Sotomayor - Last Filed: 03/15/18 14:47> (2) Congestive heart failure Qualifiers: Heart failure type: diastolic Heart failure chronicity: unspecified Qualified Code(s): I50.30 - Unspecified diastolic (congestive) heart failure (3) COPD (chronic obstructive pulmonary disease) Qualifiers: COPD type: unspecified COPD Qualified Code(s): J44.9 - Chronic obstructive pulmonary disease, unspecified (4) Atrial fibrillation Qualifiers: Atrial fibrillation type: paroxysmal Qualified Code(s): I48.0 - Paroxysmal atrial fibrillation (5) Hypertension Qualifiers: Hypertension type: essential hypertension Qualified Code(s): I10 - Essential (primary) hypertension (6) CKD (chronic kidney disease) Qualifiers: Chronic kidney disease stage: stage 3 (moderate) Qualified Code(s): N18.3 - Chronic kidney disease, stage 3 (moderate) <Negar Villalobos - Last Filed: 03/15/18 16:20> (1) CKD (chronic kidney disease) Qualifiers: Chronic kidney disease stage: stage 3 (moderate) Qualified Code(s): N18.3 - Chronic kidney disease, stage 3 (moderate) (3) COPD (chronic obstructive pulmonary disease) Qualifiers: COPD type: COPD with acute exacerbation Qualified Code(s): J44.1 - Chronic obstructive pulmonary disease with (acute) exacerbation (4) HTN (hypertension) Qualifiers: Hypertension type: essential hypertension Qualified Code(s): I10 - Essential (primary) hypertension (5) HLD (hyperlipidemia) Qualifiers: Hyperlipidemia type: mixed hyperlipidemia Qualified Code(s): E78.2 - Mixed hyperlipidemia (7) CHF (congestive heart failure) Qualifiers: Heart failure type: diastolic Heart failure chronicity: chronic Qualified Code(s): I50.32 - Chronic diastolic (congestive) heart failure (9) CAD (coronary artery disease) Qualifiers: Coronary Disease-Associated Artery/Lesion type: [place] artery [place] vs. transplanted heart: [place] heart Associated angina: without angina Qualified Code(s): I25.10 - Atherosclerotic heart disease of [place] coronary artery without angina pectoris
[2018-03-15] MEDS: predniSONE 20 MG TABLET PO SCH (09:37)
[2018-03-15] MEDS: Furosemide 40 MG TABLET PO SCH (09:37)
[2018-03-15] MEDS: Aspirin Enteric Coated 81 MG Tablet PO SCH (09:37)
[2018-03-15] MEDS: Fluticasone Propionate Nasal 50 MCG/SPRAY BOTTLE NS SCH (09:38)
[2018-03-15] MEDS: Insulin LISPRO 300 UNITS/3 ML VIAL SQ SCH ×2 (09:38→12:12)
[2018-03-15 11:45] VITALS: BP 104/61
--- NOTE | 2018-03-15 13:45 | Discharge Summary ---
<Saud Jeronimo - Last Filed: 03/15/18 14:22> Orders not resulted at time of discharge: Pending orders 03/11/18 06:36 Culture,Blood [BC] Stat 03/11/18 09:27 Sputum Culture [Culture,Sputum with Gram Stain] [] Routine Date of Encounter: 03/15/18 - Discharge Diagnosis (1) CKD (chronic kidney disease) Status: Chronic Qualifiers: Chronic kidney disease stage: stage 3 (moderate) Qualified Code(s): N18.3 - Chronic kidney disease, stage 3 (moderate) (2) HCAP (healthcare-associated pneumonia) Status: Acute (3) COPD (chronic obstructive pulmonary disease) Status: Acute Qualifiers: COPD type: COPD with acute exacerbation Qualified Code(s): J44.1 - Chronic obstructive pulmonary disease with (acute) exacerbation (4) HTN (hypertension) Status: Chronic Qualifiers: Hypertension type: essential hypertension Qualified Code(s): I10 - Essential (primary) hypertension (5) HLD (hyperlipidemia) Status: Chronic Qualifiers: Hyperlipidemia type: mixed hyperlipidemia Qualified Code(s): E78.2 - Mixed hyperlipidemia (6) Chronic a-fib Status: Chronic (7) CHF (congestive heart failure) Status: Acute Qualifiers: Heart failure type: diastolic Heart failure chronicity: chronic Qualified Code(s): I50.32 - Chronic diastolic (congestive) heart failure (8) DVT prophylaxis Status: Acute (9) CAD (coronary artery disease) Status: Chronic Qualifiers: Coronary Disease-Associated Artery/Lesion type: ak chin artery [place] vs. transplanted heart: ak chin heart Associated angina: without angina Qualified Code(s): I25.10 - Atherosclerotic heart disease of ak chin coronary artery without angina pectoris Hospital course: Ms. Gupta is a 82 year old female - Time Spent with Patient Total time spent providing and/or coordinating discharge services: Greater than 30 minutes - Discharge Medications Prescriptions: clonazePAM [Klonopin] 0.5 mg PO HS 1 Days #1 tablet MethylPREDNISolone [MethylPREDNISolone Dose Pack] 4 mg PO TAPER #21 tab Oxycodone HCl [Roxybond] 5 mg PO QID PRN 1 Days #4 tablet.orl PRN Reason: Pain Home Medications: Albuterol Sulfate [Ventolin Hfa] 2 puff IH Q4H PRN 06/12/15 [History] Atorvastatin [Lipitor] 40 mg PO HS 06/12/15 [History] Metoprolol [Lopressor] 75 mg PO BID 06/12/15 [History] Nitroglycerin [Nitrostat] 0.4 mg SL Q5M PRN 06/12/15 [History] Citalopram Hydrobromide [Citalopram HBr] 10 mg PO DAILY 08/02/17 [History] Fluticasone Propionate Nasal [Flonase] 50 mcg NS DAILY 08/02/17 [History] Oxygen 1 each NS AD 08/02/17 [History] Acetaminophen [Non-Aspirin] 650 mg PO TID 08/21/17 [History] Loperamide [Imodium] 2 mg PO QID PRN 09/25/17 [History] Meloxicam [Mobic] 7.5 mg PO DAILY 09/25/17 [History] Ipratropium/Albuterol Neb [Duoneb] 3 ml IH [id number] PRN inhsol 09/28/17 [Rx] Spironolactone [Aldactone] 50 mg PO DAILY 01/18/18 [History] Clopidogrel [Plavix] 75 mg PO DAILY 30 Days #30 tablet 01/23/18 [Rx] Aspirin [Adult Aspirin Regimen] 81 mg PO DAILY 03/11/18 [History] Benzonatate [Tessalon] 100 mg PO TID 03/11/18 [History] Guaifenesin [Mucinex] 1,200 mg PO DAILY 03/11/18 [History] Isosorbide MONOnitrate (24 HR) [Imdur] 60 mg PO DAILY 03/11/18 [History] Loratadine [Claritin] 10 mg PO DAILY 03/11/18 [History] Furosemide [Lasix] 40 mg PO DAILY #0 tablet 03/15/18 [Rx] GlipiZIDE XL (24 HR) [Glucotrol XL] 10 mg PO 0800 tab.er.24 03/15/18 [Rx] MethylPREDNISolone [MethylPREDNISolone Dose Pack] 4 mg PO TAPER #21 tab 03/15/18 [Rx] Oxycodone HCl [Roxybond] 5 mg PO QID PRN 1 Days #4 tablet.orl 03/15/18 [Rx] clonazePAM [Klonopin] 0.5 mg PO HS 1 Days #1 tablet 03/15/18 [Rx] levoFLOXacin [Levaquin] 750 mg PO Q48H #2 tablet 03/15/18 [Rx] Allergies/Adverse Reactions: Allergy/AdvReac Type Severity Reaction Status Date / Time codeine AdvReac Severe Hallucinati Verified 03/13/18 11:11 ng morphine AdvReac Severe Hallucinati Verified 03/13/18 11:11 ng Date of admission: 03/11/18 09:15 Primary care physician: Eden Wells Consults: 03/12/18 11:40 Consult to Nurse Navigator [CONS] Routine Comment: copd,pneumonia 03/13/18 08:17 Consult to [facility] [CONS] Routine Reason for SW Consult: return to signature, bed hold 03/13/18 10:47 Consult to Physical Therapy [CONS] Stat Comment: Evaluate, develop and implement POC Reason for Consult: fall at home Does patient have active BEDREST order?: No Is patient medically & hemodynamically stable?: Yes Patient assessed for mobility or mobilized this visit?: Yes - Constitutional Vitals: Temp Pulse Resp BP Pulse Ox 97.7 F 60 14 104/61 97 03/15/18 11:44 03/15/18 11:44 03/15/18 11:44 03/15/18 11:44 03/15/18 11:44 - Patient Status Disposition: Transfer SNF Condition: Good Functional capacity at discharge: independent ambulation Overall status at discharge: patient is progressing back to baseline - Discharge Instructions Follow Up With: Eden Wells MD [Primary Care Provider] - (Patient will follow up with [facility] PCP) <Jordy Sotomayor - Last Filed: 03/15/18 14:47> - NOTES TO OUTPATIENT PROVIDER Notes to Outpatient Provider: Continue levoquin 750mg every 48 hours for 2 more doses. Next dose is 03/17 and final dose is 03/19. Medrol dose pack will be given upon discharge. Orders not resulted at time of discharge: Pending orders 03/11/18 06:36 Culture,Blood [BC] Stat 03/11/18 09:27 Sputum Culture [Culture,Sputum with Gram Stain] [RM] Routine Date of Encounter: 03/15/18 Time of Encounter: 08:20 - Discharge Diagnosis (1) HCAP (healthcare-associated pneumonia) Priority: Primary Status: Acute Assessment and Plan: -CXR: LLL PNA -respiratory panel: positive for enterovirus and rhinovirus -continue levoquin; will have 2 more doses upon discharge -continue on baseline of 3L NC O2 -continue breathing treatments -outpatient medrol steroid dose pack (2) Congestive heart failure Priority: Secondary Status: Chronic Assessment and Plan: -continue 40mg PO lasix -monitor I/Os Qualifiers: Heart failure type: diastolic Heart failure chronicity: unspecified Qualified Code(s): I50.30 - Unspecified diastolic (congestive) heart failure (3) COPD (chronic obstructive pulmonary disease) Priority: Secondary Status: Chronic Assessment and Plan: -see treatment for HCAP Qualifiers: COPD type: unspecified COPD Qualified Code(s): J44.9 - Chronic obstructive pulmonary disease, unspecified (4) Atrial fibrillation Priority: Secondary Status: Chronic Assessment and Plan: -CHADS-VASc of 6 -not on anticoagulation other than ASA Qualifiers: Atrial fibrillation type: paroxysmal Qualified Code(s): I48.0 - Paroxysmal atrial fibrillation (5) Hypertension Priority: Secondary Status: Chronic Assessment and Plan: -continue home BP meds Qualifiers: Hypertension type: essential hypertension Qualified Code(s): I10 - Essential (primary) hypertension (6) CKD (chronic kidney disease) Priority: Secondary Status: Chronic Assessment and Plan: -renally dosed medications -monitor fluid status Qualifiers: Chronic kidney disease stage: stage 3 (moderate) Qualified Code(s): N18.3 - Chronic kidney disease, stage 3 (moderate) Hospital course: Ms. Gupta is a 82 year old female with past medical history of COPD and congestive heart failure presented with shortness of breath. She developed shortness of breath with wheezing and productive cough. Imaging revealed left lower lobe infiltrate. Patient was given IV steroids, IV antibiotics, and breathing treatments. She has sick contacts with people in her group home. Patient denies any recent travel. Was previously DNR-CC, but decided to become full code. Pt received a CXR which revealed LLL PNA. Respiratory panel was positive for enterovirus and rhinovirus. Pt was started on Vanc and Levoquin, but Vanc was discontinued. She has completed 4 days of levoquin treatment, will continue 2 more doses upon discharge: next dose on 03/17 and final dose on 03/19. She was discharged with her baseline of 3L NC O2. Will continue her home meds upon discharge. - Time Spent with Patient Total time spent providing and/or coordinating discharge services: Greater than 30 minutes Date of admission: 03/11/18 09:15 Primary care physician: Eden Wells Consults: 03/12/18 11:40 Consult to Nurse Navigator [CONS] Routine Comment: copd,pneumonia 03/13/18 08:17 Consult to [facility] [CONS] Routine Reason for SW Consult: return to signature, bed hold 03/13/18 10:47 Consult to Physical Therapy [CONS] Stat Comment: Evaluate, develop and implement POC Reason for Consult: fall at home Does patient have active BEDREST order?: No Is patient medically & hemodynamically stable?: Yes Patient assessed for mobility or mobilized this visit?: Yes Discharging clinician: Negar Villalobos Anticipated date of discharge: 03/15/18 - Constitutional Vitals: Temp Pulse Resp BP Pulse Ox 97.7 F 60 14 104/61 97 03/15/18 11:44 03/15/18 11:44 03/15/18 11:44 03/15/18 11:44 03/15/18 11:44 Exam: general: NAD, elderly female HEENT: EOMI, normocephalic, still sore throat, mucus membranes dry Cardio: RRR, distant heart sounds Lungs: mild expiratory wheezing bilaterally, no rhonchi or rales Abdomen: normal BSX4, soft, nondistended, nontender to palpation Extremities: mild leg edema bilaterally, some mild erythema Lymph: no cervical or supraclavicular lymphadenopathy Neuro: A&O x3, no focal deficits Psych: normal mood, appropriate affect - Patient Status Overall status at discharge: patient is progressing back to baseline - Diet and Activity Activity: increase activity as tolerated, wear oxygen at all times Diet: advance to your usual diet <Negar Villalobos - Last Filed: 03/15/18 16:17> Orders not resulted at time of discharge: Pending orders 03/11/18 06:36 Culture,Blood [BC] Stat 03/11/18 09:27 Sputum Culture [Culture,Sputum with Gram Stain] [RM] Routine Date of Encounter: 03/15/18 - Discharge Diagnosis (1) CKD (chronic kidney disease) Status: Chronic Qualifiers: Chronic kidney disease stage: stage 3 (moderate) Qualified Code(s): N18.3 - Chronic kidney disease, stage 3 (moderate) (2) HCAP (healthcare-associated pneumonia) Status: Acute (3) COPD (chronic obstructive pulmonary disease) Status: Acute Qualifiers: COPD type: COPD with acute exacerbation Qualified Code(s): J44.1 - Chronic obstructive pulmonary disease with (acute) exacerbation (4) HTN (hypertension) Status: Chronic Qualifiers: Hypertension type: essential hypertension Qualified Code(s): I10 - Essential (primary) hypertension (5) HLD (hyperlipidemia) Status: Chronic Qualifiers: Hyperlipidemia type: mixed hyperlipidemia Qualified Code(s): E78.2 - Mixed hyperlipidemia (6) Chronic a-fib Status: Chronic (7) CHF (congestive heart failure) Status: Acute Qualifiers: Heart failure type: diastolic Heart failure chronicity: chronic Qualified Code(s): I50.32 - Chronic diastolic (congestive) heart failure (8) DVT prophylaxis Status: Acute (9) CAD (coronary artery disease) Status: Chronic Qualifiers: Coronary Disease-Associated Artery/Lesion type: [place] chin artery [place] vs. transplanted heart: [place] heart Associated angina: without angina Qualified Code(s): I25.10 - Atherosclerotic heart disease of [place] coronary artery without angina pectoris Hospital course: Ms. Gupta is a 82 year old female - Time Spent with Patient Total time spent providing and/or coordinating discharge services: Date of admission: 03/11/18 09:15 Primary care physician: Eden Wells Consults: 03/12/18 11:40 Consult to Nurse Navigator [CONS] Routine Comment: copd,pneumonia 03/13/18 08:17 Consult to [facility] [CONS] Routine Reason for SW Consult: return to signature, bed hold 03/13/18 10:47 Consult to Physical Therapy [CONS] Stat Comment: Evaluate, develop and implement POC Reason for Consult: fall at home Does patient have active BEDREST order?: No Is patient medically & hemodynamically stable?: Yes Patient assessed for mobility or mobilized this visit?: Yes - Constitutional Vitals: Temp Pulse Resp BP Pulse Ox 97.7 F 60 14 104/61 97 03/15/18 11:44 03/15/18 11:44 03/15/18 11:44 03/15/18 11:44 03/15/18 11:44 - Attending Attestation I examined this patient and my medical decision-making was reviewed with the Resident Physician Dr Jeronimo. I agree with the documented findings, disposition and treatment plan as described except to the extent set forth below. Ms Gupta was admitted on 03/11 with sob, fever and LLL pna and is being treated for pna. She has addl med hx of copd, diastolic chf, afib, cad, dm, htn and tia. She is + rhinovirus. With IV steroids she had nighttime hallucinations which have since resolved. She is clinically iproved and stable and will dc to her SNF to cont outpt abx course and steroid taper to completion. awake, pleasant, feeling overall much better. sob improved, cough improved, deneis wheezing, fevers or chills. slept well with melatonin last night, no hallucinations. gen- alert, awake,appears stated age cv- reg rate and rhythm, normal s1,s2, no murmurs appreciated, no le edema or jvd lungs- ctabl, no wheezing, rhonchi or crackles, normal resp effort on o2 nc, good air movement throughout abd- soft, non tender, non distended, + bs neuro- AAOx3 HCAP, organism unknown, + Rhonivirus -cont levaquin for two addl doses to complete course, dosed by pharmacy given renal funciton, PO steroid taper, bronchodilators, supplemental o2 nc, cont home copd medication regimen no sputum cx as couldnt provide sample, legionella/strep neg, bl cxs ngtd at time of dc, afebrile and no leukocytosis COPD exacerbation 2/2 to above- treatment as above CAD, Diastolic CHF stable- cont home asa, statin, plavix, lasix, BB, not on acei or arb (suspect secondary to kidney function), home aldactone was held on admission as was imdur, uncertain as to why, bps are normotensive on current regimen and she is euvolemic, she may resume her victor hugo emedication regimen upon dc with outpt fu Hyperglycemia in setting of DM- has been on SSI, resumed home glipizide with good effect, steroid tapering, cont to monitor at SNF, cont home gipizide on dc CKD, stage unknown, based off GFR here Stage III, appears at baseline currently Chronic afib, not on aC- on asa and plavix, BB, NSR here dc back to snf in stable condition Addendum entered and electronically signed by Negar Villalobos DO 03/15/18 16:19: The history, physical exam, and medical decision making was performed by the medical student Светлана either while I was physically present and actively involved or I personally re-performed the exam and medical decision making. I have verified the accuracy of the medical student's documentation with regards to the history, physical exam findings, and medical decision making.
--- NOTE | 2018-03-15 15:50 | Physician Discharge Referral ---
<Saud Jeronimo - Last Filed: 03/15/18 15:47> [facility] Referral Info Transfer To: [facility] Provider in Charge: Dr Aly Provider in Charge after Transfer: PCP Institutional Level of Care: Skilled - Diagnosis (1) CKD (chronic kidney disease) Priority: Secondary Status: Chronic (2) HCAP (healthcare-associated pneumonia) Priority: Primary Status: Acute (3) COPD (chronic obstructive pulmonary disease) Priority: Secondary Status: Acute (4) HTN (hypertension) Priority: Secondary Status: Chronic (5) HLD (hyperlipidemia) Priority: Secondary Status: Chronic (6) Chronic a-fib Priority: Secondary Status: Chronic (7) CHF (congestive heart failure) Priority: Secondary Status: Acute (8) DVT prophylaxis Priority: Secondary Status: Acute (9) CAD (coronary artery disease) Priority: Secondary Status: Chronic - Transfer Medications Prescriptions: clonazePAM [Klonopin] 0.5 mg PO HS 1 Days #1 tablet MethylPREDNISolone [MethylPREDNISolone Dose Pack] 4 mg PO TAPER #21 tab Oxycodone HCl [Roxybond] 5 mg PO QID PRN 1 Days #4 tablet.orl PRN Reason: Pain Home Medications: Albuterol Sulfate [Ventolin Hfa] 2 puff IH Q4H PRN 06/12/15 [History] Atorvastatin [Lipitor] 40 mg PO HS 06/12/15 [History] Metoprolol [Lopressor] 75 mg PO BID 06/12/15 [History] Nitroglycerin [Nitrostat] 0.4 mg SL Q5M PRN 06/12/15 [History] Citalopram Hydrobromide [Citalopram HBr] 10 mg PO DAILY 08/02/17 [History] Fluticasone Propionate Nasal [Flonase] 50 mcg NS DAILY 08/02/17 [History] Oxygen 1 each NS AD 08/02/17 [History] Acetaminophen [Non-Aspirin] 650 mg PO TID 08/21/17 [History] Loperamide [Imodium] 2 mg PO QID PRN 09/25/17 [History] Meloxicam [Mobic] 7.5 mg PO DAILY 09/25/17 [History] Ipratropium/Albuterol Neb [Duoneb] 3 ml IH [id number] PRN inhsol 09/28/17 [Rx] Spironolactone [Aldactone] 50 mg PO DAILY 01/18/18 [History] Clopidogrel [Plavix] 75 mg PO DAILY 30 Days #30 tablet 01/23/18 [Rx] Aspirin [Adult Aspirin Regimen] 81 mg PO DAILY 03/11/18 [History] Benzonatate [Tessalon] 100 mg PO TID 03/11/18 [History] Guaifenesin [Mucinex] 1,200 mg PO DAILY 03/11/18 [History] Isosorbide MONOnitrate (24 HR) [Imdur] 60 mg PO DAILY 03/11/18 [History] Loratadine [Claritin] 10 mg PO DAILY 03/11/18 [History] Furosemide [Lasix] 40 mg PO DAILY #0 tablet 03/15/18 [Rx] GlipiZIDE XL (24 HR) [Glucotrol XL] 10 mg PO 0800 tab.er.24 03/15/18 [Rx] MethylPREDNISolone [MethylPREDNISolone Dose Pack] 4 mg PO TAPER #21 tab 03/15/18 [Rx] Oxycodone HCl [Roxybond] 5 mg PO QID PRN 1 Days #4 tablet.orl 03/15/18 [Rx] clonazePAM [Klonopin] 0.5 mg PO HS 1 Days #1 tablet 03/15/18 [Rx] levoFLOXacin [Levaquin] 750 mg PO Q48H #2 tablet 03/15/18 [Rx] Allergies/Adverse Reactions: Allergy/AdvReac Type Severity Reaction Status Date / Time codeine AdvReac Severe Hallucinati Verified 03/13/18 11:11 ng morphine AdvReac Severe Hallucinati Verified 03/13/18 11:11 ng - Respiratory Orders Oxygen / L per min (3) Smoking Cessation: Smoking cessation has been advised. For more information, call the [place] Tobacco Quit Line at 7-561-SFXS-NOW. - Advance Directives Code Status: Full Code - Mobility Orders Ambulate - Rehabiliation Orders Rehab Orders: Evaluation for Physical Therapy CERTIFICATION: I certify that the transfer of the above named patient to an Extended Care Facility is necessary for the continuing treatment of the diagnosis listed. The above information is true and accurate reflection of patient's current condition. Confidential - Redisclosure prohibited without a patient's written consent. <Negar Villalobos - Last Filed: 03/15/18 16:11> [facility] Referral Info Provider in Charge after Transfer: PCP - Diagnosis (1) CKD (chronic kidney disease) Status: Chronic (2) HCAP (healthcare-associated pneumonia) Status: Acute (3) COPD (chronic obstructive pulmonary disease) Status: Acute (4) HTN (hypertension) Status: Chronic (5) HLD (hyperlipidemia) Status: Chronic (6) Chronic a-fib Status: Chronic (7) CHF (congestive heart failure) Status: Acute (8) DVT prophylaxis Status: Acute (9) CAD (coronary artery disease) Status: Chronic - Respiratory Orders Smoking Cessation: Smoking cessation has been advised. For more information, call the [place] Tobacco Quit Line at 7-780-XEAPNOW. CERTIFICATION: I certify that the transfer of the above named patient to an Extended Care Facility is necessary for the continuing treatment of the diagnosis listed. The above information is true and accurate reflection of patient's current condition. Confidential - Redisclosure prohibited without a patient's written consent.
--- NOTE | 2018-03-16 18:35 | Electrocardiograph Report ---
[place] [id number] Test Date: 2018-03-11 Pat Name: Glory Gupta Department: EXAM3 Room: 2A Gender: F Medical Policy Specialist: : [id number] Requested By: Davey Shell Order Number: [id number] Reading MD: Tawanda Burdick Measurements Intervals [place] Rate: 62 P: 0 DC: 58 QRS: -52 QRSD: 158 T: 109 QT: 438 QTc: 445 Interpretive Statements Ventricular-paced rhythm No further analysis attempted due to paced rhythm Electronically Signed On 03-16-2018 18:33:35 EDT by Tawanda Burdick
== END 2018-03-15 16:55 | DRG 194 ==
LOC: 3BNU 04:37 → EMEROOARM 04:37 → 3BNU 08:25 → SUATTDRO 09:15 → 2ANU 03-12 16:43
PROVIDERS: ADMIT Internal Medicine; ATTEND Internal Medicine

== ENCOUNTER 2018-07-21 07:46 | Inpatient (IN) ==
[2018-07-21] MEDS ORDERED: methylPREDNISolone 125 MG/2 ML VIAL IVP ONE (07:58)
[2018-07-21] MEDS ORDERED: Ipratropium/Albuterol Neb 3 ML IH ONE (07:58)
--- NOTE | 2018-07-21 08:03 | Emergency Department Note ---
Disposition Clinical Impression: Acute exacerbation of chronic obstructive airways disease, Elevated bilirubin, Nausea Cholelithiasis Qualifiers: Cholelithiasis location: gallbladder Cholecystitis presence: without cholecystitis Biliary obstruction: with biliary obstruction Qualified Code(s): K80.21 - Calculus of gallbladder without cholecystitis with obstruction Disposition: Admitted As Inpatient Condition: Undetermined Referrals: Harman Alexis MD [Primary Care Provider] - Forms: ED Satisfaction Letter, Work/School Release Time of Disposition: 09:42 General Adult HPI - General Chief complaint: ED Abdominal Pain Stated complaint: abd bruising, SARINA, flu symptoms Time Seen by Provider: 07/21/18 07:58 Source: EMS Mode of arrival: EMS Limitations: no limitations Nursing Notes Reviewed: Yes Vital Signs Reviewed: Yes - History of Present Illness HPI Narrative: 82-year-old female arrives to the emergency department with complaint of shortness of breath. The patient has baseline COPD and wears 3 L nasal cannula. His questionable history whether or not the patient has influenza versus exposure to it. The patient is been experiencing intermittent episodes of shortness of breath over the course the past few days. The patient denies any other complaints other than some intermittent episodes of anterior abdominal discomfort as well as some dry heaving and nausea. The patient denies any other complaints at this time. She is otherwise resting comfortably. The patient was noted to have global wheezing upon arrival from EMS the pulse ox of 84%. She was placed on a breathing treatment and subsequently yoselyn to 94%. The patient arrives with moderate diffuse wheezing on auscultation. She is course breath sounds well. She denies any other complaints. The patient does have recent admission to the hospital secondary to "pneumonia". Patient does have some bruising to the anterior abdomen. No other acute complaints noted at this time. Pain Scale: 0 - Related Data Home Medications Medication Instructions Recorded Confirmed Atorvastatin [Lipitor] 40 mg PO HS 06/12/15 07/08/18 Citalopram Hydrobromide 10 mg PO DAILY 08/02/17 07/08/18 [Citalopram HBr] Furosemide [Lasix] 40 mg PO BID 06/22/18 07/08/18 Acetaminophen [Tylenol 8 Hour] 650 mg PO TID 07/08/18 07/08/18 Albuterol Sulfate [Ventolin Hfa] 2 puff PO Q4H PRN 07/08/18 07/08/18 Aspirin [Adult Aspirin] 81 mg PO DAILY 07/08/18 07/08/18 Donepezil [Aricept] 5 mg PO DAILY 07/08/18 07/08/18 Insulin Regular, Human [Novolin R] 0 unit SQ DAILY PRN 07/08/18 07/08/18 Ipratropium/Albuterol Neb [Duoneb] 3 ml IH Q4H PRN 07/08/18 07/08/18 Isosorbide MONOnitrate (24 HR) 60 mg PO DAILY 07/08/18 07/08/18 [Imdur] Loperamide [Imodium] 2 mg PO QID PRN 07/08/18 07/08/18 Metoprolol Tartrate 75 mg PO BID 07/08/18 07/08/18 Potassium Chloride [K-Tab ER] 20 meq PO DAILY 07/08/18 07/08/18 Previous Rx's Medication Instructions Recorded Clopidogrel [Plavix] 75 mg PO DAILY 30 Days #30 tablet 01/23/18 GlipiZIDE XL (24 HR) [Glucotrol XL] 10 mg PO 0800 tab.er.24 03/15/18 GuaiFENesin ER [Mucinex] 600 mg PO BID PRN tbbp.12hr 07/16/18 Menthol [Cough Drops] 9.1 mg PO Q2H PRN lozenge 07/16/18 cephALEXin [Keflex] 500 mg PO TID #9 capsule 07/16/18 predniSONE [PredniSONE] 10 mg PO DAILY #22 tablet 07/16/18 Allergies Allergy/AdvReac Type Severity Reaction Status Date / Time codeine AdvReac Severe Hallucinati Verified 07/08/18 07:24 ng morphine AdvReac Severe Hallucinati Verified 07/08/18 07:24 ng All systems ED: reviewed and negative except as stated. Constitutional: Reports: weakness. Denies: fever, chills ENT ED: Denies: dysphagia Cardiovascular: Denies: chest pain, dyspnea on exertion, syncope Respiratory: Reports: dyspnea, wheezes. Denies: cough, sputum production Gastrointestinal: Reports: abdominal pain. Denies: nausea, vomiting Genitourinary: Denies: urgency, dysuria Musculoskeletal: Denies: back pain, arthralgia, myalgia Integumentary: Denies: rash Neurological: Denies: headache Endocrine: Reports: fatigue Past Medical History - Past Medical History Attestation: Yes The following information was validated with the patient. 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 - Social History Smoking Status: Never smoker Smokeless Tobacco Status: No Alcohol use: Reports: none Drug use: Reports: none Physical Exam - General Limitations: no limitations General appearance: alert, in no apparent distress - Head Head exam: atraumatic, normocephalic, normal inspection - Eye Eye exam: Present: normal appearance, PERRL, EOMI - ENT ENT exam: normal exam, normal oropharynx, mucous membranes moist - Neck Neck exam: Present: normal inspection, full ROM, trachea midline - Chest Chest inspection: Present: normal inspection, symmetric chest wall rise - Respiratory Respiratory exam: Present: wheezes (Diffuse moderate), other (Course breath sounds bilaterally.). Absent: respiratory distress - Cardiovascular Cardiovascular exam: Present: regular rate, normal rhythm, normal heart sounds - Abdominal Exam Abdominal exam: Present: soft, Non-Tender, other (Patient has large amount of bruising and anterior abdomen. She has a reducible umbilical hernia.). Absent: tenderness, distention, guarding, rebound, rigidity - Extremities Exam Extremities exam: Present: normal inspection, full ROM. Absent: tenderness, pedal edema - Neurological Exam Neurological exam: Present: alert, oriented X3 - Skin Skin exam: Present: warm, dry, intact, normal color Course Vital Signs Temperature 100.3 F H 07/21/18 07:55 Pulse Rate 66 07/21/18 07:55 Respiratory Rate 18 07/21/18 07:55 Blood Pressure 148/60 07/21/18 07:55 O2 Sat by Pulse Oximetry 99 07/21/18 07:55 Temperature 100.3 F H 07/21/18 07:55 Pulse Rate 66 07/21/18 07:55 Respiratory Rate 16 07/21/18 08:19 Blood Pressure 148/60 07/21/18 07:55 O2 Sat by Pulse Oximetry 98 07/21/18 08:19 Oxygen Delivery Oxygen Delivery Room Air Medical Decision Making - MDM Narrative Medical decision making narrative: Patient's workup in the emergency department demonstrates cholelithiasis with mildly distended gallbladder and elevated bilirubin. The patient does have elevated bilirubins in the past. Given the cholelithiasis combined with elevated bilirubin, we will admit the patient to the hospital for ERCP as the patient states that she is unsure if she can have an MRCP secondary to a pacemaker. In addition we will that the patient to the hospital for COPD exacerbation given the patient's hypoxia. She is breathing much better at this time after receiving 3 duo nebs and site and Medrol here in the ED. She was noted be hypoxic down to 84% and given the hypoxia combined with her other symptoms, I am concerned do not feel comfortable discharging the patient back to ECF. Patient was made aware and agrees to plan. No further questions or co ncerns noted. I am not concerned about cholecystitis secondary to the fact there is no pericholecystic fluid which is more sensitive than ultrasound for cholecystic fluid. The patient I believe needs a nonemergent ERCP and trending of patient's bilirubin. In addition the patient continued to receive steroids. Chest x-ray demonstrates no signs of pneumonia. Fluids as negative. The patient will be admitted to the hospitalist at this time, accepted by Dr. Allen. - Lab Data Lab results reviewed: Yes I reviewed the patient's lab results. Result diagrams: 07/21/18 08:22 07/21/18 08:22 Lab Results 07/21/18 07/21/18 07/21/18 Range/Units 08:22 08:22 08:22 WBC 11.6 H (4.3-11.1) K/mcL RBC 4.20 (3.82-4.97) M/mcL Hgb 12.9 (11.5-15.4) g/dL Hct 40.6 (35.3-44.9) % MCV 96.7 (83.0-100.0) fL MCH 30.7 (28.0-33.3) pg MCHC 31.8 (31.6-35.5) g/dL RDW 13.7 (11.5-14.5) % Plt Count 130 L (140-400) K/mcL MPV 10.4 (9.4-12.4) fL Immature Gran % 0.3 (0-4) % Seg Neutrophils % 79.9 % Lymphocytes % 11.4 % Monocytes % 7.8 % Eosinophils % 0.5 % Basophils % 0.1 % Neutrophils # 9.3 H (1.6-8.9) K/mcL Lymphocytes # 1.3 (0.6-4.6) K/mcL Monocytes # 0.9 (0.0-1.3) K/mcL Eosinophils # 0.1 (0.0-0.6) K/mcL Basophils # 0.0 (0.0-0.2) K/mcL Sodium 138 (136-145) mEq/L Potassium 3.7 (3.5-5.1) mEq/L Chloride 96 L (98-107) mEq/L Carbon Dioxide 32 H (23-29) mEq/L BUN 30 H (8-23) mg/dL Creatinine 1.08 (0.60-1.20) mg/dL Est GFR ( Amer) 59 L (> 60) Est GFR (Non-Af Amer) 48 L (> 60) BUN/Creatinine Ratio 28 H (6-26) Glucose 152 H (70-105) mg/dL Calculated Osmolality 295 (280-300) Lactic Acid 1.8 (0.5-2.2) mmol/L Calcium 8.9 (8.6-10.3) mg/dL Total Bilirubin 2.6 H (0.3-1.0) mg/dL Direct Bilirubin 0.3 H (0.0-0.2) mg/dL Indirect Bilirubin 2.3 H (0.0-1.2) mg/dL AST 17 (13-39) Units/L ALT 32 (7-52) Units/L Alkaline Phosphatase 99 (34-104) Units/L Troponin I 0.03 (< 0.04) ng/mL Serum Total Protein 6.4 (6.4-8.9) g/dL Albumin 4.1 (3.5-5.7) g/dL Globulin 2.3 L (2.4-3.5) g/dL Albumin/Globulin Ratio 1.8 (1.1-2.2) Lipase 32 (11-82) Units/L - Radiology Data Radiology results reviewed: Yes I reviewed the patient's radiology results. Abdomen/Pelvis CT 07/21/18 07:58 IMPRESSION: No acute intra-abdominal or pelvic process seen Gallstones with mild distention of the gallbladder but no Mey cholecystic inflammatory changes seen. Fat containing umbilical hernia Postsurgical changes and degenerative changes lumbar spine D/ / Carroll Naik MD / Carroll Naik MD Interpreting Provider: Carroll Naik MD Chest X-Ray 07/21/18 07:58 IMPRESSION: No evidence of acute cardiopulmonary disease. D/ / Jose Cuadra MD / Jose Cuadra MD Interpreting Provider: Jose Cuadra MD - EKG Data EKG #1 EKG attestation: Yes I reviewed and interpreted this EKG. EKG results narrative: Heart rate 65 beats for minute. Atrial fibrillation. ST depression noted in V3 large inverted T waves noted in 2, 3, aVF. Mild ST depressions associated with it. No ST elevation noted. EKG #2: Heart rate 65 beats for minute. Atrial fibrillation. ST depression noted in V3, 2, 3, aVF. Inverted T waves noted. EKG identical to EKG performed at roughly 30 minutes prior. We will admit the patient has a paced rhythm EKG is identical to previous EKG from 07/16/2018. Attestation Statement - Attestation Attestation: Patient was seen with resident physician. I reviewed the history, physical, assessment and plan, and agree with the findings. I also personally evaluated this patient and had [id number] time with this patient. 82-year-old female recently discharged from the hospital, comes back today with a complaint shortness of breath and abdominal bruising. Patient was apparently on subcutaneous heparin while she was in the hospital. Now has a large bruise in the lower abdomen. Patient also notes that she has slightly more short of breath than usual. There is some confusion as to whether she had flu or pneumonia or both. Patient is not a good historian. Review of systems as above remainder negative. Physical exam vital signs febrile otherwise stable. ENT is unremarkable. Heart regular rhythm and rate. Lungs coarse breath sounds with some wheezing heard throughout. Patient had just received a breathing treatment via EMS. Abdomen is soft she is got an umbilical hernia easily reducible. She also has superficial bruising from where the heparin shots are which comprised large part of the lower abdomen. There is no deeper mastectomy palpated. Extremities some mild edema. Neurologically alert and moves all extremities. Skin no rashes. Psych normal. ED course. We will do workup for pneumonia and chest pain and shortness of breath. Initial EKG was concerning for some cardiac strain she had a new inversion and a T-wave with some depression. These changes however only current patient's pacemakers does not fire. Manuel the pacemaker works its consistent with old EKG. CT showed some gallstones with no pericholecystic fluid. Patient's bilirubin is little bit more elevated. She is given 3 duo nebs. Breathing improved. With her increase in bilirubin and findings on CT scan will bring her in to the hospital for additional evaluation and treatment. We spoke the hospitalist agreed to accept the patient for admission. Agree with resident physician assessment and plan.
[2018-07-21 08:37] LABS: Basophils % 0.1 %; Eosinophils # 0.1 K/mcL (0.0-0.6); Eosinophils % 0.5 %; Hematocrit 40.6 % (35.3-44.9); Hemoglobin 12.9 g/dL (11.5-15.4); Immature Granulocytes % 0.3 % (0-4); Lymphocytes # 1.3 K/mcL (0.6-4.6); Lymphocytes % 11.4 %; Mean Corpuscular HGB Conc 31.8 g/dL (31.6-35.5); Mean Corpuscular Hemoglobin 30.7 pg (28.0-33.3); Mean Corpuscular Volume 96.7 fL (83.0-100.0); Mean Platelet Volume 10.4 fL (9.4-12.4); Monocytes # 0.9 K/mcL (0.0-1.3); Monocytes % 7.8 %; Neutrophils # 9.3 K/mcL (1.6-8.9); Platelet Count 130 K/mcL (140-400); Red Cell Distribution Width 13.7 % (11.5-14.5); Segmented Neutrophils % 79.9 %
[2018-07-21 09:02] LABS: Albumin 4.1 g/dL (3.5-5.7); Albumin/Globulin Ratio 1.8 (1.1-2.2); Bilirubin,Direct 0.3 mg/dL (0.0-0.2); Bilirubin,Indirect 2.3 mg/dL (0.0-1.2); Bilirubin,Total 2.6 mg/dL (0.3-1.0); Calcium 8.9 mg/dL (8.6-10.3); Globulin 2.3 g/dL (2.4-3.5); Potassium 3.7 mEq/L (3.5-5.1); Total Protein 6.4 g/dL (6.4-8.9); Troponin I 0.03 ng/mL (< 0.04)
[2018-07-21] MEDS ORDERED: Azithromycin 500 MG in D5% in Water 250 ML IVPB ONE (09:36)
[2018-07-21 10:28] LABS: Bilirubin,Urine Negative (Negative); Blood,Urine Negative (Negative); Clarity,Urine Clear (Clear); Color,Urine Yellow (Yellow); Glucose,Urine (UA) Normal (Normal); Ketones,Urine Negative (Negative); Leukocyte Esterase,Urine Negative (Negative); Nitrite,Urine Negative (Negative); Protein,Urine 30 mg/dL (Neg-Trace); Specific Gravity,Urine 1.009 (1.010-1.025); Urobilinogen,Urine Normal (Normal)
[2018-07-21 10:30] LABS: Bacteria,Urine None Seen per hpf (None-Few); Hyaline Casts,Urine None Seen per lpf (None-Few); Squamous Epithelial Cell,Urine Many per lpf (None-Few); WBC,Urine 0-3 per hpf (0-3)
--- NOTE | 2018-07-21 10:52 | Internal Med History&Physical ---
Date of Encounter: 07/21/18 Time of Encounter: 10:10 Internal Medicine - H&P: HPI Chief complaint: Ecchymosis noted on abdominal wall, shortness of breath Admitted From: Emergency Dept Plans for Post Hospital Care: Home History of present illness: Ms. Gupta is a 82 year old female Patient with history of end-stage COPD and chronic respiratory failure on home oxygen who presented to the ER from long term due to ecchymosis noted on the abdominal wall along with worsening shortness of breath. Patient had been discharged from the hospital 5 days back following treatment for pneumonia and COPD with acute exacerbation. She was treated with antibiotics and discharged on cephalexin and prednisone. She states that she felt well until this morning and began to have shortness of breath along with worsening cough. Some cough. She does have chronic COPD and requires nebulizer treatments [id number]. She denies any chills but has been febrile in the ER. She denies any abdominal pain but did receive subcu taneous heparin 3 times a day work during her stay here. She had an episode of nausea and vomiting this morning. She does have a history of atrial fibrillation and chronic hyperbilirubinemia, diabetes, hypertension and prior CVA. She has a permanent pacemaker and AICD in place. Past Med Surg Social Fam HX - Past Medical History Attestation: Yes The following information was validated with the patient. 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, stent placed 2007 Psychiatric history: anxiety, depression - Past Surgical History Surgical History: pacemaker/AICD Additional surgical history: cervical and lumbar fusion, laser on R eye, right shoulder replaced, left knee replacement - Social History Smoking Status: Never smoker Smokeless Tobacco Status: No Alcohol use: none Drug use: none - Family History Father Family Member Ethnicity: Non- Living Status: Hx Family Cardiac Disorders: Yes (CHF, [place], pacemaker,) Mother Living Status: Hx Family Autoimmune Disorders: Yes (RA) Internal Medicine - H&P: Meds Atorvastatin [Lipitor] 40 mg PO HS 06/12/15 [History] Citalopram Hydrobromide [Citalopram HBr] 10 mg PO DAILY 08/02/17 [History] Clopidogrel [Plavix] 75 mg PO DAILY 30 Days #30 tablet 01/23/18 [Rx] GlipiZIDE XL (24 HR) [Glucotrol XL] 10 mg PO 0800 tab.er.24 03/15/18 [Rx] Furosemide [Lasix] 40 mg PO BID 06/22/18 [History] Acetaminophen [Tylenol 8 Hour] 650 mg PO TID 07/08/18 [History] Albuterol Sulfate [Ventolin Hfa] 2 puff PO Q4H PRN 07/08/18 [History] Aspirin [Adult Aspirin] 81 mg PO DAILY 07/08/18 [History] Donepezil [Aricept] 5 mg PO DAILY 07/08/18 [History] Insulin Regular, Human [Novolin R] 0 unit SQ DAILY PRN 07/08/18 [History] Ipratropium/Albuterol Neb [Duoneb] 3 ml IH Q4H PRN 07/08/18 [History] Isosorbide MONOnitrate (24 HR) [Imdur] 60 mg PO DAILY 07/08/18 [History] Loperamide [Imodium] 2 mg PO QID PRN 07/08/18 [History] Metoprolol Tartrate 75 mg PO BID 07/08/18 [History] Potassium Chloride [K-Tab ER] 20 meq PO DAILY 07/08/18 [History] GuaiFENesin ER [Mucinex] 600 mg PO BID PRN tbbp.12hr 07/16/18 [Rx] Menthol [Cough Drops] 9.1 mg PO Q2H PRN lozenge 07/16/18 [Rx] cephALEXin [Keflex] 500 mg PO TID #9 capsule 07/16/18 [Rx] predniSONE [PredniSONE] 10 mg PO DAILY #22 tablet 07/16/18 [Rx] Allergy/AdvReac Type Severity Reaction Status Date / Time codeine AdvReac Severe Hallucinati Verified 07/08/18 07:24 ng morphine AdvReac Severe Hallucinati Verified 07/08/18 07:24 ng All Systems PM: A 10-system review of systems was performed and is negative for pertinent findings except as documented above in the HPI. - Constitutional Constitutional: malaise, no chills, no fever(s), no night sweats - EENT Eyes: no change in vision, no discharge, no pain, no photophobia Ears: no ear discharge, no ear pain, no tinnitus Nose, mouth and throat: no dysphagia, no nasal discharge, no neck pain, no sore throat - Cardiovascular Cardiovascular ROS IM: no chest pain, no diaphoresis, no dyspnea, no lightheadedness, no palpitations, no syncope - Respiratory Respiratory: cough, dyspnea, no wheezing, no excessive phlegm production - Gastrointestinal Gastrointestinal: no abdominal pain, no diarrhea, no hematemesis, no hematochezia, no melena, no nausea, no vomiting - Genitourinary Genitourinary: no change in urinary stream, no dysuria, no flank pain, no hematuria - Musculoskeletal Musculoskeletal ROS IM: no numbness, no tingling - Integumentary Integumentary IM: no rash, no unusual bruising - Neurological Neurological ROS: no confusion, no convulsions, no focal weakness, no numbness, no tingling, no tremor(s) - Hematologic/Lymphatic Hematologic/Lymphatic: no easy bruising - Constitutional Vitals: Temp Pulse Resp BP Pulse Ox 100.3 F H 66 16 148/60 98 07/21/18 07:55 07/21/18 07:55 07/21/18 08:19 07/21/18 07:55 07/21/18 08:19 General appearance: Present: cooperative, A&O X 3, answers questions appropriately Exam: Moderate distress - Neck Neck exam general surgery: Present: supple, trachea midline. Absent: lymp hadenopathy - Respiratory Respiratory exam: Present: CTAB, prolonged expiratory phase, wheezes. Absent: accessory muscle use, rales, rhonchi - Cardiovascular Cardiovascular exam: Present: irregular rhythm, +S1, +S2, tachycardia. Absent: diastolic murmur, gallop, rubs, systolic murmur - GI/Abdominal GI/Abdominal exam: Present: normal bowel sounds, soft, no peritoneal signs. Absent: distended, tenderness - Extremities Exam Extremities exam: Present: warm, radial pulses palpable and symmetrical. Absent: calf tenderness, cyanotic, pedal edema - Neurological Exam Neurological exam: Present: CN II-XII intact, oriented X3, no focal deficits. Absent: facial droop, speech deficit - Skin Skin exam: Present: dry, intact Additional comments: Ecchymosis noted on abdominal wall. No tenderness to palpation. No signs of abscess. Internal Med - H&P Results - Labs CBC & Chem 7: 07/21/18 08:22 07/21/18 08:22 Labs: Short CBC 07/21/18 Range/Units 08:22 WBC 11.6 H (4.3-11.1) K/mcL Hgb 12.9 (11.5-15.4) g/dL Hct 40.6 (35.3-44.9) % Plt Count 130 L (140-400) K/mcL Neutrophils # 9.3 H (1.6-8.9) K/mcL BMP 07/21/18 08:22 Sodium 138 Potassium 3.7 Chloride 96 L Carbon Dioxide 32 H BUN 30 H Creatinine 1.08 Glucose 152 H Calcium 8.9 Cardiac Enzymes 07/21/18 Range/Units 08:22 Troponin I 0.03 (< 0.04) ng/mL Liver Function 07/21/18 Range/Units 08:22 Total Bilirubin 2.6 H (0.3-1.0) mg/dL Direct Bilirubin 0.3 H (0.0-0.2) mg/dL AST 17 (13-39) Units/L ALT 32 (7-52) Units/L Alkaline Phosphatase 99 (34-104) Units/L Albumin 4.1 (3.5-5.7) g/dL Urine 07/21/18 Range/Units 10:17 Urine Color Yellow (Yellow) Urine Clarity Clear (Clear) Urine pH 6.0 (5.0-8.0) pH Units Ur Specific [place] 1.009 L (1.010-1.025) Urine Protein 30 H (Neg-Trace) mg/dL Urine Glucose (UA) Normal (Normal) mg/dL - EKG Data -: EKG Interpreted by Myself - EKG Data EKG comments: 07/21/18 11:08 EKG shows paced rhythm - Impressions ITS Impressions Abdomen/Pelvis CT 07/21/18 07:58 IMPRESSION: No acute intra-abdominal or pelvic process is seen. Gallstones with mild distention of the gallbladder but no pericholecystic inflammatory change is seen. Fat containing umbilical hernia. Postsurgical changes and degenerative changes lumbar spine. D/ / 07/21/2018 10:31:30 Carroll Naik MD / [email or web address] Interpreting Provider: Carroll Naik MD Chest X-Ray 07/21/18 07:58 IMPRESSION: No evidence of acute cardiopulmonary disease. D/ / Jose Cuadra MD / Jose Cuadra MD Interpreting Provider: Jose Cuadra MD - Assessment and Plan (1) Acute respiratory failure with hypoxia Current Visit: Yes Status: Acute Assessment and plan: Patient with acute on chronic respiratory failure with hypoxia. Patient was ap parently saturating at 84% on 3 L home oxygen. Received bronchodilators, azithromycin and DuoNeb's. Oxygen sats have improved. Patient continues to have wheezing. Will treat for underlying COPD. Check respiratory infection panel. Patient did have fever and may be developing a viral upper respiratory infection. Chest x-ray does not show any pneumonia. (2) Acute exacerbation of chronic obstructive airways disease Current Visit: Yes Status: Acute Assessment and plan: Acute COPD exacerbation. Most likely due to acute upper respiratory viral illness. Check respiratory infection panel. Scheduled bronchodilators, steroids, O2 supplementation. (3) Atrial fibrillation Current Visit: Yes Status: Chronic Assessment and plan: Rate controlled. Continue home medications. Patient is not currently on anticoagulation. Apparently due to history of multiple falls. Qualifiers: Atrial fibrillation type: paroxysmal Qualified Code(s): I48.0 - Paroxysmal atrial fibrillation (4) CAD (coronary artery disease) Current Visit: Yes Status: Chronic Assessment and plan: No chest pain at this time. Continue home medications including aspirin, statin, Plavix and beta chaim Qualifiers: Coronary Disease-Associated Artery/Lesion type: [place] artery [place] vs. transplanted heart: [place] heart Associated angina: with unstable angina Qualified Code(s): I25.110 - Atherosclerotic heart disease of [place] coronary artery with unstable angina pectoris (5) DM type 2 (diabetes mellitus, type 2) Current Visit: Yes Status: Chronic Assessment and plan: Monitor blood sugars. Expect rise in blood sugars due to steroid use. Will place patient on basal bolus regimen. Qualifiers: Diabetes mellitus prison insulin use: with online content developer use Diabetes mellitus complication status: without complication Qualified Code(s): E11.9 - Type 2 diabetes mellitus without complications; Z79.4 - assisted (current) use of insulin (6) Elevated bilirubin Current Visit: Yes Status: Acute Assessment and plan: Patient has chronic elevation in bilirubin levels. CT of the abdomen does show clearly lithiasis but alkaline phosphatase levels are normal. No signs of acute cholecystitis. (7) Hypertension Current Visit: Yes Status: Chronic Assessment and plan: Continue home medications. Monitor blood pressure. Qualifiers: Hypertension type: essential hypertension Qualified Code(s): I10 - Essential (primary) hypertension (8) Contusion of abdominal wall Current Visit: Yes Status: Acute Assessment and plan: Patient has multiple ecchymosis on the abdominal wall. Most likely due to subcutaneous heparin use during last hospitalization. Will place on SCDs instead of subcutaneous heparin for DVT prophylaxis for now. Qualifiers: Encounter type: initial encounter Qualified Code(s): S30.1XXA - Contusion of abdominal wall, initial encounter - Time Spent With Patient Total time spent is greater than 50% in coordination of care (as documented) at patient's floor/unit and/or counseling patient:
[2018-07-21 10:55] LABS: RBC,Urine 0-3 per hpf (0-3); Yeast,Urine Many per hpf (None Seen)
[2018-07-21] MEDS ORDERED: Albuterol 2.5 MG/3 ML NEBULIZER IH PRN (11:16)
[2018-07-21] MEDS: Ipratropium/Albuterol Neb 3 ML IH SCH ×3 (11:42→20:02)
[2018-07-21] MEDS: levoFLOXacin 500 MG TABLET PO SCH (14:28)
[2018-07-21 15:44] LABS: Coronavirus 229E Not Detected (Not Detect); Coronavirus HKU1 Not Detected (Not Detect); Coronavirus NL63 Not Detected (Not Detect); Coronavirus OC43 Not Detected (Not Detect); Human Metapneumovirus Not Detected (Not Detect); Human Rhinovirus/Enterovirus Not Detected (Not Detect)
[2018-07-21 15:45] LABS: Adenovirus Not Detected (Not Detect); Bordetella Pertussis Not Detected (Not Detect); Chlamydophila pneumoniae Not Detected (Not Detect); Influenza A Subtype 2009 H1 Not Detected (Not Detect); Influenza A Untypeable Not Detected (Not Detect); Influenza B Not Detected (Not Detect); Mycoplasma pneumoniae Not Detected (Not Detect); Parainfluenza Virus 1 Not Detected (Not Detect); Parainfluenza Virus 2 Not Detected (Not Detect); Parainfluenza Virus 3 Not Detected (Not Detect); Parainfluenza Virus 4 Not Detected (Not Detect); Respiratory Syncytial Virus Not Detected (Not Detect)
[2018-07-21] MEDS: methylPREDNISolone 125 MG/2 ML VIAL IVP SCH ×2 (16:30→23:13)
[2018-07-21] MEDS: Acetaminophen 325 MG TABLET PO PRN (21:10)
[2018-07-21] MEDS ORDERED: D5% in Water 1,000 ML IVC PRN (21:44)
[2018-07-21] MEDS ORDERED: *HR* Dextrose 50 % in Water (Syg) 50 ML SYRINGE IVP PRN (21:44)
[2018-07-21] MEDS ORDERED: Dextrose 4 GM Chewable Tablets PO PRN ×2 (21:44)
[2018-07-21] MEDS ORDERED: Dextrose Gel 15 GM/37.5 ML TUBE PO PRN ×2 (21:44)
[2018-07-21] MEDS ORDERED: Insulin LISPRO 300 UNITS/3 ML VIAL SQ SCH (22:17)
[2018-07-22] MEDS: Ipratropium/Albuterol Neb 3 ML IH SCH ×7 (00:14→23:58)
[2018-07-22 01:26] LABS: Hematocrit 37.6 % (35.3-44.9); Hemoglobin 12.1 g/dL (11.5-15.4); Immature Granulocytes % 0.9 % (0-4); Lymphocytes # 0.4 K/mcL (0.6-4.6); Lymphocytes % 8.8 %; Mean Corpuscular HGB Conc 32.2 g/dL (31.6-35.5); Mean Corpuscular Hemoglobin 30.6 pg (28.0-33.3); Mean Corpuscular Volume 95.2 fL (83.0-100.0); Mean Platelet Volume 10.5 fL (9.4-12.4); Monocytes # 0.3 K/mcL (0.0-1.3); Monocytes % 6.1 %; Neutrophils # 3.9 K/mcL (1.6-8.9); Platelet Count 116 K/mcL (140-400); Red Blood Count 3.95 M/mcL (3.82-4.97); Red Cell Distribution Width 13.5 % (11.5-14.5); Segmented Neutrophils % 84.2 %
[2018-07-22 01:45] LABS: Albumin 3.7 g/dL (3.5-5.7); Albumin/Globulin Ratio 1.6 (1.1-2.2); Bilirubin,Total 2.3 mg/dL (0.3-1.0); Calcium 8.9 mg/dL (8.6-10.3); Globulin 2.3 g/dL (2.4-3.5); Potassium 4.1 mEq/L (3.5-5.1)
[2018-07-22] MEDS: Insulin LISPRO 300 UNITS/3 ML VIAL SQ SCH ×5 (08:10→20:25)
[2018-07-22] MEDS: methylPREDNISolone 125 MG/2 ML VIAL IVP SCH ×3 (08:11→23:04)
[2018-07-22] MEDS: Aspirin Enteric Coated 81 MG Tablet PO SCH (08:11)
[2018-07-22] MEDS: Oseltamivir Phosphate 30 MG CAPSULE PO SCH ×2 (08:11→20:24)
[2018-07-22] MEDS ORDERED: hydrOXYzine pamoate 25 MG CAPSULE PO PRN (08:12)
[2018-07-22] MEDS: Acetaminophen 325 MG TABLET PO PRN ×2 (08:12→23:04)
--- NOTE | 2018-07-22 12:26 | Internal Med Progress Note ---
Hospitalist Progress Note - Encounter Date of Encounter: 07/22/18 Time of Encounter: 12:22 - Subjective Interval History: Patient seen and examined at bedside. Patient states that she feels better today. She feels like her breathing is slightly improved. She still reports cough but is nonproductive. Denies fever, chills. - Exam Vitals: Temp Pulse Resp BP Pulse Ox 98.2 F 68 12 149/71 98 07/22/18 10:37 07/22/18 10:37 07/22/18 11:18 07/22/18 10:37 07/22/18 11:18 Exam: Gen.: Alert and oriented 3, no acute distress Heart: Regular rate and rhythm, no gallops Lungs: Diffuse end expiratory wheezes. No rales, rhonchi, wheezes Abdomen: Soft, nontender, nondistended. Normoactive bowel sounds. - Assessment and Plan (1) Acute respiratory failure with hypoxia Current Visit: Yes Status: Resolved Assessment and Plan: Patient stable on her home O2 dose. Likely due to COPD exacerbation and influenza. Continue home oxygen at 3 L. (2) Acute exacerbation of chronic obstructive airways disease Current Visit: Yes Status: Acute Assessment and Plan: Secondary to influenza A. Still has wheezing on exam. Continue bronchodilators, steroids, antibiotic coverage with Levaquin. (3) Influenza A Current Visit: Yes Status: Acute Assessment and Plan: Positive for influenza A. Start Tamiflu 30 mg twice a day for a total of 5 days. (4) Elevated bilirubin Current Visit: Yes Status: Acute Assessment and Plan: Patient has mild bilirubin elevation at 2.3 today. Fractionation reveals this is indirect hyperbilirubinemia. AST/ALT normal. No evidence of hemolysis. 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 (5) Hypertension Current Visit: Yes Status: Chronic Assessment and Plan: Mildly elevated but stable. Continue home regimen. (6) Atrial fibrillation Current Visit: Yes Status: Chronic (7) DM type 2 (diabetes mellitus, type 2) Current Visit: Yes Status: Chronic Assessment and Plan: Blood sugar elevated, likely due to steroid use. We will increase sliding scale coverage to high-dose. Continue to monitor and adjust as necessary, if patient maintains hyperglycemic we will consider adding long-acting insulin (8) CAD (coronary artery disease) Current Visit: Yes Status: Chronic Assessment and Plan: Stable. Chest pain-free this time. (9) Contusion of abdominal wall Current Visit: Yes Status: Acute (10) Diabetes mellitus with stage 3 chronic kidney disease, without long-term current use of insulin Current Visit: Yes Status: Acute Assessment and Plan: Creatinine appears stable. Continue to monitor. - Time Spent with Patient Total time spent is greater than 50% in coordination of care (as documented) at patient's floor/unit and/or counseling patient: Internal Medicine: Result - Labs CBC & Chem 7: 07/22/18 00:48 07/22/18 00:48 Labs: Short CBC 07/22/18 Range/Units 00:48 WBC 4.6 D (4.3-11.1) K/mcL Hgb 12.1 (11.5-15.4) g/dL Hct 37.6 (35.3-44.9) % Plt Count 116 L (140-400) K/mcL Neutrophils # 3.9 (1.6-8.9) K/mcL BMP 07/22/18 00:48 Sodium 134 L Potassium 4.1 Chloride 96 L Carbon Dioxide 28 BUN 39 H Creatinine 1.33 H Glucose 354 H Calcium 8.9 Liver Function 07/22/18 Range/Units 00:48 Total Bilirubin 2.3 H (0.3-1.0) mg/dL AST 15 (13-39) Units/L ALT 28 (7-52) Units/L Alkaline Phosphatase 89 (34-104) Units/L Albumin 3.7 (3.5-5.7) g/dL - Impressions Impressions Abdomen/Pelvis CT 07/21/18 07:58 IMPRESSION: No acute intra-abdominal or pelvic process is seen. Gallstones with mild distention of the gallbladder but no pericholecystic inflammatory change is seen. Fat containing umbilical hernia. Postsurgical changes and degenerative changes lumbar spine. D/ / 07/21/2018 10:31:30 Carroll Naik MD / [email or web address] Interpreting Provider: Carroll Naik MD Consult Discharge Plan - Plan Referrals: Harman Alexis MD [Primary Care Provider] - (5) Hypertension Qualifiers: Hypertension type: essential hypertension Qualified Code(s): I10 - Essential (primary) hypertension (6) Atrial fibrillation Qualifiers: Atrial fibrillation type: paroxysmal Qualified Code(s): I48.0 - Paroxysmal atrial fibrillation (7) DM type 2 (diabetes mellitus, type 2) Qualifiers: Diabetes mellitus usp insulin use: with usp use Diabetes mellitus complication status: with hyperglycemia Qualified Code(s): E11.65 - Type 2 diabetes mellitus with hyperglycemia; Z79.4 - [facility] (current) use of insulin (8) CAD (coronary artery disease) Qualifiers: Coronary Disease-Associated Artery/Lesion type: [place] artery [place] vs. transplanted heart: [place] heart Associated angina: without angina Qualified Code(s): I25.10 - Atherosclerotic heart disease of [place] coronary artery without angina pectoris (9) Contusion of abdominal wall Qualifiers: Encounter type: initial encounter Qualified Code(s): S30.1XXA - Contusion of abdominal wall, initial encounter (10) Diabetes mellitus with stage 3 chronic kidney disease, without long-term current use of insulin Qualifiers: Diabetes mellitus type: type 2 Qualified Code(s): E11.22 - Type 2 diabetes mellitus with diabetic chronic kidney disease; N18.3 - Chronic kidney disease, stage 3 (moderate)
[2018-07-22] MEDS ORDERED: Saline Nasal Spray 44 ML BOTTLE NS PRN (19:46)
[2018-07-22] MEDS ORDERED: Insulin LISPRO 300 UNITS/3 ML VIAL SQ SCH (21:00)
[2018-07-23] MEDS: Ipratropium/Albuterol Neb 3 ML IH SCH ×5 (03:42→20:23)
[2018-07-23 05:36] LABS: Basophils % 0.1 %; Hematocrit 38.4 % (35.3-44.9); Hemoglobin 12.3 g/dL (11.5-15.4); Immature Granulocytes % 0.4 % (0-4); Lymphocytes # 0.4 K/mcL (0.6-4.6); Lymphocytes % 6.1 %; Mean Corpuscular Hemoglobin 30.8 pg (28.0-33.3); Mean Platelet Volume 10.7 fL (9.4-12.4); Monocytes # 0.3 K/mcL (0.0-1.3); Monocytes % 3.9 %; Platelet Count 106 K/mcL (140-400); Red Cell Distribution Width 13.2 % (11.5-14.5); Segmented Neutrophils % 89.5 %
[2018-07-23 06:03] LABS: Albumin 3.6 g/dL (3.5-5.7); Albumin/Globulin Ratio 1.7 (1.1-2.2); Bilirubin,Direct 0.3 mg/dL (0.0-0.2); Bilirubin,Indirect 1.5 mg/dL (0.0-1.2); Bilirubin,Total 1.8 mg/dL (0.3-1.0); Globulin 2.1 g/dL (2.4-3.5); Magnesium 1.9 mg/dL (1.6-2.6); Potassium 4.2 mEq/L (3.5-5.1); Total Protein 5.7 g/dL (6.4-8.9)
[2018-07-23] MEDS: methylPREDNISolone 125 MG/2 ML VIAL IVP SCH (08:50)
[2018-07-23] MEDS: Insulin LISPRO 300 UNITS/3 ML VIAL SQ SCH ×4 (08:50→21:04)
[2018-07-23] MEDS: Aspirin Enteric Coated 81 MG Tablet PO SCH (08:50)
[2018-07-23] MEDS: Oseltamivir Phosphate 30 MG CAPSULE PO SCH ×2 (08:51→21:02)
--- NOTE | 2018-07-23 10:53 | Internal Med Progress Note ---
Hospitalist Progress Note - Encounter Date of Encounter: 07/23/18 Time of Encounter: 10:51 - Subjective Interval History: Patient seen and examined at bedside. Patient states that she feels like her breathing is better today. She does state that she feels a little shaky and has increased appetite and difficulty sleeping which is common for her when she receives steroids. Denies fever, chills, productive cough. - Exam Vitals: Temp Pulse Resp BP Pulse Ox 97.5 F L 75 16 159/78 96 07/23/18 07:07 07/23/18 07:07 07/23/18 07:07 07/23/18 07:07 07/23/18 09:06 Exam: Gen.: Alert and oriented 3, no acute distress Heart: Regular rate and rhythm, no gallops Lungs: Clear to auscultation bilaterally. No rales, rhonchi, wheezes Abdomen: Soft, nontender, nondistended. Normoactive bowel sounds. Neuro: Mildly tremulous on exam - Assessment and Plan (1) Acute and chronic respiratory failure Current Visit: Yes Status: Acute Assessment and Plan: Patient stable on her home O2 dose. Likely due to COPD exacerbation and influenza. Continue home oxygen at 3 L. (2) Acute exacerbation of chronic obstructive airways disease Current Visit: Yes Status: Acute Assessment and Plan: Secondary to influenza A. Wheezing has resolved. Decrease IV Solu-Medrol to 40 mg twice a day with plan to switch to by mouth prednisone tomorrow. Continue bronchodilators, antibiotic coverage with Levaquin. (3) Influenza A Current Visit: Yes Status: Acute Assessment and Plan: Positive for influenza A. Start Tamiflu 30 mg twice a day for a total of 5 days. Today is day 2. (4) Elevated bilirubin Current Visit: Yes Status: Acute Assessment and Plan: Bilirubin improved today. Likely Gilbert's syndrome. Otherwise asymptomatic. (5) Hypertension Current Visit: Yes Status: Chronic Assessment and Plan: Mildly elevated but stable. Continue home regimen. (6) Atrial fibrillation Current Visit: Yes Status: Chronic Assessment and Plan: Rate controlled. Continue home medications. Patient is not currently on anticoagulation, due to history of multiple falls. (7) DM type 2 (diabetes mellitus, type 2) Current Visit: Yes Status: Chronic Assessment and Plan: Blood sugars remain significantly elevated, steroid use likely contributing. We will add Levemir 10 units twice a day. Continue to monitor blood sugars and adjust insulin regimen as necessary. Should improve as we decrease steroids. (8) CAD (coronary artery disease) Current Visit: Yes Status: Chronic Assessment and Plan: Stable. Chest pain-free this time. (9) Contusion of abdominal wall Current Visit: Yes Status: Acute (10) Diabetes mellitus with stage 3 chronic kidney disease, without long-term current use of insulin Current Visit: Yes Status: Acute Assessment and Plan: Creatinine appears stable. Continue to monitor. - Time Spent with Patient Total time spent is greater than 50% in coordination of care (as documented) at patient's floor/unit and/or counseling patient: Internal Medicine: Result - Labs CBC & Chem 7: 07/23/18 05:10 07/23/18 05:10 Labs: Short CBC 07/23/18 Range/Units 05:10 WBC 6.7 (4.3-11.1) K/mcL Hgb 12.3 (11.5-15.4) g/dL Hct 38.4 (35.3-44.9) % Plt Count 106 L (140-400) K/mcL Neutrophils # 6.0 (1.6-8.9) K/mcL BMP 07/23/18 05:10 Sodium 134 L Potassium 4.2 Chloride 98 Carbon Dioxide 28 BUN 46 H Creatinine 1.21 H Glucose 397 H Calcium 9.0 Liver Function 07/23/18 Range/Units 05:10 Total Bilirubin 1.8 H (0.3-1.0) mg/dL Direct Bilirubin 0.3 H (0.0-0.2) mg/dL AST 13 (13-39) Units/L ALT 24 (7-52) Units/L Alkaline Phosphatase 82 (34-104) Units/L Albumin 3.6 (3.5-5.7) g/dL Consult Discharge Plan - Plan Referrals: Harman Alexis MD [Primary Care Provider] - (1) Acute and chronic respiratory failure Qualifiers: Respiratory failure complication: hypoxia Qualified Code(s): J96.21 - Acute and chronic respiratory failure with hypoxia (5) Hypertension Qualifiers: Hypertension type: essential hypertension Qualified Code(s): I10 - Essential (primary) hypertension (6) Atrial fibrillation Qualifiers: Atrial fibrillation type: paroxysmal Qualified Code(s): I48.0 - Paroxysmal atrial fibrillation (7) DM type 2 (diabetes mellitus, type 2) Qualifiers: Diabetes mellitus termite control representative insulin use: with termite control representative use Diabetes mellitus complication status: with hyperglycemia Qualified Code(s): E11.65 - Type 2 diab etes mellitus with hyperglycemia; Z79.4 - [facility] (current) use of insulin (8) CAD (coronary artery disease) Qualifiers: Coronary Disease-Associated Artery/Lesion type: [place] artery [place] vs. transplanted heart: [place] heart Associated angina: without angina Qualified Code(s): I25.10 - Atherosclerotic heart disease of [place] coronary artery without angina pectoris (9) Contusion of abdominal wall Qualifiers: Encounter type: initial encounter Qualified Code(s): S30.1XXA - Contusion of abdominal wall, initial encounter (10) Diabetes mellitus with stage 3 chronic kidney disease, without long-term current use of insulin Qualifiers: Diabetes mellitus type: type 2 Qualified Code(s): E11.22 - Type 2 diabetes mellitus with diabetic chronic kidney disease; N18.3 - Chronic kidney disease, stage 3 (moderate)
[2018-07-23] MEDS: Insulin DETEMIR 100 UNIT/ML X5UNITS SQ SCH ×2 (11:39→21:04)
[2018-07-23] MEDS: levoFLOXacin 500 MG TABLET PO SCH (11:40)
[2018-07-23] MEDS: Furosemide 40 MG TABLET PO SCH (17:07)
[2018-07-23] MEDS ORDERED: MethylPREDNISolone 40 MG/ML VIAL IVP SCH (18:00)
[2018-07-23] MEDS: clonazePAM 0.5 MG TABLET PO SCH (21:00)
--- NOTE | 2018-07-23 21:42 | Electrocardiograph Report ---
[place] [id number] Test Date: 2018-07-21 Pat Name: Glory Gupta Department: EXAM2 Room: 3A13 Gender: F Community Recreation Coordinator: : 1935 Requested By: Horacio Ca Order Number: [id number] Reading MD: Kushal Hyde Measurements Intervals [place] Rate: 65 P: [place]: QRS: 43 QRSD: 94 T: -72 QT: 405 QTc: 431 Interpretive Statements Afib/flut and intermittent V-paced complexes Repol abnrm, severe global ischemia Electronically Signed On 07-23-2018 21:40:28 EDT by Kushal Hyde
[2018-07-24] MEDS: Ipratropium/Albuterol Neb 3 ML IH SCH ×7 (00:28→23:45)
[2018-07-24 01:59] LABS: Basophils % 0.1 %; Hematocrit 36.5 % (35.3-44.9); Hemoglobin 11.6 g/dL (11.5-15.4); Immature Granulocytes % 0.5 % (0-4); Lymphocytes # 0.4 K/mcL (0.6-4.6); Lymphocytes % 5.2 %; Mean Corpuscular HGB Conc 31.8 g/dL (31.6-35.5); Mean Corpuscular Hemoglobin 30.4 pg (28.0-33.3); Mean Corpuscular Volume 95.5 fL (83.0-100.0); Mean Platelet Volume 10.7 fL (9.4-12.4); Monocytes # 0.4 K/mcL (0.0-1.3); Monocytes % 4.8 %; Neutrophils # 7.6 K/mcL (1.6-8.9); Platelet Count 118 K/mcL (140-400); Red Blood Count 3.82 M/mcL (3.82-4.97); Red Cell Distribution Width 13.4 % (11.5-14.5); Segmented Neutrophils % 89.4 %
[2018-07-24 02:14] LABS: Calcium 8.7 mg/dL (8.6-10.3); Magnesium 1.9 mg/dL (1.6-2.6); Potassium 4.2 mEq/L (3.5-5.1)
[2018-07-24] MEDS: Isosorbide MONOnitrate (24 HR) 60 MG TAB.ER.24H PO SCH (08:32)
[2018-07-24] MEDS: Oseltamivir Phosphate 30 MG CAPSULE PO SCH ×2 (08:32→20:57)
[2018-07-24] MEDS: predniSONE 20 MG TABLET PO SCH (08:32)
[2018-07-24] MEDS: Furosemide 40 MG TABLET PO SCH ×2 (08:33→17:15)
[2018-07-24] MEDS: Insulin LISPRO 300 UNITS/3 ML VIAL SQ SCH ×4 (08:33→20:59)
[2018-07-24] MEDS: Aspirin Enteric Coated 81 MG Tablet PO SCH (08:33)
[2018-07-24] MEDS: Insulin DETEMIR 100 UNIT/ML X5UNITS SQ SCH ×2 (08:33→20:58)
[2018-07-24] MEDS ORDERED: Insulin DETEMIR 100 UNIT/ML X5UNITS SQ ONE (09:10)
--- NOTE | 2018-07-24 12:06 | Internal Med Progress Note ---
Hospitalist Progress Note - Encounter Date of Encounter: 07/24/18 Time of Encounter: 12:00 - Subjective Interval History: Patient seen and examined at bedside. Patient states that she feels better today. She states she is sleeping better and her tremors have improved. She states her breathing is about normal. Denies cough, fever, chills. - Exam Vitals: Temp Pulse Resp BP Pulse Ox 97.9 F 60 18 107/57 100 07/24/18 10:07 07/24/18 10:07 07/24/18 11:05 07/24/18 10:07 07/24/18 11:05 Exam: Gen.: Alert and oriented 3, no acute distress Heart: Regular rate and rhythm, no gallops Lungs: Clear to auscultation bilaterally. No rales, rhonchi, wheezes Abdomen: Soft, nontender, nondistended. Normoactive bowel sounds. Neuro: Mildly tremulous on exam, improved from yesterday - Assessment and Plan (1) Acute and chronic respiratory failure Current Visit: Yes Status: Acute Assessment and Plan: Patient stable on her home O2 dose. Likely due to COPD exacerbation and influenza. Continue home oxygen at 3 L. (2) Acute exacerbation of chronic obstructive airways disease Current Visit: Yes Status: Acute Assessment and Plan: Secondary to influenza A. Wheezing has resolved. Switch to oral prednisone today to complete a total of 5 days, today is day 3. Continue bronchodilators, antibiotic coverage with Levaquin. (3) Influenza A Current Visit: Yes Status: Acute Assessment and Plan: Positive for influenza A. Continue Tamiflu 30 mg twice a day for a total of 5 days. Today is day 3. (4) Elevated bilirubin Current Visit: Yes Status: Acute (5) Hypertension Current Visit: Yes Status: Chronic Assessment and Plan: Blood pressure under good control. Continue home regimen. (6) Atrial fibrillation Current Visit: Yes Status: Chronic Assessment and Plan: Rate controlled. Continue home medications. Patient is not currently on anticoagulation, due to history of multiple falls. (7) DM type 2 (diabetes mellitus, type 2) Current Visit: Yes Status: Chronic Assessment and Plan: Blood sugars remain elevated, but improving as steroid use decreases. Increase Levemir to 15 units twice a day. Continue to monitor blood sugars and adjust insulin regimen as necessary. Should improve as we decrease steroids. (8) CAD (coronary artery disease) Current Visit: Yes Status: Chronic Assessment and Plan: Stable. Chest pain-free this time. (9) Contusion of abdominal wall Current Visit: Yes Status: Acute (10) Diabetes mellitus with stage 3 chronic kidney disease, without long-term current use of insulin Current Visit: Yes Status: Acute Assessment and Plan: Creatinine appears stable. Continue to monitor. - Time Spent with Patient Total time spent is greater than 50% in coordination of care (as documented) at patient's floor/unit and/or counseling patient: Internal Medicine: Result - Labs CBC & Chem 7: 07/24/18 01:27 07/24/18 01:27 Labs: Short CBC 07/24/18 Range/Units 01:27 WBC 8.5 (4.3-11.1) K/mcL Hgb 11.6 (11.5-15.4) g/dL Hct 36.5 (35.3-44.9) % Plt Count 118 L (140-400) K/mcL Neutrophils # 7.6 (1.6-8.9) K/mcL BMP 07/24/18 01:27 Sodium 137 Potassium 4.2 Chloride 98 Carbon Dioxide 29 BUN 49 H Creatinine 1.32 H Glucose 416 H Calcium 8.7 Consult Discharge Plan - Plan Referrals: Harman Alexis MD [Primary Care Provider] - (1) Acute and chronic respiratory failure Qualifiers: Respiratory failure complication: hypoxia Qualified Code(s): J96.21 - Acute and chronic respiratory failure with hypoxia (5) Hypertension Qualifiers: Hypertension type: essential hypertension Qualified Code(s): I10 - Essential (primary) hypertension (6) Atrial fibrillation Qualifiers: Atrial fibrillation type: paroxysmal Qualified Code(s): I48.0 - Paroxysmal atrial fibrillation (7) DM type 2 (diabetes mellitus, type 2) Qualifiers: Diabetes mellitus fpc insulin use: with fpc use Diabetes mellitus complication status: with hyperglycemia Qualified Code(s): E11.65 - Type 2 diabetes mellitus with hyperglycemia; Z79.4 - terminal operator (current) use of insulin (8) CAD (coronary artery disease) Qualifiers: Coronary Disease-Associated Artery/Lesion type: [place] artery [place] vs. transplanted heart: [place] heart Associated angina: without angina Qualified Code(s): I25.10 - Atherosclerotic heart disease of [place] coronary artery without angina pectoris (9) Contusion of abdominal wall Qualifiers: Encounter type: initial encounter Qualified Code(s): S30.1XXA - Contusion of abdominal wall, initial encounter (10) Diabetes mellitus with stage 3 chronic kidney disease, without long-term current use of insulin Qualifiers: Diabetes mellitus type: type 2 Qualified Code(s): E11.22 - Type 2 diabetes mellitus with diabetic chronic kidney disease; N18.3 - Chronic kidney disease, stage 3 (moderate)
--- NOTE | 2018-07-24 16:59 | Electrocardiograph Report ---
[place] [id number] Test Date: 2018-07-16 Pat Name: Glory Gupta Department: 113 Room: 3A13 Gender: F Audio Visual Aids Director: KIARA : 1935 Requested By: Horacio Ca Order Number: [id number] Reading MD: Alla Mcnamara Measurements Intervals [place] Rate: 59 P: [place]: 0 QRS: -59 QRSD: 146 T: 81 QT: 427 QTc: 427 Interpretive Statements ELECTRONIC VENTRICULAR PACEMAKER ABNORMAL RHYTHM ECG Electronically Signed On 07-24-2018 16:58:14 EDT by Alla Mcnamara
[2018-07-24] MEDS: clonazePAM 0.5 MG TABLET PO SCH (20:58)
[2018-07-25] MEDS: Ipratropium/Albuterol Neb 3 ML IH SCH ×6 (04:07→23:33)
[2018-07-25] MEDS: Insulin LISPRO 300 UNITS/3 ML VIAL SQ SCH ×4 (07:59→20:37)
[2018-07-25] MEDS: Oseltamivir Phosphate 30 MG CAPSULE PO SCH ×2 (09:51→20:33)
[2018-07-25] MEDS: predniSONE 20 MG TABLET PO SCH (09:51)
[2018-07-25] MEDS: Aspirin Enteric Coated 81 MG Tablet PO SCH (09:51)
[2018-07-25] MEDS: Isosorbide MONOnitrate (24 HR) 60 MG TAB.ER.24H PO SCH (09:51)
[2018-07-25] MEDS: Furosemide 40 MG TABLET PO SCH ×2 (09:51→16:17)
[2018-07-25] MEDS: Insulin DETEMIR 100 UNIT/ML X5UNITS SQ SCH ×2 (09:52→20:33)
[2018-07-25 09:58] LABS: Magnesium 1.9 mg/dL (1.6-2.6); Potassium 3.5 mEq/L (3.5-5.1)
--- NOTE | 2018-07-25 11:53 | Discharge Summary ---
- NOTES TO OUTPATIENT PROVIDER Notes to Outpatient Provider: Patient was admitted for COPD exacerbation secondary to influenza A infection. Treated with steroid, antibiotics, Tamiflu, and bronchodilators with clinical improvement. Completed 5 days of abx inpatient. Will be discharged back to [facility] for a total of 5 days of tamiflu and s teroid taper. Orders not resulted at time of discharge: Pending orders 07/21/18 08:22 Culture,Blood [BC] Stat 07/25/18 11:35 Complete Blood Count [HEME] Routine Date of Encounter: 07/25/18 Time of Encounter: 08:15 - Discharge Diagnosis (1) Hypertension Priority: Secondary Status: Chronic Qualifiers: Hypertension type: essential hypertension Qualified Code(s): I10 - Essential (primary) hypertension (2) Atrial fibrillation Priority: Secondary Status: Chronic Qualifiers: Atrial fibrillation type: paroxysmal Qualified Code(s): I48.0 - Paroxysmal atrial fibrillation (3) DM type 2 (diabetes mellitus, type 2) Priority: Secondary Status: Chronic Qualifiers: Diabetes mellitus longterm insulin use: with roofer vinyl coating use Diabetes melli tus complication status: with hyperglycemia Qualified Code(s): E11.65 - Type 2 diabetes mellitus with hyperglycemia; Z79.4 - [facility] (current) use of insulin (4) Acute exacerbation of chronic obstructive airways disease Priority: Primary Status: Acute (5) CAD (coronary artery disease) Priority: Secondary Status: Chronic Qualifiers: Coronary Disease-Associated Artery/Lesion type: [place] artery [place] vs. transplanted heart: [place] heart Associated angina: without angina Qualified Code(s): I25.10 - Atherosclerotic heart disease of [place] coronary artery without angina pectoris (6) Elevated bilirubin Priority: Secondary Status: Acute (7) Contusion of abdominal wall Priority: Secondary Status: Acute Qualifiers: Encounter type: initial encounter Qualified Code(s): S30.1XXA - Contusion of abdominal wall, initial encounter (8) Influenza A Priority: Secondary Status: Acute (9) Diabetes mellitus with stage 3 chronic kidney disease, without long-term current use of insulin Priority: Secondary Status: Acute Qualifiers: Diabetes mellitus type: type 2 Qualified Code(s): E11.22 - Type 2 diabetes mellitus with diabetic chronic kidney disease; N18.3 - Chronic kidney disease, stage 3 (moderate) (10) Acute and chronic respiratory failure Priority: Secondary Status: Acute Qualifiers: Respiratory failure complication: hypoxia Qualified Code(s): J96.21 - Acute and chronic respiratory failure with hypoxia Hospital course: Ms. Gupta is a 82 year old female who was admitted for COPD exacerbation secondary to influenza A infection. Treated with steroid, antibiotics, Tamiflu, and bronchodilators with clinical improvement. Completed 5 days of abx inpatient. Will be discharged back to [facility] for a total of 5 days of tamiflu and steroid taper. Discharge discussed with: patient, nurse - Time Spent with Patient Total time spent providing and/or coordinating discharge services: 31 mins - Discharge Medications Prescriptions: New Oseltamivir Phosphate [Tamiflu] 30 mg PO BID #2 capsule predniSONE [PredniSONE] 20 mg PO DAILY #3 tablet Continue Atorvastatin [Lipitor] 40 mg PO 1999 Citalopram Hydrobromide [Citalopram HBr] 10 mg PO 0800 Clopidogrel [Plavix] 75 mg PO DAILY 30 Days #30 tablet GlipiZIDE XL (24 HR) [Glucotrol XL] 10 mg PO 0800 tab.er.24 Furosemide [Lasix] 40 mg PO 0800,1600 Acetaminophen [Tylenol 8 Hour] 650 mg PO 0800,1200,2000 Aspirin [Adult Aspirin] 81 mg PO 0800 Donepezil [Aricept] 5 mg PO 2000 Isosorbide MONOnitrate (24 HR) [Imdur] 60 mg PO 0800 Potassium Chloride [K-Tab ER] 20 meq PO 0800 Insulin Regular, Human [Novolin R] 0 unit SQ 0800,1200,1600,2000 PRN PRN Reason: SLIDING SCALE Ipratropium/Albuterol Neb [Duoneb] 3 ml IH 6XD PRN PRN Reason: Wheezing Loperamide [Imodium] 2 mg PO QID PRN PRN Reason: Diarrhea Menthol [Cough Drops] 9.1 mg PO Q2H PRN lozenge PRN Reason: Cough clonazePAM [Clonazepam] 0.5 mg PO 2000 Guaifenesin [Mucinex] 1,200 mg PO 0800,2000 Albuterol Sulfate [Ventolin Hfa] 2 puff IH Q4H PRN PRN Reason: Shortness Of Breath GuaiFENesin/Dextromethorphan [Robitussin/Dm] 10 ml PO QID PRN PRN Reason: Cough Metoprolol [Lopressor] 25 mg PO 0800,2000 Metoprolol Tartrate [Lopressor] 50 mg PO 08,1999 Discontinued Oseltamivir [Tamiflu] 75 mg PO 1600 Oxycodone HCl 5 mg PO QID PRN PRN Reason: Pain predniSONE [PredniSONE] 10 mg PO 0800 Home Medications: Atorvastatin [Lipitor] 40 mg PO 199906/12/15 [History] Citalopram Hydrobromide [Citalopram HBr] 10 mg PO 0800 08/02/17 [History] Clopidogrel [Plavix] 75 mg PO DAILY 30 Days #30 tablet 01/23/18 [Rx] GlipiZIDE XL (24 HR) [Glucotrol XL] 10 mg PO 0800 tab.er.24 03/15/18 [Rx] Furosemide [Lasix] 40 mg PO 0800,1600 06/22/18 [History] Acetaminophen [Tylenol 8 Hour] 650 mg PO 0800,1200,199907/08/18 [History] Aspirin [Adult Aspirin] 81 mg PO 0800 07/08/18 [History] Donepezil [Aricept] 5 mg PO 199907/08/18 [History] Insulin Regular, Human [Novolin R] 0 unit SQ 0800,1200,1599,1999 PRN 07/08/18 [History] Ipratropium/Albuterol Neb [Duoneb] 3 ml IH 6XD PRN 07/08/18 [History] Isosorbide MONOnitrate (24 HR) [Imdur] 60 mg PO 0800 07/08/18 [History] Loperamide [Imodium] 2 mg PO QID PRN 07/08/18 [History] Potassium Chloride [K-Tab ER] 20 meq PO 0800 07/08/18 [History] Menthol [Cough Drops] 9.1 mg PO Q2H PRN lozenge 07/16/18 [Rx] Albuterol Sulfate [Ventolin Hfa] 2 puff IH Q4H PRN 07/22/18 [History] GuaiFENesin/Dextromethorphan [Robitussin/Dm] 10 ml PO QID PRN 07/22/18 [History] Guaifenesin [Mucinex] 1,200 mg PO 0800,199907/22/18 [History] Metoprolol Tartrate [Lopressor] 50 mg PO 0800,199907/22/18 [History] Metoprolol [Lopressor] 25 mg PO 799,199907/22/18 [History] clonazePAM [Clonazepam] 0.5 mg PO 199907/22/18 [History] Oseltamivir Phosphate [Tamiflu] 30 mg PO BID #2 capsule 07/25/18 [Rx] predniSONE [PredniSONE] 20 mg PO DAILY #3 tablet 07/25/18 [Rx] Allergies/Adverse Reactions: Allergy/AdvReac Type Severity Reaction Status Date / Time codeine AdvReac Severe Hallucinati Verified 07/22/18 16:58 ng morphine AdvReac Severe Hallucinati Verified 07/22/18 16:58 ng Date of admission: 07/21/18 13:34 Primary care physician: Harman Alexis MD Consults: 07/21/18 11:19 Consult to Nurse Navigator [CONS] Routine Comment: 07/23/18 08:23 Consult to Nurse Navigator [CONS] Routine Comment: COPD - Constitutional Vitals: Temp Pulse Resp BP Pulse Ox 97.5 F L 62 16 145/70 99 07/25/18 10:23 07/25/18 10:23 07/25/18 11:13 07/25/18 10:23 07/25/18 11:13 General appearance: Present: cooperative, A&O X 3, answers questions appropriate ly Exam: Gen.: Alert and oriented 3, no acute distress Heart: Regular rate and rhythm, no gallops Lungs: Clear to auscultation bilaterally. No rales, rhonchi, wheezes Abdomen: Soft, nontender, nondistended. Normoactive bowel sounds. Neuro: Minimal tremor on both UEs - Patient Status Disposition: Transfer SNF Condition: Fair Overall status at discharge: patient is progressing back to baseline - Discharge Instructions Instructions: Chronic Obstructive Pulmonary Disease (DC), Acute Respiratory Distress Syndrome (DC), Diabetes Mellitus Type 2 in Adults (DC), Atrial Fibrillation (DC) Follow Up With: Harman Alexis MD [Primary Care Provider] - Additional Instructions: Completed 5 days of Levaquin inpatient 1 more day of tamiflu and steroid taper as prescribed - Diet and Activity Activity: as per physical therapy Diet: diabetic diet
[2018-07-25 11:55] LABS: Basophils % 0.1 %; Hematocrit 42.3 % (35.3-44.9); Hemoglobin 13.5 g/dL (11.5-15.4); Immature Granulocytes % 0.6 % (0-4); Lymphocytes # 1.7 K/mcL (0.6-4.6); Lymphocytes % 19.3 %; Mean Corpuscular HGB Conc 31.9 g/dL (31.6-35.5); Mean Corpuscular Hemoglobin 30.7 pg (28.0-33.3); Mean Corpuscular Volume 96.1 fL (83.0-100.0); Mean Platelet Volume 10.5 fL (9.4-12.4); Monocytes # 0.5 K/mcL (0.0-1.3); Monocytes % 6.2 %; Neutrophils # 6.3 K/mcL (1.6-8.9); Platelet Count 106 K/mcL (140-400); Red Cell Distribution Width 13.2 % (11.5-14.5); Segmented Neutrophils % 73.8 %
--- NOTE | 2018-07-25 11:59 | Physician Discharge Referral ---
[facility] Referral Info Transfer To: [facility] Level [facility] Care: Skilled - Diagnosis (1) Hypertension Priority: Secondary Status: Chronic (2) Atrial fibrillation Priority: Secondary Status: Chronic (3) DM type 2 (diabetes mellitus, type 2) Priority: Secondary Status: Chronic (4) Acute exacerbation of chronic obstructive airways disease Priority: Primary Status: Acute (5) CAD (coronary artery disease) Priority: Secondary Status: Chronic (6) Elevated bilirubin Priority: Secondary Status: Acute (7) Contusion of abdominal wall Priority: Secondary Status: Acute (8) Influenza A Priority: Secondary Status: Acute (9) Diabetes mellitus with stage 3 chronic kidney disease, without long-term current use of insulin Priority: Secondary Status: Acute (10) Acute and chronic respiratory failure Priority: Secondary Status: Acute - Transfer Medications Prescriptions: Oseltamivir Phosphate [Tamiflu] 30 mg PO BID #2 capsule predniSONE [PredniSONE] 20 mg PO DAILY #3 tablet Home Medications: Atorvastatin [Lipitor] 40 mg PO 199906/12/15 [History] Citalopram Hydrobromide [Citalopram HBr] 10 mg PO 0800 08/02/17 [History] Clopidogrel [Plavix] 75 mg PO DAILY 30 Days #30 tablet 01/23/18 [Rx] GlipiZIDE XL (24 HR) [Glucotrol XL] 10 mg PO 0800 tab.er.24 03/15/18 [Rx] Furosemide [Lasix] 40 mg PO 0800,1600 06/22/18 [History] Acetaminophen [Tylenol 8 Hour] 650 mg PO 0800,1200,199907/08/18 [History] Aspirin [Adult Aspirin] 81 mg PO 0800 07/08/18 [History] Donepezil [Aricept] 5 mg PO 199907/08/18 [History] Insulin Regular, Human [Novolin R] 0 unit SQ 0800,1200,1599,1999 PRN 07/08/18 [History] Ipratropium/Albuterol Neb [Duoneb] 3 ml IH 6XD PRN 07/08/18 [History] Isosorbide MONOnitrate (24 HR) [Imdur] 60 mg PO 0800 07/08/18 [History] Loperamide [Imodium] 2 mg PO QID PRN 07/08/18 [History] Potassium Chloride [K-Tab ER] 20 meq PO 0800 07/08/18 [History] Menthol [Cough Drops] 9.1 mg PO Q2H PRN lozenge 07/16/18 [Rx] Albuterol Sulfate [Ventolin Hfa] 2 puff IH Q4H PRN 07/22/18 [History] GuaiFENesin/Dextromethorphan [Robitussin/Dm] 10 ml PO QID PRN 07/22/18 [History] Guaifenesin [Mucinex] 1,200 mg PO 0800,199907/22/18 [History] Metoprolol Tartrate [Lopressor] 50 mg PO 0800,199907/22/18 [History] Metoprolol [Lopressor] 25 mg PO 0800,199907/22/18 [History] clonazePAM [Clonazepam] 0.5 mg PO 199907/22/18 [History] Oseltamivir Phosphate [Tamiflu] 30 mg PO BID #2 capsule 07/25/18 [Rx] predniSONE [PredniSONE] 20 mg PO DAILY #3 tablet 07/25/18 [Rx] Allergies/Adverse Reactions: Allergy/AdvReac Type Severity Reaction Status Date / Time codeine AdvReac Severe Hallucinati Verified 07/22/18 16:58 ng morphine AdvReac Severe Hallucinati Verified 07/22/18 16:58 ng - Respiratory Orders Oxygen / L per min (3L at all times) Smoking Cessation: Smoking cessation has been advised. For more information, call the [place] Tobacco Quit Line at 6-373-IJBL-NOW. - Rehabiliation Orders Rehab Orders: Evaluation for Physical Therapy, Evaluation for Occupational Therapy - Diet Orders No Concentrated Sweets CERTIFICATION: I certify that the transfer of the above named patient to an Extended Care Facility is necessary for the continuing treatment of the diagnosis listed. The above information is true and accurate reflection of patient's current condition. Confidential - Redisclosure prohibited without a patient's written consent.
[2018-07-25] MEDS: levoFLOXacin 500 MG TABLET PO SCH (13:29)
[2018-07-25] MEDS ORDERED: Menthol 9.1 MG LOZENGE PO PRN (14:43)
[2018-07-25] MEDS: clonazePAM 0.5 MG TABLET PO SCH (20:33)
[2018-07-26] MEDS: Ipratropium/Albuterol Neb 3 ML IH SCH ×3 (03:18→10:53)
[2018-07-26] MEDS: Insulin LISPRO 300 UNITS/3 ML VIAL SQ SCH ×2 (07:48→12:26)
[2018-07-26] MEDS: Aspirin Enteric Coated 81 MG Tablet PO SCH (08:59)
[2018-07-26] MEDS: Furosemide 40 MG TABLET PO SCH (09:00)
[2018-07-26] MEDS: Insulin DETEMIR 100 UNIT/ML X5UNITS SQ SCH (09:00)
[2018-07-26] MEDS: Isosorbide MONOnitrate (24 HR) 60 MG TAB.ER.24H PO SCH (09:00)
[2018-07-26] MEDS ORDERED: predniSONE 20 MG TABLET PO SCH (09:00)
[2018-07-26] MEDS: Oseltamivir Phosphate 30 MG CAPSULE PO SCH (09:00)
[2018-07-26 10:31] VITALS: BP 126/68
== END 2018-07-26 13:35 | DRG 193 ==
LOC: EMEROOARM 07:46 → 3ANU 07:46 → SUATTDRO 13:34 → 3ANU 13:56
PROVIDERS: ADMIT Internal Medicine; ATTEND Internal Medicine

== ENCOUNTER 2020-02-11 12:10 | Inpatient (IN) ==
[2020-02-11] MEDS ORDERED: 0.9 % Sodium Chloride 250 ML IVC ONE (12:20)
[2020-02-11 12:46] LABS: Immature Granulocytes % 0.5 % (0-4); Platelet Count 139 K/mcL (140-400); Red Cell Distribution Width 14.3 % (11.5-14.5)
[2020-02-11 12:47] LABS: Basophils % 0.3 %; Eosinophils % 0.7 %; Hematocrit 42.2 % (35.3-44.9); Hemoglobin 12.6 g/dL (11.5-15.4); Immature Platelets 3.6 % (1.1-6.1); Lymphocytes # 1.4 K/mcL (0.6-4.6); Lymphocytes % 23.6 %; Mean Corpuscular HGB Conc 29.9 g/dL (31.6-35.5); Mean Corpuscular Hemoglobin 28.9 pg (28.0-33.3); Mean Corpuscular Volume 96.8 fL (83.0-100.0); Mean Platelet Volume 10.1 fL (9.4-12.4); Monocytes # 0.7 K/mcL (0.0-1.3); Monocytes % 12.1 %; Neutrophils # 3.8 K/mcL (1.6-8.9); Red Blood Count 4.36 M/mcL (3.82-4.97); Segmented Neutrophils % 62.8 %; White Blood Count 6.1 K/mcL (4.3-11.1)
[2020-02-11 13:08] LABS: Albumin 3.9 g/dL (3.5-5.7); Albumin/Globulin Ratio 1.3 (1.1-2.2); Bilirubin,Total 1.3 mg/dL (0.3-1.0); Calcium 8.7 mg/dL (8.6-10.3); Globulin 2.9 g/dL (2.4-3.5); Potassium 4.9 mEq/L (3.5-5.1); Total Protein 6.8 g/dL (6.4-8.9); Troponin I 0.03 ng/mL (< 0.04)
[2020-02-11] MEDS ORDERED: Furosemide 40 MG TABLET PO SCH (13:15)
[2020-02-11] MEDS ORDERED: Naloxone 0.4 MG/ML INJ IVP PRN (16:16)
[2020-02-11] MEDS ORDERED: Ondansetron ODT 4 MG TAB.RAPDIS SL PRN (16:16)
[2020-02-11] MEDS ORDERED: *HR* OxyCODONE Immed Rel 5 MG TABLET PO PRN (16:35)
[2020-02-11] MEDS ORDERED: *HR* Dextrose 50 % in Water (Vial) 50 ML VIAL IVP PRN (16:39)
[2020-02-11] MEDS ORDERED: Dextrose Gel 15 GM/37.5 ML TUBE PO PRN ×2 (16:39)
[2020-02-11] MEDS ORDERED: D5% in Water 1,000 ML IVC PRN (16:39)
[2020-02-11] MEDS ORDERED: *HR* OxyCODONE/APAP 5/325 TABLET PO SCH (16:45)
[2020-02-11] MEDS: dexAMETHasone 4 MG TABLET PO SCH (16:47)
[2020-02-11] MEDS ORDERED: *HR* OxyCODONE/APAP 5/325 TABLET PO PRN (17:08)
[2020-02-11] MEDS: Insulin LISPRO 300 UNITS/3 ML VIAL SQ SCH (21:08)
[2020-02-11] MEDS: *HR* Heparin 5,000 UNIT/ML VIAL SQ SCH (22:37)
[2020-02-12 04:00] LABS: Basophils % 0.3 %; Eosinophils % 0.3 %; Hematocrit 42.7 % (35.3-44.9); Immature Granulocytes % 0.5 % (0-4); Lymphocytes % 24.2 %; Mean Corpuscular HGB Conc 30.4 g/dL (31.6-35.5); Mean Corpuscular Hemoglobin 29.7 pg (28.0-33.3); Mean Corpuscular Volume 97.5 fL (83.0-100.0); Mean Platelet Volume 11.4 fL (9.4-12.4); Monocytes # 0.2 K/mcL (0.0-1.3); Monocytes % 5.9 %; Neutrophils # 2.7 K/mcL (1.6-8.9); Platelet Count 151 K/mcL (140-400); Red Blood Count 4.38 M/mcL (3.82-4.97); Segmented Neutrophils % 68.8 %; White Blood Count 3.9 K/mcL (4.3-11.1)
[2020-02-12 04:20] LABS: Albumin 3.9 g/dL (3.5-5.7); Albumin/Globulin Ratio 1.3 (1.1-2.2); Bilirubin,Total 1.2 mg/dL (0.3-1.0); Calcium 8.7 mg/dL (8.6-10.3); Potassium 5.3 mEq/L (3.5-5.1); Total Protein 6.9 g/dL (6.4-8.9)
[2020-02-12] MEDS: *HR* Heparin 5,000 UNIT/ML VIAL SQ SCH ×3 (05:43→20:43)
[2020-02-12] MEDS: Aspirin Enteric Coated 81 MG Tablet PO SCH (08:30)
[2020-02-12] MEDS: clonazePAM 0.5 MG TABLET PO SCH (08:30)
[2020-02-12] MEDS: Metoprolol XL (24 HR) Succ 50 MG TAB.ER.24H PO SCH (08:31)
[2020-02-12] MEDS: dexAMETHasone 4 MG TABLET PO SCH (08:31)
[2020-02-12] MEDS: Insulin LISPRO 300 UNITS/3 ML VIAL SQ SCH ×4 (08:31→21:14)
[2020-02-12] MEDS: Isosorbide MONOnitrate (24 HR) 60 MG TAB.ER.24H PO SCH (08:31)
[2020-02-12] MEDS: Furosemide 20 MG/2 ML VIAL IVP SCH ×2 (12:43→20:42)
[2020-02-13 05:42] LABS: Hematocrit 43.5 % (35.3-44.9); Hemoglobin 13.8 g/dL (11.5-15.4); Mean Corpuscular HGB Conc 31.7 g/dL (31.6-35.5); Mean Corpuscular Volume 94.6 fL (83.0-100.0); Mean Platelet Volume 10.9 fL (9.4-12.4); Platelet Count 157 K/mcL (140-400); Red Cell Distribution Width 13.8 % (11.5-14.5); White Blood Count 4.1 K/mcL (4.3-11.1)
[2020-02-13] MEDS: *HR* Heparin 5,000 UNIT/ML VIAL SQ SCH ×2 (05:53→14:01)
[2020-02-13 06:04] LABS: Calcium 9.1 mg/dL (8.6-10.3); Potassium 4.2 mEq/L (3.5-5.1)
[2020-02-13] MEDS: dexAMETHasone 4 MG TABLET PO SCH (08:34)
[2020-02-13] MEDS: Metoprolol XL (24 HR) Succ 50 MG TAB.ER.24H PO SCH (08:36)
[2020-02-13] MEDS: Furosemide 20 MG/2 ML VIAL IVP SCH (08:38)
[2020-02-13] MEDS: clonazePAM 0.5 MG TABLET PO SCH (08:38)
[2020-02-13] MEDS: Aspirin Enteric Coated 81 MG Tablet PO SCH (08:38)
[2020-02-13] MEDS: Isosorbide MONOnitrate (24 HR) 60 MG TAB.ER.24H PO SCH (08:38)
[2020-02-13] MEDS: Insulin LISPRO 300 UNITS/3 ML VIAL SQ SCH ×3 (08:39→16:19)
[2020-02-13 10:40] VITALS: BP 110/63
== END 2020-02-13 16:52 | DRG 177 ==
LOC: EMEROOARM 12:10 → 2NENU 12:10 → SUATTDRO 13:35 → 2NENU 14:10
PROVIDERS: ADMIT Pharmacist; ATTEND Internal Medicine

== ENCOUNTER 2021-03-28 12:23 | Inpatient (IN) ==
[2021-03-28] MEDS ORDERED: 0.9 % Sodium Chloride 500 ML IVC ONE (12:35)
[2021-03-28 14:00] LABS: Basophils % 0.1 %; Eosinophils # 0.1 K/mcL (0.0-0.6); Eosinophils % 0.9 %; Hematocrit 36.4 % (35.3-44.9); Immature Granulocytes % 0.3 % (0-4); Lymphocytes # 1.7 K/mcL (0.6-4.6); Lymphocytes % 22.8 %; Mean Corpuscular HGB Conc 30.2 g/dL (31.6-35.5); Mean Corpuscular Hemoglobin 30.7 pg (28.0-33.3); Mean Corpuscular Volume 101.7 fL (83.0-100.0); Mean Platelet Volume 10.2 fL (9.4-12.4); Monocytes # 0.6 K/mcL (0.0-1.3); Monocytes % 7.7 %; Neutrophils # 5.1 K/mcL (1.6-8.9); Platelet Count 204 K/mcL (140-400); Red Blood Count 3.58 M/mcL (3.82-4.97); Red Cell Distribution Width 14.5 % (11.5-14.5); Segmented Neutrophils % 68.2 %; White Blood Count 7.5 K/mcL (4.3-11.1)
[2021-03-28 14:12] LABS: Prothrombin Time 11.5 Seconds (9.4-12.1)
[2021-03-28 14:15] LABS: Activated Partial Thrombo Time 31.1 Seconds (26.0-36.0)
[2021-03-28 14:30] LABS: Alanine Aminotransferase 12 Units/L (7-52); Albumin 3.7 g/dL (3.5-5.7); Albumin/Globulin Ratio 1.7 (1.1-2.2); Alkaline Phosphatase 85 Units/L (34-104); Aspartate Amino Transferase 15 Units/L (13-39); BUN/Creatinine Ratio 26 (6-26); Bilirubin,Direct 0.2 mg/dL (0.0-0.2); Bilirubin,Indirect 0.6 mg/dL (0.0-1.0); Bilirubin,Total 0.8 mg/dL (0.3-1.0); Blood Urea Nitrogen 118 mg/dL (8-23); Calcium 8.7 mg/dL (8.6-10.3); Carbon Dioxide 17 mEq/L (23-29); Chloride 109 mEq/L (98-107); Ethanol < 10 mg/dL (Less than 10); Globulin 2.2 g/dL (2.4-3.5); Glucose 141 mg/dL (70-105); Magnesium 1.8 mg/dL (1.6-2.6); Osmolality,Calculated 322 (280-300); Sodium 136 mEq/L (136-145); Total Protein 5.9 g/dL (6.4-8.9); Troponin I 0.03 ng/mL (< 0.04); eGFR For African Americans 11 (> 60); eGFR For Non-African Americans 9 (> 60)
[2021-03-28] MEDS ORDERED: Albuterol 2.5 MG/3 ML NEBULIZER IH ONE (14:31)
[2021-03-28] MEDS ORDERED: Insulin Human Regular 5 UNIT in 0.9 % Sodium Chloride 10 ML IV ONE (14:31)
[2021-03-28] MEDS ORDERED: Calcium Gluconate 1gm/50mL 1 GM/50 ML BAG IVPB ONE (14:31)
[2021-03-28] MEDS ORDERED: *HR* Dextrose 50 % in Water (Syg) 50 ML SYRINGE IVP ONE (14:31)
[2021-03-28] MEDS ORDERED: Azithromycin 500 MG in 0.9 % Sodium Chloride 250 ML IVPB ONE (14:32)
[2021-03-28 15:14] LABS: Phosphorous 5.1 mg/dL (2.7-4.5)
[2021-03-28] MEDS ORDERED: Sodium Bicarbonate 150 MEQ in Water for inj. (sterile) 1,000 ML IVC SCH (15:15)
[2021-03-28] MEDS ORDERED: *HR* Dextrose 50 % in Water (Syg) 50 ML SYRINGE IVP PRN (15:28)
[2021-03-28] MEDS ORDERED: D5% in Water 1,000 ML IVC PRN (15:28)
[2021-03-28] MEDS ORDERED: Dextrose Gel 15 GM/37.5 ML TUBE PO PRN ×2 (15:28)
[2021-03-28] MEDS: SODIUM ZIRCONIUM CYCLOSILICATE 5 GM POWD.PACK PO SCH (15:51)
[2021-03-28] MEDS ORDERED: cefTRIAXone 1,000 MG in 0.9 % Sodium Chloride Mini Bag 100 ML IVPB ONE (15:54)
[2021-03-28] MEDS: Insulin LISPRO 300 UNITS/3 ML VIAL SUBQ SCH (16:01)
[2021-03-28] MEDS ORDERED: clonazePAM 0.5 MG TABLET PO PRN (16:09)
[2021-03-28] MEDS ORDERED: cefTRIAXone 1,000 MG in Water for inj. (sterile) 10 ML IVP ONE (17:00)
[2021-03-28 19:31] LABS: Basophils % 0.2 %; Eosinophils # 0.1 K/mcL (0.0-0.6); Eosinophils % 0.8 %; Hemoglobin 11.8 g/dL (11.5-15.4); Immature Granulocytes % 0.7 % (0-4); Lymphocytes # 2.8 K/mcL (0.6-4.6); Lymphocytes % 24.6 %; Mean Corpuscular HGB Conc 31.9 g/dL (31.6-35.5); Mean Corpuscular Hemoglobin 31.4 pg (28.0-33.3); Mean Corpuscular Volume 98.4 fL (83.0-100.0); Mean Platelet Volume 10.7 fL (9.4-12.4); Monocytes # 0.9 K/mcL (0.0-1.3); Monocytes % 7.8 %; Neutrophils # 7.6 K/mcL (1.6-8.9); Platelet Count 194 K/mcL (140-400); Red Blood Count 3.76 M/mcL (3.82-4.97); Red Cell Distribution Width 14.6 % (11.5-14.5); Segmented Neutrophils % 65.9 %
[2021-03-28 19:32] LABS: White Blood Count 11.5 K/mcL (4.3-11.1)
[2021-03-28] MEDS: Acetaminophen 325 MG TABLET PO PRN (19:38)
[2021-03-28 19:48] LABS: Potassium 7.2 mEq/L (3.5-5.1)
[2021-03-28] MEDS ORDERED: 0.9 % Sodium Chloride 250 ML IVC PRN (20:05)
[2021-03-28] MEDS ORDERED: 0.9 % Sodium Chloride 1,000 ML PRIME SCH (20:15)
[2021-03-28] MEDS ORDERED: *HR* Heparin 10,000 UNIT/10 ML VIAL IV PRN (20:57)
[2021-03-28] MEDS ORDERED: Heparin 1,000 UNITS/500 mL 500 ML ONE (21:16)
[2021-03-28] MEDS ORDERED: *HR* Heparin 5,000 UNIT/ML VIAL ONE (21:19)
[2021-03-28 21:43] LABS: Hepatitis B Surface Antibody < 3.10 mIU/mL
[2021-03-28 21:53] LABS: Hepatitis B Surface Antigen Nonreactive (Nonreactive)
[2021-03-29 02:15] LABS: Bilirubin,Urine Negative (Negative); Blood,Urine Large (Negative); Clarity,Urine Clear (Clear); Color,Urine Colorless (Yellow); Glucose,Urine (UA) Normal (Normal); Ketones,Urine 10 mg/dL (Negative); Leukocyte Esterase,Urine Negative (Negative); Mucus,Urine Few per lpf (None-Few); Nitrite,Urine Negative (Negative); Protein,Urine Trace mg/dL (Neg-Trace); RBC,Urine 0-3 per hpf (0-3); Specific Gravity,Urine 1.009 (1.010-1.025); Squamous Epithelial Cell,Urine Few per hpf (None-Few); Urobilinogen,Urine Normal (Normal); WBC,Urine 0-3 per hpf (0-3)
[2021-03-29 04:34] LABS: Basophils % 0.1 %; Eosinophils # 0.1 K/mcL (0.0-0.6); Hematocrit 31.8 % (35.3-44.9); Hemoglobin 10.3 g/dL (11.5-15.4); Immature Granulocytes % 0.3 % (0-4); Lymphocytes # 1.8 K/mcL (0.6-4.6); Lymphocytes % 25.2 %; Mean Corpuscular HGB Conc 32.4 g/dL (31.6-35.5); Mean Corpuscular Hemoglobin 32.1 pg (28.0-33.3); Mean Corpuscular Volume 99.1 fL (83.0-100.0); Mean Platelet Volume 10.1 fL (9.4-12.4); Monocytes # 0.7 K/mcL (0.0-1.3); Monocytes % 9.7 %; Neutrophils # 4.6 K/mcL (1.6-8.9); Platelet Count 177 K/mcL (140-400); Red Blood Count 3.21 M/mcL (3.82-4.97); Red Cell Distribution Width 14.4 % (11.5-14.5); Segmented Neutrophils % 63.7 %; White Blood Count 7.2 K/mcL (4.3-11.1)
[2021-03-29 04:49] LABS: Estimated Average Glucose 177 mg/dl; Hemoglobin A1C 7.8 %
[2021-03-29 04:52] LABS: INR 1.1; Prothrombin Time 12.1 Seconds (9.4-12.1)
[2021-03-29 04:57] LABS: Calcium 8.4 mg/dL (8.6-10.3); Magnesium 1.7 mg/dL (1.6-2.6); Phosphorous 3.3 mg/dL (2.7-4.5); Potassium 4.4 mEq/L (3.5-5.1)
[2021-03-29] MEDS: Metoprolol XL (24 HR) Succ 25 MG TAB.ER.24H PO SCH (08:20)
[2021-03-29] MEDS: SODIUM ZIRCONIUM CYCLOSILICATE 5 GM POWD.PACK PO SCH (08:20)
[2021-03-29] MEDS: Insulin LISPRO 300 UNITS/3 ML VIAL SUBQ SCH ×3 (08:24→17:02)
[2021-03-29] MEDS: Doxycycline 100 MG in 0.9 % Sodium Chloride Mini Bag 100 ML IVPB SCH ×2 (08:25→17:57)
[2021-03-29] MEDS ORDERED: Metoprolol XL (24 HR) Succ 50 MG TAB.ER.24H PO SCH (09:00)
[2021-03-29] MEDS ORDERED: Ipratropium/Albuterol Neb 3 ML IH PRN (15:31)
[2021-03-29] MEDS: Acetaminophen 325 MG TABLET PO PRN (19:57)
[2021-03-30 02:02] LABS: Protein/Creatinine Ratio,Urine 0.63 mg/mg (0.00-0.20); Sodium, Urine 40.9 mEq/L
[2021-03-30] MEDS: Doxycycline 100 MG in 0.9 % Sodium Chloride Mini Bag 100 ML IVPB SCH ×2 (04:52→16:15)
[2021-03-30 05:50] LABS: Basophils % 0.4 %; Eosinophils # 0.1 K/mcL (0.0-0.6); Hematocrit 33.2 % (35.3-44.9); Hemoglobin 10.6 g/dL (11.5-15.4); Immature Granulocytes % 0.4 % (0-4); Lymphocytes # 3.1 K/mcL (0.6-4.6); Lymphocytes % 39.1 %; Mean Corpuscular HGB Conc 31.9 g/dL (31.6-35.5); Mean Corpuscular Volume 100.3 fL (83.0-100.0); Mean Platelet Volume 10.4 fL (9.4-12.4); Monocytes # 0.8 K/mcL (0.0-1.3); Neutrophils # 3.9 K/mcL (1.6-8.9); Platelet Count 177 K/mcL (140-400); Red Blood Count 3.31 M/mcL (3.82-4.97); Red Cell Distribution Width 14.6 % (11.5-14.5); Segmented Neutrophils % 49.1 %; White Blood Count 7.9 K/mcL (4.3-11.1)
[2021-03-30 06:03] LABS: Calcium 8.7 mg/dL (8.6-10.3); Magnesium 1.8 mg/dL (1.6-2.6); Phosphorous 4.3 mg/dL (2.7-4.5); Potassium 4.6 mEq/L (3.5-5.1)
[2021-03-30] MEDS: Insulin LISPRO 300 UNITS/3 ML VIAL SUBQ SCH ×3 (08:23→16:30)
[2021-03-30] MEDS: Aspirin Enteric Coated 81 MG Tablet PO SCH (08:31)
[2021-03-30] MEDS: Metoprolol XL (24 HR) Succ 25 MG TAB.ER.24H PO SCH (08:32)
[2021-03-30] MEDS: SODIUM ZIRCONIUM CYCLOSILICATE 5 GM POWD.PACK PO SCH (12:45)
[2021-03-30] MEDS: Acetaminophen 325 MG TABLET PO PRN (21:09)
[2021-03-31] MEDS ORDERED: Melatonin 3 MG TABLET PO ONE (01:03)
[2021-03-31] MEDS ORDERED: Prochlorperazine 10 MG/2 ML VIAL IVP PRN (01:18)
[2021-03-31] MEDS: Doxycycline 100 MG in 0.9 % Sodium Chloride Mini Bag 100 ML IVPB SCH ×2 (06:31→17:32)
[2021-03-31] MEDS: Aspirin Enteric Coated 81 MG Tablet PO SCH (08:16)
[2021-03-31] MEDS: Metoprolol XL (24 HR) Succ 25 MG TAB.ER.24H PO SCH (08:17)
[2021-03-31] MEDS: Insulin LISPRO 300 UNITS/3 ML VIAL SUBQ SCH ×3 (08:27→17:39)
[2021-03-31 09:41] LABS: Basophils % 0.4 %; Eosinophils # 0.1 K/mcL (0.0-0.6); Eosinophils % 0.7 %; Hematocrit 36.7 % (35.3-44.9); Hemoglobin 11.1 g/dL (11.5-15.4); Immature Granulocytes % 0.5 % (0-4); Lymphocytes # 1.5 K/mcL (0.6-4.6); Lymphocytes % 18.5 %; Mean Corpuscular HGB Conc 30.2 g/dL (31.6-35.5); Mean Corpuscular Hemoglobin 31.1 pg (28.0-33.3); Mean Corpuscular Volume 102.8 fL (83.0-100.0); Mean Platelet Volume 10.4 fL (9.4-12.4); Monocytes # 0.6 K/mcL (0.0-1.3); Monocytes % 7.9 %; Neutrophils # 5.8 K/mcL (1.6-8.9); Platelet Count 157 K/mcL (140-400); Red Blood Count 3.57 M/mcL (3.82-4.97); Red Cell Distribution Width 14.2 % (11.5-14.5)
[2021-03-31 10:08] LABS: Calcium 9.2 mg/dL (8.6-10.3); Magnesium 1.6 mg/dL (1.6-2.6); Phosphorous 2.6 mg/dL (2.7-4.5); Potassium 4.5 mEq/L (3.5-5.1)
[2021-04-01 03:19] LABS: Basophils % 0.3 %; Eosinophils # 0.1 K/mcL (0.0-0.6); Eosinophils % 0.6 %; Hematocrit 37.9 % (35.3-44.9); Hemoglobin 11.6 g/dL (11.5-15.4); Immature Granulocytes % 0.4 % (0-4); Lymphocytes # 2.1 K/mcL (0.6-4.6); Lymphocytes % 19.6 %; Mean Corpuscular HGB Conc 30.6 g/dL (31.6-35.5); Mean Corpuscular Hemoglobin 31.3 pg (28.0-33.3); Mean Corpuscular Volume 102.2 fL (83.0-100.0); Mean Platelet Volume 10.5 fL (9.4-12.4); Monocytes # 0.7 K/mcL (0.0-1.3); Neutrophils # 7.6 K/mcL (1.6-8.9); Platelet Count 162 K/mcL (140-400); Red Blood Count 3.71 M/mcL (3.82-4.97); Red Cell Distribution Width 14.2 % (11.5-14.5); Segmented Neutrophils % 72.1 %; White Blood Count 10.5 K/mcL (4.3-11.1)
[2021-04-01 03:38] LABS: Calcium 8.9 mg/dL (8.6-10.3); Magnesium 1.5 mg/dL (1.6-2.6); Phosphorous 2.2 mg/dL (2.7-4.5); Potassium 4.8 mEq/L (3.5-5.1)
[2021-04-01] MEDS: Doxycycline 100 MG in 0.9 % Sodium Chloride Mini Bag 100 ML IVPB SCH (05:50)
[2021-04-01] MEDS: Insulin LISPRO 300 UNITS/3 ML VIAL SUBQ SCH (09:02)
[2021-04-01] MEDS: Aspirin Enteric Coated 81 MG Tablet PO SCH (09:03)
[2021-04-01] MEDS: Metoprolol XL (24 HR) Succ 25 MG TAB.ER.24H PO SCH (09:03)
[2021-04-01 09:14] VITALS: TEMP 97.8; O2SAT 100
[2021-04-01] MEDS ORDERED: Magnesium Oxide 400 MG TABLET PO ONE (10:00)
[2021-04-01 11:30] LABS: Adenovirus Not Detected (Not Detect); Bordetella Pertussis Not Detected (Not Detect); Chlamydophila pneumoniae Not Detected (Not Detect); Coronavirus 229E Not Detected (Not Detect); Coronavirus HKU1 Not Detected (Not Detect); Coronavirus NL63 Not Detected (Not Detect); Coronavirus OC43 Not Detected (Not Detect); Human Metapneumovirus Not Detected (Not Detect); Human Rhinovirus/Enterovirus Not Detected (Not Detect); Influenza A Subtype 2009 H1 Not Detected (Not Detect); Influenza B Not Detected (Not Detect); Mycoplasma pneumoniae Not Detected (Not Detect); Parainfluenza Virus 1 Not Detected (Not Detect); Parainfluenza Virus 2 Not Detected (Not Detect); Parainfluenza Virus 3 Not Detected (Not Detect); Parainfluenza Virus 4 Not Detected (Not Detect); Respiratory Syncytial Virus Not Detected (Not Detect); SARS-CoV-2 Not Detected (Not Detect)
[2021-04-01 12:00] VITALS: BP 117/47; PULSE 62
[2021-04-01] MEDS ORDERED: Doxycycline 100 MG CAPSULE PO SCH (18:00)
== END 2021-04-01 12:49 | DRG 682 ==
LOC: EMEROOARM 12:23 → 2ANU 12:23 → SUATTDRO 14:53 → 2ANU 15:45 → SUATTDRO 16:02
PROVIDERS: ADMIT Family Medicine; ATTEND Student in an Organized Health Care Education/Training Program